=== PATIENT | male | born 1970 | race Caucasian/White ===

== ENCOUNTER 2016-08-26 06:57 | Inpatient (IN) | payer MEDICAID ==
[2016-08-26 06:58] VITALS: BMI 22.3
[2016-08-26] MEDS ORDERED: Sodium Chloride 0.9% 1,000 ML IV ONE ×2 (07:43→11:13)
--- NOTE | 2016-08-26 07:49 | C.PDOC ---
History Of Present Illness Patient is a 46 y/o male that presents to the ED for evaluation of left side chest pain when coughing, and worsened with deep breath for the last 3-4 days. 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 Pt also notes (+) chills. Otherwise, denies any fever, n/v/d, diaphoresis, trauma, numbness or weakness. Time Seen by Provider: 08/26/16 07:32 Chief Complaint (Nursing): Back Pain History Per: Patient History/Exam Limitations: no limitations Onset/Duration Of Symptoms: Days (4), Persistent Current Symptoms Are (Timing): Still Present Quality Of Discomfort: Sharp, "Pain" Severity: Moderate Pain Scale Rating Of: 10 Previous Symptoms: None Associated Symptoms: None. denies: Incontinence, New Weakness, New Numbness Exacerbating Factor(s): Other (deep breathing) Recent travel outside of the [place]: No Additional History Per: Patient Past Medical History Reviewed: Historical Data, Nursing Documentation, Vital Signs Vital Signs: Last Vital Signs Temp 97.9 F 08/26/16 13:22 Pulse 85 08/26/16 13:22 Resp 18 08/26/16 13:22 BP 105/68 08/26/16 13:22 Pulse Ox 99 08/26/16 13:22 - Medical History PMH: Anxiety, Depression, Hepatitis Denies: Diabetes, HIV, HTN, Chronic Kidney Disease, Seizures, Sexually Transmitted Disease - [facility] Procedures DETOXIFICATION SERVICES FOR SUBSTANCE ABUSE TREATMENT (02/15/16) DRAINAGE OF LEFT HIP JOINT, PERCUTANEOUS APPROACH (09/22/15) GROUP PSYCHOTHERAPY (09/22/15) INDIVIDUAL PSYCHOTHERAPY, SUPPORTIVE (02/15/16) MEDS MGMT FOR SUBSTANCE ABUSE TREATMENT, METHADONE MAINT (09/22/15) MEDS MGMT FOR SUBSTANCE ABUSE TREATMENT, OTH REPL MED (09/22/15) ULTRASONOGRAPHY OF PELVIC REGION (09/22/15) ULTRASONOGRAPHY OF RIGHT AND LEFT HEART (09/22/15) Family History: States: No Known Family Hx - Social History Hx Tobacco Use: Yes (heavy smoker) Hx Alcohol Use: Yes Hx Substance Use: Yes - Immunization History Hx Tetanus Toxoid Vaccination: No Hx Influenza Vaccination: No Hx Pneumococcal Vaccination: No Review Of Systems Except As Marked, All Systems Reviewed And Found Negative. Constitutional: Positive for: Chills. Negative for: Fever, Sweats Cardiovascular: Positive for: Chest Pain. Negative for: Palpitations, Light Headedness Respiratory: Positive for: Cough Gastrointestinal: Negative for: Nausea, Vomiting, Diarrhea Physical Exam - Physical Exam Appears: Non-toxic, No Acute Distress Skin: Normal Color, Warm, Dry, No Rash Head: Atraumatic, Normacephalic Eye(s): bilateral: Normal Inspection, PERRL, EOMI Ear(s): Bilateral: Normal Oral Mucosa: Moist Throat: Normal, No Erythema, No Exudate Neck: Normal ROM, No Midline Cervical Tenderness, No Paracervical Tenderness, Supple Chest: Symmetrical, No Tenderness Cardiovascular: Rhythm Regular, No Friction Rub, No Murmur Respiratory: Decreased Breath Sounds (mildly decreased breath sounds bilaterally ), No Accessory Muscle Use, No Rhonchi, No Stridor, No Wheezing Gastrointestinal/Abdominal: Soft, No Tenderness, No Guarding, No Hernia Back: Normal Inspection, No CVA Tenderness, No Vertebral Tenderness, No Paraspinal Tenderness Extremity: Normal ROM, No Calf Tenderness, No Swelling Pulses: Left Dorsalis Pedis: Normal, Right Dorsalis Pedis: Normal Neurological/Psych: Oriented x3, Normal Speech, Normal Cognition, Normal Motor, Normal Sensation Gait: Steady ED Course And Treatment - Laboratory Results Result Diagrams: 08/26/16 07:56 08/26/16 07:56 ECG: Interpreted By Sc, Viewed By Sc ECG Rhythm: Sinus Rhythm ECG Interpretation: Normal Interpretation Of ECG: Normal ST/T wave changes. Rate From EC (bpm) O2 Sat by Pulse Oximetry: 98 (on RA) Pulse Ox Interpretation: Normal - Radiology CXR: Interpreted by Sc CXR Interpretation: Yes: Other (pulmonary wedge infiltrate). No: Pnemothorax - CT Scan/US Angio chest CT Other Rad Studies (CT/US): Read By Radiologist, Radiology Report Reviewed CT/US Interpretation: Findings: The current study reveals emboli within proximal segmental branches of the lower lobe pulmonary artery. There is associated wedge-shaped opacity at just distal to the embolus bordering the pleural surface that exhibits areas of low attenuation and air possibly representing infarct with cystic degeneration, necrosis or septic embolus versus pneumonia. There is a small approximately 14 mm nodular density within the anterior aspect left upper lobe with a small central bubble of air ; possibly representing septic embolus. Rule out septic emboli. .Additionally, multiple small nodules some seen in the left lung base. .There is an additional elliptical shaped low-attenuation lesion left upper lobe bordering the fissure measuring 3.9 x 1.6 cm that could represent a collection - loculated fluid. Small left-sided effusion The vague translucent opacities are also seen in the peripheral margins of the left upper lobe bordering the pleural surface. Heart is enlarged. No significant pericardial effusion. .. Multiple small medium- sized bold nonspecific mediastinal lymph nodes are noted. There is a enlarged left hilar lymph node measuring approximately 2 cm hilar lymph node. Note made of changes of gynecomastia. Impression: There are pulmonary emboli within left lower lobe segmental branches of 1 of which may be associated with a pulmonary infarct although this opacity is associated with what appears represent eccentric proteinaceous fluid and air ; rule out the septic emboli with infarct versus underlying not excluded. Small nodular densities left lower lobe. There is an additional small nodule left upper lobe associate with central bubble of air. Again rule out septic emboli. There is an additional elliptical shaped low- attenuation lesion left upper lobe bordering the fissure measuring 3.9 x 1.6 cm that could represent a collection - loculated fluid. Small left effusion. Multiple mediastinal and left hilar lymph nodes are present. Mediastinal and left hilar adenopathy Critical Care Time - Critical Care Note Total Time (in mins): 40 Comments: comments in the MDM Documented critical care: time excludes all time spent performing seperately billable procedures. Medical Decision Making Medical Decision Making: Progress note: Labs, CXR ordered and reviewed. Patient was treated with IV fluids, and Toradol IVP. On the CXR, there is evidence of a wedge shaped deformity indicative of pulmonary infarction. CT chest ordered to look for possible pulmonary embolism. BP:96/60, IV fluids continued. O2 sat remains 96% on RA. Blood cultures ordered and Vancomycin ordered. Spoke with online project manager head banquet waitress, Dr. Enrique, and states will come to ED to examine patient. He states to give anti-coagulation and that more than likely patient will not need ICU as the patient is hemodynamically stable at this time. On re-exam, patient is A&O. x [address] and speaking in full sentences. Dr. Enrique evaluated the patient at bedside and states he can go to telemetry. Lovenox ordered. Case was discussed with Dr. Luis Navarro who agrees to admit the patient to his service. Disposition - Disposition Disposition: HOSPITALIZED Disposition Time: 11:26 Condition: STABLE - POA Present On Arrival: None - Clinical Impression Clinical Impression: Pulmonary embolism, Septic embolism - PA / SENIOR BUSINESS DEVELOPMENT MANAGER / Resident Statement MD/DO has reviewed & agrees with the documentation as recorded. - Scribe Statement The provider has reviewed the documentation as recorded by the Scribe Aisha Navarro All medical record entries made by the Scribe were at my direction and personally dictated by me. I have reviewed the chart and agree that the record accurately reflects my personal performance of the history, physical exam, medical decision making, and the department course for this patient. I have also personally directed, reviewed, and agree with the discharge instructions and disposition.
[2016-08-26] MEDS ORDERED: Sodium Chloride 0.9% 1,000 ML ONE ×2 (07:56→11:32)
[2016-08-26 08:12] LABS: CHLORIDE 97 mmol/L (98-107); SODIUM 133 mmol/L (132-148)
[2016-08-26 08:13] LABS: POTASSIUM 3.3 mmol/L (3.6-5.2)
[2016-08-26 08:14] LABS: GFR AFRICAN-AMERICAN > 60
[2016-08-26 08:15] LABS: ALB/GLOB RATIO 1.1 (1.0-2.1); ALKALINE PHOSPHATASE 134 U/L (38-126); ALT/SGPT 67 U/L (21-72); AST/SGOT 56 U/L (17-59); BILIRUBIN,TOTAL 0.9 mg/dL (0.2-1.3); BLOOD UREA NITROGEN 13 mg/dL (9-20); CALCIUM 8.6 mg/dl (8.6-10.4); CARBON DIOXIDE 25 mmol/L (22-30); GLUCOSE,RANDOM 124 mg/dL (75-110); TOTAL PROTEIN 6.2 g/dL (6.3-8.3)
[2016-08-26 08:18] LABS: BASO % 0.2 % (0.0-2.0); EOS % 0.4 % (0.0-4.0); HEMATOCRIT 34.2 % (35.0-51.0); LYMPH # 0.8 K/uL (1.0-4.3); LYMPH % 6.5 % (20.0-40.0); MEAN CORPUSCULAR HGB CONC 33.9 g/dL (33.0-37.0); MEAN PLATELET VOLUME 6.8 fL (7.2-11.7); MONO % 8.4 % (0.0-10.0); PLATELET COUNT 212 K/uL (130-400); RED CELL DISTRIBUTION WIDTH 12.4 % (11.5-14.5); WHITE BLOOD COUNT 11.8 K/uL (4.8-10.8)
[2016-08-26 08:37] LABS: MEAN CELL VOLUME 85.6 fL (80.0-94.0)
[2016-08-26] MEDS ORDERED: Iodixanol 320 MG/ML 100 ML BOTTLE IV ONE ×2 (08:54→10:14)
[2016-08-26] MEDS ORDERED: Morphine 4 MG/ML VIAL ONE (08:55)
[2016-08-26 09:28] LABS: EOSINOPHIL 1 % (0-4); NEUTROPHIL 84 % (50-75); TOTAL CELLS COUNTED 100
--- NOTE | 2016-08-26 10:47 | CT ---
PROCEDURE: CT Angiography chest dated 08/26/2016. HISTORY: Wedge shaped infiltrate vs pulm infarct TECHNIQUE: Technique: CT angiography of the chest performed in standard fashion. . Coronal and sagittal reformats, and well as rotating MIP images of the vessels generated at the workstation. Intravenous contrast dose: 100cc Omnipaque Visipaque 320 contrast material. Radiation dose: Total exam DLP = 407.09 mGy-cm. This CT exam was performed using one or more of the following dose reduction techniques: Automated exposure control, adjustment of the mA and/or kV according to patient size, and/or use of iterative reconstruction technique. Findings: The current study reveals emboli within proximal segmental branches of the lower lobe pulmonary artery. There is associated wedge-shaped opacity at just distal to the embolus bordering the pleural surface that exhibits areas of low attenuation and air possibly representing infarct with cystic degeneration, necrosis or septic embolus versus pneumonia. There is a small approximately 14 mm nodular density within the anterior aspect left upper lobe with a small central bubble of air ; possibly representing septic embolus. Rule out septic emboli. .Additionally, multiple small nodules some seen in the left lung base. .There is an additional elliptical shaped low-attenuation lesion left upper lobe bordering the fissure measuring 3.9 x 1.6 cm that could represent a collection - loculated fluid. Small left-sided effusion The vague translucent opacities are also seen in the peripheral margins of the left upper lobe bordering the pleural surface Heart is enlarged. No significant pericardial effusion. .. Multiple small medium-sized bold nonspecific mediastinal lymph nodes are noted. There is a enlarged left hilar lymph node measuring approximately 2 cm hilar lymph node. Note made of changes of gynecomastia Impression: There are pulmonary emboli within left lower lobe segmental branches of 1 of which may be associated with a pulmonary infarct although this opacity is associated with what appears represent eccentric proteinaceous fluid and air ; rule out the septic emboli with infarct versus underlying not excluded. Small nodular densities left lower lobe. There is an additional small nodule left upper lobe associate with central bubble of air. Again rule out septic emboli. There is an additional elliptical shaped low-attenuation lesion left upper lobe bordering the fissure measuring 3.9 x 1.6 cm that could represent a collection - loculated fluid Small left effusion. Multiple mediastinal and left hilar lymph nodes are present. Mediastinal and left hilar adenopathy
[2016-08-26] MEDS ORDERED: HYDROmorphone 1 mg/ml ISec IVP STA (10:58)
[2016-08-26] MEDS ORDERED: HYDROmorphone 1 mg/ml ISec ONE (11:08)
[2016-08-26] MEDS ORDERED: Enoxaparin 40 mg Syringe SC STA (11:24)
[2016-08-26] MEDS ORDERED: Enoxaparin 80 mg Syringe ONE (11:32)
--- NOTE | 2016-08-26 12:09 | RAD ---
HISTORY: cough, chest pain, COMPARISON: No prior. TECHNIQUE: Chest PA and lateral FINDINGS: LUNGS: Wedge-shaped opacity in the lateral mid lung field could represent atypical infection however pulmonary infarct not excluded. There also appears to be mild left basilar atelectasis and or scarring. . Small nodules left lung base seen on prior study not appreciated PLEURA: No significant pleural effusion identified. No pneumothorax apparent. CARDIOVASCULAR: Heart size appears enlarged. OSSEOUS STRUCTURES: No significant abnormalities. VISUALIZED UPPER ABDOMEN: Normal. OTHER FINDINGS: None. IMPRESSION: No wedge-shaped opacity left lateral mid lung field could represent pneumonia versus is on infarct. Left basilar atelectasis and or scarring nodular opacity seen in the left lung base not appreciated on this exam
[2016-08-26] MEDS ORDERED: Piperacillin/Tazobact 3.375 GM in Sodium Chloride 100 ML IVPB SCH (15:00)
[2016-08-26] MEDS: HYDROmorphone 0.5 mg/0.5 ml ISec IVP SCH (15:21)
[2016-08-26] MEDS ORDERED: Vancomycin 1 gm/NS 200 ml 200 ML IVPB ONE (15:30)
--- NOTE | 2016-08-26 15:44 | CP.PCM.CON ---
History of Present Illness - History of Present Illness History of Present Illness: 46 y/o male that presents to the ED for evaluation of left side chest pain when coughing, and worsened with deep breath for the last 3-4 days. 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 Pt also notes (+) chills. Otherwise, denies any fever, n/v/d, diaphoresis, trauma, numbness or weakness. Past Patient History - Past Medical History & Family History Past Medical History?: Yes - Past Social History Smoking Status: Heavy Smoker > 10 Cigarettes Daily - CARDIAC Hx Hypertension: No - PULMONARY Hx Bronchitis: Yes - NEUROLOGICAL Hx Seizures: No - HEENT Hx HEENT Problems: No Other/Comment: Hx of dental abscesses treated with tylenol #3 - RENAL Hx Chronic Kidney Disease: No - ENDOCRINE/METABOLIC Hx Endocrine Disorders: No - HEMATOLOGICAL/ONCOLOGICAL Hx Human Immunodeficiency Virus (HIV): No - INTEGUMENTARY Hx Dermatological Problems: No - MUSCULOSKELETAL/RHEUMATOLOGICAL Hx Falls: No Other/Comment: Generalize weakness. - GASTROINTESTINAL Hx Gastrointestinal Disorders: Yes Hx Gastroesophageal Reflux: Yes - GENITOURINARY/GYNECOLOGICAL Hx Sexually Transmitted Disorders: No - PSYCHIATRIC Hx Anxiety: Yes Hx Depression: Yes Hx Substance Use: Yes - SURGICAL HISTORY Hx Surgeries: No - ANESTHESIA Hx Anesthesia: No Hx Anesthesia Reactions: No Hx Malignant Hyperthermia: No Has any member of the family had a problem w/ anesthesia?: No Meds Allergies/Adverse Reactions: Allergies Allergy/AdvReac Type Severity Reaction Status Date / Time Penicillins Allergy Severe ANAPHYLAXIS Verified 08/26/16 07:11 - Medications Medications: Current Medications Albuterol/Ipratropium (Duoneb 3 Mg/0.5 Mg (3 Ml) Ud) 3 ml INH RQ6 [facility] Aspirin (Aspirin) 325 mg PO DAILY [facility] Bupropion HCl (Wellbutrin Sr 150 Mg) 150 mg PO DAILY [facility] Hydromorphone HCl (Dilaudid) 0.5 mg IVP Q8 [facility] Last Admin: 08/26/16 15:21 Dose: 0.5 mg Vancomycin HCl (Vancomycin 1gm In Normal Saline Addvantage) 250 mls @ 166.667 mls/hr IV STAT [facility] Last Admin: 08/26/16 11:23 Dose: 166.667 mls/hr Moxifloxacin HCl (Avelox Iv 400mg/250ml Ns) 250 mls @ 167 mls/hr IVPB Q24H [facility] Vancomycin HCl 1,000 mg/ (Sodium Chloride) 250 mls @ 166.6 mls/hr IVPB Q12H [facility] Montelukast Sodium (Singulair) 10 mg PO HS [facility] Pantoprazole Sodium (Protonix Ec Tab) 40 mg PO DAILY [facility] Trazodone HCl (Desyrel) 100 mg PO HS [facility] Results - Vital Signs Recent Vital Signs: Last Vital Signs Temp 97.9 F 08/26/16 13:22 Pulse 85 08/26/16 13:22 Resp 18 08/26/16 13:22 BP 105/68 08/26/16 13:22 Pulse Ox 98 08/26/16 14:07 - Labs Result Diagrams: 08/26/16 07:56 08/26/16 07:56
[2016-08-26] MEDS: Moxifloxacin IV 400mg/250ml NS 250 ML IVPB SCH (16:00)
--- NOTE | 2016-08-26 19:33 | CP.CCUPN ---
CCU Subjective - Physician Review Events Since Last Encounter (Free Text): 08/26/16 19:30 pt with drug abuse. c/o chest pain cough chest ct pneumonia and pe on antibiotics on lovenox drug abuse psych consult no need for icu call icu if needed CCU Objective - Vital Signs / Intake & Output Vital Signs (Last 4 hours): Vital Signs Temp Pulse Resp BP Pulse Ox 08/26/16 19:05 102.9 F H 97 H 20 119/53 L 95 08/26/16 17:40 99.5 F 98 H 20 117/76 97 Intake and Output (Last 8hrs): Intake & Output 08/26/16 08/26/16 08/26/16 06:59 14:59 22:59 Other: Voiding Method Toilet - Medications Active Medications: Active Medications Generic Name Dose Route Start Last Admin Trade Name Freq PRN Reason Stop Dose Admin Albuterol/Ipratropium 3 ml 08/26/16 14:53 Duoneb 3 Mg/0.5 Mg (3 Ml) Ud INH RQ6 [facility] Aspirin 325 mg 08/27/16 14:54 Aspirin PO DAILY [facility] Bupropion HCl 150 mg 08/26/16 22:00 Wellbutrin Xl PO HS [facility] Hydromorphone HCl 0.5 mg 08/26/16 15:00 08/26/16 15:21 Dilaudid IVP 0.5 mg Q8 [facility] Administration Vancomycin HCl 250 mls @ 166.667 mls/hr 08/26/16 11:00 08/26/16 11:23 Vancomycin 1gm In Normal Saline Addvantage IV 166.667 mls/hr STAT [facility] Administration Moxifloxacin HCl 250 mls @ 167 mls/hr 08/26/16 15:45 08/26/16 16:00 Avelox Iv 400mg/250ml Ns IVPB 167 mls/hr Q24H [facility] Administration Vancomycin HCl 1,000 mg/ 250 mls @ 166.6 mls/hr 08/26/16 23:30 Sodium Chloride IVPB Q12H [facility] Montelukast Sodium 10 mg 08/26/16 22:00 Singulair PO HS [facility] Pantoprazole Sodium 40 mg 08/27/16 14:49 Protonix Ec Tab PO DAILY [facility] Trazodone HCl 100 mg 08/26/16 22:00 Desyrel PO HS [facility] - Patient Studies Lab Studies: Lab Studies 08/26/16 Range/Units 16:49 Total Creatine Kinase 48 L (55-170) U/L CK-MB (Mass) 0.80 (0.0-3.38) ng/mL Troponin I, Quant < 0.0120 (0.00-0.120) ng/mL Laboratory Results - last 24 hr 08/26/16 16:49 Total Creatine Kinase 48 L CK-MB (Mass) 0.80 Troponin I, Quant < 0.0120 EKG/Cardiology Studies: Cardiology / EKG Studies 08/27/16 08:00 EKG [ELECTROCARDIOGRAM] Routine Comment: bedside Mode Of Transportation: BED Reason For Exam: chest pain Critical Care Progress Note - Nutrition Nutrition: Nutrition Category Date Time Status Heart Healthy Diet [DIET] Diets 08/26/16 Lunch Active
[2016-08-26] MEDS ORDERED: Potassium Chloride 20 mEq ER Tab PO STA (22:58)
--- NOTE | 2016-08-26 23:03 | CP.PCM.HP ---
History of Present Illness - History of Present Illness History of Present Illness: Patient is a 46 year old male that presented to the ED for evaluation of left- sided chest pain when coughing, and worsened with deep breathing for the last 3- 4 days. 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 Patient also notes positive chills. Patient denies any fever, nausea, vomiting, diarrhea, diaphoresis, trauma, numbness or weakness Present on Admission - Present on Admission Any Indicators Present on Admission: No Past Patient History - Past Medical History & Family History Past Medical History?: Yes - Past Social History Smoking Status: Heavy Smoker > 10 Cigarettes Daily - CARDIAC Hx Hypertension: No - PULMONARY Hx Bronchitis: Yes - NEUROLOGICAL Hx Seizures: No - HEENT Hx HEENT Problems: No Other/Comment: Hx of dental abscesses treated with tylenol #3 - RENAL Hx Chronic Kidney Disease: No - ENDOCRINE/METABOLIC Hx Endocrine Disorders: No - HEMATOLOGICAL/ONCOLOGICAL Hx Human Immunodeficiency Virus (HIV): No - INTEGUMENTARY Hx Dermatological Problems: No - MUSCULOSKELETAL/RHEUMATOLOGICAL Hx Falls: No Other/Comment: Generalize weakness. - GASTROINTESTINAL Hx Gastrointestinal Disorders: Yes Hx Gastroesophageal Reflux: Yes - GENITOURINARY/GYNECOLOGICAL Hx Sexually Transmitted Disorders: No - PSYCHIATRIC Hx Anxiety: Yes Hx Depression: Yes Hx Substance Use: Yes - SURGICAL HISTORY Hx Surgeries: No - ANESTHESIA Hx Anesthesia: No Hx Anesthesia Reactions: No Hx Malignant Hyperthermia: No Has any member of the family had a problem w/ anesthesia?: No Meds Allergies/Adverse Reactions: Allergies Allergy/AdvReac Type Severity Reaction Status Date / Time Penicillins Allergy Severe ANAPHYLAXIS Verified 08/26/16 07:11 Results - Vital Signs Recent Vital Signs: Last Vital Signs Temp 100.2 F H 08/26/16 21:16 Pulse 97 H 08/26/16 19:05 Resp 20 08/26/16 19:05 BP 119/53 L 08/26/16 19:05 Pulse Ox 95 08/26/16 19:05 - Labs Result Diagrams: 09/01/16 08:15 09/01/16 08:15 Labs: Laboratory Results - last 24 hr 08/26/16 08/26/16 16:49 20:27 Lactic Acid 0.7 Total Creatine Kinase 48 L CK-MB (Mass) 0.80 Troponin I, Quant < 0.0120 Assessment & Plan (1) Anemia Status: Acute Priority: Medium (2) Chest pain Status: Acute (3) Dental caries Status: Acute (4) Depression Status: Acute Priority: High (5) Drug abuse Status: Acute (6) Dyspnea Status: Acute (7) Effusion of hip joint, left Status: Acute (8) Electrolyte abnormality Status: Acute (9) Fever Status: Acute (10) Heroin dependence Status: Acute (11) Infective endocarditis Status: Acute Priority: High (12) Lower leg edema Status: Acute Priority: Medium (13) Osteomyelitis of left hip Status: Acute (14) Prophylactic measure Status: Acute (15) Pulmonary embolism Status: Acute (16) Septic arthritis Status: Acute Priority: Medium (17) Septic embolism Status: Acute (18) Breast lump Status: Chronic Priority: Medium (19) Drug dependence Status: Chronic Priority: High (20) Polysubstance (including opioids) dependence with physiol dependence Status: Chronic (21) Tobacco abuse Status: Chronic - Assessment and Plan (Free Text) Plan: Consult ID Consult psychiatry Consult cardiology DuoNeb Aspirin Dilaudid Vancomycin Singulair Protonix
[2016-08-26 23:40] LABS: RBC URINE 10 /hpf (0-3); URINE BACTERIA FEW (<OCC); URINE BILIRUBIN NEGATIVE (NEGATIVE); URINE BLOOD 1+ (NEGATIVE); URINE COLOR Yellow (YELLOW); URINE GLUCOSE (UA) NORMAL (Normal); URINE KETONE NEGATIVE (NEGATIVE); URINE LEUKOCYTE ESTERASE 1+ Leu/uL (Negative); URINE PROTEIN NEGATIVE (NEGATIVE); WBC URINE 20 /hpf (0-5)
[2016-08-27] MEDS: Albuterol-Ipratrop 3 mg / 0.5 (3 ml) UD INH SCH ×4 (01:26→19:21)
[2016-08-27] MEDS: HYDROmorphone 0.5 mg/0.5 ml ISec IVP SCH ×4 (06:55→22:00)
--- NOTE | 2016-08-27 11:39 | CP.PCM.PN ---
Subjective - Date & Time of Evaluation Date of Evaluation: 08/27/16 Time of Evaluation: 07:00 - Subjective Subjective: cultures pending still weak, SOB NAD Objective - Vital Signs/Intake and Output Vital Signs (last 24 hours): Temp Pulse Resp BP Pulse Ox 99.3 F 99 H 20 98/58 L 99 08/27/16 07:12 08/27/16 07:46 08/27/16 07:12 08/27/16 07:12 08/27/16 07:12 Intake and Output: 08/27/16 08/27/16 06:59 18:59 Intake Total 1250 Balance 1250 - Medications Medications: Current Medications Acetaminophen (Tylenol 325mg Tab) 650 mg PO Q6 PRN PRN Reason: for: fever above 101 Last Admin: 08/26/16 20:16 Dose: 650 mg Albuterol/Ipratropium (Duoneb 3 Mg/0.5 Mg (3 Ml) Ud) 3 ml INH RQ6 [facility] Last Admin: 08/27/16 09:09 Dose: 3 ml Aspirin (Aspirin) 325 mg PO DAILY [facility] Bupropion HCl (Wellbutrin Xl) 150 mg PO HS [facility] Hydromorphone HCl (Dilaudid) 0.5 mg IVP Q8 [facility] Last Admin: 08/27/16 06:55 Dose: 0.5 mg Moxifloxacin HCl (Avelox Iv 400mg/250ml Ns) 250 mls @ 167 mls/hr IVPB Q24H [facility] Last Admin: 08/26/16 16:00 Dose: 167 mls/hr Vancomycin HCl 1,000 mg/ (Sodium Chloride) 250 mls @ 166.6 mls/hr IVPB Q12H [facility] Last Admin: 08/27/16 11:07 Dose: 166.6 mls/hr Montelukast Sodium (Singulair) 10 mg PO HS [facility] Last Admin: 08/26/16 21:37 Dose: 10 mg Pantoprazole Sodium (Protonix Ec Tab) 40 mg PO DAILY [facility] Trazodone HCl (Desyrel) 100 mg PO HS [facility] Last Admin: 08/26/16 21:37 Dose: 100 mg - Constitutional Appears: Toxic - Head Exam Head Exam: NORMOCEPHALIC - Eye Exam Eye Exam: EOMI. absent: Scleral icterus - ENT Exam ENT Exam: Mucous Membranes Dry - Neck Exam Neck Exam: absent: Lymphadenopathy - Respiratory Exam Respiratory Exam: Decreased Breath Sounds, Rhonchi - Cardiovascular Exam Cardiovascular Exam: REGULAR RHYTHM, +S1, +S2 - GI/Abdominal Exam GI & Abdominal Exam: Distended, Soft. absent: Tenderness - Rectal Exam Rectal Exam: Deferred - Exam Exam: NORMAL INSPECTION - Extremities Exam Extremities Exam: absent: Calf Tenderness, Pedal Edema - Back Exam Back Exam: absent: CVA tenderness (L), CVA tenderness (R) - Neurological Exam Neurological Exam: Alert, Awake, Oriented x3 Assessment and Plan (1) Pulmonary embolism Status: Acute (2) Septic embolism Status: Acute (3) Depression Status: Acute (4) Infective endocarditis Status: Acute - Assessment and Plan (Free Text) Assessment: await echo /cultures Plan: cont iv rx check vanco levels
[2016-08-27] MEDS: Pantoprazole 40 mg EC Tab PO SCH (14:59)
[2016-08-27] MEDS: Moxifloxacin IV 400mg/250ml NS 250 ML IVPB SCH (15:00)
--- NOTE | 2016-08-27 15:01 | PCM.PSYCH ---
Initial Psychiatric Evaluation - Initial Psychiatric Evaluation Type of Admission: Voluntary Legal Status: Capacity Chief Complaint (in patient's own words): "I'm withdrawing" History of Present Illness and Precipitating Events: Pt is seen, chart reviewed. THis is a 46 yo single LM, living with his mother. He is well-known to the literary writer from previous admissions. He says he went to [facility] rehab for couple of weeks after he left here but he quit because of his girlfriend, who, of note, is known to bring drugs to hospital. Pt says he has been using 30 bags of iv heroin for 3 months now and is in withdrawal (observed) Also using cocaine. 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 Past psych hx: No admission but detox Current Medications: Active Medications Generic Name Dose Route Start Last Admin Trade Name Freq PRN Reason Stop Dose Admin Acetaminophen 650 mg 08/26/16 20:06 08/26/16 20:16 Tylenol 325mg Tab PO 650 mg Q6 PRN Administration for: fever above 101 Albuterol/Ipratropium 3 ml 08/26/16 14:53 08/27/16 13:50 Duoneb 3 Mg/0.5 Mg (3 Ml) Ud INH Not Given RQ6 ESTEBAN Aspirin 325 mg 08/27/16 14:54 08/27/16 14:59 Aspirin PO 325 mg DAILY EST[facility] Administration Bupropion HCl 150 mg 08/26/16 22:00 Wellbutrin Xl PO HS EST[facility] Hydromorphone HCl 0.5 mg 08/26/16 15:00 08/27/16 14:02 Dilaudid IVP 0.5 mg Q8 EST[facility] Administration Moxifloxacin HCl 250 mls @ 167 mls/hr 08/26/16 15:45 08/27/16 15:00 Avelox Iv 400mg/250ml Ns IVPB 167 mls/hr Q24H [facility] Administration Vancomycin HCl 1,000 mg/ 250 mls @ 166.6 mls/hr 08/26/16 23:30 08/27/16 11:07 Sodium Chloride IVPB 166.6 mls/hr Q12H [facility] Administration Montelukast Sodium 10 mg 08/26/16 22:00 08/26/16 21:37 Singulair PO 10 mg HS EST[facility]AN Administration Pantoprazole Sodium 40 mg 08/27/16 14:49 08/27/16 14:59 Protonix Ec Tab PO 40 mg DAILY EST[facility] Administration Trazodone HCl 100 mg 08/26/16 22:00 08/26/16 21:37 Desyrel PO 100 mg HS ESTEBAN Administration Past Psychiatric History - Past Psychiatric History Previous Treatment History: None Pertinent Medical Hx (Current Medical&Sleep Prob, Allergies): Allergies Allergy/AdvReac Type Severity Reaction Status Date / Time Penicillins Allergy Severe ANAPHYLAXIS Verified 08/26/16 07:11 traZODone [Desyrel] 100 mg PO HS #0 tab 11/08/15 Bupropion HCl [Wellbutrin Sr] 150 mg PO DAILY 07/11/16 Hydroxyzine Pamoate [Vistaril] 25 mg PO TID 07/11/16 Ranitidine HCl [Ranitidine HCl] 300 mg PO DAILY 07/11/16 Review of Systems - Neurological Neurological: UNREMARKABLE - Psychiatric Psychiatric: Abnormal Sleep Pattern, Anxiety. absent: Hallucinations, Homicidal Ideation, Suicidal Ideation Mental Status Examination - Personal Presentation Personal Presentation: Looks stated age - Affect Affect: Constricted - Motor Activity Motor Activity: Calm - Reliability in Providing Information Reliability in Providing Information: Fair - Speech Speech: Organized - Mood Mood: Anxious - Formal Thought Process Formal Thought Process: No Impairment - Cognitive Functions Orientation: Person, Place, Situation, Time Attention/Concentration: Easily distracted Estimate of Intelligence: Average Judgement: Intact, as evidence by: Insight regarding need for hospitalization Memory: Recent intact, as evidence by: Ability to recall events of the day, Remote intact, as evidenced by: Abilit to recall sig. life events - Risk Risk: Withdrawal, Diminished functioning - Strength & Assets Inventory Strength & Assets Inventory: Family support, Cooperative DSM 5 DX - DSM 5 DSM 5 Diagnosis: Opioid withdrawal Opioid use d/o - severe Cocaine use d/o - severe - Recommended/Plan of Treatment Treatment Recommendations and Plan of Treatment: Methadone detox As needed meds Seroquel Gabapentin Support psychoed [place] Refer to rehab 32 min
--- NOTE | 2016-08-27 15:23 | CARD ---
APPROVED REPORT EXAM: Two-dimensional and M-mode echocardiogram with Doppler and color Doppler. Other Information Quality : GoodRhythm : NSR INDICATION Pulmonary Embolism Chest Pain T V VEGE M-Mode DIMENSIONS RVDd3.50 (2.1-3.2cm)Left Atrium (MM)3.72 (2.5-4.0cm) IVSd0.81 (0.7-1.1cm)Aortic Root3.39 (2.2-3.7cm) LVDd4.61 (4.0-5.6cm)Aortic Cusp Exc.2.18 (1.5-2.0cm) PWd0.81 (0.7-1.1cm)FS (%) 31 % LVDs3.17 (2.0-3.8cm)LVEF (%)59 (>50%) Aortic Valve AoV Peak Ozoitfds559.0cm/Kylah Peak GR.6mmHg Mitral Valve MV E Giudskfl28.1cm/sMV A Nedwojzp92.5cm/sE/A ratio1.3 TDI E/Lateral E'0.0E/Medial E'0.0 Tricuspid Valve TR Peak Segaefml343yy/sTR Peak Gr.[id number] LEFT VENTRICLE The left ventricle is normal size. There is normal left ventricular wall thickness. The left ventricular function is normal. The left ventricular ejection fraction is within the normal range. There is normal LV segmental wall motion. The left ventricular diastolic function is normal. RIGHT VENTRICLE The right ventricle is mildly dilated. There is normal right ventricular wall thickness. RV Systolic function is mildly reduced. ATRIA The left atrium size is normal. The right atrium size is normal. AORTIC VALVE The aortic valve is normal in structure. No aortic regurgitation is present. MITRAL VALVE The mitral valve is normal in structure. There is no evidence of mitral valve prolapse. TRICUSPID VALVE There is mild tricuspid regurgitation. There is mild pulmonary hypertension. GREAT VESSELS The aortic root is normal in size. The IVC is normal in size and collapses >50% with inspiration. <Conclusion> The right ventricle is mildly dilated. RV Systolic function is mildly reduced. There is mild tricuspid regurgitation. There is mild pulmonary hypertension. The left ventricular function is normal. The left ventricular ejection fraction is within the normal range.
[2016-08-27] MEDS: Aluminum Hydroxide/Magnesium Hydroxide Susp (30 mL) PO PRN ×2 (16:12→22:19)
--- NOTE | 2016-08-27 18:07 | CP.PCM.PN ---
Subjective - Date & Time of Evaluation Date of Evaluation: 08/27/16 Time of Evaluation: 14:40 - Subjective Subjective: clinically same Objective - Vital Signs/Intake and Output Vital Signs (last 24 hours): Temp Pulse Resp BP Pulse Ox 98.9 F 86 20 115/73 97 08/27/16 15:32 08/27/16 15:32 08/27/16 15:32 08/27/16 15:32 08/27/16 15:32 Intake and Output: 08/27/16 08/27/16 06:59 18:59 Intake Total 1250 600 Balance 1250 600 - Medications Medications: Current Medications Acetaminophen (Tylenol 325mg Tab) 650 mg PO Q6 PRN PRN Reason: for: fever above 101 Last Admin: 08/26/16 20:16 Dose: 650 mg Al Hydrox/Mg Hydrox/Simethicone (Maalox 30 Ml) 30 ml PO TID PRN PRN Reason: Indigestion / Heartburn Last Admin: 08/27/16 16:12 Dose: 30 ml Albuterol/Ipratropium (Duoneb 3 Mg/0.5 Mg (3 Ml) Ud) 3 ml INH RQ6 [facility] Last Admin: 08/27/16 13:50 Dose: Not Given Aspirin (Aspirin) 325 mg PO DAILY [facility] Last Admin: 08/27/16 14:59 Dose: 325 mg Bupropion HCl (Wellbutrin Xl) 150 mg PO HS [facility] Gabapentin (Neurontin) 300 mg PO TID [facility] Last Admin: 08/27/16 17:51 Dose: 300 mg Hydromorphone HCl (Dilaudid) 0.5 mg IVP Q8 [facility] Last Admin: 08/27/16 14:02 Dose: 0.5 mg Moxifloxacin HCl (Avelox Iv 400mg/250ml Ns) 250 mls @ 167 mls/hr IVPB Q24H [facility] Last Admin: 08/27/16 15:00 Dose: 167 mls/hr Vancomycin HCl 1,000 mg/ (Sodium Chloride) 250 mls @ 166.6 mls/hr IVPB Q12H [facility] Last Admin: 08/27/16 11:07 Dose: 166.6 mls/hr Loperamide HCl (Imodium) 2 mg PO Q8 PRN PRN Reason: Diarrhea Methadone HCl (Methadone) 15 mg PO Q24H [facility] PRN Reason: Taper Stop: 04/28/17 08:59 Montelukast Sodium (Singulair) 10 mg PO HS [facility] Last Admin: 08/26/16 21:37 Dose: 10 mg Ondansetron HCl (Zofran Tab) 4 mg PO Q8 PRN PRN Reason: Nausea/Vomiting Pantoprazole Sodium (Protonix Ec Tab) 40 mg PO DAILY [facility] Last Admin: 08/27/16 14:59 Dose: 40 mg Quetiapine Fumarate (Seroquel) 50 mg PO [facility] Trazodone HCl (Desyrel) 100 mg PO HS [facility] Last Admin: 08/26/16 21:37 Dose: 100 mg - Constitutional Appears: Well - Head Exam Head Exam: ATRAUMATIC, NORMAL INSPECTION, NORMOCEPHALIC - Eye Exam Eye Exam: EOMI, Normal appearance, PERRL Pupil Exam: NORMAL ACCOMODATION, PERRL - ENT Exam ENT Exam: Mucous Membranes Moist, Normal Exam - Neck Exam Neck Exam: Full ROM, Normal Inspection. absent: Lymphadenopathy - Respiratory Exam Respiratory Exam: Decreased Breath Sounds - Cardiovascular Exam Cardiovascular Exam: REGULAR RHYTHM, +S1, +S2 - GI/Abdominal Exam GI & Abdominal Exam: Soft, Diminished Bowel Sounds - Rectal Exam Rectal Exam: Deferred Assessment and Plan (1) Anemia Status: Acute (2) Chest pain Status: Acute (3) Dental caries Status: Acute (4) Depression Status: Acute (5) Drug abuse Status: Acute (6) Dyspnea Status: Acute (7) Effusion of hip joint, left Status: Acute (8) Electrolyte abnormality Status: Acute (9) Fever Status: Acute (10) Heroin dependence Status: Acute (11) Infective endocarditis Status: Acute (12) Lower leg edema Status: Acute (13) Osteomyelitis of left hip Status: Acute (14) Prophylactic measure Status: Acute (15) Pulmonary embolism Status: Acute (16) Septic arthritis Status: Acute (17) Septic embolism Status: Acute (18) Breast lump Status: Chronic (19) Drug dependence Status: Chronic (20) Polysubstance (including opioids) dependence with physiol dependence Status: Chronic (21) Tobacco abuse Status: Chronic - Assessment and Plan (Free Text) Plan: dr quinton panchal psych consult katia antibiotics dilaudid maalox
--- NOTE | 2016-08-27 18:32 | CP.PCM.CON ---
Past Patient History - Past Medical History & Family History Past Medical History?: Yes - Past Social History Smoking Status: Heavy Smoker > 10 Cigarettes Daily - CARDIAC Hx Hypertension: No - PULMONARY Hx Bronchitis: Yes - NEUROLOGICAL Hx Seizures: No - HEENT Hx HEENT Problems: No Other/Comment: Hx of dental abscesses treated with tylenol #3 - RENAL Hx Chronic Kidney Disease: No - ENDOCRINE/METABOLIC Hx Endocrine Disorders: No - HEMATOLOGICAL/ONCOLOGICAL Hx Human Immunodeficiency Virus (HIV): No - INTEGUMENTARY Hx Dermatological Problems: No - MUSCULOSKELETAL/RHEUMATOLOGICAL Hx Falls: No Other/Comment: Generalize weakness. - GASTROINTESTINAL Hx Gastrointestinal Disorders: Yes Hx Gastroesophageal Reflux: Yes - GENITOURINARY/GYNECOLOGICAL Hx Sexually Transmitted Disorders: No - PSYCHIATRIC Hx Anxiety: Yes Hx Depression: Yes Hx Substance Use: Yes - SURGICAL HISTORY Hx Surgeries: No - ANESTHESIA Hx Anesthesia: No Hx Anesthesia Reactions: No Hx Malignant Hyperthermia: No Has any member of the family had a problem w/ anesthesia?: No Meds Allergies/Adverse Reactions: Allergies Allergy/AdvReac Type Severity Reaction Status Date / Time Penicillins Allergy Severe ANAPHYLAXIS Verified 08/26/16 07:11 - Medications Medications: Current Medications Acetaminophen (Tylenol 325mg Tab) 650 mg PO Q6 PRN PRN Reason: for: fever above 101 Last Admin: 08/26/16 20:16 Dose: 650 mg Al Hydrox/Mg Hydrox/Simethicone (Maalox 30 Ml) 30 ml PO TID PRN PRN Reason: Indigestion / Heartburn Last Admin: 08/27/16 16:12 Dose: 30 ml Albuterol/Ipratropium (Duoneb 3 Mg/0.5 Mg (3 Ml) Ud) 3 ml INH RQ6 [facility] Last Admin: 08/27/16 13:50 Dose: Not Given Aspirin (Aspirin) 325 mg PO DAILY [facility] Last Admin: 08/27/16 14:59 Dose: 325 mg Bupropion HCl (Wellbutrin Xl) 150 mg PO HS [facility] Gabapentin (Neurontin) 300 mg PO TID [facility] Last Admin: 08/27/16 17:51 Dose: 300 mg Hydromorphone HCl (Dilaudid) 0.5 mg IVP Q8 [facility] Last Admin: 08/27/16 14:02 Dose: 0.5 mg Moxifloxacin HCl (Avelox Iv 400mg/250ml Ns) 250 mls @ 167 mls/hr IVPB Q24H [facility] Last Admin: 08/27/16 15:00 Dose: 167 mls/hr Vancomycin HCl 1,000 mg/ (Sodium Chloride) 250 mls @ 166.6 mls/hr IVPB Q12H [facility] Last Admin: 08/27/16 11:07 Dose: 166.6 mls/hr Loperamide HCl (Imodium) 2 mg PO Q8 PRN PRN Reason: Diarrhea Methadone HCl (Methadone) 15 mg PO Q24H [facility] PRN Reason: Taper Stop: 08/31/16 08:59 Montelukast Sodium (Singulair) 10 mg PO HS [facility] Last Admin: 08/26/16 21:37 Dose: 10 mg Ondansetron HCl (Zofran Tab) 4 mg PO Q8 PRN PRN Reason: Nausea/Vomiting Pantoprazole Sodium (Protonix Ec Tab) 40 mg PO DAILY [facility] Last Admin: 08/27/16 14:59 Dose: 40 mg Quetiapine Fumarate (Seroquel) 50 mg PO [facility] Trazodone HCl (Desyrel) 100 mg PO [facility] Last Admin: 08/26/16 21:37 Dose: 100 mg Results - Vital Signs Recent Vital Signs: Last Vital Signs Temp 98.9 F 08/27/16 15:32 Pulse 86 08/27/16 15:32 Resp 20 08/27/16 15:32 BP 115/73 08/27/16 15:32 Pulse Ox 97 08/27/16 15:32 - Labs Result Diagrams: 08/26/16 07:56 08/26/16 07:56 Labs: Laboratory Results - last 24 hr 08/26/16 08/26/16 08/27/16 20:27 23:44 00:29 Lactic Acid 0.7 Total Creatine Kinase 26 L CK-MB (Mass) 0.23 Troponin I, Quant < 0.0120 Urine Color Yellow Urine Clarity Clear Urine pH 6.0 Ur Specific [place] 1.019 Urine Protein Negative Urine Glucose (UA) Normal Urine Ketones Negative Urine Blood 1+ H Urine Nitrate Negative Urine Bilirubin Negative Urine Urobilinogen 4.0 Ur Leukocyte Esterase 1+ H Urine WBC (Auto) 20 H Urine RBC (Auto) 10 H Urine Bacteria Few H
[2016-08-27] MEDS: buPROPion 150 mg/24 Hours XL Tab PO SCH (22:13)
[2016-08-28] MEDS: Albuterol-Ipratrop 3 mg / 0.5 (3 ml) UD INH SCH ×3 (08:02→20:07)
[2016-08-28] MEDS: Aluminum Hydroxide/Magnesium Hydroxide Susp (30 mL) PO PRN ×2 (09:51→17:32)
[2016-08-28] MEDS: Pantoprazole 40 mg EC Tab PO SCH (09:51)
[2016-08-28] MEDS: HYDROmorphone 0.5 mg/0.5 ml ISec IVP SCH ×2 (13:23→21:58)
--- NOTE | 2016-08-28 14:09 | CP.PCM.PN ---
Subjective - Date & Time of Evaluation Date of Evaluation: 08/28/16 Time of Evaluation: 14:09 Objective - Vital Signs/Intake and Output Vital Signs (last 24 hours): Temp Pulse Resp BP Pulse Ox 99.0 F 91 H 18 97/59 L 95 08/28/16 07:12 08/28/16 07:12 08/28/16 07:12 08/28/16 07:12 08/28/16 07:12 - Medications Medications: Current Medications Acetaminophen (Tylenol 325mg Tab) 650 mg PO Q6 PRN PRN Reason: for: fever above 101 Last Admin: 08/26/16 20:16 Dose: 650 mg Al Hydrox/Mg Hydrox/Simethicone (Maalox 30 Ml) 30 ml PO TID PRN PRN Reason: Indigestion / Heartburn Last Admin: 08/28/16 09:51 Dose: 30 ml Albuterol/Ipratropium (Duoneb 3 Mg/0.5 Mg (3 Ml) Ud) 3 ml INH RQ6 [facility] Last Admin: 08/28/16 13:49 Dose: 3 ml Aspirin (Aspirin) 325 mg PO DAILY [facility] Last Admin: 08/28/16 09:51 Dose: 325 mg Bupropion HCl (Wellbutrin Xl) 150 mg PO HS [facility] Last Admin: 08/27/16 22:13 Dose: 150 mg Gabapentin (Neurontin) 300 mg PO TID [facility] Last Admin: 08/28/16 13:14 Dose: 300 mg Hydromorphone HCl (Dilaudid) 0.5 mg IVP Q8 [facility] Last Admin: 08/28/16 13:23 Dose: 0.5 mg Moxifloxacin HCl (Avelox Iv 400mg/250ml Ns) 250 mls @ 167 mls/hr IVPB Q24H [facility] Last Admin: 08/27/16 15:00 Dose: 167 mls/hr Vancomycin HCl 1,000 mg/ (Sodium Chloride) 250 mls @ 166.6 mls/hr IVPB Q12H [facility] Last Admin: 08/28/16 11:00 Dose: 166.6 mls/hr Loperamide HCl (Imodium) 2 mg PO Q8 PRN PRN Reason: Diarrhea Methadone HCl (Methadone) 15 mg PO Q24H [facility] PRN Reason: Taper Stop: 08/31/16 08:59 Last Admin: 08/28/16 08:21 Dose: 15 mg Montelukast Sodium (Singulair) 10 mg PO HS [facility] Last Admin: 08/27/16 22:19 Dose: 10 mg Ondansetron HCl (Zofran Tab) 4 mg PO Q8 PRN PRN Reason: Nausea/Vomiting Pantoprazole Sodium (Protonix Ec Tab) 40 mg PO DAILY [facility] Last Admin: 08/28/16 09:51 Dose: 40 mg Quetiapine Fumarate (Seroquel) 50 mg PO [facility] Last Admin: 08/27/16 22:13 Dose: 50 mg Trazodone HCl (Desyrel) 100 mg PO HS [facility] Last Admin: 08/27/16 22:11 Dose: 100 mg
--- NOTE | 2016-08-28 15:29 | CP.PCM.PN ---
Subjective - Date & Time of Evaluation Date of Evaluation: 08/28/16 Time of Evaluation: 13:40 - Subjective Subjective: clinically same Objective - Vital Signs/Intake and Output Vital Signs (last 24 hours): Temp Pulse Resp BP Pulse Ox 99.0 F 91 H 18 97/59 L 95 08/28/16 07:12 08/28/16 07:12 08/28/16 07:12 08/28/16 07:12 08/28/16 07:12 Intake and Output: 08/28/16 08/28/16 06:59 18:59 Intake Total 600 Balance 600 - Medications Medications: Current Medications Acetaminophen (Tylenol 325mg Tab) 650 mg PO Q6 PRN PRN Reason: for: fever above 101 Last Admin: 08/26/16 20:16 Dose: 650 mg Al Hydrox/Mg Hydrox/Simethicone (Maalox 30 Ml) 30 ml PO TID PRN PRN Reason: Indigestion / Heartburn Last Admin: 08/28/16 09:51 Dose: 30 ml Albuterol/Ipratropium (Duoneb 3 Mg/0.5 Mg (3 Ml) Ud) 3 ml INH RQ6 [facility] Last Admin: 08/28/16 13:49 Dose: 3 ml Aspirin (Aspirin) 325 mg PO DAILY [facility] Last Admin: 08/28/16 09:51 Dose: 325 mg Bupropion HCl (Wellbutrin Xl) 150 mg PO HS [facility] Last Admin: 08/27/16 22:13 Dose: 150 mg Gabapentin (Neurontin) 300 mg PO TID [facility] Last Admin: 08/28/16 13:14 Dose: 300 mg Hydromorphone HCl (Dilaudid) 0.5 mg IVP Q8 [facility] Last Admin: 08/28/16 13:23 Dose: 0.5 mg Moxifloxacin HCl (Avelox Iv 400mg/250ml Ns) 250 mls @ 167 mls/hr IVPB Q24H [facility] Last Admin: 08/27/16 15:00 Dose: 167 mls/hr Vancomycin HCl 1,000 mg/ (Sodium Chloride) 250 mls @ 166.6 mls/hr IVPB Q12H [facility] Last Admin: 08/28/16 11:00 Dose: 166.6 mls/hr Loperamide HCl (Imodium) 2 mg PO Q8 PRN PRN Reason: Diarrhea Methadone HCl (Methadone) 15 mg PO Q24H [facility] PRN Reason: Taper Stop: 08/31/16 08:59 Last Admin: 08/28/16 08:21 Dose: 15 mg Montelukast Sodium (Singulair) 10 mg PO [facility] Last Admin: 08/27/16 22:19 Dose: 10 mg Ondansetron HCl (Zofran Tab) 4 mg PO Q8 PRN PRN Reason: Nausea/Vomiting Pantoprazole Sodium (Protonix Ec Tab) 40 mg PO DAILY [facility] Last Admin: 08/28/16 09:51 Dose: 40 mg Quetiapine Fumarate (Seroquel) 50 mg PO [facility] Last Admin: 08/27/16 22:13 Dose: 50 mg Trazodone HCl (Desyrel) 100 mg PO [facility] Last Admin: 08/27/16 22:11 Dose: 100 mg - Constitutional Appears: Well - Head Exam Head Exam: ATRAUMATIC, NORMAL INSPECTION, NORMOCEPHALIC - Eye Exam Eye Exam: EOMI, Normal appearance, PERRL Pupil Exam: NORMAL ACCOMODATION, PERRL - ENT Exam ENT Exam: Mucous Membranes Moist, Normal Exam - Neck Exam Neck Exam: Full ROM, Normal Inspection. absent: Lymphadenopathy - Respiratory Exam Respiratory Exam: Decreased Breath Sounds - Cardiovascular Exam Cardiovascular Exam: REGULAR RHYTHM, +S1, +S2 - GI/Abdominal Exam GI & Abdominal Exam: Soft, Diminished Bowel Sounds - Rectal Exam Rectal Exam: Deferred Assessment and Plan (1) Anemia Status: Acute (2) Chest pain Status: Acute (3) Dental caries Status: Acute (4) Depression Status: Acute (5) Drug abuse Status: Acute (6) Dyspnea Status: Acute (7) Effusion of hip joint, left Status: Acute (8) Electrolyte abnormality Status: Acute (9) Fever Status: Acute (10) Heroin dependence Status: Acute (11) Infective endocarditis Status: Acute (12) Lower leg edema Status: Acute (13) Osteomyelitis of left hip Status: Acute (14) Prophylactic measure Status: Acute (15) Pulmonary embolism Status: Acute (16) Septic arthritis Status: Acute (17) Septic embolism Status: Acute (18) Breast lump Status: Chronic (19) Drug dependence Status: Chronic (20) Polysubstance (including opioids) dependence with physiol dependence Status: Chronic (21) Tobacco abuse Status: Chronic - Assessment and Plan (Free Text) Plan: katia same duoneb aspirin moxiflox singulair psych consult cardio
[2016-08-28] MEDS: Moxifloxacin IV 400mg/250ml NS 250 ML IVPB SCH (17:33)
[2016-08-28] MEDS ORDERED: Hemorrohoidal Ointment (2 oz) TOP PRN (20:06)
[2016-08-28] MEDS: buPROPion 150 mg/24 Hours XL Tab PO SCH (22:03)
--- NOTE | 2016-08-28 23:33 | PCM.PYCHPN ---
Psychiatric Progress Note - Psychiatric Progress Note Patient seen today, length of contact: 15 min Patient Chief Complaint: "I felt better with methadone" Problems Identified/Issues Discussed: The pt is seen, chart reviewed, case discussed. The pt is compliant with medications and reports no side-effects. Symptoms are improving but needs more time to stabilize. After care discussed, support and psychoeducation given. AL and CBT used briefly. Med-seeking bhv. He claims he should be kept on 20 mg methadone as he is "stressed" when he is tapered off. He is informed that we cannot do maintenance unless he is registered with one. Plus, he wants to go to a rehab, which cannot happen with methadone Medication Change: Yes (detox changes daily) Medical Record Reviewed: Yes Mental Status Examination - Cognitive Function Orientation: Person, Place, Situation, Time Memory: Impaired Attention: Poor Concentration: Poor Association: WNL Fund of Knowledge: WNL - Mood Mood: Anxious - Affect Affect: Constricted - Speech Speech: Appropriate - Formal Thought Process Formal Thought Process: No Impairment - Suicidal Ideation Suicidal Ideation: No - Homicidal Ideation Homicidal Ideation: No Goal/Treatment Plan - Goal/Treatment Plan Need for Continued Stay: Other (medical) Progress Toward Problem(s) and Goals/Treatment Plan: Methadone detox As needed meds Seroquel Gabapentin Support psychoed [place] Refer to rehab
[2016-08-29] MEDS: Albuterol-Ipratrop 3 mg / 0.5 (3 ml) UD INH SCH ×4 (01:28→19:37)
[2016-08-29] MEDS: HYDROmorphone 0.5 mg/0.5 ml ISec IVP SCH ×3 (06:33→21:23)
[2016-08-29] MEDS: Pantoprazole 40 mg EC Tab PO SCH (09:27)
[2016-08-29] MEDS: Aluminum Hydroxide/Magnesium Hydroxide Susp (30 mL) PO PRN (09:32)
[2016-08-29 14:23] LABS: BASO % 0.4 % (0.0-2.0); EOS # 0.1 K/uL (0.0-0.7); EOS % 1.2 % (0.0-4.0); LYMPH # 0.8 K/uL (1.0-4.3); LYMPH % 9.1 % (20.0-40.0); MEAN CELL VOLUME 87.1 fL (80.0-94.0); MEAN CORPUSCULAR HEMOGLOBIN 28.9 pg (27.0-31.0); MEAN CORPUSCULAR HGB CONC 33.2 g/dL (33.0-37.0); MEAN PLATELET VOLUME 6.7 fL (7.2-11.7); MONO # 0.7 K/uL (0.0-0.8); MONO % 7.4 % (0.0-10.0); PLATELET COUNT 293 K/uL (130-400); RED CELL DISTRIBUTION WIDTH 13.3 % (11.5-14.5)
[2016-08-29 14:28] LABS: INR 1.3
[2016-08-29 14:35] LABS: CHLORIDE 102 mmol/L (98-107); POTASSIUM 3.6 mmol/L (3.6-5.2); SODIUM 136 mmol/L (132-148)
[2016-08-29 14:37] LABS: GFR AFRICAN-AMERICAN > 60
[2016-08-29 14:38] LABS: BLOOD UREA NITROGEN 9 mg/dL (9-20); CARBON DIOXIDE 20 mmol/L (22-30); GLUCOSE,RANDOM 124 mg/dL (75-110)
[2016-08-29 14:51] LABS: CALCIUM 7.9 mg/dl (8.6-10.4)
--- NOTE | 2016-08-29 15:11 | CP.PCM.CON ---
<Tee Guerra - Last Filed: 08/29/16 15:05> History of Present Illness - History of Present Illness History of Present Illness: PGY4 GI Fellow Consult Note Patient is a 46yo male with PMHx significant for polysubstance abuse (heroin, cocaine), endocarditis requiring prolonged antibiotic use who presented to the ED with 4 days of chest pain. Patient states that 4 days prior to arrival he developed sudden, dull, aching left sided chest pain. Believing that pain would improve, he initially took some Motrin but pain persisted. In the days that followed he became more short of breath and pain became severe, thus he came to the ED for further evaluation. On admission, CT chest performed in the ER revealed multiple left sided pulmonary emboli, pulmonary infarct with underlying pneumonia suspected and septic embolization not ruled out. He has been treated with lovenox and was to be started on Eliquis. Of note, the patient admits to heroin/cocaine use up until admission. He was not on any other opiate medications prior to admission. Since admission he has complained of intermittent rectal bleeding. He has been suffering with constipation as well. Initially he had to push/strain for prolonged period of time to pass small amounts of stool and noted bright red blood streaked on stool and on toilet paper when wiping. He also passed blood without stool. He was given lactulose with improvement in constipation and no blood noted. Separately and unrelated, he admits to dyspepsia/GERD symptoms for several years with need for daily Prilosec. If he does not take PPI, he suffers with severe epigastric burning discomfort. PMHx: See HPI PSHx: Denies FHx: Many with CAD/UT Social: +tobacco use (26 pack years), +EtOH use ~5 days/mo, +heroin/cocaine use Endo: No prior endoscopic evaluation Review of Systems - Constitutional Constitutional: absent: Anorexia, Chills, Fever, Weight Loss - EENT Eyes: absent: Change in Vision Nose/Mouth/Throat: absent: Sore Throat - Cardiovascular Cardiovascular: Chest Pain, Dyspnea. absent: Chest Pain at Rest - Respiratory Respiratory: Cough, Dyspnea. absent: Excessive Mucous Production - Gastrointestinal Gastrointestinal: Abdominal Pain, Constipation, Dyspepsia, Heartburn, Hematochezia. absent: Diarrhea, Hematemesis, Melena, Nausea, Temesmus, Vomiting - Genitourinary Genitourinary: absent: Dysuria, Urinary Frequency, Urinary Urgency - Musculoskeletal Musculoskeletal: absent: Back Pain, Neck Pain - Integumentary Integumentary: absent: New Lesions, Rash - Neurological Neurological: absent: Dizziness, Numbness, Focal Weakness - Psychiatric Psychiatric: absent: Anxiety, Depression - Endocrine Endocrine: absent: Polydipsia, Polyphagia, Polyuria - Hematologic/Lymphatic Hematologic: absent: Easy Bleeding, Easy Bruising, Lymphadenopathy Past Patient History - Past Medical History & Family History Past Medical History?: Yes - Past Social History Smoking Status: Heavy Smoker > 10 Cigarettes Daily - CARDIAC Hx Hypertension: No - PULMONARY Hx Bronchitis: Yes - NEUROLOGICAL Hx Seizures: No - HEENT Hx HEENT Problems: No Other/Comment: Hx of dental abscesses treated with tylenol #3 - RENAL Hx Chronic Kidney Disease: No - ENDOCRINE/METABOLIC Hx Endocrine Disorders: No - HEMATOLOGICAL/ONCOLOGICAL Hx Human Immunodeficiency Virus (HIV): No - INTEGUMENTARY Hx Dermatological Problems: No - MUSCULOSKELETAL/RHEUMATOLOGICAL Hx Falls: No Other/Comment: Generalize weakness. - GASTROINTESTINAL Hx Gastrointestinal Disorders: Yes Hx Gastroesophageal Reflux: Yes - GENITOURINARY/GYNECOLOGICAL Hx Sexually Transmitted Disorders: No - PSYCHIATRIC Hx Anxiety: Yes Hx Depression: Yes Hx Substance Use: Yes - SURGICAL HISTORY Hx Surgeries: No - ANESTHESIA Hx Anesthesia: No Hx Anesthesia Reactions: No Hx Malignant Hyperthermia: No Has any member of the family had a problem w/ anesthesia?: No Meds Allergies/Adverse Reactions: Allergies Allergy/AdvReac Type Severity Reaction Status Date / Time Penicillins Allergy Severe ANAPHYLAXIS Verified 08/26/16 07:11 - Medications Medications: Current Medications Acetaminophen (Tylenol 325mg Tab) 650 mg PO Q6 PRN PRN Reason: for: fever above 101 Last Admin: 08/28/16 23:38 Dose: 650 mg Al Hydrox/Mg Hydrox/Simethicone (Maalox 30 Ml) 30 ml PO TID PRN PRN Reason: Indigestion / Heartburn Last Admin: 08/29/16 09:32 Dose: 30 ml Albuterol/Ipratropium (Duoneb 3 Mg/0.5 Mg (3 Ml) Ud) 3 ml INH RQ6 [facility] Last Admin: 08/29/16 13:42 Dose: 3 ml Aspirin (Aspirin) 325 mg PO DAILY [facility] Last Admin: 08/29/16 10:00 Dose: 325 mg Bupropion HCl (Wellbutrin Xl) 150 mg PO HS [facility] Last Admin: 08/28/16 22:03 Dose: 150 mg Gabapentin (Neurontin) 300 mg PO TID [facility] Last Admin: 08/29/16 13:35 Dose: 300 mg Hydrocortisone (Anusol-Hc) 25 mg RC BID [facility] Hydromorphone HCl (Dilaudid) 0.5 mg IVP Q8 [facility] Last Admin: 08/29/16 13:36 Dose: 0.5 mg Moxifloxacin HCl (Avelox Iv 400mg/250ml Ns) 250 mls @ 167 mls/hr IVPB Q24H [facility] Last Admin: 08/28/16 17:33 Dose: 167 mls/hr Vancomycin HCl 1,000 mg/ (Sodium Chloride) 250 mls @ 166.6 mls/hr IVPB Q12H [facility] Last Admin: 08/29/16 10:47 Dose: 166.6 mls/hr Lactulose (Enulose) 20 gm PO Q6 PRN PRN Reason: Constipation Last Admin: 08/29/16 09:32 Dose: 20 gm Loperamide HCl (Imodium) 2 mg PO Q8 PRN PRN Reason: Diarrhea Methadone HCl (Methadone) 10 mg PO Q24H [facility] PRN Reason: Taper Stop: 09/03/16 08:59 Montelukast Sodium (Singulair) 10 mg PO [facility] Last Admin: 08/28/16 21:58 Dose: 10 mg Ondansetron HCl (Zofran Tab) 4 mg PO Q8 PRN PRN Reason: Nausea/Vomiting Pantoprazole Sodium (Protonix Ec Tab) 40 mg PO DAILY [facility] Last Admin: 08/29/16 09:27 Dose: 40 mg Polyethylene Glycol (Miralax) 17 gm PO DAILY [facility] Quetiapine Fumarate (Seroquel) 50 mg PO [facility] Last Admin: 08/28/16 22:02 Dose: 50 mg Trazodone HCl (Desyrel) 100 mg PO [facility] Last Admin: 08/28/16 21:58 Dose: 100 mg Physical Exam - Constitutional Appears: Non-toxic, No Acute Distress - Eye Exam Eye Exam: EOMI, PERRL - ENT Exam ENT Exam: Mucous Membranes Moist - Respiratory Exam Respiratory Exam: Clear to Auscultation Bilateral. absent: Rales, Rhonchi, Wheezes - Cardiovascular Exam Cardiovascular Exam: RRR, +S1, +S2, Systolic Murmur - GI/Abdominal Exam GI & Abdominal Exam: Normal Bowel Sounds, Organomegaly, Soft. absent: Distended , Firm, Guarding, Rigid, Tenderness - Rectal Exam Rectal Exam: Hemorrhoids (external and internal). absent: Black Stool, Bloody Stool - Extremities Exam Extremities exam: Positive for: normal inspection. Negative for: pedal edema - Neurological Exam Neurological exam: Alert, Oriented x3 - Psychiatric Exam Psychiatric exam: Normal Affect, Normal Mood - Skin Skin Exam: Dry, Warm Results - Vital Signs Recent Vital Signs: Last Vital Signs Temp 98.5 F 08/29/16 07:15 Pulse 81 08/29/16 11:16 Resp 18 08/29/16 07:15 BP 101/61 08/29/16 07:15 Pulse Ox 97 08/29/16 07:15 - Labs Result Diagrams: 08/29/16 14:11 08/29/16 14:11 Labs: Laboratory Results - last 24 hr 08/29/16 08/29/16 08/29/16 06:18 14:11 14:11 WBC 9.0 RBC 3.67 L Hgb 10.6 L Hct 32.0 L MCV 87.1 MCH 28.9 MCHC 33.2 RDW 13.3 Plt Count 293 MPV 6.7 L Neut % (Auto) 81.9 H Lymph % (Auto) 9.1 L Nolan % (Auto) 7.4 Eos % (Auto) 1.2 Baso % (Auto) 0.4 Neut # 7.4 H Lymph # 0.8 L Nolan # 0.7 Eos # 0.1 Baso # 0.0 PT INR Sodium 136 Potassium 3.6 Chloride 102 Carbon Dioxide 20 L Anion Gap 18 BUN 9 Creatinine 0.7 L Est GFR ( Amer) > 60 Est GFR (Non-Af Amer) > 60 Random Glucose 124 H Calcium 7.9 L Random Vancomycin 7.70 08/29/16 14:11 WBC RBC Hgb Hct MCV MCH MCHC RDW Plt Count MPV Neut % (Auto) Lymph % (Auto) Nolan % (Auto) Eos % (Auto) Baso % (Auto) Neut # Lymph # Nolan # Eos # Baso # PT 14.2 H INR 1.3 Sodium Potassium Chloride Carbon Dioxide Anion Gap BUN Creatinine Est GFR ( Amer) Est GFR (Non-Af Amer) Random Glucose Calcium Random Vancomycin Assessment & Plan - Assessment and Plan (Free Text) Assessment: Patient is a 46yo male with PMHx significant for polysubstance abuse, endocarditis who presented with chest pain and now has constipation, rectal bleeding. -Pulmonary embolism, concern for septic emboli -Question of pulmonary infarct -CAP -Hematochezia likely 2/2 internal/external hemorrhoids -Constipation likely related to opioid use/withdrawal -Polysubstance abuse -GERD refractory to PPI therapy Plan: -Continue antibiotics as ordered, ID following -Patient would benefit from anticoagulation given known PE, OK to start Eliquis from GI perspective with close monitoring for any overt bleeding -Rectal exam as documented; Start [id number] PO QD for constipation and Anusol OH for hemorrhoids -Encourage tobacco,EtOH,illicit drug cessation -Appreciate psychiatric consultation - Date & Time Date: 08/29/16 Time: 15:20 <John Barbosa - Last Filed: 08/29/16 15:37> Meds - Medications Medications: Current Medications Acetaminophen (Tylenol 325mg Tab) 650 mg PO Q6 PRN PRN Reason: for: fever above 101 Last Admin: 08/28/16 23:38 Dose: 650 mg Al Hydrox/Mg Hydrox/Simethicone (Maalox 30 Ml) 30 ml PO TID PRN PRN Reason: Indigestion / Heartburn Last Admin: 08/29/16 09:32 Dose: 30 ml Albuterol/Ipratropium (Duoneb 3 Mg/0.5 Mg (3 Ml) Ud) 3 ml INH RQ6 [facility] Last Admin: 08/29/16 13:42 Dose: 3 ml Aspirin (Aspirin) 325 mg PO DAILY [facility] Last Admin: 08/29/16 10:00 Dose: 325 mg Bupropion HCl (Wellbutrin Xl) 150 mg PO HS [facility] Last Admin: 08/28/16 22:03 Dose: 150 mg Gabapentin (Neurontin) 300 mg PO TID [facility] Last Admin: 08/29/16 13:35 Dose: 300 mg Hydrocortisone (Anusol-Hc) 25 mg RC BID [facility] Hydromorphone HCl (Dilaudid) 0.5 mg IVP Q8 [facility] Last Admin: 08/29/16 13:36 Dose: 0.5 mg Moxifloxacin HCl (Avelox Iv 400mg/250ml Ns) 250 mls @ 167 mls/hr IVPB Q24H [facility] Last Admin: 08/28/16 17:33 Dose: 167 mls/hr Vancomycin HCl 1,000 mg/ (Sodium Chloride) 250 mls @ 166.6 mls/hr IVPB Q12H [facility] Last Admin: 08/29/16 10:47 Dose: 166.6 mls/hr Lactulose (Enulose) 20 gm PO Q6 PRN PRN Reason: Constipation Last Admin: 08/29/16 09:32 Dose: 20 gm Loperamide HCl (Imodium) 2 mg PO Q8 PRN PRN Reason: Diarrhea Methadone HCl (Methadone) 10 mg PO Q24H [facility] PRN Reason: Taper Stop: 09/03/16 08:59 Montelukast Sodium (Singulair) 10 mg PO HS [facility] Last Admin: 08/28/16 21:58 Dose: 10 mg Ondansetron HCl (Zofran Tab) 4 mg PO Q8 PRN PRN Reason: Nausea/Vomiting Pantoprazole Sodium (Protonix Ec Tab) 40 mg PO DAILY [facility] Last Admin: 08/29/16 09:27 Dose: 40 mg Polyethylene Glycol (Miralax) 17 gm PO DAILY [facility] Quetiapine Fumarate (Seroquel) 50 mg PO HS [facility] Last Admin: 08/28/16 22:02 Dose: 50 mg Trazodone HCl (Desyrel) 100 mg PO HS [facility] Last Admin: 08/28/16 21:58 Dose: 100 mg Results - Vital Signs Recent Vital Signs: Last Vital Signs Temp 98.5 F 08/29/16 07:15 Pulse 81 08/29/16 11:16 Resp 18 08/29/16 07:15 BP 101/61 08/29/16 07:15 Pulse Ox 97 08/29/16 07:15 - Labs Result Diagrams: 08/29/16 14:11 08/29/16 14:11 Labs: Laboratory Results - last 24 hr 08/29/16 08/29/16 08/29/16 06:18 14:11 14:11 WBC 9.0 RBC 3.67 L Hgb 10.6 L Hct 32.0 L MCV 87.1 MCH 28.9 MCHC 33.2 RDW 13.3 Plt Count 293 MPV 6.7 L Neut % (Auto) 81.9 H Lymph % (Auto) 9.1 L Nolan % (Auto) 7.4 Eos % (Auto) 1.2 Baso % (Auto) 0.4 Neut # 7.4 H Lymph # 0.8 L Nolan # 0.7 Eos # 0.1 Baso # 0.0 PT INR Sodium 136 Potassium 3.6 Chloride 102 Carbon Dioxide 20 L Anion Gap 18 BUN 9 Creatinine 0.7 L Est GFR ( Amer) > 60 Est GFR (Non-Af Amer) > 60 Random Glucose 124 H Calcium 7.9 L Random Vancomycin 7.70 08/29/16 14:11 WBC RBC Hgb Hct MCV MCH MCHC RDW Plt Count MPV Neut % (Auto) Lymph % (Auto) Nolan % (Auto) Eos % (Auto) Baso % (Auto) Neut # Lymph # Nolan # Eos # Baso # PT 14.2 H INR 1.3 Sodium Potassium Chloride Carbon Dioxide Anion Gap BUN Creatinine Est GFR ( Amer) Est GFR (Non-Af Amer) Random Glucose Calcium Random Vancomycin Attending/Attestation - Attestation I have personally seen and examined this patient.: Yes I have fully participated in the care of the patient.: Yes I have reviewed all pertinent clinical information: Yes Notes (Text): Patient seen and examined with GI fellow. Agree with his note as documented above with the following additions/exceptions. This is a 46 year old male with h/o polysubstance abuse, endocarditis, prior HCV s/p treatment with IFN/RIBA (> 10 years ago with SVR) who presents with severe chest pain/cough/dyspnea found to have PE with possible infarct/pneumonia. We are consulted for evaluation of intermittent rectal bleeding. The patient states that he has been having constipation recently associated with straining to move BM with associated red blood streaks on toilet paper. He complains of anorectal discomfort with BM. He received lactulose today with reportedly normal brown BM. He has external/ internal hemorrhoids on examination without any evidence of gross blood. Would treat supportive with bowel regimen, miralax for constipation and anusol suppository. Would resume anticoagulation for pulmonary embolism as per primary medical service and monitor for recurrent/significant bleeding. Monitor H/H. He has been having PPI dependent chronic acid reflux and may benefit from elective endoscopic evaluation after resolution of acute medical condition. 08/29/16 15:31
[2016-08-29] MEDS: POLYETHYLENE GLYCOL 3350 17 GM/Dose PACKET PO SCH (15:21)
--- NOTE | 2016-08-29 16:14 | CP.PCM.PN ---
Subjective - Date & Time of Evaluation Date of Evaluation: 08/29/16 Time of Evaluation: 12:40 - Subjective Subjective: clinically same Objective - Vital Signs/Intake and Output Vital Signs (last 24 hours): Temp Pulse Resp BP Pulse Ox 98.3 F 85 20 137/82 94 L 08/29/16 16:12 08/29/16 16:12 08/29/16 16:12 08/29/16 16:12 08/29/16 16:12 Intake and Output: 08/29/16 08/29/16 06:59 18:59 Intake Total 250 400 Balance 250 400 - Medications Medications: Current Medications Acetaminophen (Tylenol 325mg Tab) 650 mg PO Q6 PRN PRN Reason: for: fever above 101 Last Admin: 08/28/16 23:38 Dose: 650 mg Al Hydrox/Mg Hydrox/Simethicone (Maalox 30 Ml) 30 ml PO TID PRN PRN Reason: Indigestion / Heartburn Last Admin: 08/29/16 09:32 Dose: 30 ml Albuterol/Ipratropium (Duoneb 3 Mg/0.5 Mg (3 Ml) Ud) 3 ml INH RQ6 [facility] Last Admin: 08/29/16 13:42 Dose: 3 ml Aspirin (Aspirin) 325 mg PO DAILY [facility] Last Admin: 08/29/16 10:00 Dose: 325 mg Bupropion HCl (Wellbutrin Xl) 150 mg PO HS [facility] Last Admin: 08/28/16 22:03 Dose: 150 mg Gabapentin (Neurontin) 300 mg PO TID [facility] Last Admin: 08/29/16 13:35 Dose: 300 mg Hydrocortisone (Anusol-Hc) 25 mg RC BID [facility] Hydromorphone HCl (Dilaudid) 0.5 mg IVP Q8 [facility] Last Admin: 08/29/16 13:36 Dose: 0.5 mg Moxifloxacin HCl (Avelox Iv 400mg/250ml Ns) 250 mls @ 167 mls/hr IVPB Q24H [facility] Last Admin: 08/28/16 17:33 Dose: 167 mls/hr Vancomycin HCl 1,000 mg/ (Sodium Chloride) 250 mls @ 166.6 mls/hr IVPB Q12H [facility] Last Admin: 08/29/16 10:47 Dose: 166.6 mls/hr Lactulose (Enulose) 20 gm PO Q6 PRN PRN Reason: Constipation Last Admin: 08/29/16 09:32 Dose: 20 gm Loperamide HCl (Imodium) 2 mg PO Q8 PRN PRN Reason: Diarrhea Methadone HCl (Methadone) 10 mg PO Q24H [facility] PRN Reason: Taper Stop: 09/03/16 08:59 Montelukast Sodium (Singulair) 10 mg PO [facility] Last Admin: 08/28/16 21:58 Dose: 10 mg Ondansetron HCl (Zofran Tab) 4 mg PO Q8 PRN PRN Reason: Nausea/Vomiting Pantoprazole Sodium (Protonix Ec Tab) 40 mg PO DAILY [facility] Last Admin: 08/29/16 09:27 Dose: 40 mg Polyethylene Glycol (Miralax) 17 gm PO DAILY [facility] Quetiapine Fumarate (Seroquel) 50 mg PO [facility] Last Admin: 08/28/16 22:02 Dose: 50 mg Trazodone HCl (Desyrel) 100 mg PO [facility] Last Admin: 08/28/16 21:58 Dose: 100 mg - Labs Labs: 08/29/16 14:11 08/29/16 14:11 PT 14.2 SECONDS (9.7-12.2) H 08/29/16 14:11 INR 1.3 08/29/16 14:11 - Constitutional Appears: Well - Head Exam Head Exam: ATRAUMATIC, NORMAL INSPECTION, NORMOCEPHALIC - Eye Exam Eye Exam: EOMI, Normal appearance, PERRL Pupil Exam: NORMAL ACCOMODATION, PERRL - ENT Exam ENT Exam: Mucous Membranes Moist, Normal Exam - Neck Exam Neck Exam: Full ROM, Normal Inspection. absent: Lymphadenopathy - Respiratory Exam Respiratory Exam: Decreased Breath Sounds - Cardiovascular Exam Cardiovascular Exam: REGULAR RHYTHM, +S1, +S2 - GI/Abdominal Exam GI & Abdominal Exam: Soft, Diminished Bowel Sounds - Rectal Exam Rectal Exam: Deferred Assessment and Plan (1) Anemia Status: Acute (2) Chest pain Status: Acute (3) Dental caries Status: Acute (4) Depression Status: Acute (5) Drug abuse Status: Acute (6) Dyspnea Status: Acute (7) Effusion of hip joint, left Status: Acute (8) Electrolyte abnormality Status: Acute (9) Fever Status: Acute (10) Heroin dependence Status: Acute (11) Infective endocarditis Status: Acute (12) Lower leg edema Status: Acute (13) Osteomyelitis of left hip Status: Acute (14) Prophylactic measure Status: Acute (15) Pulmonary embolism Status: Acute (16) Septic arthritis Status: Acute (17) Septic embolism Status: Acute (18) Breast lump Status: Chronic (19) Drug dependence Status: Chronic (20) Polysubstance (including opioids) dependence with physiol dependence Status: Chronic (21) Tobacco abuse Status: Chronic - Assessment and Plan (Free Text) Plan: labs reviewed psych consult methadone detox antibiotics [facility] neurotin
[2016-08-29] MEDS: Moxifloxacin IV 400mg/250ml NS 250 ML IVPB SCH (16:20)
[2016-08-29 17:20] LABS: EOSINOPHIL 1 % (0-4); NEUTROPHIL 77 % (50-75); TOTAL CELLS COUNTED 100
--- NOTE | 2016-08-29 18:27 | CP.PCM.PN ---
Subjective - Date & Time of Evaluation Date of Evaluation: 08/29/16 Time of Evaluation: 08:00 - Subjective Subjective: cultures neg thus far needs SHRUTHI Objective - Vital Signs/Intake and Output Vital Signs (last 24 hours): Temp Pulse Resp BP Pulse Ox 98.3 F 85 20 137/82 94 L 08/29/16 15:40 08/29/16 15:40 08/29/16 15:40 08/29/16 15:40 08/29/16 15:40 Intake and Output: 08/29/16 08/29/16 06:59 18:59 Intake Total 250 400 Balance 250 400 - Medications Medications: Current Medications Acetaminophen (Tylenol 325mg Tab) 650 mg PO Q6 PRN PRN Reason: for: fever above 101 Last Admin: 08/28/16 23:38 Dose: 650 mg Al Hydrox/Mg Hydrox/Simethicone (Maalox 30 Ml) 30 ml PO TID PRN PRN Reason: Indigestion / Heartburn Last Admin: 08/29/16 09:32 Dose: 30 ml Albuterol/Ipratropium (Duoneb 3 Mg/0.5 Mg (3 Ml) Ud) 3 ml INH RQ6 [facility] Last Admin: 08/29/16 13:42 Dose: 3 ml Aspirin (Aspirin) 325 mg PO DAILY [facility] Last Admin: 08/29/16 10:00 Dose: 325 mg Bupropion HCl (Wellbutrin Xl) 150 mg PO HS [facility] Last Admin: 08/28/16 22:03 Dose: 150 mg Gabapentin (Neurontin) 300 mg PO TID [facility] Last Admin: 08/29/16 18:20 Dose: 300 mg Hydrocortisone (Anusol-Hc) 25 mg RC BID [facility] Last Admin: 08/29/16 18:20 Dose: 25 mg Hydromorphone HCl (Dilaudid) 0.5 mg IVP Q8 [facility] Last Admin: 08/29/16 13:36 Dose: 0.5 mg Moxifloxacin HCl (Avelox Iv 400mg/250ml Ns) 250 mls @ 167 mls/hr IVPB Q24H [facility] Last Admin: 08/29/16 16:20 Dose: 167 mls/hr Vancomycin HCl 1,000 mg/ (Sodium Chloride) 250 mls @ 166.6 mls/hr IVPB Q12H [facility] Last Admin: 08/29/16 10:47 Dose: 166.6 mls/hr Lactulose (Enulose) 20 gm PO Q6 PRN PRN Reason: Constipation Last Admin: 08/29/16 09:32 Dose: 20 gm Loperamide HCl (Imodium) 2 mg PO Q8 PRN PRN Reason: Diarrhea Methadone HCl (Methadone) 10 mg PO Q24H [facility] PRN Reason: Taper Stop: 09/03/16 08:59 Montelukast Sodium (Singulair) 10 mg PO [facility] Last Admin: 08/28/16 21:58 Dose: 10 mg Ondansetron HCl (Zofran Tab) 4 mg PO Q8 PRN PRN Reason: Nausea/Vomiting Pantoprazole Sodium (Protonix Ec Tab) 40 mg PO DAILY [facility] Last Admin: 08/29/16 09:27 Dose: 40 mg Polyethylene Glycol (Miralax) 17 gm PO DAILY [facility] Last Admin: 08/29/16 15:21 Dose: 17 gm Quetiapine Fumarate (Seroquel) 50 mg PO [facility] Last Admin: 08/28/16 22:02 Dose: 50 mg Trazodone HCl (Desyrel) 100 mg PO [facility] Last Admin: 08/28/16 21:58 Dose: 100 mg - Labs Labs: 08/29/16 14:11 08/29/16 14:11 PT 14.2 SECONDS (9.7-12.2) H 08/29/16 14:11 INR 1.3 08/29/16 14:11 - Constitutional Appears: Non-toxic, Cachectic, Chronically Ill - Head Exam Head Exam: NORMOCEPHALIC - Eye Exam Eye Exam: PERRL. absent: Scleral icterus - ENT Exam ENT Exam: Mucous Membranes Dry, Normal External Ear Exam - Neck Exam Neck Exam: absent: Lymphadenopathy, Thyromegaly - Respiratory Exam Respiratory Exam: Decreased Breath Sounds, Rhonchi - Cardiovascular Exam Cardiovascular Exam: REGULAR RHYTHM, +S1, +S2 - GI/Abdominal Exam GI & Abdominal Exam: Distended, Soft. absent: Tenderness - Rectal Exam Rectal Exam: Deferred - Exam Exam: NORMAL INSPECTION - Extremities Exam Extremities Exam: absent: Calf Tenderness, Pedal Edema - Back Exam Back Exam: absent: CVA tenderness (L), CVA tenderness (R), paraspinal tenderness - Neurological Exam Neurological Exam: Alert, CN II-XII Intact, Normal Gait, Oriented x3 Assessment and Plan (1) Infective endocarditis Status: Acute (2) Depression Status: Acute (3) Septic embolism Status: Acute (4) Pulmonary embolism Status: Acute
--- NOTE | 2016-08-29 19:11 | CP.PCM.PN ---
Objective - Vital Signs/Intake and Output Vital Signs (last 24 hours): Temp Pulse Resp BP Pulse Ox 98.3 F 85 20 137/82 94 L 08/29/16 15:40 08/29/16 15:40 08/29/16 15:40 08/29/16 15:40 08/29/16 15:40 Intake and Output: 08/29/16 08/30/16 18:59 06:59 Intake Total 400 Balance 400 - Medications Medications: Current Medications Acetaminophen (Tylenol 325mg Tab) 650 mg PO Q6 PRN PRN Reason: for: fever above 101 Last Admin: 08/28/16 23:38 Dose: 650 mg Al Hydrox/Mg Hydrox/Simethicone (Maalox 30 Ml) 30 ml PO TID PRN PRN Reason: Indigestion / Heartburn Last Admin: 08/29/16 09:32 Dose: 30 ml Albuterol/Ipratropium (Duoneb 3 Mg/0.5 Mg (3 Ml) Ud) 3 ml INH RQ6 [facility] Last Admin: 08/29/16 13:42 Dose: 3 ml Aspirin (Aspirin) 325 mg PO DAILY [facility] Last Admin: 08/29/16 10:00 Dose: 325 mg Bupropion HCl (Wellbutrin Xl) 150 mg PO HS [facility] Last Admin: 08/28/16 22:03 Dose: 150 mg Gabapentin (Neurontin) 300 mg PO TID [facility] Last Admin: 08/29/16 18:20 Dose: 300 mg Hydrocortisone (Anusol-Hc) 25 mg RC BID [facility] Last Admin: 08/29/16 18:20 Dose: 25 mg Hydromorphone HCl (Dilaudid) 0.5 mg IVP Q8 [facility] Last Admin: 08/29/16 13:36 Dose: 0.5 mg Moxifloxacin HCl (Avelox Iv 400mg/250ml Ns) 250 mls @ 167 mls/hr IVPB Q24H [facility] Last Admin: 08/29/16 16:20 Dose: 167 mls/hr Vancomycin HCl 1,000 mg/ (Sodium Chloride) 250 mls @ 166.6 mls/hr IVPB Q12H [facility] Last Admin: 08/29/16 10:47 Dose: 166.6 mls/hr Lactulose (Enulose) 20 gm PO Q6 PRN PRN Reason: Constipation Last Admin: 08/29/16 09:32 Dose: 20 gm Loperamide HCl (Imodium) 2 mg PO Q8 PRN PRN Reason: Diarrhea Methadone HCl (Methadone) 10 mg PO Q24H [facility] PRN Reason: Taper Stop: 09/03/16 08:59 Montelukast Sodium (Singulair) 10 mg PO [facility] Last Admin: 08/28/16 21:58 Dose: 10 mg Ondansetron HCl (Zofran Tab) 4 mg PO Q8 PRN PRN Reason: Nausea/Vomiting Pantoprazole Sodium (Protonix Ec Tab) 40 mg PO DAILY [facility] Last Admin: 08/29/16 09:27 Dose: 40 mg Polyethylene Glycol (Miralax) 17 gm PO DAILY [facility] Last Admin: 08/29/16 15:21 Dose: 17 gm Quetiapine Fumarate (Seroquel) 50 mg PO [facility] Last Admin: 08/28/16 22:02 Dose: 50 mg Trazodone HCl (Desyrel) 100 mg PO [facility] Last Admin: 08/28/16 21:58 Dose: 100 mg - Labs Labs: 08/29/16 14:11 08/29/16 14:11 PT 14.2 SECONDS (9.7-12.2) H 08/29/16 14:11 INR 1.3 08/29/16 14:11
[2016-08-29] MEDS: buPROPion 150 mg/24 Hours XL Tab PO SCH (21:22)
--- NOTE | 2016-08-29 22:04 | PCM.PYCHPN ---
Psychiatric Progress Note - Psychiatric Progress Note Patient seen today, length of contact: 16 min Patient Chief Complaint: "I am not well at all" Problems Identified/Issues Discussed: He is seen, chart reviewed. He is still asking to be kept on 20 mg methadone, even though he is now given Dilaudid q8h (??) No wdw sxs but nevertheless he may be having difficulty tolerating taper subjectively. 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 Otherwise OK. Has medical complaints Support given Medication Change: Yes (detox changes daily) Medical Record Reviewed: Yes Mental Status Examination - Cognitive Function Orientation: Person, Place, Situation, Time Memory: Impaired Attention: Poor Concentration: Poor Association: WNL Fund of Knowledge: WNL - Mood Mood: Anxious - Affect Affect: Constricted - Speech Speech: Appropriate - Formal Thought Process Formal Thought Process: No Impairment - Suicidal Ideation Suicidal Ideation: No - Homicidal Ideation Homicidal Ideation: No Goal/Treatment Plan - Goal/Treatment Plan Need for Continued Stay: Other (medical) Progress Toward Problem(s) and Goals/Treatment Plan: Methadone detox As needed meds Seroquel Gabapentin Support psychoed OR Refer to rehab
[2016-08-30] MEDS: HYDROmorphone 0.5 mg/0.5 ml ISec IVP SCH ×4 (06:11→22:42)
--- NOTE | 2016-08-30 08:51 | CP.PCM.PN ---
<Tee Guerra - Last Filed: 08/30/16 08:47> Subjective - Date & Time of Evaluation Date of Evaluation: 08/30/16 Time of Evaluation: 06:45 - Subjective Subjective: PGY4 GI Fellow Progress Note Patient seen and examined bedside this morning. The patient admits to urinary retention today. States that he had bowel movement without any evidence of blood. No abdominal pain today. Persisten left sided chest tightness and occasional dyspnea. 12 system ROS performed and negative except where stated. Objective - Vital Signs/Intake and Output Vital Signs (last 24 hours): Temp Pulse Resp BP Pulse Ox 98.4 F 85 20 104/67 97 08/30/16 07:12 08/30/16 07:12 08/30/16 07:12 08/30/16 07:12 08/30/16 07:12 Intake and Output: 08/30/16 08/30/16 06:59 18:59 Intake Total 590 Output Total 400 Balance 190 - Medications Medications: Current Medications Acetaminophen (Tylenol 325mg Tab) 650 mg PO Q6 PRN PRN Reason: for: fever above 101 Last Admin: 08/29/16 20:28 Dose: 650 mg Al Hydrox/Mg Hydrox/Simethicone (Maalox 30 Ml) 30 ml PO TID PRN PRN Reason: Indigestion / Heartburn Last Admin: 08/29/16 09:32 Dose: 30 ml Albuterol/Ipratropium (Duoneb 3 Mg/0.5 Mg (3 Ml) Ud) 3 ml INH RQ6 [facility] Last Admin: 08/29/16 19:37 Dose: 3 ml Aspirin (Aspirin) 325 mg PO DAILY [facility] Last Admin: 08/29/16 10:00 Dose: 325 mg Bupropion HCl (Wellbutrin Xl) 150 mg PO HS [facility] Last Admin: 08/29/16 21:22 Dose: 150 mg Gabapentin (Neurontin) 300 mg PO TID [facility] Last Admin: 08/29/16 18:20 Dose: 300 mg Hydrocortisone (Anusol-Hc) 25 mg RC BID [facility] Last Admin: 08/29/16 18:20 Dose: 25 mg Hydromorphone HCl (Dilaudid) 0.5 mg IVP Q8 [facility] Last Admin: 08/30/16 06:11 Dose: 0.5 mg Moxifloxacin HCl (Avelox Iv 400mg/250ml Ns) 250 mls @ 167 mls/hr IVPB Q24H [facility] Last Admin: 08/29/16 16:20 Dose: 167 mls/hr Vancomycin HCl 1,000 mg/ (Sodium Chloride) 250 mls @ 166.6 mls/hr IVPB Q12H [facility] Last Admin: 08/29/16 22:42 Dose: 166.6 mls/hr Lactulose (Enulose) 20 gm PO Q6 PRN PRN Reason: Constipation Last Admin: 08/29/16 09:32 Dose: 20 gm Loperamide HCl (Imodium) 2 mg PO Q8 PRN PRN Reason: Diarrhea Methadone HCl (Methadone) 10 mg PO Q24H [facility] PRN Reason: Taper Stop: 09/03/16 08:59 Montelukast Sodium (Singulair) 10 mg PO HS [facility] Last Admin: 08/29/16 21:21 Dose: 10 mg Ondansetron HCl (Zofran Tab) 4 mg PO Q8 PRN PRN Reason: Nausea/Vomiting Pantoprazole Sodium (Protonix Ec Tab) 40 mg PO DAILY [facility] Last Admin: 08/29/16 09:27 Dose: 40 mg Polyethylene Glycol (Miralax) 17 gm PO DAILY [facility] Last Admin: 08/29/16 15:21 Dose: 17 gm Quetiapine Fumarate (Seroquel) 50 mg PO [facility] Last Admin: 08/29/16 21:22 Dose: 50 mg Trazodone HCl (Desyrel) 100 mg PO [facility] Last Admin: 08/29/16 21:21 Dose: 100 mg - Labs Labs: 08/29/16 14:11 08/29/16 14:11 PT 14.2 SECONDS (9.7-12.2) H 08/29/16 14:11 INR 1.3 08/29/16 14:11 - Constitutional Appears: Non-toxic, No Acute Distress - Eye Exam Eye Exam: EOMI, PERRL - ENT Exam ENT Exam: Mucous Membranes Moist - Respiratory Exam Respiratory Exam: Rales (R>L). absent: Clear to Ausculation Bilateral, Rhonchi , Wheezes - Cardiovascular Exam Cardiovascular Exam: RRR, +S1, +S2 - GI/Abdominal Exam GI & Abdominal Exam: Soft, Normal Bowel Sounds. absent: Distended, Firm, Guarding, Rigid, Tenderness, Organomegaly - Extremities Exam Extremities Exam: Normal Inspection. absent: Pedal Edema - Neurological Exam Neurological Exam: Alert, Awake, Oriented x3 - Psychiatric Exam Psychiatric exam: Normal Affect, Normal Mood - Skin Skin Exam: Dry, Warm Assessment and Plan - Assessment and Plan (Free Text) Assessment: Patient is a 46yo male with PMHx significant for polysubstance abuse, endocarditis who presented with chest pain and now has constipation, rectal bleeding. -Pulmonary embolism, concern for septic emboli -Question of pulmonary infarct -CAP -Hematochezia likely 2/2 internal/external hemorrhoids -Constipation likely related to opioid use/withdrawal -Polysubstance abuse -GERD refractory to PPI therapy Plan: -Patient should resume anticoagulation therapy given PE diagnosis -Continue tx for hemorrhoids - Anusol MD as ordered, Miralax 17g PO QD for constipation -Also getting Lactulose PRN -Given acute issues, not candidate for EGD at this time, encourage outpatient follow up for EGD eval given persistent GERD/dyspepsia despite PPI therapy for 5 -6 years -Encourage tobacco, EtOH, illicit drug cessation <Jose A Salcedo - Last Filed: 08/30/16 13:57> Objective - Vital Signs/Intake and Output Vital Signs (last 24 hours): Temp Pulse Resp BP Pulse Ox 98.4 F 85 20 104/67 97 08/30/16 07:12 08/30/16 07:12 08/30/16 07:12 08/30/16 07:12 08/30/16 07:12 Intake and Output: 08/30/16 08/30/16 06:59 18:59 Intake Total 590 Output Total 400 Balance 190 - Medications Medications: Current Medications Acetaminophen (Tylenol 325mg Tab) 650 mg PO Q6 PRN PRN Reason: for: fever above 101 Last Admin: 08/29/16 20:28 Dose: 650 mg Al Hydrox/Mg Hydrox/Simethicone (Maalox 30 Ml) 30 ml PO TID PRN PRN Reason: Indigestion / Heartburn Last Admin: 08/29/16 09:32 Dose: 30 ml Albuterol/Ipratropium (Duoneb 3 Mg/0.5 Mg (3 Ml) Ud) 3 ml INH RQ6 [facility] Last Admin: 08/30/16 09:30 Dose: 3 ml Aspirin (Aspirin) 325 mg PO DAILY [facility] Last Admin: 08/30/16 09:11 Dose: 325 mg Bupropion HCl (Wellbutrin Xl) 150 mg PO HS [facility] Last Admin: 08/29/16 21:22 Dose: 150 mg Gabapentin (Neurontin) 300 mg PO TID [facility] Last Admin: 08/30/16 09:11 Dose: 300 mg Hydrocortisone (Anusol-Hc) 25 mg RC BID [facility] Last Admin: 08/30/16 09:13 Dose: 25 mg Hydromorphone HCl (Dilaudid) 0.5 mg IVP Q8 [facility] Last Admin: 08/30/16 06:11 Dose: 0.5 mg Moxifloxacin HCl (Avelox Iv 400mg/250ml Ns) 250 mls @ 167 mls/hr IVPB Q24H [facility] Last Admin: 08/29/16 16:20 Dose: 167 mls/hr Vancomycin HCl 1,000 mg/ (Sodium Chloride) 250 mls @ 166.6 mls/hr IVPB Q12H [facility] Last Admin: 08/30/16 11:30 Dose: 166.6 mls/hr Lactulose (Enulose) 20 gm PO Q6 PRN PRN Reason: Constipation Last Admin: 08/29/16 09:32 Dose: 20 gm Loperamide HCl (Imodium) 2 mg PO Q8 PRN PRN Reason: Diarrhea Methadone HCl (Methadone) 10 mg PO Q24H [facility] PRN Reason: Taper Stop: 09/03/16 08:59 Last Admin: 08/30/16 08:49 Dose: 10 mg Montelukast Sodium (Singulair) 10 mg PO HS [facility] Last Admin: 08/29/16 21:21 Dose: 10 mg Ondansetron HCl (Zofran Tab) 4 mg PO Q8 PRN PRN Reason: Nausea/Vomiting Pantoprazole Sodium (Protonix Ec Tab) 40 mg PO DAILY [facility] Last Admin: 08/30/16 10:43 Dose: 40 mg Polyethylene Glycol (Miralax) 17 gm PO DAILY [facility] Last Admin: 08/30/16 09:12 Dose: 17 gm Quetiapine Fumarate (Seroquel) 50 mg PO HS [facility] Last Admin: 08/29/16 21:22 Dose: 50 mg Trazodone HCl (Desyrel) 100 mg PO [facility] Last Admin: 08/29/16 21:21 Dose: 100 mg - Labs Labs: 08/29/16 14:11 08/29/16 14:11 PT 14.2 SECONDS (9.7-12.2) H 08/29/16 14:11 INR 1.3 08/29/16 14:11 Attending/Attestation - Attestation I have personally seen and examined this patient.: Yes I have fully participated in the care of the patient.: Yes I have reviewed all pertinent clinical information, including history, physical exam and plan: Yes Notes (Text): 08/30/16 13:53 I have seen and examined patient with GI fellow. No acute events overnight, he is seen resting in bed comfortably. He complains of ongoing constipation and difficulty urinating. He did have a bowel movement yesterday without any bleeding noted. He denies nausea, vomiting, fever/chills. Tolerating PO diet without difficulty. Review of vitals from today are normal. Polysubstance abuse Acute PE Constipation, abdominal pain, hematochezia - resolved - Continue with diet as tolerated - H/H stable, continue to monitor - No contraindication for anti-coagulation use from GI perspective given acute PE - Maintain bowel regimen to prevent ongoing constipation - Continue with antibiotic therapy as per ID - Patient would benefit from outpatient elective EGD given chronic GERD/ abdominal pain which has been non-responsive to PPI therapy. Would defer any procedure for time being given acute PE. No ongoing GI issues at this time, will sign off case. Please reconsult as necessary, thank you.
[2016-08-30] MEDS: POLYETHYLENE GLYCOL 3350 17 GM/Dose PACKET PO SCH (09:12)
[2016-08-30] MEDS: Albuterol-Ipratrop 3 mg / 0.5 (3 ml) UD INH SCH ×3 (09:30→19:41)
[2016-08-30] MEDS: Pantoprazole 40 mg EC Tab PO SCH (10:43)
[2016-08-30] MEDS: Moxifloxacin IV 400mg/250ml NS 250 ML IVPB SCH (16:36)
--- NOTE | 2016-08-30 18:56 | CP.PCM.PN ---
Objective - Vital Signs/Intake and Output Vital Signs (last 24 hours): Temp Pulse Resp BP Pulse Ox 97.5 F L 83 20 110/70 96 08/30/16 16:11 08/30/16 16:11 08/30/16 16:11 08/30/16 16:11 08/30/16 16:11 Intake and Output: 08/30/16 08/30/16 06:59 18:59 Intake Total 590 400 Output Total 400 Balance 190 400 - Medications Medications: Current Medications Acetaminophen (Tylenol 325mg Tab) 650 mg PO Q6 PRN PRN Reason: for: fever above 101 Last Admin: 08/29/16 20:28 Dose: 650 mg Al Hydrox/Mg Hydrox/Simethicone (Maalox 30 Ml) 30 ml PO TID PRN PRN Reason: Indigestion / Heartburn Last Admin: 08/29/16 09:32 Dose: 30 ml Albuterol/Ipratropium (Duoneb 3 Mg/0.5 Mg (3 Ml) Ud) 3 ml INH RQ6 [facility] Last Admin: 08/30/16 14:03 Dose: Not Given Aspirin (Aspirin) 325 mg PO DAILY [facility] Last Admin: 08/30/16 09:11 Dose: 325 mg Bupropion HCl (Wellbutrin Xl) 150 mg PO HS [facility] Last Admin: 08/29/16 21:22 Dose: 150 mg Gabapentin (Neurontin) 300 mg PO TID [facility] Last Admin: 08/30/16 18:39 Dose: 300 mg Hydrocortisone (Anusol-Hc) 25 mg RC BID [facility] Last Admin: 08/30/16 18:39 Dose: 25 mg Hydromorphone HCl (Dilaudid) 0.5 mg IVP Q8 [facility] Last Admin: 08/30/16 16:36 Dose: 0.5 mg Moxifloxacin HCl (Avelox Iv 400mg/250ml Ns) 250 mls @ 167 mls/hr IVPB Q24H [facility] Last Admin: 08/30/16 16:36 Dose: 167 mls/hr Vancomycin HCl 1,000 mg/ (Sodium Chloride) 250 mls @ 166.6 mls/hr IVPB Q12H [facility] Last Admin: 08/30/16 11:30 Dose: 166.6 mls/hr Lactulose (Enulose) 20 gm PO Q6 PRN PRN Reason: Constipation Last Admin: 08/29/16 09:32 Dose: 20 gm Loperamide HCl (Imodium) 2 mg PO Q8 PRN PRN Reason: Diarrhea Methadone HCl (Methadone) 10 mg PO Q24H [facility] PRN Reason: Taper Stop: 09/03/16 08:59 Last Admin: 08/30/16 08:49 Dose: 10 mg Montelukast Sodium (Singulair) 10 mg PO HS [facility] Last Admin: 08/29/16 21:21 Dose: 10 mg Ondansetron HCl (Zofran Tab) 4 mg PO Q8 PRN PRN Reason: Nausea/Vomiting Pantoprazole Sodium (Protonix Ec Tab) 40 mg PO DAILY [facility] Last Admin: 08/30/16 10:43 Dose: 40 mg Polyethylene Glycol (Miralax) 17 gm PO DAILY [facility] Last Admin: 08/30/16 09:12 Dose: 17 gm Quetiapine Fumarate (Seroquel) 50 mg PO HS [facility] Last Admin: 08/29/16 21:22 Dose: 50 mg Trazodone HCl (Desyrel) 100 mg PO [facility] Last Admin: 08/29/16 21:21 Dose: 100 mg - Labs Labs: 08/29/16 14:11 08/29/16 14:11 PT 14.2 SECONDS (9.7-12.2) H 08/29/16 14:11 INR 1.3 08/29/16 14:11
--- NOTE | 2016-08-30 21:51 | CP.PCM.PN ---
Subjective - Date & Time of Evaluation Date of Evaluation: 08/30/16 Time of Evaluation: 11:00 - Subjective Subjective: clinically same Objective - Vital Signs/Intake and Output Vital Signs (last 24 hours): Temp Pulse Resp BP Pulse Ox 97.5 F L 83 20 110/70 96 08/30/16 16:11 08/30/16 16:11 08/30/16 16:11 08/30/16 16:11 08/30/16 16:11 Intake and Output: 08/30/16 08/31/16 18:59 06:59 Intake Total 400 Balance 400 - Medications Medications: Current Medications Acetaminophen (Tylenol 325mg Tab) 650 mg PO Q6 PRN PRN Reason: for: fever above 101 Last Admin: 08/29/16 20:28 Dose: 650 mg Al Hydrox/Mg Hydrox/Simethicone (Maalox 30 Ml) 30 ml PO TID PRN PRN Reason: Indigestion / Heartburn Last Admin: 08/29/16 09:32 Dose: 30 ml Albuterol/Ipratropium (Duoneb 3 Mg/0.5 Mg (3 Ml) Ud) 3 ml INH RQ6 [facility] Last Admin: 08/30/16 19:41 Dose: Not Given Aspirin (Aspirin) 325 mg PO DAILY [facility] Last Admin: 08/30/16 09:11 Dose: 325 mg Bupropion HCl (Wellbutrin Xl) 150 mg PO HS [facility] Last Admin: 08/29/16 21:22 Dose: 150 mg Gabapentin (Neurontin) 300 mg PO TID [facility] Last Admin: 08/30/16 18:39 Dose: 300 mg Hydrocortisone (Anusol-Hc) 25 mg RC BID [facility] Last Admin: 08/30/16 18:39 Dose: 25 mg Hydromorphone HCl (Dilaudid) 0.5 mg IVP Q8 [facility] Last Admin: 08/30/16 16:36 Dose: 0.5 mg Moxifloxacin HCl (Avelox Iv 400mg/250ml Ns) 250 mls @ 167 mls/hr IVPB Q24H [facility] Last Admin: 08/30/16 16:36 Dose: 167 mls/hr Vancomycin HCl 1,000 mg/ (Sodium Chloride) 250 mls @ 166.6 mls/hr IVPB Q12H [facility] Last Admin: 08/30/16 11:30 Dose: 166.6 mls/hr Lactulose (Enulose) 20 gm PO Q6 PRN PRN Reason: Constipation Last Admin: 08/29/16 09:32 Dose: 20 gm Loperamide HCl (Imodium) 2 mg PO Q8 PRN PRN Reason: Diarrhea Methadone HCl (Methadone) 10 mg PO Q24H [facility] PRN Reason: Taper Stop: 09/03/16 08:59 Last Admin: 08/30/16 08:49 Dose: 10 mg Montelukast Sodium (Singulair) 10 mg PO [facility] Last Admin: 08/29/16 21:21 Dose: 10 mg Ondansetron HCl (Zofran Tab) 4 mg PO Q8 PRN PRN Reason: Nausea/Vomiting Pantoprazole Sodium (Protonix Ec Tab) 40 mg PO DAILY [facility] Last Admin: 08/30/16 10:43 Dose: 40 mg Polyethylene Glycol (Miralax) 17 gm PO DAILY [facility] Last Admin: 08/30/16 09:12 Dose: 17 gm Quetiapine Fumarate (Seroquel) 50 mg PO [facility] Last Admin: 08/29/16 21:22 Dose: 50 mg Trazodone HCl (Desyrel) 100 mg PO [facility] Last Admin: 08/29/16 21:21 Dose: 100 mg - Labs Labs: 08/29/16 14:11 08/29/16 14:11 PT 14.2 SECONDS (9.7-12.2) H 08/29/16 14:11 INR 1.3 08/29/16 14:11 - Constitutional Appears: Well - Head Exam Head Exam: ATRAUMATIC, NORMAL INSPECTION, NORMOCEPHALIC - Eye Exam Eye Exam: EOMI, Normal appearance, PERRL Pupil Exam: NORMAL ACCOMODATION, PERRL - ENT Exam ENT Exam: Mucous Membranes Moist, Normal Exam - Neck Exam Neck Exam: Full ROM, Normal Inspection. absent: Lymphadenopathy - Respiratory Exam Respiratory Exam: Decreased Breath Sounds - Cardiovascular Exam Cardiovascular Exam: REGULAR RHYTHM, +S1, +S2 - GI/Abdominal Exam GI & Abdominal Exam: Soft, Diminished Bowel Sounds - Rectal Exam Rectal Exam: Deferred Assessment and Plan (1) Anemia Status: Acute (2) Chest pain Status: Acute (3) Dental caries Status: Acute (4) Depression Status: Acute (5) Drug abuse Status: Acute (6) Dyspnea Status: Acute (7) Effusion of hip joint, left Status: Acute (8) Electrolyte abnormality Status: Acute (9) Fever Status: Acute (10) Heroin dependence Status: Acute (11) Infective endocarditis Status: Acute (12) Lower leg edema Status: Acute (13) Osteomyelitis of left hip Status: Acute (14) Prophylactic measure Status: Acute (15) Pulmonary embolism Status: Acute (16) Septic arthritis Status: Acute (17) Septic embolism Status: Acute (18) Breast lump Status: Chronic (19) Drug dependence Status: Chronic (20) Polysubstance (including opioids) dependence with physiol dependence Status: Chronic (21) Tobacco abuse Status: Chronic - Assessment and Plan (Free Text) Plan: GI consult on board neurotin avelox vancimycin methadone detox zofran psych on board
[2016-08-30] MEDS: buPROPion 150 mg/24 Hours XL Tab PO SCH (22:40)
[2016-08-31] MEDS: Albuterol-Ipratrop 3 mg / 0.5 (3 ml) UD INH SCH ×2 (01:17→08:29)
[2016-08-31] MEDS: HYDROmorphone 0.5 mg/0.5 ml ISec IVP SCH (06:57)
[2016-08-31] MEDS: HYDROmorphone 1 mg/ml ISec IVP SCH ×3 (07:00→22:06)
[2016-08-31] MEDS: POLYETHYLENE GLYCOL 3350 17 GM/Dose PACKET PO SCH (09:00)
[2016-08-31] MEDS: Pantoprazole 40 mg EC Tab PO SCH (09:00)
--- NOTE | 2016-08-31 16:59 | CP.PCM.PN ---
Subjective - Date & Time of Evaluation Date of Evaluation: 08/31/16 Time of Evaluation: 11:20 - Subjective Subjective: clinically same Objective - Vital Signs/Intake and Output Vital Signs (last 24 hours): Temp Pulse Resp BP Pulse Ox 99.6 F 80 20 90/55 L 94 L 08/31/16 07:15 08/31/16 15:35 08/31/16 07:15 08/31/16 07:15 08/31/16 15:35 Intake and Output: 08/31/16 08/31/16 06:59 18:59 Intake Total 320 550 Balance 320 550 - Medications Medications: Current Medications Acetaminophen (Tylenol 325mg Tab) 650 mg PO Q6 PRN PRN Reason: for: fever above 101 Last Admin: 08/29/16 20:28 Dose: 650 mg Al Hydrox/Mg Hydrox/Simethicone (Maalox 30 Ml) 30 ml PO TID PRN PRN Reason: Indigestion / Heartburn Last Admin: 08/29/16 09:32 Dose: 30 ml Aspirin (Aspirin) 325 mg PO DAILY [facility] Last Admin: 08/31/16 09:00 Dose: 325 mg Bupropion HCl (Wellbutrin Xl) 150 mg PO HS [facility] Last Admin: 08/30/16 22:40 Dose: 150 mg Gabapentin (Neurontin) 300 mg PO TID [facility] Last Admin: 08/31/16 13:07 Dose: 300 mg Hydrocortisone (Anusol-Hc) 25 mg RC BID [facility] Last Admin: 08/31/16 09:00 Dose: 25 mg Hydromorphone HCl (Dilaudid) 0.5 mg IVP Q8 [facility] Last Admin: 08/31/16 13:05 Dose: 0.5 mg Moxifloxacin HCl (Avelox Iv 400mg/250ml Ns) 250 mls @ 167 mls/hr IVPB Q24H [facility] Last Admin: 08/30/16 16:36 Dose: 167 mls/hr Vancomycin HCl 1,000 mg/ (Sodium Chloride) 250 mls @ 166.6 mls/hr IVPB Q12H [facility] Last Admin: 08/31/16 10:35 Dose: 166.6 mls/hr Lactulose (Enulose) 20 gm PO Q6 PRN PRN Reason: Constipation Last Admin: 08/29/16 09:32 Dose: 20 gm Loperamide HCl (Imodium) 2 mg PO Q8 PRN PRN Reason: Diarrhea Methadone HCl (Methadone) 10 mg PO Q24H [facility] PRN Reason: Taper Stop: 09/03/16 08:59 Last Admin: 08/31/16 08:26 Dose: 10 mg Montelukast Sodium (Singulair) 10 mg PO [facility] Last Admin: 08/30/16 22:40 Dose: 10 mg Ondansetron HCl (Zofran Tab) 4 mg PO Q8 PRN PRN Reason: Nausea/Vomiting Pantoprazole Sodium (Protonix Ec Tab) 40 mg PO DAILY [facility] Last Admin: 08/31/16 09:00 Dose: 40 mg Polyethylene Glycol (Miralax) 17 gm PO DAILY [facility] Last Admin: 08/31/16 09:00 Dose: 17 gm Quetiapine Fumarate (Seroquel) 50 mg PO [facility] Last Admin: 08/30/16 22:40 Dose: 50 mg Trazodone HCl (Desyrel) 100 mg PO [facility] Last Admin: 08/30/16 22:40 Dose: 100 mg - Labs Labs: 08/29/16 14:11 08/29/16 14:11 PT 14.2 SECONDS (9.7-12.2) H 08/29/16 14:11 INR 1.3 08/29/16 14:11 - Constitutional Appears: Well - Head Exam Head Exam: ATRAUMATIC, NORMAL INSPECTION, NORMOCEPHALIC - Eye Exam Eye Exam: EOMI, Normal appearance, PERRL Pupil Exam: NORMAL ACCOMODATION, PERRL - ENT Exam ENT Exam: Mucous Membranes Moist, Normal Exam - Neck Exam Neck Exam: Full ROM, Normal Inspection. absent: Lymphadenopathy - Respiratory Exam Respiratory Exam: Decreased Breath Sounds - Cardiovascular Exam Cardiovascular Exam: REGULAR RHYTHM, +S1, +S2 - GI/Abdominal Exam GI & Abdominal Exam: Soft, Diminished Bowel Sounds - Rectal Exam Rectal Exam: Deferred Assessment and Plan (1) Anemia Status: Acute (2) Chest pain Status: Acute (3) Dental caries Status: Acute (4) Depression Status: Acute (5) Drug abuse Status: Acute (6) Dyspnea Status: Acute (7) Effusion of hip joint, left Status: Acute (8) Electrolyte abnormality Status: Acute (9) Fever Status: Acute (10) Heroin dependence Status: Acute (11) Infective endocarditis Status: Acute (12) Lower leg edema Status: Acute (13) Osteomyelitis of left hip Status: Acute (14) Prophylactic measure Status: Acute (15) Pulmonary embolism Status: Acute (16) Septic arthritis Status: Acute (17) Septic embolism Status: Acute (18) Breast lump Status: Chronic (19) Drug dependence Status: Chronic (20) 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
[2016-08-31] MEDS: Moxifloxacin IV 400mg/250ml NS 250 ML IVPB SCH (17:39)
--- NOTE | 2016-08-31 18:26 | CP.PCM.PN ---
Subjective - Date & Time of Evaluation Date of Evaluation: 08/31/16 Time of Evaluation: 09:00 - Subjective Subjective: iv rx in progress will likely need SHRUTHI consider heme eval Objective - Vital Signs/Intake and Output Vital Signs (last 24 hours): Temp Pulse Resp BP Pulse Ox 98.2 F 76 18 109/63 96 08/31/16 15:41 08/31/16 15:41 08/31/16 15:41 08/31/16 15:41 08/31/16 15:41 Intake and Output: 08/31/16 08/31/16 06:59 18:59 Intake Total 320 550 Balance 320 550 - Medications Medications: Current Medications Acetaminophen (Tylenol 325mg Tab) 650 mg PO Q6 PRN PRN Reason: for: fever above 101 Last Admin: 08/29/16 20:28 Dose: 650 mg Al Hydrox/Mg Hydrox/Simethicone (Maalox 30 Ml) 30 ml PO TID PRN PRN Reason: Indigestion / Heartburn Last Admin: 08/29/16 09:32 Dose: 30 ml Aspirin (Aspirin) 325 mg PO DAILY [facility] Last Admin: 08/31/16 09:00 Dose: 325 mg Bupropion HCl (Wellbutrin Xl) 150 mg PO HS [facility] Last Admin: 08/30/16 22:40 Dose: 150 mg Gabapentin (Neurontin) 300 mg PO TID [facility] Last Admin: 08/31/16 17:39 Dose: 300 mg Hydrocortisone (Anusol-Hc) 25 mg RC BID [facility] Last Admin: 08/31/16 17:39 Dose: 25 mg Hydromorphone HCl (Dilaudid) 0.5 mg IVP Q8 [facility] Last Admin: 08/31/16 13:05 Dose: 0.5 mg Moxifloxacin HCl (Avelox Iv 400mg/250ml Ns) 250 mls @ 167 mls/hr IVPB Q24H [facility] Last Admin: 08/31/16 17:39 Dose: 167 mls/hr Vancomycin HCl 1,000 mg/ (Sodium Chloride) 250 mls @ 166.6 mls/hr IVPB Q12H [facility] Last Admin: 08/31/16 10:35 Dose: 166.6 mls/hr Lactulose (Enulose) 20 gm PO Q6 PRN PRN Reason: Constipation Last Admin: 04/26/17 09:32 Dose: 20 gm Loperamide HCl (Imodium) 2 mg PO Q8 PRN PRN Reason: Diarrhea Methadone HCl (Methadone) 10 mg PO Q24H [facility] PRN Reason: Taper Stop: 09/03/16 08:59 Last Admin: 08/31/16 08:26 Dose: 10 mg Montelukast Sodium (Singulair) 10 mg PO [facility] Last Admin: 08/30/16 22:40 Dose: 10 mg Ondansetron HCl (Zofran Tab) 4 mg PO Q8 PRN PRN Reason: Nausea/Vomiting Pantoprazole Sodium (Protonix Ec Tab) 40 mg PO DAILY [facility] Last Admin: 08/31/16 09:00 Dose: 40 mg Polyethylene Glycol (Miralax) 17 gm PO DAILY [facility] Last Admin: 08/31/16 09:00 Dose: 17 gm Quetiapine Fumarate (Seroquel) 50 mg PO [facility] Last Admin: 08/30/16 22:40 Dose: 50 mg Trazodone HCl (Desyrel) 100 mg PO [facility] Last Admin: 08/30/16 22:40 Dose: 100 mg - Labs Labs: 08/29/16 14:11 08/29/16 14:11 PT 14.2 SECONDS (9.7-12.2) H 08/29/16 14:11 INR 1.3 08/29/16 14:11 - Constitutional Appears: Non-toxic, Chronically Ill - Head Exam Head Exam: NORMOCEPHALIC - Eye Exam Eye Exam: PERRL. absent: Scleral icterus - ENT Exam ENT Exam: Mucous Membranes Dry - Neck Exam Neck Exam: absent: Lymphadenopathy - Respiratory Exam Respiratory Exam: Decreased Breath Sounds - Cardiovascular Exam Cardiovascular Exam: REGULAR RHYTHM - GI/Abdominal Exam GI & Abdominal Exam: Distended, Soft - Rectal Exam Rectal Exam: Deferred Assessment and Plan (1) Infective endocarditis Status: Acute (2) Depression Status: Acute (3) Septic embolism Status: Acute (4) Pulmonary embolism Status: Acute
[2016-08-31] MEDS: buPROPion 150 mg/24 Hours XL Tab PO SCH (22:03)
[2016-09-01] MEDS: HYDROmorphone 1 mg/ml ISec IVP SCH ×3 (06:17→21:49)
[2016-09-01 08:34] LABS: BASO % 0.2 % (0.0-2.0); EOS # 0.1 K/uL (0.0-0.7); LYMPH % 9.4 % (20.0-40.0); MEAN CELL VOLUME 87.8 fL (80.0-94.0); MEAN CORPUSCULAR HEMOGLOBIN 29.1 pg (27.0-31.0); MEAN CORPUSCULAR HGB CONC 33.1 g/dL (33.0-37.0); MEAN PLATELET VOLUME 6.6 fL (7.2-11.7); MONO # 0.7 K/uL (0.0-0.8); MONO % 6.7 % (0.0-10.0); RED CELL DISTRIBUTION WIDTH 13.2 % (11.5-14.5); WHITE BLOOD COUNT 10.9 K/uL (4.8-10.8)
[2016-09-01 08:39] LABS: CHLORIDE 101 mmol/L (98-107)
[2016-09-01 08:40] LABS: POTASSIUM 3.9 mmol/L (3.6-5.2); SODIUM 138 mmol/L (132-148)
[2016-09-01 08:42] LABS: ALB/GLOB RATIO 0.9 (1.0-2.1); ALKALINE PHOSPHATASE 258 U/L (38-126); ALT/SGPT 150 U/L (21-72); AST/SGOT 89 U/L (17-59); BILIRUBIN,TOTAL 0.7 mg/dL (0.2-1.3); BLOOD UREA NITROGEN 11 mg/dL (9-20); CARBON DIOXIDE 23 mmol/L (22-30); GFR AFRICAN-AMERICAN > 60; TOTAL PROTEIN 6.5 g/dL (6.3-8.3)
[2016-09-01 08:43] LABS: CALCIUM 8.4 mg/dl (8.6-10.4); GLUCOSE,RANDOM 106 mg/dL (75-110); PLATELET COUNT 396 K/uL (130-400)
[2016-09-01] MEDS: Pantoprazole 40 mg EC Tab PO SCH (09:00)
[2016-09-01] MEDS: POLYETHYLENE GLYCOL 3350 17 GM/Dose PACKET PO SCH (09:01)
--- NOTE | 2016-09-01 09:55 | CP.PCM.PN ---
Subjective - Date & Time of Evaluation Date of Evaluation: 09/01/16 Time of Evaluation: 10:40 - Subjective Subjective: clinically same Objective - Vital Signs/Intake and Output Vital Signs (last 24 hours): Temp Pulse Resp BP Pulse Ox 98.5 F 79 18 92/58 L 95 09/01/16 07:12 09/01/16 07:12 09/01/16 07:12 09/01/16 07:12 09/01/16 07:12 Intake and Output: 09/01/16 09/01/16 06:59 18:59 Intake Total 670 Balance 670 - Medications Medications: Current Medications Acetaminophen (Tylenol 325mg Tab) 650 mg PO Q6 PRN PRN Reason: for: fever above 101 Last Admin: 08/29/16 20:28 Dose: 650 mg Al Hydrox/Mg Hydrox/Simethicone (Maalox 30 Ml) 30 ml PO TID PRN PRN Reason: Indigestion / Heartburn Last Admin: 08/29/16 09:32 Dose: 30 ml Apixaban (Eliquis) 5 mg PO Q12 [facility] Last Admin: 09/01/16 09:00 Dose: 5 mg Aspirin (Aspirin) 325 mg PO DAILY [facility] Last Admin: 09/01/16 09:00 Dose: 325 mg Bupropion HCl (Wellbutrin Xl) 150 mg PO HS [facility] Last Admin: 08/31/16 22:03 Dose: 150 mg Gabapentin (Neurontin) 300 mg PO TID [facility] Last Admin: 09/01/16 09:00 Dose: 300 mg Hydrocortisone (Anusol-Hc) 25 mg RC BID [facility] Last Admin: 09/01/16 09:00 Dose: 25 mg Hydromorphone HCl (Dilaudid) 0.5 mg IVP Q8 [facility] Last Admin: 09/01/16 06:17 Dose: 0.5 mg Moxifloxacin HCl (Avelox Iv 400mg/250ml Ns) 250 mls @ 167 mls/hr IVPB Q24H [facility] Last Admin: 08/31/16 17:39 Dose: 167 mls/hr Vancomycin HCl 1,000 mg/ (Sodium Chloride) 250 mls @ 166.6 mls/hr IVPB Q12H [facility] Last Admin: 09/01/16 00:34 Dose: 166.6 mls/hr Lactulose (Enulose) 20 gm PO Q6 PRN PRN Reason: Constipation Last Admin: 08/29/16 09:32 Dose: 20 gm Loperamide HCl (Imodium) 2 mg PO Q8 PRN PRN Reason: Diarrhea Methadone HCl (Methadone) 5 mg PO Q24H [facility] PRN Reason: Taper Stop: 09/03/16 08:59 Last Admin: 09/01/16 08:59 Dose: 5 mg Montelukast Sodium (Singulair) 10 mg PO [facility] Last Admin: 08/31/16 22:02 Dose: 10 mg Ondansetron HCl (Zofran Tab) 4 mg PO Q8 PRN PRN Reason: Nausea/Vomiting Pantoprazole Sodium (Protonix Ec Tab) 40 mg PO DAILY [facility] Last Admin: 09/01/16 09:00 Dose: 40 mg Polyethylene Glycol (Miralax) 17 gm PO DAILY [facility] Last Admin: 09/01/16 09:01 Dose: 17 gm Quetiapine Fumarate (Seroquel) 50 mg PO [facility] Last Admin: 08/31/16 22:02 Dose: 50 mg Trazodone HCl (Desyrel) 100 mg PO [facility] Last Admin: 08/31/16 22:02 Dose: 100 mg - Labs Labs: 09/01/16 08:15 09/01/16 08:15 PT 14.2 SECONDS (9.7-12.2) H 08/29/16 14:11 INR 1.3 08/29/16 14:11 - Constitutional Appears: Well - Head Exam Head Exam: ATRAUMATIC, NORMAL INSPECTION, NORMOCEPHALIC - Eye Exam Eye Exam: EOMI, Normal appearance, PERRL Pupil Exam: NORMAL ACCOMODATION, PERRL - ENT Exam ENT Exam: Mucous Membranes Moist, Normal Exam - Neck Exam Neck Exam: Full ROM, Normal Inspection. absent: Lymphadenopathy - Respiratory Exam Respiratory Exam: Decreased Breath Sounds - Cardiovascular Exam Cardiovascular Exam: REGULAR RHYTHM, +S1, +S2 - GI/Abdominal Exam GI & Abdominal Exam: Soft, Diminished Bowel Sounds - Rectal Exam Rectal Exam: Deferred Assessment and Plan (1) Anemia Status: Acute (2) Chest pain Status: Acute (3) Dental caries Status: Acute (4) Depression Status: Acute (5) Drug abuse Status: Acute (6) Dyspnea Status: Acute (7) Effusion of hip joint, left Status: Acute (8) Electrolyte abnormality Status: Acute (9) Fever Status: Acute (10) Heroin dependence Status: Acute (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
--- NOTE | 2016-09-01 11:58 | CP.PCM.PN ---
Subjective - Date & Time of Evaluation Date of Evaluation: 09/01/16 Time of Evaluation: 11:58 Objective - Vital Signs/Intake and Output Vital Signs (last 24 hours): Temp Pulse Resp BP Pulse Ox 98.5 F 88 18 92/58 L 95 09/01/16 07:12 09/01/16 09:00 09/01/16 07:12 09/01/16 07:12 09/01/16 07:12 Intake and Output: 09/01/16 09/01/16 06:59 18:59 Intake Total 670 Balance 670 - Medications Medications: Current Medications Acetaminophen (Tylenol 325mg Tab) 650 mg PO Q6 PRN PRN Reason: for: fever above 101 Last Admin: 08/29/16 20:28 Dose: 650 mg Al Hydrox/Mg Hydrox/Simethicone (Maalox 30 Ml) 30 ml PO TID PRN PRN Reason: Indigestion / Heartburn Last Admin: 08/29/16 09:32 Dose: 30 ml Apixaban (Eliquis) 5 mg PO Q12 [facility] Last Admin: 09/01/16 09:00 Dose: 5 mg Aspirin (Aspirin) 325 mg PO DAILY [facility] Last Admin: 09/01/16 09:00 Dose: 325 mg Bupropion HCl (Wellbutrin Xl) 150 mg PO HS [facility] Last Admin: 08/31/16 22:03 Dose: 150 mg Gabapentin (Neurontin) 300 mg PO TID [facility] Last Admin: 09/01/16 09:00 Dose: 300 mg Hydrocortisone (Anusol-Hc) 25 mg RC BID [facility] Last Admin: 09/01/16 09:00 Dose: 25 mg Hydromorphone HCl (Dilaudid) 0.5 mg IVP Q8 [facility] Last Admin: 09/01/16 06:17 Dose: 0.5 mg Moxifloxacin HCl (Avelox Iv 400mg/250ml Ns) 250 mls @ 167 mls/hr IVPB Q24H [facility] Last Admin: 08/31/16 17:39 Dose: 167 mls/hr Vancomycin HCl 1,000 mg/ (Sodium Chloride) 250 mls @ 166.6 mls/hr IVPB Q12H [facility] Last Admin: 09/01/16 11:44 Dose: 166.6 mls/hr Lactulose (Enulose) 20 gm PO Q6 PRN PRN Reason: Constipation Last Admin: 08/29/16 09:32 Dose: 20 gm Loperamide HCl (Imodium) 2 mg PO Q8 PRN PRN Reason: Diarrhea Methadone HCl (Methadone) 5 mg PO Q24H [facility] PRN Reason: Taper Stop: 09/03/16 08:59 Last Admin: 09/01/16 08:59 Dose: 5 mg Montelukast Sodium (Singulair) 10 mg PO [facility] Last Admin: 08/31/16 22:02 Dose: 10 mg Ondansetron HCl (Zofran Tab) 4 mg PO Q8 PRN PRN Reason: Nausea/Vomiting Pantoprazole Sodium (Protonix Ec Tab) 40 mg PO DAILY [facility] Last Admin: 09/01/16 09:00 Dose: 40 mg Polyethylene Glycol (Miralax) 17 gm PO DAILY [facility] Last Admin: 09/01/16 09:01 Dose: 17 gm Quetiapine Fumarate (Seroquel) 50 mg PO [facility] Last Admin: 08/31/16 22:02 Dose: 50 mg Trazodone HCl (Desyrel) 100 mg PO [facility] Last Admin: 08/31/16 22:02 Dose: 100 mg - Labs Labs: 09/01/16 08:15 09/01/16 08:15 PT 14.2 SECONDS (9.7-12.2) H 08/29/16 14:11 INR 1.3 08/29/16 14:11
[2016-09-01 12:01] LABS: TOTAL CELLS COUNTED 100
[2016-09-01 12:02] LABS: NEUTROPHIL 81 % (50-75)
[2016-09-01] MEDS: Moxifloxacin IV 400mg/250ml NS 250 ML IVPB SCH (15:25)
[2016-09-02] MEDS: HYDROmorphone 1 mg/ml ISec IVP SCH ×3 (06:10→22:19)
[2016-09-02] MEDS: Aluminum Hydroxide/Magnesium Hydroxide Susp (30 mL) PO PRN (09:02)
[2016-09-02] MEDS: Pantoprazole 40 mg EC Tab PO SCH (09:02)
[2016-09-02] MEDS: POLYETHYLENE GLYCOL 3350 17 GM/Dose PACKET PO SCH (09:03)
--- NOTE | 2016-09-02 15:54 | CP.PCM.PN ---
Subjective - Date & Time of Evaluation Date of Evaluation: 09/02/16 Time of Evaluation: 08:00 - Subjective Subjective: NO FEVER LESS SOB ALERT AWAIT SHRUTHI Objective - Vital Signs/Intake and Output Vital Signs (last 24 hours): Temp Pulse Resp BP Pulse Ox 98.1 F 81 18 99/59 L 95 09/02/16 08:46 09/02/16 12:15 09/02/16 08:46 09/02/16 08:46 09/02/16 08:46 Intake and Output: 09/02/16 09/02/16 06:59 18:59 Intake Total 250 850 Balance 250 850 - Medications Medications: Current Medications Acetaminophen (Tylenol 325mg Tab) 650 mg PO Q6 PRN PRN Reason: for: fever above 101 Last Admin: 08/29/16 20:28 Dose: 650 mg Al Hydrox/Mg Hydrox/Simethicone (Maalox 30 Ml) 30 ml PO TID PRN PRN Reason: Indigestion / Heartburn Last Admin: 08/29/16 09:32 Dose: 30 ml Apixaban (Eliquis) 5 mg PO Q12 [facility] Last Admin: 09/02/16 09:04 Dose: 5 mg Aspirin (Aspirin) 325 mg PO DAILY [facility] Last Admin: 09/02/16 09:02 Dose: 325 mg Bupropion HCl (Wellbutrin Xl) 150 mg PO HS [facility] Last Admin: 08/31/16 22:03 Dose: 150 mg Gabapentin (Neurontin) 300 mg PO TID [facility] Last Admin: 09/02/16 13:05 Dose: 300 mg Hydrocortisone (Anusol-Hc) 25 mg RC BID [facility] Last Admin: 09/02/16 09:05 Dose: 25 mg Hydromorphone HCl (Dilaudid) 0.5 mg IVP Q8 [facility] Last Admin: 09/02/16 13:05 Dose: 0.5 mg Vancomycin HCl 1,000 mg/ (Sodium Chloride) 250 mls @ 166.6 mls/hr IVPB Q12H [facility] Last Admin: 09/02/16 10:30 Dose: 166.6 mls/hr Lactulose (Enulose) 20 gm PO Q6 PRN PRN Reason: Constipation Last Admin: 09/02/16 09:02 Dose: 20 gm Loperamide HCl (Imodium) 2 mg PO Q8 PRN PRN Reason: Diarrhea Methadone HCl (Methadone) 5 mg PO Q24H [facility] PRN Reason: Taper Stop: 09/03/16 08:59 Last Admin: 09/02/16 08:25 Dose: 5 mg Montelukast Sodium (Singulair) 10 mg PO [facility] Last Admin: 09/01/16 21:48 Dose: 10 mg Ondansetron HCl (Zofran Tab) 4 mg PO Q8 PRN PRN Reason: Nausea/Vomiting Pantoprazole Sodium (Protonix Ec Tab) 40 mg PO DAILY [facility] Last Admin: 09/02/16 09:02 Dose: 40 mg Polyethylene Glycol (Miralax) 17 gm PO DAILY [facility] Last Admin: 09/02/16 09:03 Dose: 17 gm Quetiapine Fumarate (Seroquel) 50 mg PO [facility] Last Admin: 09/01/16 21:48 Dose: 50 mg Trazodone HCl (Desyrel) 100 mg PO [facility] Last Admin: 09/01/16 21:48 Dose: 100 mg - Labs Labs: 09/01/16 08:15 09/01/16 08:15 PT 14.2 SECONDS (9.7-12.2) H 08/29/16 14:11 INR 1.3 08/29/16 14:11 - Constitutional Appears: No Acute Distress - Head Exam Head Exam: NORMAL INSPECTION - Eye Exam Eye Exam: PERRL - ENT Exam ENT Exam: Mucous Membranes Dry - Neck Exam Neck Exam: absent: Lymphadenopathy - Respiratory Exam Respiratory Exam: Decreased Breath Sounds, Rhonchi - Cardiovascular Exam Cardiovascular Exam: REGULAR RHYTHM, +S1, +S2 - GI/Abdominal Exam GI & Abdominal Exam: Distended, Soft Assessment and Plan (1) Infective endocarditis Status: Acute (2) Depression Status: Acute (3) Septic embolism Status: Acute (4) Pulmonary embolism Status: Acute
[2016-09-02 16:08] VITALS: RESP 20
--- NOTE | 2016-09-02 16:41 | CP.PCM.PN ---
Objective - Vital Signs/Intake and Output Vital Signs (last 24 hours): Temp Pulse Resp BP Pulse Ox 98.1 F 75 20 91/50 L 96 09/02/16 15:00 09/02/16 15:00 09/02/16 15:00 09/02/16 15:00 09/02/16 15:00 Intake and Output: 09/02/16 09/02/16 06:59 18:59 Intake Total 250 850 Balance 250 850 - Medications Medications: Current Medications Acetaminophen (Tylenol 325mg Tab) 650 mg PO Q6 PRN PRN Reason: for: fever above 101 Last Admin: 08/29/16 20:28 Dose: 650 mg Al Hydrox/Mg Hydrox/Simethicone (Maalox 30 Ml) 30 ml PO TID PRN PRN Reason: Indigestion / Heartburn Last Admin: 08/29/16 09:32 Dose: 30 ml Apixaban (Eliquis) 5 mg PO Q12 [facility] Last Admin: 09/02/16 09:04 Dose: 5 mg Aspirin (Aspirin) 325 mg PO DAILY [facility] Last Admin: 09/02/16 09:02 Dose: 325 mg Bupropion HCl (Wellbutrin Xl) 150 mg PO HS [facility] Last Admin: 08/31/16 22:03 Dose: 150 mg Gabapentin (Neurontin) 300 mg PO TID [facility] Last Admin: 09/02/16 13:05 Dose: 300 mg Hydrocortisone (Anusol-Hc) 25 mg RC BID [facility] Last Admin: 09/02/16 09:05 Dose: 25 mg Hydromorphone HCl (Dilaudid) 0.5 mg IVP Q8 [facility] Last Admin: 09/02/16 13:05 Dose: 0.5 mg Vancomycin HCl 1,000 mg/ (Sodium Chloride) 250 mls @ 166.6 mls/hr IVPB Q12H [facility] Last Admin: 09/02/16 10:30 Dose: 166.6 mls/hr Lactulose (Enulose) 20 gm PO Q6 PRN PRN Reason: Constipation Last Admin: 09/02/16 09:02 Dose: 20 gm Loperamide HCl (Imodium) 2 mg PO Q8 PRN PRN Reason: Diarrhea Methadone HCl (Methadone) 5 mg PO Q24H [facility] PRN Reason: Taper Stop: 09/03/16 08:59 Last Admin: 09/02/16 08:25 Dose: 5 mg Montelukast Sodium (Singulair) 10 mg PO HS [facility] Last Admin: 09/01/16 21:48 Dose: 10 mg Ondansetron HCl (Zofran Tab) 4 mg PO Q8 PRN PRN Reason: Nausea/Vomiting Pantoprazole Sodium (Protonix Ec Tab) 40 mg PO DAILY [facility] Last Admin: 09/02/16 09:02 Dose: 40 mg Polyethylene Glycol (Miralax) 17 gm PO DAILY [facility] Last Admin: 09/02/16 09:03 Dose: 17 gm Quetiapine Fumarate (Seroquel) 50 mg PO HS [facility] Last Admin: 09/01/16 21:48 Dose: 50 mg Trazodone HCl (Desyrel) 100 mg PO HS [facility] Last Admin: 09/01/16 21:48 Dose: 100 mg - Labs Labs: 09/01/16 08:15 09/01/16 08:15 PT 14.2 SECONDS (9.7-12.2) H 08/29/16 14:11 INR 1.3 08/29/16 14:11
--- NOTE | 2016-09-02 19:23 | CP.PCM.PN ---
Subjective - Date & Time of Evaluation Date of Evaluation: 08/26/16 Time of Evaluation: 10:20 - Subjective Subjective: clinically same Objective - Vital Signs/Intake and Output Vital Signs (last 24 hours): Temp Pulse Resp BP Pulse Ox 98.1 F 80 20 91/50 L 96 09/02/16 15:00 09/02/16 16:00 09/02/16 15:00 09/02/16 15:00 09/02/16 15:00 Intake and Output: 09/02/16 09/03/16 18:59 06:59 Intake Total 850 Balance 850 - Medications Medications: Current Medications Acetaminophen (Tylenol 325mg Tab) 650 mg PO Q6 PRN PRN Reason: for: fever above 101 Last Admin: 08/29/16 20:28 Dose: 650 mg Al Hydrox/Mg Hydrox/Simethicone (Maalox 30 Ml) 30 ml PO TID PRN PRN Reason: Indigestion / Heartburn Last Admin: 08/29/16 09:32 Dose: 30 ml Apixaban (Eliquis) 5 mg PO Q12 [facility] Last Admin: 09/02/16 09:04 Dose: 5 mg Aspirin (Aspirin) 325 mg PO DAILY [facility] Last Admin: 09/02/16 09:02 Dose: 325 mg Bupropion HCl (Wellbutrin Xl) 150 mg PO HS [facility] Last Admin: 08/31/16 22:03 Dose: 150 mg Gabapentin (Neurontin) 300 mg PO TID [facility] Last Admin: 09/02/16 17:59 Dose: 300 mg Hydrocortisone (Anusol-Hc) 25 mg RC BID [facility] Last Admin: 09/02/16 17:59 Dose: 25 mg Hydromorphone HCl (Dilaudid) 0.5 mg IVP Q8 [facility] Last Admin: 09/02/16 13:05 Dose: 0.5 mg Vancomycin HCl 1,000 mg/ (Sodium Chloride) 250 mls @ 166.6 mls/hr IVPB Q12H [facility] Last Admin: 09/02/16 10:30 Dose: 166.6 mls/hr Lactulose (Enulose) 20 gm PO Q6 PRN PRN Reason: Constipation Last Admin: 09/02/16 09:02 Dose: 20 gm Loperamide HCl (Imodium) 2 mg PO Q8 PRN PRN Reason: Diarrhea Methadone HCl (Methadone) 5 mg PO Q24H [facility] PRN Reason: Taper Stop: 09/03/16 08:59 Last Admin: 09/02/16 08:25 Dose: 5 mg Montelukast Sodium (Singulair) 10 mg PO [facility] Last Admin: 09/01/16 21:48 Dose: 10 mg Ondansetron HCl (Zofran Tab) 4 mg PO Q8 PRN PRN Reason: Nausea/Vomiting Pantoprazole Sodium (Protonix Ec Tab) 40 mg PO DAILY [facility] Last Admin: 09/02/16 09:02 Dose: 40 mg Polyethylene Glycol (Miralax) 17 gm PO DAILY [facility] Last Admin: 09/02/16 09:03 Dose: 17 gm Quetiapine Fumarate (Seroquel) 50 mg PO [facility] Last Admin: 09/01/16 21:48 Dose: 50 mg Trazodone HCl (Desyrel) 100 mg PO [facility] Last Admin: 09/01/16 21:48 Dose: 100 mg - Labs Labs: 09/01/16 08:15 09/01/16 08:15 PT 14.2 SECONDS (9.7-12.2) H 08/29/16 14:11 INR 1.3 08/29/16 14:11 Assessment and Plan (1) Anemia Status: Acute (2) Chest pain Status: Acute (3) Dental caries Status: Acute (4) Depression Status: Acute (5) Drug abuse Status: Acute (6) Dyspnea Status: Acute (7) Effusion of hip joint, left Status: Acute (8) Electrolyte abnormality Status: Acute (9) Fever Status: Acute (10) Heroin dependence Status: Acute (11) Infective endocarditis Status: Acute (12) Lower leg edema Status: Acute (13) Osteomyelitis of left hip Status: Acute (14) Prophylactic measure Status: Acute (15) Pulmonary embolism Status: Acute (16) Septic arthritis Status: Acute (17) Septic embolism Status: Acute (18) Breast lump Status: Chronic (19) Drug dependence Status: Chronic (20) Polysubstance (including opioids) dependence with physiol dependence Status: Chronic (21) Tobacco abuse Status: Chronic - Assessment and Plan (Free Text) Plan: pt feeling better katia same Eliquis katia aspirin methadone detox cosults on board
[2016-09-02] MEDS: buPROPion 150 mg/24 Hours XL Tab PO SCH (22:36)
[2016-09-03 01:57] VITALS: BP 107/69; TEMP 98.7; O2SAT 95
[2016-09-03] MEDS: HYDROmorphone 1 mg/ml ISec IVP SCH (05:56)
[2016-09-03 08:08] VITALS: PULSE 89
[2016-09-03] MEDS: Pantoprazole 40 mg EC Tab PO SCH (09:10)
[2016-09-03] MEDS: POLYETHYLENE GLYCOL 3350 17 GM/Dose PACKET PO SCH (09:15)
--- NOTE | 2016-09-05 11:05 | CARD ---
APPROVED REPORT EKG Measurement Heart [id number] <Conclusion> Normal sinus rhythm Normal ECG
== END 2016-09-03 12:39 | disposition left against medical advice (07) | DRG 541 ==
LOC: C.ER 06:57 → C.9E 11:19 → C.6T 11:41
PROVIDERS: ADMIT Internal Medicine Nephrology; ATTEND Internal Medicine Nephrology
PROC: HZ2ZZZZ Detoxification Services for Substance Abuse Treatment (ICD-10-PCS; principal; 2016-08-27)
PROC: HZ81ZZZ Medication Management for Substance Abuse Treatment, Methadone Maintenance (ICD-10-PCS; 2016-08-27)
DX: I26.90 Septic pulmonary embolism without acute cor pulmonale (principal); J18.9 Pneumonia, unspecified organism; F11.23 Opioid dependence with withdrawal; F14.10 Cocaine abuse, uncomplicated; F10.10 Alcohol abuse, uncomplicated; F41.9 Anxiety disorder, unspecified; F32.9 Major depressive disorder, single episode, unspecified; F17.210 Nicotine dependence, cigarettes, uncomplicated; K21.9 Gastro-esophageal reflux disease without esophagitis; K59.00 Constipation, unspecified; K64.8 Other hemorrhoids; K64.4 Residual hemorrhoidal skin tags; Z86.19 Personal history of other infectious and parasitic diseases

== ENCOUNTER 2017-05-25 00:53 | Inpatient (IN) | payer MEDICAID ==
[2017-05-25 00:54] VITALS: BMI 22.3
[2017-05-25 02:33] LABS: URINE AMORPHOUS SEDIMENT RARE /ul (<OCC); URINE BILIRUBIN NEGATIVE (NEGATIVE); URINE BLOOD NEGATIVE (NEGATIVE); URINE CLARITY Hazy (Clear); URINE COLOR Yellow (YELLOW); URINE GLUCOSE (UA) NORMAL (Normal); URINE LEUKOCYTE ESTERASE NEG Leu/uL (Negative); URINE NITRATE NEGATIVE (NEGATIVE); URINE PROTEIN NEGATIVE (NEGATIVE); URINE UROBILINOGEN NORMAL mg/dL (0.2-1.0)
[2017-05-25 02:42] LABS: BARBITURATES, UR NEGATIVE (NEGATIVE); BENZODIAZEPINES, UR NEGATIVE (NEGATIVE); PHENCYCLIDINE, UR NEGATIVE (NEGATIVE)
[2017-05-25 02:49] LABS: BASO % 0.7 % (0.0-2.0); EOS # 0.1 K/uL (0.0-0.7); EOS % 1.4 % (0.0-4.0); HEMOGLOBIN 12.5 g/dL (12.0-18.0); LYMPH # 1.5 K/uL (1.0-4.3); LYMPH % 34.4 % (20.0-40.0); MEAN CORPUSCULAR HEMOGLOBIN 28.8 pg (27.0-31.0); MEAN CORPUSCULAR HGB CONC 34.2 g/dL (33.0-37.0); MEAN PLATELET VOLUME 6.1 fL (7.2-11.7); MONO # 0.5 K/uL (0.0-0.8); MONO % 10.9 % (0.0-10.0); NEUT # 2.3 K/uL (1.8-7.0); NEUT % 52.6 % (50.0-75.0); RBC 4.35 Mil/uL (4.40-5.90); RED CELL DISTRIBUTION WIDTH 14.1 % (11.5-14.5); WHITE BLOOD COUNT 4.4 K/uL (4.8-10.8)
[2017-05-25 03:12] LABS: ALB/GLOB RATIO 1.3 (1.0-2.1); ALBUMIN 3.9 g/dL (3.5-5.0); ALT/SGPT 24 U/L (21-72); AST/SGOT 26 U/L (17-59); BLOOD UREA NITROGEN 15 mg/dL (9-20); CALCIUM 8.9 mg/dl (8.6-10.4); GFR AFRICAN-AMERICAN > 60; GFR NON-AFRICAN AMERICAN > 60
[2017-05-25 03:17] LABS: OPIATES, UR POSITIVE (NEGATIVE)
--- NOTE | 2017-05-25 03:48 | C.PDOC ---
History Of Present Illness 47 year old male presents to the ER as a prescreen for detox from heroin, cocaine, and ETOH. Denies physical complaints at this time. Time Seen by Provider: 05/25/17 01:25 Chief Complaint (Nursing): Substance Abuse History Per: Patient History/Exam Limitations: no limitations Onset/Duration Of Symptoms: Days Current Symptoms Are (Timing): Still Present Suicide/Self Injury Attempted (Context): None Associated Symptoms: denies: Depression, Suicidal Thoughts, Suicidal Plan Involuntary Hold By: None Recent travel outside of the [place]: No Past Medical History Reviewed: Historical Data, Nursing Documentation, Vital Signs Vital Signs: Last Vital Signs Temp 98.5 F 05/25/17 01:15 Pulse 83 05/25/17 01:15 Resp 18 05/25/17 01:15 BP 99/65 L 05/25/17 01:15 Pulse Ox 99 05/25/17 05:51 - Medical History PMH: Anxiety, Bronchitis, Depression, Hepatitis - [facility] Procedures DETOXIFICATION SERVICES FOR SUBSTANCE ABUSE TREATMENT (08/26/16) DRAINAGE OF LEFT HIP JOINT, PERCUTANEOUS APPROACH (09/22/15) GROUP PSYCHOTHERAPY (09/22/15) INDIVIDUAL PSYCHOTHERAPY, SUPPORTIVE (02/15/16) MEDS MGMT FOR SUBSTANCE ABUSE TREATMENT, METHADONE MAINT (08/26/16) MEDS MGMT FOR SUBSTANCE ABUSE TREATMENT, OTH REPL MED (09/22/15) ULTRASONOGRAPHY OF [place]ELV[place] REGION (09/22/15) ULTRASONOGRAPHY OF RIGHT AND LEFT HEART (09/22/15) Family History: States: Unknown Family Hx - Social History Hx Tobacco Use: Yes (heavy smoker) Hx Alcohol Use: Yes Hx Substance Use: Yes - Immunization History Hx Tetanus Toxoid Vaccination: No Hx Influenza Vaccination: No Hx Pneumococcal Vaccination: No Review Of Systems Constitutional: Negative for: Fever, Chills Gastrointestinal: Negative for: Nausea, Vomiting, Diarrhea Physical Exam - Physical Exam Appears: Non-toxic, No Acute Distress Skin: Normal Color, Warm, Dry Head: Atraumatic, Normacephalic Eye(s): bilateral: Normal Inspection Oral Mucosa: Moist Chest: Symmetrical, No Tenderness Cardiovascular: Rhythm Regular Respiratory: Normal Breath Sounds, No Rales, No Rhonchi, No Wheezing Gastrointestinal/Abdominal: Soft, No Tenderness Neurological/Psych: Oriented x3, Normal Speech ED Course And Treatment - Laboratory Results Result Diagrams: 05/25/17 02:40 05/25/17 02:40 O2 Sat by Pulse Oximetry: 99 (Room air) Pulse Ox Interpretation: Normal Medical Decision Making Medical Decision Making: Blood work and urinalysis ordered. Patient was complaining of reflux, will give maalox. The patient is medically cleared for psych eval/admission Disposition - Disposition Disposition: HOSPITALIZED Disposition Time: 05:55 Condition: FAIR Forms: [employer]henticlick (Jamaican) - POA Present On Arrival: None - Clinical Impression Clinical Impression: Polysubstance (including opioids) dependence with physiol dependence, Drug dependence, Heroin dependence - PA / DIRECTOR [employer] / Resident Statement MD/DO has reviewed & agrees with the documentation as recorded. - Scribe Statement The provider has reviewed the documentation as recorded by the Scriboz Marie All medical record entries made by the Brenneniboz were at my direction and personally dictated by me. I have reviewed the chart and agree that the record accurately reflects my personal performance of the history, physical exam, medical decision making, and the department course for this patient. I have also personally directed, reviewed, and agree with the discharge instructions and disposition.
[2017-05-25] MEDS ORDERED: Alum-Mag Hydrox-Simethicone Susp (30 mL) PO STA (04:21)
[2017-05-25] MEDS ORDERED: Alum-Mag Hydrox-Simethicone Susp (30 mL) ONE (04:27)
[2017-05-25 06:47] VITALS: RESP 18
--- NOTE | 2017-05-25 08:56 | PCM.BM ---
<Tania Davis - Last Filed: 05/25/17 08:51> Treatment Plan Problems - Problems identified on initial assessmt Potential for opioid use disorder Date Initiated: 05/25/17 Assessment reference: NA Status: Active Potential for cocaine use disorder Date Initiated: 05/25/17 Assessment reference: NA Status: Active Potential for alcohol use disorder Date Initiated: 05/25/17 Assessment reference: NA Status: Active Treatment assets and liabiliti Patient Assests: cooperative, ADL independent Patient Liabilities: financial problems, poor support system, relationship conflicts, substance abuse, medical problems - Milieu Protocol Maintain good personal hygiene: daily Encourage regular showers, daily Remind patient to perform daily oral care, daily Assist patient to perform ADL's, every shift Encourage regular showers, every shift Remind patient to perform daily oral care, every shift Assist patient to perform ADL's Maintain personal safety: daily Educate patient to report safety concerns to staff, daily Monitor environment for contraband/sharps, every shift Educate patient to report safety concerns to staff, every shift Monitor environment for contraband/sharps Medication safety: Monitor for expected outcome, potential side effects: every shift, daily, Assess barriers to learning: every shift, daily, Assess readiness for medication education: every shift, daily <Jovani Kemp - Last Filed: 05/25/17 18:08> - Diagnosis (1) Opioid use disorder, severe, dependence Status: Acute Interventions: 05/25/17 18:07 * Assess 7x/week regarding severity of withdrawal * Educate regarding risks, benefits, side effects and alternatives of medications * Use Motivational Interviewing for abstinence * Use CBT for relapse prevention * Medication management for withdrawal symptoms * Encourage medication assisted treatment *
[2017-05-25] MEDS ORDERED: Aluminum Hydroxide/Magnesium Hydroxide Susp (30 mL) PO PRN (09:08)
[2017-05-25] MEDS: Pantoprazole 40 mg EC Tab PO SCH (10:55)
--- NOTE | 2017-05-25 17:32 | PCM.PSYCH ---
Initial Psychiatric Evaluation - Initial Psychiatric Evaluation Type of Admission: Voluntary Legal Status: Capacity Chief Complaint (in patient's own words): "I need to get clean" History of Present Illness and Precipitating Events: Pt is seen, chart reviewed, case discussed. This is a 46 yo single LM, living with his mother and sometimes with his GF. He is well-known to the junior technical writer from previous admissions. He says he went to a rehab and was clean until 7 months ago when he relapsed. Pt says he has been using 35 bags of iv heroin for since then and starting to withdraw. Also using "a lot of" cocaine, sometimes alcohol but not daily but close to a pint sometimes. Smokes MJ No other drugs. He was in detox 8x and rehab 2x No psych issues but anxiety. Not lilli-homi and no rosie. He blames his GF for not staying sober as she is a heavy heroin, cocaine and alcohol user and she recently received "big money" and it made things worse. 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 No sxs now. Hep C Past psych hx: No admission but detox Current Medications: Active Medications Generic Name Dose Route Start Last Admin Trade Name Freq PRN Reason Stop Dose Admin Al Hydrox/Mg Hydrox/Simethicone 30 ml 05/25/17 09:08 Maalox 30 Ml PO TID PRN Indigestion / Heartburn Aspirin 81 mg 05/25/17 10:15 05/25/17 10:55 Aspirin Chewable PO 81 mg DAILY ESTEBAN Administration Clonidine HCl 0.1 mg 05/25/17 09:08 Catapres PO Q8 PRN COWS Score More or Equal to 5 Gabapentin 400 mg 05/25/17 14:00 05/25/17 17:28 Neurontin PO 400 mg TID ESTEBAN Administration Hydroxyzine HCl 50 mg 05/25/17 09:08 Atarax PO Q6H PRN Anxiety Ibuprofen 600 mg 05/25/17 09:08 Motrin Tab PO Q6H PRN Pain, moderate (4-7) Loperamide HCl 2 mg 05/25/17 09:08 Imodium PO Q8 PRN Diarrhea Nicotine 1 patch 05/25/17 13:15 05/25/17 13:43 Nicoderm Cq TD 1 patch DAILY ESTEBAN Administration Ondansetron HCl 4 mg 05/25/17 09:08 Zofran Tab PO Q8 PRN Nausea/Vomiting Pantoprazole Sodium 40 mg 05/25/17 10:15 05/25/17 10:55 Protonix Ec Tab PO 40 mg DAILY ESTEBAN Administration Quetiapine Fumarate 100 mg 05/25/17 22:00 Seroquel PO HS ESTEBAN Trazodone HCl 100 mg 05/25/17 09:08 Desyrel PO HS PRN Insomnia Past Psychiatric History - Past Psychiatric History Pertinent Medical Hx (Current Medical&Sleep Prob, Allergies): Allergies Allergy/AdvReac Type Severity Reaction Status Date / Time Penicillins Allergy Severe ANAPHYLAXIS Verified 05/25/17 01:14 traZODone [Desyrel] 100 mg PO HS #0 tab 11/08/15 Bupropion HCl [Wellbutrin Sr] 150 mg PO DAILY 07/11/16 Hydroxyzine Pamoate [Vistaril] 25 mg PO TID 07/11/16 Ranitidine HCl [Ranitidine HCl] 300 mg PO DAILY 07/11/16 Review of Systems - Psychiatric Psychiatric: Abnormal Sleep Pattern, Anxiety, Difficulty Concentrating. absent : Hallucinations, Homicidal Ideation, Suicidal Ideation Mental Status Examination - Personal Presentation Personal Presentation: Looks stated age - Affect Affect: Constricted - Motor Activity Motor Activity: Calm - Reliability in Providing Information Reliability in Providing Information: Good - Speech Speech: Organized - Mood Mood: Anxious - Formal Thought Process Formal Thought Process: No Impairment - Cognitive Functions Orientation: Person, Place, Situation, Time Sensorium: Alert Attention/Concentration: Attentive Estimate of Intelligence: Average Judgement: Intact, as evidence by: Insight regarding need for hospitalization Memory: Recent intact, as evidence by: Ability to recall events of the day, Remote intact, as evidenced by: Abilit to recall sig. life events - Risk Risk: Withdrawal, Diminished functioning - Strength & Assets Inventory Strength & Assets Inventory: Cooperative DSM 5 DX - DSM 5 DSM 5 Diagnosis: Opioid withdrawal Opioid use d/ - severe Cocaine use d/o - severe Alcohol use d/o - severe - Recommended/Plan of Treatment Treatment Recommendations and Plan of Treatment: Methadone detox As needed medications Gabapentin for augmentation All risks, benefits and alternatives of medications, including no medications, discussed and the patient understood and agreed. Attend groups and activities Supportive therapy and psychoeducation [place] for abstinence CBT for relapse prevention Encourage MAT Refer to rehab or IOP Attend self-help groups as well 34 min Projected ELOS: 5-6 days Prognosis: good w treatment Discharge Plan and Discharge Criteria: no wdw sxs refer to rehab - Smoking Cessation Smoking Cessation Initiated: Yes
[2017-05-26] MEDS: Pantoprazole 40 mg EC Tab PO SCH (09:33)
[2017-05-27] MEDS: Pantoprazole 40 mg EC Tab PO SCH (09:16)
--- NOTE | 2017-05-27 15:47 | PCM.PYCHPN ---
Psychiatric Progress Note - Psychiatric Progress Note Patient seen today, length of contact: 16 min Patient Chief Complaint: "I am a little better" Problems Identified/Issues Discussed: The pt is seen, chart reviewed, case discussed with staff. The pt is compliant with medications and reports no side-effects. Symptoms are improving but needs more time to stabilize. After care discussed, support and psychoeducation given. Medication Change: Yes (detox changes daily) Medical Record Reviewed: Yes Mental Status Examination - Cognitive Function Orientation: Person, Place, Situation, Time Memory: Intact Attention: WNL Concentration: Poor Association: WNL Fund of Knowledge: WNL - Mood Mood: Anxious - Affect Affect: Constricted - Speech Speech: Appropriate - Formal Thought Process Formal Thought Process: No Impairment - Suicidal Ideation Suicidal Ideation: No - Homicidal Ideation Homicidal Ideation: No Goal/Treatment Plan - Goal/Treatment Plan Need for Continued Stay: Discharge may exacerbated symptoms, Severe functional impairment Progress Toward Problem(s) and Goals/Treatment Plan: Methadone detox As needed medications Gabapentin for augmentation All risks, benefits and alternatives of medications, including no medications, discussed and the patient understood and agreed. Attend groups and activities Supportive therapy and psychoeducation [place] for abstinence CBT for relapse prevention Encourage MAT Refer to rehab or IOP Attend self-help groups as well
--- NOTE | 2017-05-27 18:34 | PCM.PYCHPN ---
Psychiatric Progress Note - Psychiatric Progress Note Patient seen today, length of contact: 16 min Patient Chief Complaint: "I am getting better" Problems Identified/Issues Discussed: The pt is seen, chart reviewed, case discussed with staff. Support given, CBT and [place] used briefly No new symptoms reported, improving slowly and needs more time No SEs from medications, risks discussed. After care discussed - now he wants to go to a methadone program He also wants to leave tomorrow b/c he has a "court date" on Saturday, which he did not reveal previously. Risks of leaving early discussed. Medication Change: Yes (detox changes daily) Medical Record Reviewed: Yes Mental Status Examination - Cognitive Function Orientation: Person, Place, Situation, Time Memory: Intact Attention: WNL Concentration: Poor Association: WNL Fund of Knowledge: WNL - Mood Mood: Anxious - Affect Affect: Constricted - Speech Speech: Appropriate - Formal Thought Process Formal Thought Process: No Impairment - Suicidal Ideation Suicidal Ideation: No - Homicidal Ideation Homicidal Ideation: No Goal/Treatment Plan - Goal/Treatment Plan Need for Continued Stay: Discharge may exacerbated symptoms, Severe functional impairment Progress Toward Problem(s) and Goals/Treatment Plan: Methadone detox As needed medications Gabapentin for augmentation All risks, benefits and alternatives of medications, including no medications, discussed and the patient understood and agreed. Attend groups and activities Supportive therapy and psychoeducation [place] for abstinence CBT for relapse prevention Refer to [facility] Attend self-help groups as well
--- NOTE | 2017-05-28 08:41 | PCM.PYCHDC ---
Mental Status Examination - Mental Status Examination Orientation: Person Discharge Summary - Discharge Note Consultations:: List each consultation separately and include: 1. Reason for request. 2. Findings. 3. Follow-up Summary of Hospital Course include:: 1. Description of specific treatment plan utilized for patients during their course of treatmen. 2. Summarize the time- course for resolution of acute symptoms and/or regressed behaviors. 3. Describe issues identified and worked on during hospitalization. 4. Describe medication utilized. 5. Describe medical problems identified and treated. 6. Reassessment of suicide risk Summary of Hospital Course: Pt is seen, chart reviewed, case discussed. This is a 46 yo single LM, living with his mother and sometimes with his GF. He is well-known to the parts data writer from previous admissions. He says he went to a rehab and was clean until 7 months ago when he relapsed. Pt says he has been using 35 bags of iv heroin for since then and starting to withdraw. Also using "a lot of" cocaine, sometimes alcohol but not daily but close to a pint sometimes. Smokes MJ No other drugs. He was in detox 8x and rehab 2x No psych issues but anxiety. Not lilli-homi and no rosie. He blames his GF for not staying sober as she is a heavy heroin, cocaine and alcohol user and she recently received "big money" and it made things worse. 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 No sxs now. Hep C Past psych hx: No admission but detox He went to methadone program, [facility] [place]. He had a court date tomorrow, so he skipped his last dose - risks discussed and he understood. - Diagnosis (1) Opioid use disorder, severe, dependence Current Visit: Yes Status: Acute - Final Diagnosis (DSM 5) Condition upon Discharge: FAIR Disposition: HOME/ ROUTINE Follow-up Treatment Plan: Methadone detox As needed medications Gabapentin for augmentation All risks, benefits and alternatives of medications, including no medications, discussed and the patient understood and agreed. Attend groups and activities Supportive therapy and psychoeducation [place] for abstinence CBT for relapse prevention Refer to [facility] Attend self-help groups as well Prescriptions/Medication Reconciliation: Aspirin [Aspirin Chewable] 81 mg PO DAILY #30 chew Gabapentin [Neurontin] 400 mg PO TID #90 cap hydrOXYzine HCl [Atarax] 50 mg PO BID PRN #60 tab PRN Reason: Anxiety Pantoprazole [Protonix EC Tab] 40 mg PO DAILY #30 ect QUEtiapine [Seroquel] 100 mg PO HS #30 tab traZODone [Desyrel] 100 mg PO HS PRN #30 tab PRN Reason: Insomnia
[2017-05-28] MEDS: Pantoprazole 40 mg EC Tab PO SCH (09:06)
[2017-05-28 09:42] VITALS: BP 127/77; PULSE 81; TEMP 98; O2SAT 100
== END 2017-05-28 10:00 | disposition home or self-care (01) | DRG 744 ==
LOC: SUPCPDRO 00:53 → C.ER 00:53 → C.7D 05:57
PROVIDERS: ADMIT Psychiatry & Neurology Psychiatry; ATTEND Psychiatry & Neurology Psychiatry
PROC: HZ2ZZZZ Detoxification Services for Substance Abuse Treatment (ICD-10-PCS; principal; 2017-05-25)
PROC: HZ59ZZZ Individual Psychotherapy for Substance Abuse Treatment, Supportive (ICD-10-PCS; 2017-05-25)
PROC: HZ46ZZZ Group Counseling for Substance Abuse Treatment, Psychoeducation (ICD-10-PCS; 2017-05-25)
DX: F11.23 Opioid dependence with withdrawal (principal); F14.90 Cocaine use, unspecified, uncomplicated; F10.10 Alcohol abuse, uncomplicated; F41.9 Anxiety disorder, unspecified; B19.20 Unspecified viral hepatitis C without hepatic coma; F17.210 Nicotine dependence, cigarettes, uncomplicated; K21.9 Gastro-esophageal reflux disease without esophagitis

== ENCOUNTER 2017-08-13 23:10 | Inpatient (IN) | payer MEDICAID ==
[2017-08-13 23:11] VITALS: BMI 22.3
[2017-08-14 00:13] LABS: URINE BILIRUBIN NEGATIVE (NEGATIVE); URINE BLOOD NEGATIVE (NEGATIVE); URINE CLARITY Clear (Clear); URINE COLOR STRAW (YELLOW); URINE GLUCOSE (UA) Normal (Normal); URINE PROTEIN NEGATIVE (NEGATIVE)
[2017-08-14 00:14] LABS: URINE LEUKOCYTE ESTERASE NEGATIVE Leu/uL (Negative); URINE UROBILINOGEN Normal mg/dL (0.2-1.0)
--- NOTE | 2017-08-14 00:20 | C.PDOC ---
History Of Present Illness Pt is here requesting detox from Heroin. Time Seen by Provider: 08/13/17 23:48 Chief Complaint (Nursing): Substance Abuse History Per: Patient Onset/Duration Of Symptoms: Days Current Symptoms Are (Timing): Still Present Suicide/Self Injury Attempted (Context): None Modifying Factor(s): Alcohol, Narcotics, Cocaine Severity: Moderate Associated Symptoms: denies: Suicidal Thoughts, Suicidal Plan Additional History Per: Prior Records Past Medical History Reviewed: Historical Data, Nursing Documentation, Vital Signs Vital Signs: Last Vital Signs Temp 97.3 F L 08/13/17 23:15 Pulse 108 H 08/13/17 23:15 Resp 18 08/13/17 23:15 BP 129/72 08/13/17 23:15 Pulse Ox 97 08/14/17 01:10 - Medical History PMH: Anxiety, Arthritis, Bronchitis, Depression, Hepatitis (C), Pulmonary Embolism - [facility] Procedures DETOXIFICATION SERVICES FOR SUBSTANCE ABUSE TREATMENT (05/25/17) DRAINAGE OF LEFT HIP JOINT, PERCUTANEOUS APPROACH (09/22/15) GROUP COMMUNICATIONS ENGINEERING TECHNICIAN FOR SUBSTANCE ABUSE TREATMENT, PSYCHOEDUCATION (05/25/17) GROUP PSYCHOTHERAPY (09/22/15) INDIV PSYCHOTHERAPY FOR SUBSTANCE ABUSE TREATMENT, SUPPORT (05/25/17) INDIVIDUAL PSYCHOTHERAPY, SUPPORTIVE (02/15/16) MEDS MGMT FOR SUBSTANCE ABUSE TREATMENT, METHADONE MAINT (08/26/16) MEDS MGMT FOR SUBSTANCE ABUSE TREATMENT, OTH REPL MED (09/22/15) ULTRASONOGRAPHY OF PELVIC REGION (09/22/15) ULTRASONOGRAPHY OF RIGHT AND LEFT HEART (09/22/15) Family History: States: Unknown Family Hx - Social History Hx Tobacco Use: Yes (heavy smoker) Hx Alcohol Use: Yes (Alcohol) Hx Substance Use: Yes (IVDU) - Immunization History Hx Tetanus Toxoid Vaccination: No Hx Influenza Vaccination: No Hx Pneumococcal Vaccination: No Review Of Systems Except As Marked, All Systems Reviewed And Found Negative. Constitutional: Negative for: Fever Cardiovascular: Negative for: Chest Pain Respiratory: Negative for: Shortness of Breath Gastrointestinal: Negative for: Vomiting, Abdominal Pain Musculoskeletal: Negative for: Neck Pain Skin: Positive for: Other (Abscess on left forearm x 2 days) Neurological: Negative for: Weakness, Numbness, Seizures Physical Exam - Physical Exam Appears: Non-toxic, No Acute Distress Skin: Warm, Dry Head: Atraumatic, Normacephalic Eye(s): bilateral: PERRL, EOMI Neck: Normal ROM, Supple Cardiovascular: Rhythm Regular Respiratory: Normal Breath Sounds, No Accessory Muscle Use Gastrointestinal/Abdominal: Soft, No Tenderness Extremity: Normal ROM, Other (Small abscess on dorsum of left forearm) Pulses: Left Radial: Normal Neurological/Psych: Oriented x3, Normal Motor, Normal Sensation ED Course And Treatment - Laboratory Results Result Diagrams: 08/13/17 23:49 O2 Sat by Pulse Oximetry: 97 Pulse Ox Interpretation: Normal Progress Note: Pt is medically stable for detox admission. Abscess was I&D's by KWADWO Menjivar. Recommend continuing Bactrim DS 1 tab twice a day for 10 days. Disposition - Disposition Disposition Time: 01:00 Condition: STABLE - Clinical Impression Clinical Impression: Opioid dependence, Abscess of left forearm, IVDU (intravenous drug user) Physician Patient Turnover Patient Signed Over To: David Handley Handoff Comments: to f/up relief worker eval for detox admission.
[2017-08-14 00:29] LABS: CALCIUM 9.1 mg/dl (8.6-10.4); GFR AFRICAN-AMERICAN > 60; GFR NON-AFRICAN AMERICAN > 60
[2017-08-14 00:37] LABS: BARBITURATES, UR NEGATIVE (NEGATIVE); BENZODIAZEPINES, UR NEGATIVE (NEGATIVE); PHENCYCLIDINE, UR NEGATIVE (NEGATIVE)
[2017-08-14] MEDS ORDERED: Tmp-Smz 800 mg-160 mg DS Tab PO STA (00:44)
[2017-08-14 00:46] LABS: ALB/GLOB RATIO 1.1 (1.0-2.1); ALBUMIN 4.4 g/dL (3.5-5.0); ALT/SGPT 14 U/L (21-72); AST/SGOT 56 U/L (17-59); BLOOD UREA NITROGEN 13 mg/dL (9-20)
[2017-08-14 00:47] LABS: OPIATES, UR POSITIVE (NEGATIVE)
[2017-08-14] MEDS ORDERED: Tmp-Smz 800 mg-160 mg DS Tab ONE (00:59)
[2017-08-14 07:21] LABS: BASO % 0.4 % (0.0-2.0); EOS % 0.6 % (0.0-4.0); HEMOGLOBIN 13.3 g/dL (12.0-18.0); LYMPH # 1.3 K/uL (1.0-4.3); LYMPH % 19.2 % (20.0-40.0); MEAN CELL VOLUME 84.2 fL (80.0-94.0); MEAN CORPUSCULAR HEMOGLOBIN 28.7 pg (27.0-31.0); MEAN CORPUSCULAR HGB CONC 34.1 g/dL (33.0-37.0); MEAN PLATELET VOLUME 6.3 fL (7.2-11.7); MONO # 0.5 K/uL (0.0-0.8); NEUT # 4.8 K/uL (1.8-7.0); NEUT % 72.8 % (50.0-75.0); RBC 4.64 Mil/uL (4.40-5.90); RED CELL DISTRIBUTION WIDTH 14.8 % (11.5-14.5); WHITE BLOOD COUNT 6.6 K/uL (4.8-10.8)
--- NOTE | 2017-08-14 08:30 | PCM.BM ---
<Tania Davis - Last Filed: 08/14/17 08:29> Treatment assets and liabiliti Patient Assests: cooperative, insightful, self-reliant, ADL independent Patient Liabilities: financial problems, poor support system, relationship conflicts, substance abuse, medical problems - Milieu Protocol Maintain good personal hygiene: daily Encourage regular showers, daily Remind patient to perform daily oral care, daily Assist patient to perform ADL's, every shift Encourage regular showers, every shift Remind patient to perform daily oral care, every shift Assist patient to perform ADL's Maintain personal safety: daily Educate patient to report safety concerns to staff, daily Monitor environment for contraband/sharps, every shift Educate patient to report safety concerns to staff, every shift Monitor environment for contraband/sharps Medication safety: Monitor for expected outcome, potential side effects: daily, every shift, Assess barriers to learning: daily, every shift, Assess readiness for medication education: daily, every shift <Terri Ahn - Last Filed: 08/14/17 11:01> Family Contact Family involvement: Patient does not wish Family/SO involvement - Goals for Treatment Patient goals for treatment: Complete detox and transition to methadone maintenance. Discharge/Continuing Care - Education Needs Education Needs: Family Medication, Family Diagnosis/Disease Process, Family Coping Skills, Family Anger Management skills, Family Placement options, Family Community resources, Patient Medication, Patient Diagnosis/Disease Process, Patient Coping Skills, Patient Anger Management skills, Patient Placement options, Patient Community resources - Discharge Discharge Criteria: No longer exhibiting s/s of withdrawal, Reduction of target symptoms Discharge to:: Home, With Family - Treatment Team Participation Patient/Family/SO Statement: 08/14/17 11:02 "I wanna go back to methadone but I don't know if the [facility] will take me back..." Discussed with Family/SO: No Was Patient/Family/SO present at Treatment Team Meeting: Yes <Jovani Kemp - Last Filed: 08/15/17 14:29> - Diagnosis (1) Opioid dependence Status: Acute Interventions: 08/15/17 14:29 * Assess 7x/week regarding severity of withdrawal * Educate regarding risks, benefits, side effects and alternatives of medications * Use Motivational Interviewing for abstinence * Use CBT for relapse prevention * Medication management for withdrawal symptoms * Encourage medication assisted treatment *
--- NOTE | 2017-08-14 10:07 | PCM.PSYCH ---
Initial Psychiatric Evaluation - Initial Psychiatric Evaluation Type of Admission: Voluntary Legal Status: Capacity History of Present Illness and Precipitating Events: Pt is seen, chart reviewed, case discussed. This is a 47 yo single LM, living with his mother, unemployed. He is well-known to the typewriters functional tester from previous admissions. He says he went to [place] [facility]adone program but not accepted for unknown reasons (he was discharged long ago for "arguing") and he relapsed after 2 days. Pt says he has been using 20 bags of iv heroin since then and he is now starting to withdraw. Also using "a lot of" cocaine, and 1 pint of alcohol. Smokes MJ and uses Xanax 1 -2 tablets "not every day" No other drugs. He was in detox 8x and rehab 2x No psych issues but anxiety. Not lilli-homi and no rosie. No psychosis He blames his GF for not staying sober as she is a heavy heroin, cocaine and alcohol user. They split now. Medical: He had endocarditis. No sxs now. Hep C positive. He has an abscess in his arm - tx started Past psych hx: No admission but detox Current Medications: Active Medications Generic Name Dose Route Start Last Admin Trade Name Freq PRN Reason Stop Dose Admin Al Hydrox/Mg Hydrox/Simethicone 30 ml 08/14/17 09:00 Maalox 30 Ml PO TID PRN Indigestion / Heartburn Aspirin 81 mg 08/14/17 10:00 Aspirin Chewable PO DAILY ESTEBAN Clonidine HCl 0.1 mg 08/14/17 09:00 Catapres PO Q8H PRN COWS Score More or Equal to 5 Hydroxyzine HCl 50 mg 08/14/17 09:30 Atarax PO Q6H PRN Anxiety Ibuprofen 600 mg 08/14/17 09:30 Motrin Tab PO Q6H PRN Pain, moderate (4-7) Loperamide HCl 2 mg 08/14/17 09:30 Imodium PO Q8H PRN Diarrhea Methadone HCl 25 mg 08/14/17 10:00 Methadone PO 08/19/17 09:59 Q24H ESTEBAN Taper Nicotine 1 patch 08/14/17 10:00 Nicoderm Cq TD DAILY ESTEBAN Ondansetron HCl 4 mg 08/14/17 09:30 Zofran Tab PO Q8H PRN Nausea/Vomiting Pantoprazole Sodium 40 mg 08/14/17 10:00 Protonix Ec Tab PO DAILY ESTEBAN Trazodone HCl 100 mg 08/14/17 22:00 Desyrel PO HS ESTEBAN Trimethoprim/Sulfamethoxazole 1 tab 08/14/17 10:00 Bactrim Ds Tab PO Q12H ESTEBAN Protocol Past Psychiatric History - Past Psychiatric History Previous Treatment History: None Pertinent Medical Hx (Current Medical&Sleep Prob, Allergies): Allergies Allergy/AdvReac Type Severity Reaction Status Date / Time Penicillins Allergy Severe ANAPHYLAXIS Verified 08/13/17 23:14 No Known Home Med 08/13/17 Review of Systems - Neurological Neurological: UNREMARKABLE - Psychiatric Psychiatric: Abnormal Sleep Pattern, Anxiety. absent: Depression, Hallucinations, Homicidal Ideation, Suicidal Ideation Mental Status Examination - Personal Presentation Personal Presentation: Looks stated age - Affect Affect: Constricted - Motor Activity Motor Activity: Calm - Reliability in Providing Information Reliability in Providing Information: Good - Speech Speech: Organized - Mood Mood: Anxious - Formal Thought Process Formal Thought Process: No Impairment - Cognitive Functions Orientation: Person, Place, Situation, Time Sensorium: Alert Attention/Concentration: Attentive Estimate of Intelligence: Average Judgement: Intact, as evidence by: Insight regarding need for hospitalization Memory: Recent intact, as evidence by: Ability to recall events of the day, Remote intact, as evidenced by: Abilit to recall sig. life events - Risk Risk: Withdrawal, Diminished functioning - Strength & Assets Inventory Strength & Assets Inventory: Cooperative - Limitations Limitations: Other DSM 5 DX - DSM 5 DSM 5 Diagnosis: Opioid withdrawal Opioid use d/ - severe Cocaine use d/o - severe Alcohol use d/o - severe - Recommended/Plan of Treatment Treatment Recommendations and Plan of Treatment: Methadone detox Librium detox As needed medications Gabapentin for augmentation All risks, benefits and alternatives of medications, including no medications, discussed and the patient understood and agreed. Attend groups and activities Supportive therapy and psychoeducation [place] for abstinence CBT for relapse prevention Encourage MAT Refer to rehab or IOP Attend self-help groups as well Bactrim DS started in ED - will continue Consult if needed 35 min Projected ELOS: 5-6 days Prognosis: Good with MAT Discharge Plan and Discharge Criteria: MAt - Smoking Cessation Smoking Cessation Initiated: Yes
[2017-08-14] MEDS: Pantoprazole 40 mg EC Tab PO SCH (10:13)
[2017-08-14] MEDS: Tmp-Smz 800 mg-160 mg DS Tab PO SCH ×2 (10:32→21:27)
[2017-08-14] MEDS: Multiple Vitamins Tab PO SCH (14:37)
[2017-08-15] MEDS: Multiple Vitamins Tab PO SCH (09:14)
[2017-08-15] MEDS: Pantoprazole 40 mg EC Tab PO SCH (09:16)
[2017-08-15] MEDS: Tmp-Smz 800 mg-160 mg DS Tab PO SCH ×2 (10:27→21:58)
--- NOTE | 2017-08-15 14:28 | PCM.PYCHPN ---
Psychiatric Progress Note - Psychiatric Progress Note Patient seen today, length of contact: 17 min Patient Chief Complaint: "I am nauseous" Problems Identified/Issues Discussed: The pt is seen, chart reviewed, case discussed with staff. The pt is compliant with medications and reports no side-effects. Symptoms are improving but needs more time to stabilize. He threw up two methadones and will get a new dose later today, likely lower b/ c we already gave 2 x 20 mg and it's not clear how much of it are thrown up. After care discussed, support and psychoeducation given. Medication Change: Yes Medical Record Reviewed: Yes Mental Status Examination - Cognitive Function Orientation: Person, Place, Situation, Time Memory: Intact Attention: WNL Concentration: Poor Association: WNL Fund of Knowledge: WNL - Mood Mood: Anxious - Affect Affect: Constricted - Speech Speech: Appropriate - Formal Thought Process Formal Thought Process: No Impairment - Suicidal Ideation Suicidal Ideation: No - Homicidal Ideation Homicidal Ideation: No Goal/Treatment Plan - Goal/Treatment Plan Need for Continued Stay: Discharge may exacerbated symptoms, Severe functional impairment Progress Toward Problem(s) and Goals/Treatment Plan: Methadone detox Librium detox As needed medications Gabapentin for augmentation All risks, benefits and alternatives of medications, including no medications, discussed and the patient understood and agreed. Attend groups and activities Supportive therapy and psychoeducation [place] for abstinence CBT for relapse prevention Encourage MAT Refer to rehab or IOP Attend self-help groups as well Bactrim DS started in ED - will continue Consult if needed prn ativan x1
[2017-08-15] MEDS: Aluminum Hydroxide/Magnesium Hydroxide Susp (30 mL) PO PRN (16:46)
[2017-08-16] MEDS: Aluminum Hydroxide/Magnesium Hydroxide Susp (30 mL) PO PRN ×2 (06:01→21:07)
[2017-08-16] MEDS: Tmp-Smz 800 mg-160 mg DS Tab PO SCH ×2 (09:20→21:06)
[2017-08-16] MEDS: Pantoprazole 40 mg EC Tab PO SCH (09:20)
[2017-08-16] MEDS: Multiple Vitamins Tab PO SCH ×2 (09:21→10:52)
--- NOTE | 2017-08-16 12:05 | PCM.PYCHPN ---
Psychiatric Progress Note - Psychiatric Progress Note Patient seen today, length of contact: 16 min Patient Chief Complaint: "I am a little better" Problems Identified/Issues Discussed: The pt is seen, chart reviewed, case discussed with staff. The pt is compliant with medications and reports no side-effects. Symptoms are improving but needs more time to stabilize. After care discussed, support and psychoeducation given. He is getting an additional 5 mg in PM due to breakthrough sxs Medication Change: Yes (detox changes daily) Medical Record Reviewed: Yes Mental Status Examination - Cognitive Function Orientation: Person, Place, Situation, Time Memory: Intact Attention: WNL Concentration: Poor Association: WNL Fund of Knowledge: WNL - Mood Mood: Anxious - Affect Affect: Constricted - Speech Speech: Appropriate - Formal Thought Process Formal Thought Process: No Impairment - Suicidal Ideation Suicidal Ideation: No - Homicidal Ideation Homicidal Ideation: No Goal/Treatment Plan - Goal/Treatment Plan Need for Continued Stay: Discharge may exacerbated symptoms, Severe functional impairment Progress Toward Problem(s) and Goals/Treatment Plan: Methadone detox Librium detox As needed medications Gabapentin for augmentation All risks, benefits and alternatives of medications, including no medications, discussed and the patient understood and agreed. Attend groups and activities Supportive therapy and psychoeducation [place] for abstinence CBT for relapse prevention Encourage MAT Refer to rehab or IOP Attend self-help groups as well Bactrim DS started in ED - will continue Consult if needed prn ativan x1 Estimated Date of D/C: 08/20/17
[2017-08-16] MEDS ORDERED: Magnesium Hydroxide Susp 30 ml UD PO ONE (21:23)
[2017-08-17 10:10] VITALS: BP 136/83; PULSE 67; RESP 20; TEMP 97.9; O2SAT 96
[2017-08-17] MEDS: Tmp-Smz 800 mg-160 mg DS Tab PO SCH ×2 (10:50→11:26)
[2017-08-17] MEDS: Multiple Vitamins Tab PO SCH (10:50)
[2017-08-17] MEDS: Pantoprazole 40 mg EC Tab PO SCH (10:51)
--- NOTE | 2017-08-17 11:50 | PCM.PYCHDC ---
Mental Status Examination - Mental Status Examination Orientation: Person, Place, Situation, Time Memory: Intact Mood: Neutral Affect: Constricted Speech: Soft Attention: WNL Concentration: WNL Association: WNL Fund of Knowledge: WNL Formal Thought Process: No Impairment Description of patient's judgement and insight: good, fair Psychotic Thoughts and Behaviors: denies any AVH Suicidal Ideation: No Current Homicidal Ideation?: No Discharge Summary - Discharge Note Reason for Hospitalization: This is a 47 yo single LM, living with his mother, unemployed. He is well-known to the life insurance underwriter from previous admissions. He says he went to [place] [facility] but not accepted for unknown reasons (he was discharged long ago for "arguing") and he relapsed after 2 days. Pt says he has been using 20 bags of iv heroin since then and he is now starting to withdraw. Also using "a lot of" cocaine, and 1 pint of alcohol. Smokes MJ and uses Xanax 1 -2 tablets "not every day" No other drugs. He was in detox 8x and rehab 2x No psych issues but anxiety. Not lilli-homi and no rosie. No psychosis He blames his GF for not staying sober as she is a heavy heroin, cocaine and alcohol user. They split now. Medical: He had endocarditis. No sxs now. Hep C positive. He has an abscess in his arm - tx started Past psych hx: No admission but detox Consultations:: List each consultation separately and include: 1. Reason for request. 2. Findings. 3. Follow-up Summary of Hospital Course include:: 1. Description of specific treatment plan utilized for patients during their course of treatmen. 2. Summarize the time- course for resolution of acute symptoms and/or regressed behaviors. 3. Describe issues identified and worked on during hospitalization. 4. Describe medication utilized. 5. Describe medical problems identified and treated. 6. Reassessment of suicide risk - Final Diagnosis (DSM 5) Condition upon Discharge: FAIR DSM 5: Opioid withdrawal Opioid use d/ - severe Cocaine use d/o - severe Alcohol use d/o - severe Disposition: HOME/ ROUTINE Prescriptions/Medication Reconciliation: hydrOXYzine HCl [Atarax] 50 mg PO BID #14 tab Sulfamethoxazole/Trimethoprim [Bactrim DS Tab] 1 tab PO Q12H #20 tab traZODone [Desyrel] 100 mg PO HS #7 tab - Smoking Cessation Smoking Cessation Medication prescribed: No - Antipsychotic Medications Pt discharged on 2 or more routine antipsychotic medications: No
== END 2017-08-17 12:20 | disposition home or self-care (01) | DRG 744 ==
LOC: SUPCPDRO 23:10 → C.ER 23:10 → C.7D 08-14 05:23
PROVIDERS: ADMIT Psychiatry & Neurology Psychiatry; ATTEND Psychiatry & Neurology Psychiatry
DX: F11.23 Opioid dependence with withdrawal (principal); B19.20 Unspecified viral hepatitis C without hepatic coma; L02.414 Cutaneous abscess of left upper limb; F14.90 Cocaine use, unspecified, uncomplicated; F10.20 Alcohol dependence, uncomplicated; Y90.0 Blood alcohol level of less than 20 mg/100 ml; F41.9 Anxiety disorder, unspecified; Z86.711 Personal history of pulmonary embolism; Z87.891 Personal history of nicotine dependence

== ENCOUNTER 2017-10-26 12:27 | Inpatient (IN) | payer MEDICAID ==
[2017-10-26 12:48] VITALS: BMI 22.8
[2017-10-26] MEDS ORDERED: Sodium Chloride 0.9% 1,000 ML IV STA (13:37)
[2017-10-26] MEDS ORDERED: Vancomycin 1 gm/NS 200 ml 1 GM/200 ML BAG IVPB STA (13:37)
--- NOTE | 2017-10-26 13:39 | C.PDOC ---
History Of Present Illness 47 y/o M c PMHx heroin abuse, cocaine abuse, endocarditis p/w L hand edema, erythema, pain x 2 days. Reports subjective fever at home. Denies chills, dyspnea, chest pain, dysuria. Last heroin and cocaine use last night. Time Seen by Provider: 10/26/17 13:32 Chief Complaint (Nursing): Abnormal Skin Integrity Past Medical History Vital Signs: Last Vital Signs Temp 98.6 F 10/26/17 12:48 Pulse 63 10/26/17 15:32 Resp 14 10/26/17 15:32 BP 103/67 10/26/17 15:32 Pulse Ox 99 10/26/17 15:32 - Medical History PMH: Anxiety, Arthritis, Bronchitis, Depression, Hepatitis (C), Pulmonary Embolism Denies: Diabetes, HIV, HTN, Chronic Kidney Disease, Seizures, Sexually Transmitted Disease - [facility] Procedures DETOXIFICATION SERVICES FOR SUBSTANCE ABUSE TREATMENT (05/25/17) DRAINAGE OF LEFT HIP JOINT, PERCUTANEOUS APPROACH (09/22/15) GROUP LEGEND MAKER FOR SUBSTANCE ABUSE TREATMENT, PSYCHOEDUCATION (05/25/17) GROUP PSYCHOTHERAPY (09/22/15) INDIV PSYCHOTHERAPY FOR SUBSTANCE ABUSE TREATMENT, SUPPORT (05/25/17) INDIVIDUAL PSYCHOTHERAPY, SUPPORTIVE (02/15/16) MEDS MGMT FOR SUBSTANCE ABUSE TREATMENT, METHADONE MAINT (08/26/16) MEDS MGMT FOR SUBSTANCE ABUSE TREATMENT, OTH REPL MED (09/22/15) ULTRASONOGRAPHY OF PELVIC REGION (09/22/15) ULTRASONOGRAPHY OF RIGHT AND LEFT HEART (09/22/15) Family History: States: Unknown Family Hx - Social History Hx Tobacco Use: Yes (heavy smoker) Hx Alcohol Use: Yes Hx Substance Use: Yes - Immunization History Hx Tetanus Toxoid Vaccination: No Hx Influenza Vaccination: No Hx Pneumococcal Vaccination: No Review Of Systems Except As Marked, All Systems Reviewed And Found Negative. Cardiovascular: Negative for: Chest Pain Respiratory: Negative for: Shortness of Breath Physical Exam - Physical Exam Additional Physical Exam Comments: Constitutional: No acute distress. Head: Normocephalic. Atraumatic. Eyes: PERRL. ENT: Moist mucous membranes. Neck: Supple. Cardiovascular: Regular rate. Radial pulse 2+ bilaterally. Chest: No tenderness. Respiratory: Clear to auscultation bilaterally. GI: Soft. Nontender. Nondistended. Back: No CVA tenderness. Musculoskeletal: L hand diffusely erythematous, edematous, tender. FROM of digits and wrist. Skin: Erythema as above. Neurologic: Alert, no focal deficit. ED Course And Treatment - Laboratory Results Result Diagrams: 10/26/17 14:45 10/26/17 14:45 O2 Sat by Pulse Oximetry: 98 Central Line Placement - Central Line Placement Indication: Unable To Obtain Adequate Peripheral Access Central Line Placement: Right: Femoral The Area Was Thoroughly Prepared With: Betadine, Chlorhexidine, Draped Using Sterile Technique Area Was Locally Anesthetized With: Lidocaine 2% Procedure: Triple Lumen, Placed Using Standard Seldinger Technique, Catheter Was Sewn Into Place, Sterile Dressing Placed Over Line, Procedure Tolerated Well Medical Decision Making Medical Decision Making: Vancomycin initiated with IV fluid, pain control. Will require admission for IV antibiotics. Poor access, R femoral central line placed, consent obtained. EKG NSR 68 bpm, no ST/T wave changes. CXR no consolidation. Disposition Discussed With Dr.: Partha Hernandez Doctor Will See Patient In The: Hospital - Disposition Disposition: HOSPITALIZED Disposition Time: 15:17 Condition: GUARDED Forms: [facility] (Greek) - Clinical Impression Clinical Impression: Cellulitis
[2017-10-26] MEDS ORDERED: Sodium Chloride 0.9% 1,000 ML ONE (14:19)
[2017-10-26 14:29] LABS: URINE BILIRUBIN NEGATIVE (NEGATIVE); URINE BLOOD NEGATIVE (NEGATIVE); URINE CLARITY Clear (Clear); URINE COLOR Yellow (YELLOW); URINE GLUCOSE (UA) NORMAL (Normal); URINE LEUKOCYTE ESTERASE NEG Leu/uL (Negative); URINE PROTEIN NEGATIVE (NEGATIVE)
[2017-10-26 14:51] LABS: BASO % 0.2 % (0.0-2.0); EOS # 0.1 K/uL (0.0-0.7); EOS % 0.9 % (0.0-4.0); HEMOGLOBIN 11.9 g/dL (12.0-18.0); LYMPH % 16.5 % (20.0-40.0); MEAN CELL VOLUME 82.6 fL (80.0-94.0); MEAN CORPUSCULAR HEMOGLOBIN 28.2 pg (27.0-31.0); MEAN CORPUSCULAR HGB CONC 34.1 g/dL (33.0-37.0); MEAN PLATELET VOLUME 6.3 fL (7.2-11.7); MONO # 0.7 K/uL (0.0-0.8); MONO % 11.4 % (0.0-10.0); NEUT # 4.2 K/uL (1.8-7.0); RBC 4.22 Mil/uL (4.40-5.90); RED CELL DISTRIBUTION WIDTH 15.1 % (11.5-14.5)
[2017-10-26 14:58] LABS: INR 1.1; PROTHROMBIN TIME 12.1 SECONDS (9.7-12.2)
[2017-10-26 15:06] LABS: VENOUS BLOOD GAS BASE EXCESS 2.5 mmol/L (0.0-2.0); VENOUS BLOOD GAS PCO2 48 mmHg (40-60); VENOUS BLOOD GAS PO2 28 mm/Hg (30-55); VENOUS BLOOD PH 7.38 (7.32-7.43)
[2017-10-26 15:09] LABS: BARBITURATES, UR NEGATIVE (NEGATIVE); PHENCYCLIDINE, UR NEGATIVE (NEGATIVE)
[2017-10-26 15:11] LABS: ALB/GLOB RATIO 1.3 (1.0-2.1); ALBUMIN 3.6 g/dL (3.5-5.0); ALT/SGPT 31 U/L (21-72); AST/SGOT 33 U/L (17-59); BLOOD UREA NITROGEN 11 mg/dL (9-20); CALCIUM 8.6 mg/dl (8.6-10.4); GFR AFRICAN-AMERICAN > 60; GFR NON-AFRICAN AMERICAN > 60
[2017-10-26 15:16] LABS: BENZODIAZEPINES, UR POSITIVE (NEGATIVE); OPIATES, UR POSITIVE (NEGATIVE)
[2017-10-26 15:25] LABS: CK-MB 0.68 ng/mL (0.0-3.38)
--- NOTE | 2017-10-26 17:06 | RAD ---
HISTORY: COMPARISON: 08/26/2016. TECHNIQUE: Chest PA and lateral FINDINGS: LINES AND TUBES: None. LUNG AND PLEURA: The lungs are well inflated and clear. No pleural effusion or pneumothorax. HEART AND MEDIASTINUM: The heart is not enlarged. The hilar and mediastinal contours are within normal limits. SKELETAL STRUCTURES: The bony structures are within normal limits for the patient's age. VISUALIZED UPPER ABDOMEN: Normal. OTHER FINDINGS: None. IMPRESSION: No active pulmonary disease.
--- NOTE | 2017-10-26 17:38 | RAD ---
PROCEDURE: Left Hand Radiographs. HISTORY: hand edema and erythema COMPARISON: None. FINDINGS: BONES: Bone alignment and mineralization are normal. There is no acute displaced fracture or bone destruction. JOINTS: Normal. SOFT TISSUES: There is moderate dorsal soft tissue. OTHER FINDINGS: None. IMPRESSION: Swelling no acute fracture or bone destruction. Moderate dorsal soft tissue swelling
[2017-10-26 18:26] VITALS: RESP 20
[2017-10-26] MEDS: Oxycodone/Acetaminophen 5/325 mg Tab PO PRN (19:56)
[2017-10-27] MEDS: Vancomycin 1 gm/NS 200 ml 1 GM/200 ML BAG IVPB SCH ×2 (00:19→13:45)
[2017-10-27] MEDS: Oxycodone/Acetaminophen 5/325 mg Tab PO PRN ×2 (01:17→06:28)
[2017-10-27] MEDS: Enoxaparin 40 mg Syringe SC SCH (10:00)
--- NOTE | 2017-10-27 13:15 | CP.PCM.CON ---
History of Present Illness - History of Present Illness History of Present Illness: 47 y/o M c PMHx heroin abuse, cocaine abuse, endocarditis p/w L hand edema, erythema, pain x 2 days. Reports subjective fever at home. Denies chills, dyspnea, chest pain, dysuria. Last heroin and cocaine use last night. admitted with severe left hand cellulitis rHas hx Hep C untreated IV antibiotics in progress - Medical History PMH: Anxiety, Arthritis, Bronchitis, Depression, Hepatitis (C), Pulmonary Embolism Denies: Diabetes, HIV, HTN, Chronic Kidney Disease, Seizures, Sexually Transmitted Disease - [facility] Procedures DETOXIFICATION SERVICES FOR SUBSTANCE ABUSE TREATMENT (05/25/17) DRAINAGE OF LEFT HIP JOINT, PERCUTANEOUS APPROACH (09/22/15) GROUP CANDY COUNTER CLERK FOR SUBSTANCE ABUSE TREATMENT, PSYCHOEDUCATION (05/25/17) GROUP PSYCHOTHERAPY (09/22/15) INDIV PSYCHOTHERAPY FOR SUBSTANCE ABUSE TREATMENT, SUPPORT (05/25/17) INDIVIDUAL PSYCHOTHERAPY, SUPPORTIVE (02/15/16) MEDS MGMT FOR SUBSTANCE ABUSE TREATMENT, METHADONE MAINT (08/26/16) MEDS MGMT FOR SUBSTANCE ABUSE TREATMENT, OTH REPL MED (09/22/15) ULTRASONOGRAPHY OF PELVIC REGION (09/22/15) ULTRASONOGRAPHY OF RIGHT AND LEFT HEART (09/22/15) Review of Systems - Review of Systems All systems: reviewed and no additional remarkable complaints except - Constitutional Constitutional: As Per HPI - EENT Eyes: absent: As Per HPI, Blind Spots, Blurred Vision, Change in Vision, Decreased Night Vision, Diplopia, Discharge, Dry Eye, Exophthalmos, Floaters, Irritation, Itchy Eyes, Loss of Peripheral Vision, Pain, Photophobia, Requires Corrective Lenses, Sees Flashes, Spots in Vision, Tunnel Vision, Other Visual Disturbances, Loss of Vision, Other Ears: absent: As Per HPI, Decreased Hearing, Ear Discharge, Ear Pain, Tinnitus, Abnormal Hearing, Disequilibrium, Dizziness, Other Nose/Mouth/Throat: absent: As Per HPI, Epistaxis, Nasal Congestion, Nasal Discharge, Nasal Obstruction, Nasal Trauma, Nose Pain, Post Nasal Drip, Sinus Pain, Sinus Pressure, Bleeding Gums, Change in Voice, Dental Pain, Dry Mouth, Dysphagia, Halitosis, Hoarsness, Lip Swelling, Mouth Lesions, Mouth Pain, Odynophagia, Sore Throat, Throat Swelling, Tongue Swelling, Facial Pain, Neck Pain, Neck Mass, Other - Cardiovascular Cardiovascular: absent: As Per HPI, Acrocyanosis, Chest Pain, Chest Pain at Rest , Chest Pain with Activity, Claudication, Diaphoresis, Dyspnea, Dyspnea on Exertion, Edema, Irregular Heart Rhythm, Pain Radiating to Arm/Neck/Jaw, Leg Edema, Leg Ulcers, Lightheadedness, Orthopnea, Palpitations, Paroxysmal Nocturnal Dyspnea, Pedal Edema, Radiating Pain, Rapid Heart Rate, Slow Heart Rate, Syncope, Other - Respiratory Respiratory: absent: As Per HPI, Cough, Dyspnea, Hemoptysis, Dyspnea on Exertion , Wheezing, Snoring, Stridor, Pain on Inspiration, Chest Congestion, Excessive Mucous Production, Change in Mucous Color, Pain with Coughing, Other - Gastrointestinal Gastrointestinal: absent: As Per HPI, Abdominal Pain, Belching, Bloating, Change in Bowel Habits, Change in Stool Character, Coffee Ground Emesis, Constipation, Cramping, Diarrhea, Dyspepsia, Dysphagia, Early Satiety, Excessive Flatus, Fecal Incontinence, Heartburn, Hematemesis, Hematochezia, Loose Stools, Melena, Nausea, Odynophagia, Temesmus, Vomiting, Other - Genitourinary Genitourinary: absent: As Per HPI, Change in Urinary Stream, Difficulty Urinating, Dysuria, Flank Pain, Hematuria, Pyuria, Nocturia, Urinary Incontinence, Urinary Frequency, Urinary Hesitance, Urinary Urgency, Voiding Freq/Small Amts, Freq UTI, Hx Renal/Bladder Calculi, Hx /Renal Surgery, Bladder Distension, Other - Musculoskeletal Musculoskeletal: As Per HPI - Integumentary Integumentary: As Per HPI - Neurological Neurological: absent: As Per HPI, Abnormal Gait, Abnormal Hearing, Abnormal Movements, Abnormal Speech, Behavioral Changes, Burning Sensations, Confusion, Convulsions, Disequilibrium, Dizziness, Numbness, Focal Weakness, Frequent Falls , Headaches, Lack of Coordination, Loss of Vision, Memory Loss, Paresthesias, Radicular Pain, Restless Legs, Sensory Deficit, Syncope, Tingling, Tremor, Vertigo, Weakness, Other Visual Disturbances, Other - Psychiatric Psychiatric: absent: As Per HPI, Abnormal Sleep Pattern, Anhedonia, Anxiety, Auditory Hallucinations, Behavioral Changes, Change in Appetite, Change in Libido, Confusion, Depression, Difficulty Concentrating, Hallucinations, Homicidal Ideation, Hopelessness, Irritability, Memory Loss, Mood Swings, Panic Attacks, Paranoia, Suicidal Ideation, Visual Hallucinations, Tactile Hallucinations, Other - Endocrine Endocrine: absent: As Per HPI, Change in Body Appearance, Change in Libido, Cold Intolorance, Deepening of Voice, Excessive Sweating, Fatigue, Flushing, Heat Intolorance, Increase in Ring/Shoe/Hat Size, Palpitations, Polydipsia, Polyphagia, Polyuria, Other - Hematologic/Lymphatic Hematologic: absent: As Per HPI, Easy Bleeding, Easy Bruising, Lymphadenopathy, Other Past Patient History - Infectious Disease Hx of Infectious Diseases: None - Past Medical History & Family History Past Medical History?: Yes - Past Social History Smoking Status: Current Some Days Smoker - CARDIAC Hx Cardiac Disorders: No Hx Hypertension: No - PULMONARY Hx Respiratory Disorders: Yes Hx Bronchitis: Yes Hx Pulmonary Embolism: Yes - NEUROLOGICAL Hx Neurological Disorder: No Hx Seizures: No - HEENT Hx HEENT Problems: No Other/Comment: Hx of dental abscesses treated with tylenol #3 - RENAL Hx Chronic Kidney Disease: No - ENDOCRINE/METABOLIC Hx Endocrine Disorders: No - HEMATOLOGICAL/ONCOLOGICAL Hx Blood Disorders: Yes Hx Hepatitis C: Yes Hx Human Immunodeficiency Virus (HIV): No - INTEGUMENTARY Hx Dermatological Problems: No - MUSCULOSKELETAL/RHEUMATOLOGICAL Hx Musculoskeletal Disorders: Yes Hx Arthritis: Yes Hx Falls: No - GASTROINTESTINAL Hx Gastrointestinal Disorders: Yes Hx Gastroesophageal Reflux: Yes - GENITOURINARY/GYNECOLOGICAL Hx Sexually Transmitted Disorders: No - PSYCHIATRIC Hx Psychophysiologic Disorder: Yes Hx Anxiety: Yes Hx Depression: Yes Hx Substance Use: Yes (heroin and cocaine) - SURGICAL HISTORY Hx Surgeries: Yes Other/Comment: drainage of skin abcesses,uses "dirty iv needles" - ANESTHESIA Hx Anesthesia: Yes (pt states "Polina had anesthesia") Hx Anesthesia Reactions: No Hx Malignant Hyperthermia: No Meds Allergies/Adverse Reactions: Allergies Allergy/AdvReac Type Severity Reaction Status Date / Time Penicillins Allergy Severe ANAPHYLAXIS Verified 08/13/17 23:14 - Medications Medications: Current Medications Enoxaparin Sodium (Lovenox) 40 mg SC DAILY [facility] Last Admin: 10/27/17 10:00 Dose: Not Given Hydroxyzine HCl (Atarax) 50 mg PO Q12H [facility] Last Admin: 10/27/17 09:06 Dose: Not Given Vancomycin/Sodium Chloride (Vancomycin 1 Gm/Ns 200 Ml) 1 gm in 200 mls @ 133.333 mls/hr IVPB Q12H ESTEBAN PRN Reason: Protocol Stop: 11/01/17 01:01 Last Admin: 10/27/17 00:19 Dose: 133.333 mls/hr Lorazepam (Ativan) 2 mg PO Q8H PRN PRN Reason: Agitation Last Admin: 10/27/17 08:40 Dose: 2 mg Oxycodone/Acetaminophen (Percocet 5/325 Mg Tab) 1 tab PO Q4H PRN PRN Reason: Pain, severe (8-10) Stop: 10/29/17 19:45 Last Admin: 10/27/17 06:28 Dose: 1 tab Pneumococcal Polyvalent Vaccine (Pneumovax 23 Vaccine) 0.5 ml IM .ONCE ONE Stop: 10/29/17 10:01 Physical Exam - Constitutional Appears: Non-toxic, Cachectic, Chronically Ill - Head Exam Head Exam: ATRAUMATIC, NORMOCEPHALIC - Eye Exam Eye Exam: Normal appearance Pupil Exam: PERRL - ENT Exam ENT Exam: Mucous Membranes Moist - Neck Exam Neck exam: Positive for: Normal Inspection. Negative for: Lymphadenopathy - Respiratory Exam Respiratory Exam: Clear to Auscultation Bilateral, NORMAL BREATHING PATTERN - Cardiovascular Exam Cardiovascular Exam: REGULAR RHYTHM, +S1, +S2 - GI/Abdominal Exam GI & Abdominal Exam: Diminished Bowel Sounds, Soft. absent: Tenderness - Rectal Exam Rectal Exam: Deferred - Exam Exam: NORMAL INSPECTION - Extremities Exam Extremities exam: Positive for: pedal pulses present. Negative for: calf tenderness - Back Exam Back exam: NORMAL INSPECTION. absent: CVA tenderness (L), CVA tenderness (R) - Neurological Exam Neurological exam: Alert, CN II-XII Intact, Oriented x3 - Psychiatric Exam Psychiatric exam: Normal Affect, Normal Mood - Skin Skin Exam: Dry, Erythema, Warm Additional comments: tenderness and swelling left hand ad forearm decreased rom pulses in tact Results - Vital Signs Recent Vital Signs: Last Vital Signs Temp 99.4 F 10/27/17 08:23 Pulse 62 10/27/17 08:23 Resp 20 10/27/17 08:23 BP 123/82 10/27/17 08:23 Pulse Ox 96 10/27/17 08:23 - Labs Result Diagrams: 10/26/17 14:45 10/26/17 14:45 Labs: Laboratory Results - last 24 hr 10/26/17 10/26/17 10/26/17 14:17 14:17 14:45 WBC 6.0 RBC 4.22 L Hgb 11.9 L Hct 34.9 L MCV 82.6 MCH 28.2 MCHC 34.1 RDW 15.1 H Plt Count 170 MPV 6.3 L Neut % (Auto) 71.0 Lymph % (Auto) 16.5 L [place] % (Auto) 11.4 H Eos % (Auto) 0.9 Baso % (Auto) 0.2 Neut # (Auto) 4.2 Lymph # (Auto) 1.0 [place] # (Auto) 0.7 Eos # (Auto) 0.1 Baso # (Auto) 0.0 ESR 11 PT INR APTT pO2 VBG pH VBG pCO2 VBG HCO3 VBG Total CO2 VBG O2 Sat (Calc) VBG Base Excess VBG Potassium Glucose Lactate Sodium Potassium Chloride Carbon Dioxide Anion Gap BUN Creatinine Est GFR ( Amer) Est GFR (Non-Af Amer) Random Glucose Calcium Total Bilirubin AST ALT Alkaline Phosphatase Total Creatine Kinase CK-MB (Mass) Troponin I C-React Prot High Sens Total Protein Albumin Globulin Albumin/Globulin Ratio Venous Blood Potassium Urine Color Yellow Urine Clarity Clear Urine pH 5.0 Ur Specific Halliday 1.024 Urine Protein Negative Urine Glucose (UA) Normal Urine Ketones Negative Urine Blood Negative Urine Nitrate Negative Urine Bilirubin Negative Urine Urobilinogen 2.0 Ur Leukocyte Esterase Neg Urine WBC (Auto) 1 Urine RBC (Auto) 2 Urine Opiates Screen Positive H Urine Methadone Screen Negative Ur Barbiturates Screen Negative Ur Phencyclidine Scrn Negative Ur Amphetamines Screen Negative U Benzodiazepines Scrn Positive U Oth Cocaine Metabols Positive H U Cannabinoids Screen Negative Alcohol, Quantitative Blood Type Antibody Screen 10/26/17 10/26/17 10/26/17 14:45 14:45 14:45 WBC RBC Hgb Hct MCV MCH MCHC RDW Plt Count MPV Neut % (Auto) Lymph % (Auto) [place] % (Auto) Eos % (Auto) Baso % (Auto) Neut # (Auto) Lymph # (Auto) [place] # (Auto) Eos # (Auto) Baso # (Auto) ESR PT 12.1 INR 1.1 APTT 30 pO2 VBG pH VBG pCO2 VBG HCO3 VBG Total CO2 VBG O2 Sat (Calc) VBG Base Excess VBG Potassium Glucose Lactate Sodium 137 Potassium 4.1 Chloride 104 Carbon Dioxide 26 Anion Gap 11 BUN 11 Creatinine 0.8 Est GFR ( Amer) > 60 Est GFR (Non-Af Amer) > 60 Random Glucose 119 H Calcium 8.6 Total Bilirubin 0.4 AST 33 ALT 31 Alkaline Phosphatase 70 Total Creatine Kinase 70 CK-MB (Mass) 0.68 Troponin I < 0.0120 C-React Prot High Sens > 15.00 H Total Protein 6.3 Albumin 3.6 Globulin 2.7 Albumin/Globulin Ratio 1.3 Venous Blood Potassium Urine Color Urine Clarity Urine pH Ur Specific Halliday Urine Protein Urine Glucose (UA) Urine Ketones Urine Blood Urine Nitrate Urine Bilirubin Urine Urobilinogen Ur Leukocyte Esterase Urine WBC (Auto) Urine RBC (Auto) Urine Opiates Screen Urine Methadone Screen Ur Barbiturates Screen Ur Phencyclidine Scrn Ur Amphetamines Screen U Benzodiazepines Scrn U Oth Cocaine Metabols U Cannabinoids Screen Alcohol, Quantitative < 10 Blood Type Antibody Screen 10/26/17 10/26/17 14:45 15:02 WBC RBC Hgb Hct MCV MCH MCHC RDW Plt Count MPV Neut % (Auto) Lymph % (Auto) [place] % (Auto) Eos % (Auto) Baso % (Auto) Neut # (Auto) Lymph # (Auto) [place] # (Auto) Eos # (Auto) Baso # (Auto) ESR PT INR APTT pO2 28 L VBG pH 7.38 VBG pCO2 48 VBG HCO3 25.6 VBG Total CO2 29.9 H VBG O2 Sat (Calc) 57.6 VBG Base Excess 2.5 H VBG Potassium 4.0 Glucose 114 H Lactate 1.1 Sodium 136.0 Potassium Chloride 104.0 Carbon Dioxide Anion Gap BUN Creatinine Est GFR ( Amer) Est GFR (Non-Af Amer) Random Glucose Calcium Total Bilirubin AST ALT Alkaline Phosphatase Total Creatine Kinase CK-MB (Mass) Troponin I C-React Prot High Sens Total Protein Albumin Globulin Albumin/Globulin Ratio Venous Blood Potassium 4.0 Urine Color Urine Clarity Urine pH Ur Specific Halliday Urine Protein Urine Glucose (UA) Urine Ketones Urine Blood Urine Nitrate Urine Bilirubin Urine Urobilinogen Ur Leukocyte Esterase Urine WBC (Auto) Urine RBC (Auto) Urine Opiates Screen Urine Methadone Screen Ur Barbiturates Screen Ur Phencyclidine Scrn Ur Amphetamines Screen U Benzodiazepines Scrn U Oth Cocaine Metabols U Cannabinoids Screen Alcohol, Quantitative Blood Type A POSITIVE Antibody Screen Negative Assessment & Plan (1) Cellulitis Status: Acute (2) Abscess of left forearm Status: Acute - Assessment and Plan (Free Text) Assessment: cont iv rx and obtain imaging consider surgical eval
[2017-10-28] MEDS: Vancomycin 1 gm/NS 200 ml 1 GM/200 ML BAG IVPB SCH ×2 (01:30→13:20)
[2017-10-28] MEDS: Oxycodone/Acetaminophen 5/325 mg Tab PO PRN ×3 (04:43→21:26)
[2017-10-28 07:47] LABS: BASO % 0.1 % (0.0-2.0); EOS % 0.5 % (0.0-4.0); HEMOGLOBIN 13.1 g/dL (12.0-18.0); LYMPH # 1.5 K/uL (1.0-4.3); MEAN CELL VOLUME 81.5 fL (80.0-94.0); MEAN CORPUSCULAR HEMOGLOBIN 28.5 pg (27.0-31.0); MEAN PLATELET VOLUME 7.1 fL (7.2-11.7); MONO # 0.8 K/uL (0.0-0.8); NEUT # 6.1 K/uL (1.8-7.0); NEUT % 72.4 % (50.0-75.0); RBC 4.6 Mil/uL (4.40-5.90); RED CELL DISTRIBUTION WIDTH 14.5 % (11.5-14.5); WHITE BLOOD COUNT 8.4 K/uL (4.8-10.8)
[2017-10-28 08:06] LABS: ALB/GLOB RATIO 1.2 (1.0-2.1); ALBUMIN 3.6 g/dL (3.5-5.0); ALT/SGPT 27 U/L (21-72); AST/SGOT 26 U/L (17-59); BLOOD UREA NITROGEN 11 mg/dL (9-20); CALCIUM 8.8 mg/dl (8.6-10.4); GFR AFRICAN-AMERICAN > 60; GFR NON-AFRICAN AMERICAN > 60
--- NOTE | 2017-10-28 08:31 | CP.PCM.PN ---
Subjective - Date & Time of Evaluation Date of Evaluation: 10/28/17 Time of Evaluation: 08:00 - Subjective Subjective: PGY3 medicine progress note for Dr. Hernandez: Patient was seen and examined at bedside this morning. He reported subjective. He admits to pain in his left hand extending up to his mid forearm. He states he is able to move his finger but is limited due to pain. He admits to using cocaine and injecting heroin right before coming to the hospital. He did inject heroin into his hand at the site of the infection. Objective - Vital Signs/Intake and Output Vital Signs (last 24 hours): Temp Pulse Resp BP Pulse Ox 98.3 F 73 20 132/77 96 10/28/17 07:45 10/28/17 07:45 10/28/17 07:45 10/28/17 07:45 10/28/17 07:45 Intake and Output: 10/28/17 10/28/17 06:59 18:59 Intake Total 760 Output Total 1320 Balance -560 - Medications Medications: Current Medications Enoxaparin Sodium (Lovenox) 40 mg SC DAILY [facility] Last Admin: 10/27/17 10:00 Dose: Not Given Hydroxyzine HCl (Atarax) 50 mg PO Q12H [facility] Last Admin: 10/27/17 21:24 Dose: Not Given Vancomycin/Sodium Chloride (Vancomycin 1 Gm/Ns 200 Ml) 1 gm in 200 mls @ 133.333 mls/hr IVPB Q12H [facility] PRN Reason: Protocol Stop: 11/01/17 01:01 Last Admin: 10/28/17 01:30 Dose: 133.333 mls/hr Lorazepam (Ativan) 2 mg PO Q8H PRN PRN Reason: Agitation Last Admin: 10/28/17 05:06 Dose: 2 mg Ondansetron HCl (Zofran Inj) 4 mg IVP Q6H PRN PRN Reason: nausea and vomiting Last Admin: 10/28/17 05:06 Dose: 4 mg Oxycodone/Acetaminophen (Percocet 5/325 Mg Tab) 1 tab PO Q4H PRN PRN Reason: Pain, severe (8-10) Stop: 10/29/17 19:45 Last Admin: 10/28/17 04:43 Dose: 1 tab Pneumococcal Polyvalent Vaccine (Pneumovax 23 Vaccine) 0.5 ml IM .ONCE ONE Stop: 10/29/17 10:01 - Labs Labs: 10/28/17 07:10 10/28/17 07:10 PT 12.1 SECONDS (9.7-12.2) 10/26/17 14:45 INR 1.1 10/26/17 14:45 APTT 30 SECONDS (21-34) 10/26/17 14:45 - Constitutional Appears: Non-toxic, No Acute Distress, Unkempt - Head Exam Head Exam: ATRAUMATIC, NORMAL INSPECTION - Eye Exam Eye Exam: EOMI - ENT Exam ENT Exam: Mucous Membranes Moist - Respiratory Exam Respiratory Exam: Clear to Ausculation Bilateral, NORMAL BREATHING PATTERN. absent: Respiratory Distress - Cardiovascular Exam Cardiovascular Exam: REGULAR RHYTHM, +S1, +S2 - GI/Abdominal Exam GI & Abdominal Exam: Soft, Normal Bowel Sounds. absent: Distended, Firm, Guarding, Tenderness - Extremities Exam Additional comments: L hand diffusely erythematous, edematous, tender. from digits and wrist to mid forearm. Is warm to the touch. Able to move fingers but limited ROM due to pain. - Back Exam Back Exam: NORMAL INSPECTION - Neurological Exam Neurological Exam: Alert, Awake, CN II-XII Intact, Oriented x3 - Psychiatric Exam Psychiatric exam: Normal Affect, Normal Mood Assessment and Plan - Assessment and Plan (Free Text) Assessment: Cellulitis/Abscess - Left forearm Percocet prn pain Vancomycin 1gram IVPB Q12 hours Dr. Almaraz ID consulted - help appreciated Dr. Metcalf surgery consulted - help appreciated - liekly ID at some point?? No leukocytosis, afebrile Lactate ABG 1.1 Polysubstance Abuse Heroin and cocaine Atarax 50mg PO Q12 prn anxiety Ativan 2mg PO Q8 hours pn agitation Zofran prn N/V UDS + heroin, cocaine Alcohol level was negative Psychiatry consulted - help appreciated Hepatitis C Outpatient treatment Last Hep C RNA was negative HIV negative ID on board Prophylactic Measures Lovenox 40mg SC daily All order and management per Dr David Moya DLukasz PGY3
[2017-10-28] MEDS: Enoxaparin 40 mg Syringe SC SCH (09:35)
--- NOTE | 2017-10-28 11:03 | PCM.PSYCH ---
Initial Psychiatric Evaluation - Initial Psychiatric Evaluation Type of Admission: Voluntary Legal Status: Capacity Chief Complaint (in patient's own words): "I need help again" History of Present Illness and Precipitating Events: Pt is seen, chart reviewed, case discussed. This is a 47 yo single LM, living with his mother or friends, unemployed. He is well-known to the writer editor from previous admissions. His mo was present and with his permission, writer editor spoke to her too. Consultation was requested for his opioid abuse. He repeats the same excuse he used last time was admitted to detox, that he had gone to a methadone program but not accepted. He didn't have an ID ;last time, but before that he was discharged b/c of some argument. Nevertheless, he relapsed again almost immediately and is now using up to 30 bags iv He is here for cellulitis. 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 He is also using "a lot of" cocaine, and 1 pint of alcohol. Smokes MJ and uses Xanax "not every day" No other drugs. He was in detox 8x and rehab 2x No psych issues but anxiety. Not lilli-homi and no rosie. No psychosis Medical: He had endocarditis. No sxs now. Hep C positive. He has an abscess in his hand - tx started Past psych hx: No admission but detox Current Medications: Active Medications Generic Name Dose Route Start Last Admin Trade Name Freq PRN Reason Stop Dose Admin Enoxaparin Sodium 40 mg 10/27/17 10:00 10/28/17 09:35 Lovenox SC 40 mg DAILY [facility] Administration Hydroxyzine HCl 50 mg 10/26/17 22:00 10/28/17 09:35 Atarax PO 50 mg Q12H [facility] Administration Vancomycin/Sodium Chloride 1 gm in 200 mls @ 133.333 mls/hr 10/27/17 01:00 01:30 Vancomycin 1 Gm/Ns 200 Ml IVPB 11/01/17 01:01 133.333 mls/hr Q12H [facility] Administration Protocol Lorazepam 2 mg 10/26/17 23:14 10/28/17 05:06 Ativan PO 2 mg Q8H PRN Administration Agitation Methadone HCl 20 mg 10/28/17 11:15 Methadone PO 10/28/17 11:16 ONCE ONE Methadone HCl 0 mg 10/29/17 09:00 Methadone PO 11/03/17 08:59 Q24H [facility] Taper Ondansetron HCl 4 mg 10/27/17 13:45 10/28/17 05:06 Zofran Inj IVP 4 mg Q6H PRN Administration nausea and vomiting Oxycodone/Acetaminophen 1 tab 10/26/17 19:44 10/28/17 04:43 Percocet 5/325 Mg Tab PO 10/29/17 19:45 1 tab Q4H PRN Administration Pain, severe (8-10) Pneumococcal Polyvalent Vaccine 0.5 ml 10/29/17 10:00 Pneumovax 23 Vaccine IM 10/29/17 10:01 .ONCE ONE Past Psychiatric History - Past Psychiatric History Previous Treatment History: None Pertinent Medical Hx (Current Medical&Sleep Prob, Allergies): Allergies Allergy/AdvReac Type Severity Reaction Status Date / Time Penicillins Allergy Severe ANAPHYLAXIS Verified 08/13/17 23:14 Sulfamethoxazole/Trimethoprim [Bactrim DS Tab] 1 tab PO Q12H #20 tab 08/17/17 hydrOXYzine HCl [Atarax] 50 mg PO BID #14 tab 08/17/17 traZODone [Desyrel] 100 mg PO HS #7 tab 08/17/17 Review of Systems - Psychiatric Psychiatric: Abnormal Sleep Pattern, Anxiety, Change in Appetite, Difficulty Concentrating. absent: Hallucinations, Homicidal Ideation, Paranoia, Suicidal Ideation Mental Status Examination - Personal Presentation Personal Presentation: Looks stated age - Affect Affect: Constricted - Motor Activity Motor Activity: Calm - Reliability in Providing Information Reliability in Providing Information: Good - Speech Speech: Organized - Mood Mood: Anxious - Formal Thought Process Formal Thought Process: No Impairment - Cognitive Functions Orientation: Person, Place, Situation, Time Sensorium: Alert Attention/Concentration: Attentive Estimate of Intelligence: Average Judgement: Intact, as evidence by: Insight regarding need for hospitalization Memory: Recent intact, as evidence by: Ability to recall events of the day, Remote intact, as evidenced by: Abilit to recall sig. life events - Risk Risk: Withdrawal, Diminished functioning - Strength & Assets Inventory Strength & Assets Inventory: Cooperative - Limitations Limitations: Other DSM 5 DX - DSM 5 DSM 5 Diagnosis: Opioid withdrawal Opioid use d/ - severe Cocaine use d/o - severe Alcohol use d/o - severe Sedative, hypnotic use d/o- mild Cellulitis - Recommended/Plan of Treatment Treatment Recommendations and Plan of Treatment: Methadone detox prn ativan for alcohol As needed medications Gabapentin for augmentation All risks, benefits and alternatives of medications, including no medications, discussed and the patient understood and agreed. Supportive therapy and psychoeducation [place] for abstinence Encourage MAT Refer to rehab or IOP Attend self-help groups as well 32 min
--- NOTE | 2017-10-28 11:16 | CP.PCM.PN ---
Subjective - Date & Time of Evaluation Date of Evaluation: 10/28/17 Time of Evaluation: 08:00 - Subjective Subjective: c/o paain and sweling left hand with decreased rom Objective - Vital Signs/Intake and Output Vital Signs (last 24 hours): Temp Pulse Resp BP Pulse Ox 98.3 F 73 20 132/77 96 10/28/17 07:45 10/28/17 07:45 10/28/17 07:45 10/28/17 07:45 10/28/17 07:45 Intake and Output: 10/28/17 10/28/17 06:59 18:59 Intake Total 760 Output Total 1320 Balance -560 - Medications Medications: Current Medications Enoxaparin Sodium (Lovenox) 40 mg SC DAILY [facility] Last Admin: 10/28/17 09:35 Dose: 40 mg Hydroxyzine HCl (Atarax) 50 mg PO Q12H [facility] Last Admin: 10/28/17 09:35 Dose: 50 mg Vancomycin/Sodium Chloride (Vancomycin 1 Gm/Ns 200 Ml) 1 gm in 200 mls @ 133.333 mls/hr IVPB Q12H [facility] PRN Reason: Protocol Stop: 11/01/17 01:01 Last Admin: 10/28/17 01:30 Dose: 133.333 mls/hr Lorazepam (Ativan) 1 mg PO Q8H PRN PRN Reason: Agitation Methadone HCl (Methadone) 20 mg PO ONCE ONE Stop: 10/28/17 11:16 Methadone HCl (Methadone) 0 mg PO Q24H [facility] PRN Reason: Taper Stop: 11/03/17 08:59 Ondansetron HCl (Zofran Inj) 4 mg IVP Q6H PRN PRN Reason: nausea and vomiting Last Admin: 10/28/17 05:06 Dose: 4 mg Pneumococcal Polyvalent Vaccine (Pneumovax 23 Vaccine) 0.5 ml IM .ONCE ONE Stop: 10/29/17 10:01 - Labs Labs: 10/28/17 07:10 10/28/17 07:10 PT 12.1 SECONDS (9.7-12.2) 10/26/17 14:45 INR 1.1 10/26/17 14:45 APTT 30 SECONDS (21-34) 10/26/17 14:45 - Constitutional Appears: Non-toxic, Chronically Ill - Head Exam Head Exam: NORMOCEPHALIC - Eye Exam Eye Exam: PERRL - ENT Exam ENT Exam: Mucous Membranes Dry - Neck Exam Neck Exam: absent: Lymphadenopathy - Respiratory Exam Respiratory Exam: Decreased Breath Sounds - Cardiovascular Exam Cardiovascular Exam: REGULAR RHYTHM - GI/Abdominal Exam GI & Abdominal Exam: Distended - Rectal Exam Rectal Exam: Deferred - Exam Exam: NORMAL INSPECTION - Extremities Exam Extremities Exam: absent: Pedal Edema - Back Exam Back Exam: absent: CVA tenderness (L), CVA tenderness (R) - Neurological Exam Neurological Exam: Alert, Awake, Oriented x3 - Psychiatric Exam Psychiatric exam: Depressed - Skin Skin Exam: Dry Assessment and Plan (1) Cellulitis Status: Acute (2) Abscess of left forearm Status: Acute - Assessment and Plan (Free Text) Assessment: recc surgical eval cont IV rx
--- NOTE | 2017-10-28 20:01 | CARD ---
APPROVED REPORT EKG Measurement Heart [id number] <Conclusion> Normal sinus rhythm Borderline ECG
[2017-10-29] MEDS: Vancomycin 1 gm/NS 200 ml 1 GM/200 ML BAG IVPB SCH (00:54)
--- NOTE | 2017-10-29 08:00 | HP ---
HISTORY OF PRESENT ILLNESS: The patient is a 47-year-old man who had a history of drug addiction, heroin injection, admitted with left hand pain. The patient had massive cellulitis of the hand prior to admission. PHYSICAL EXAMINATION: GENERAL: The patient is awake, alert. VITAL SIGNS: Temperature 101, pulse of 90. HEENT: Within normal limits. NECK: Supple. CHEST: Symmetrical. HEART: Regular. ABDOMEN: Soft. EXTREMITIES: Left hand . IMPRESSION: Patient suffers from hand cellulitis. Continue IV antibiotics. Partha Hernandez MD
[2017-10-29] MEDS: Oxycodone/Acetaminophen 5/325 mg Tab PO PRN (08:56)
[2017-10-29] MEDS ORDERED: Pneumococcal 23-Valent Vaccine IM ONE (10:00)
[2017-10-29] MEDS: Enoxaparin 40 mg Syringe SC SCH (10:40)
--- NOTE | 2017-10-29 11:52 | PCM.PYCHPN ---
Psychiatric Progress Note - Psychiatric Progress Note Patient seen today, length of contact: 20 min Patient Chief Complaint: "I need help again" Medication Change: Yes Medical Record Reviewed: Yes Mental Status Examination - Cognitive Function Orientation: Person, Place, Situation, Time - Mood Mood: Anxious - Affect Affect: Constricted - Formal Thought Process Formal Thought Process: No Impairment Goal/Treatment Plan - Goal/Treatment Plan Progress Toward Problem(s) and Goals/Treatment Plan: Methadone detox prn ativan for alcohol As needed medications Gabapentin for augmentation All risks, benefits and alternatives of medications, including no medications, discussed and the patient understood and agreed. Supportive therapy and psychoeducation [place] for abstinence Encourage MAT Refer to rehab or IOP Attend self-help groups as well 32 min
--- NOTE | 2017-10-29 11:53 | CP.PCM.PN ---
Subjective - Date & Time of Evaluation Date of Evaluation: 10/29/17 Time of Evaluation: 08:00 - Subjective Subjective: blood c/s neg thus far IV rx in progress Objective - Vital Signs/Intake and Output Vital Signs (last 24 hours): Temp Pulse Resp BP Pulse Ox 97.9 F 59 L 20 110/64 96 10/29/17 07:44 10/29/17 07:44 10/29/17 07:44 10/29/17 07:44 10/29/17 07:44 Intake and Output: 10/29/17 10/29/17 06:59 18:59 Intake Total 500 Output Total 400 Balance 100 - Medications Medications: Current Medications Enoxaparin Sodium (Lovenox) 40 mg SC DAILY [facility] Last Admin: 10/29/17 10:40 Dose: Not Given Gabapentin (Neurontin) 400 mg PO TID [facility] Hydroxyzine HCl (Atarax) 50 mg PO Q12H [facility] Last Admin: 10/29/17 10:39 Dose: Not Given Vancomycin/Sodium Chloride (Vancomycin 1 Gm/Ns 200 Ml) 1 gm in 200 mls @ 133.333 mls/hr IVPB Q12H [facility] PRN Reason: Protocol Stop: 11/01/17 01:01 Last Admin: 10/29/17 00:54 Dose: 133.333 mls/hr Lorazepam (Ativan) 1 mg PO Q8H PRN PRN Reason: Agitation Last Admin: 10/29/17 08:56 Dose: 1 mg Methadone HCl (Methadone) 5 mg PO ONCE ONE Stop: 10/29/17 12:01 Ondansetron HCl (Zofran Inj) 4 mg IVP Q6H PRN PRN Reason: nausea and vomiting Last Admin: 10/28/17 05:06 Dose: 4 mg Trazodone HCl (Desyrel) 100 mg PO HS [facility] Last Admin: 10/28/17 21:29 Dose: 100 mg - Labs Labs: 10/28/17 07:10 10/28/17 07:10 PT 12.1 SECONDS (9.7-12.2) 10/26/17 14:45 INR 1.1 10/26/17 14:45 APTT 30 SECONDS (21-34) 10/26/17 14:45 - Constitutional Appears: Non-toxic, Chronically Ill - Head Exam Head Exam: NORMOCEPHALIC - Eye Exam Eye Exam: PERRL - ENT Exam ENT Exam: Mucous Membranes Dry - Neck Exam Neck Exam: absent: Lymphadenopathy - Respiratory Exam Respiratory Exam: Decreased Breath Sounds - Cardiovascular Exam Cardiovascular Exam: REGULAR RHYTHM - GI/Abdominal Exam GI & Abdominal Exam: Distended, Soft Assessment and Plan (1) Cellulitis Status: Acute (2) Abscess of left forearm Status: Acute
--- NOTE | 2017-10-29 14:38 | CP.PCM.PN ---
Subjective - Date & Time of Evaluation Date of Evaluation: 10/29/17 Time of Evaluation: 09:10 - Subjective Subjective: Medicine progress note for Dr. Hernandez's service: Patient seen and examined. Patient is NPO for I&D of left hand with Dr. Metcalf. Per nursing, patient very agitated, roaming the halls. 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 Objective - Vital Signs/Intake and Output Vital Signs (last 24 hours): Temp Pulse Resp BP Pulse Ox 97.9 F 59 L 20 110/64 96 10/29/17 07:44 10/29/17 07:44 10/29/17 07:44 10/29/17 07:44 10/29/17 07:44 Intake and Output: 10/29/17 10/29/17 06:59 18:59 Intake Total 500 Output Total 400 Balance 100 - Medications Medications: Current Medications Enoxaparin Sodium (Lovenox) 40 mg SC DAILY [facility] Last Admin: 10/29/17 10:40 Dose: Not Given Gabapentin (Neurontin) 400 mg PO TID [facility] Last Admin: 10/29/17 13:21 Dose: Not Given Hydroxyzine HCl (Atarax) 50 mg PO Q12H [facility] Last Admin: 10/29/17 10:39 Dose: Not Given Vancomycin/Sodium Chloride (Vancomycin 1 Gm/Ns 200 Ml) 1 gm in 200 mls @ 133.333 mls/hr IVPB Q12H [facility] PRN Reason: Protocol Stop: 11/01/17 01:01 Last Admin: 10/29/17 00:54 Dose: 133.333 mls/hr Lorazepam (Ativan) 1 mg PO Q8H PRN PRN Reason: Agitation Last Admin: 10/29/17 08:56 Dose: 1 mg Methadone HCl (Methadone) 15 mg PO Q24H [facility] PRN Reason: Taper Stop: 11/05/17 08:59 Ondansetron HCl (Zofran Inj) 4 mg IVP Q6H PRN PRN Reason: nausea and vomiting Last Admin: 10/28/17 05:06 Dose: 4 mg Trazodone HCl (Desyrel) 100 mg PO HS [facility] Last Admin: 10/28/17 21:29 Dose: 100 mg - Labs Labs: 10/28/17 07:10 10/28/17 07:10 PT 12.1 SECONDS (9.7-12.2) 10/26/17 14:45 INR 1.1 10/26/17 14:45 APTT 30 SECONDS (21-34) 10/26/17 14:45 - Constitutional Appears: No Acute Distress, Older Than Stated Age - Eye Exam Eye Exam: EOMI - ENT Exam ENT Exam: Mucous Membranes Moist - Respiratory Exam Respiratory Exam: Clear to Ausculation Bilateral, NORMAL BREATHING PATTERN - Cardiovascular Exam Cardiovascular Exam: +S1, +S2 - GI/Abdominal Exam GI & Abdominal Exam: Soft, Normal Bowel Sounds - Extremities Exam Additional comments: left hand erythematous, warm, tender on palpation right groin TLC - Neurological Exam Neurological Exam: Alert, Awake - Skin Skin Exam: Warm Assessment and Plan - Assessment and Plan (Free Text) Assessment: Cellulitis/Abscess - Left forearm No percocet as patient detoxing from opiates Vancomycin 1gram IVPB Q12 hours Dr[address] Rufina VILLARREAL consulted - help appreciated Dr. Metcalf surgery consulted - help appreciated - I&D to be done under local anesthesia this afternoon No leukocytosis, afebrile blood culture negative 48 hours Lactate ABG 1.1 Polysubstance Abuse Heroin and cocaine Atarax 50mg PO Q12 prn anxiety Ativan 2mg PO Q8 hours pn agitation neurontin 400mg PO TID methadone taper Zofran prn N/V UDS + heroin, cocaine Alcohol level was negative Psychiatry, Dr. Kemp, consulted - help appreciated Hepatitis C Outpatient treatment Last Hep C RNA was negative HIV negative ID on board Prophylactic Measures Lovenox 40mg SC daily trazodone 100mg PO HS All order and management per Dr Hernandez
[2017-10-29 16:48] VITALS: BP 116/76; PULSE 83; TEMP 97; O2SAT 98
--- NOTE | 2017-10-29 19:11 | CP.PCM.PN ---
Subjective - Date & Time of Evaluation Date of Evaluation: 10/29/17 Time of Evaluation: 19:08 - Subjective Subjective: Patient requested to leave AMA. Patient is alert, awake, and oriented to person/ place/time/president. Patient understands the risks he is taking by leaving AMA. Patient signed AMA form. Nurse witnessed and signed AMA form as well. Removed right groin TLC- gauze and tegederm placed. Objective - Vital Signs/Intake and Output Vital Signs (last 24 hours): Temp Pulse Resp BP Pulse Ox 97 F L 83 20 116/76 98 10/29/17 15:30 10/29/17 15:30 10/29/17 15:30 10/29/17 15:30 10/29/17 15:30 Intake and Output: 10/29/17 10/30/17 18:59 06:59 Intake Total 200 Balance 200 - Medications Medications: Current Medications Enoxaparin Sodium (Lovenox) 40 mg SC DAILY [facility] Last Admin: 10/29/17 10:40 Dose: Not Given Gabapentin (Neurontin) 400 mg PO TID [facility] Last Admin: 10/29/17 17:28 Dose: 400 mg Hydroxyzine HCl (Atarax) 50 mg PO Q12H [facility] Last Admin: 10/29/17 10:39 Dose: Not Given Vancomycin/Sodium Chloride (Vancomycin 1 Gm/Ns 200 Ml) 1 gm in 200 mls @ 133.333 mls/hr IVPB Q12H [facility] PRN Reason: Protocol Stop: 11/01/17 01:01 Last Admin: 10/29/17 00:54 Dose: 133.333 mls/hr Ketorolac Tromethamine (Toradol) 15 mg IVP Q6 PRN PRN Reason: Pain, severe (8-10) Last Admin: 10/29/17 16:04 Dose: 15 mg Lorazepam (Ativan) 1 mg PO Q8H PRN PRN Reason: Agitation Last Admin: 10/29/17 16:12 Dose: 1 mg Methadone HCl (Methadone) 15 mg PO Q24H [facility] PRN Reason: Taper Stop: 11/05/17 08:59 Ondansetron HCl (Zofran Inj) 4 mg IVP Q6H PRN PRN Reason: nausea and vomiting Last Admin: 10/28/17 05:06 Dose: 4 mg Trazodone HCl (Desyrel) 100 mg PO HS [facility] Last Admin: 10/28/17 21:29 Dose: 100 mg - Labs Labs: 10/28/17 07:10 10/28/17 07:10 PT 12.1 SECONDS (9.7-12.2) 10/26/17 14:45 INR 1.1 10/26/17 14:45 APTT 30 SECONDS (21-34) 10/26/17 14:45
--- NOTE | 2017-10-30 01:40 | OP ---
PROCEDURE DATE: 10/29/2017 PREOPERATIVE DIAGNOSIS: Cellulitis and infected phlegmon of the left hand. POSTOPERATIVE DIAGNOSIS: Cellulitis and infected phlegmon of the left hand. PROCEDURE PERFORMED: Excision of an infected phlegmon, drainage of underlying abscess on the left hand with partial tissue transfer closure. SURGEON: Ez Metcalf MD ANESTHESIA: General. BLOOD LOSS: 20 mL. POSTOPERATIVE CONDITION: Stable. INDICATIONS FOR SURGERY: This is a 47-year-old male with history of IV drug abuse, presented with cellulitis of the left hand and an abscess, was now taken to the operating room for I and D. Of note, the patient ate breakfast this morning, will be done under local anesthesia because of it. GROSS FINDINGS: There was an infected phlegmon overlying the fifth metacarpal head, and underlying, it was pus and an abscess cavity. It was an associated tenosynovitis. DESCRIPTION OF PROCEDURE: The patient was taken to the operating room, placed in the supine position with the left hand extended. The left hand and forearm were prepped and draped. Local anesthesia was administered over the fifth metacarpal head and elliptical incision was made surrounding the infected phlegmon. It was completely excised down into the fascial tissue and removed. Bleeding was controlled using the Bovie. Larger blood vessels were repaired. Underlying abscess was drained and cultured. The wound was vigorously irrigated with saline and a partial tissue flap closure was performed at this periphery. Central portion of the wound was packed with iodoform packing. The patient tolerated the procedure well and returned to recovery room in stable condition. Ez Metcalf MD
== END 2017-10-29 20:01 | disposition left against medical advice (07) | DRG 277 ==
LOC: C.ER 12:27 → C.9E 16:04 → C.3T 17:24
PROVIDERS: ADMIT Internal Medicine Pulmonary Disease; ATTEND Internal Medicine Pulmonary Disease
PROC: 0J9K0ZX Drainage of Left Hand Subcutaneous Tissue and Fascia, Open Approach, Diagnostic (ICD-10-PCS; principal; 2017-10-29 10:15)
DX: L02.512 Cutaneous abscess of left hand (principal); I82.90 Acute embolism and thrombosis of unspecified vein; L03.114 Cellulitis of left upper limb; B19.20 Unspecified viral hepatitis C without hepatic coma; F11.23 Opioid dependence with withdrawal; F14.90 Cocaine use, unspecified, uncomplicated; L02.414 Cutaneous abscess of left upper limb; Z68.22 Body mass index [BMI] 22.0-22.9, adult; F41.9 Anxiety disorder, unspecified; Z86.711 Personal history of pulmonary embolism; F17.210 Nicotine dependence, cigarettes, uncomplicated; M65.9 Synovitis and tenosynovitis, unspecified; K21.9 Gastro-esophageal reflux disease without esophagitis; F19.10 Other psychoactive substance abuse, uncomplicated

== ENCOUNTER 2018-04-22 14:35 | Inpatient (IN) | payer MEDICAID, OTHER ==
[2018-04-22 14:35] VITALS: BMI 22.8
[2018-04-22] MEDS ORDERED: Vancomycin 1 GM 1 GM/250 ML BAG IV STA (15:08)
[2018-04-22] MEDS ORDERED: Ciprofloxacin 400mg/200ml D5W 400 MG/200 ML BAG IVPB STA (15:09)
[2018-04-22] MEDS ORDERED: Sodium Chloride 0.9% 500 ML IV ONE ×2 (15:20→15:43)
--- NOTE | 2018-04-22 15:21 | C.PDOC ---
History Of Present Illness 48 y/o male presents to the ED with 1 week of left hand swelling and pain. He admits that 1 week ago he attempted to inject heroin into the left hand. Since then symptoms have progressively worsened and the hand has become very red. Patient has taken fentanyl pills and ibuprofen without relief. Associated with subjective fever and chills. He also admits to heroin abuse, uses 2 bundle per day, with occasional alcohol and cocaine use. Patient has history of infection to the same hand earlier this year. He also reports that he has had a retained needle in his forearm for over a year. PMD- none Time Seen by Provider: 04/22/18 14:55 Chief Complaint (Nursing): Upper Extremity Problem/Injury History Per: Patient History/Exam Limitations: no limitations Onset/Duration Of Symptoms: Days Current Symptoms Are (Timing): Still Present Past Medical History Reviewed: Historical Data, Nursing Documentation, Vital Signs Vital Signs: Last Vital Signs Temp 98 F 04/22/18 14:45 Pulse 88 04/22/18 14:45 Resp 18 04/22/18 14:45 BP 116/66 04/22/18 14:45 Pulse Ox 100 04/22/18 14:45 - Medical History PMH: Anxiety, Arthritis, Bronchitis, Depression, Hepatitis (C), Pulmonary Embolism Denies: Diabetes, HIV, HTN, Chronic Kidney Disease, Seizures, Sexually Transmitted Disease Other PMH: Substance abuse - [facility] Procedures DETOXIFICATION SERVICES FOR SUBSTANCE ABUSE TREATMENT (05/25/17) DRAINAGE OF L HAND SUBCU/FASCIA, OPEN APPROACH, DIAGN (10/26/17) DRAINAGE OF LEFT HIP JOINT, PERCUTANEOUS APPROACH (09/22/15) GROUP CABINET MOUNTER FOR SUBSTANCE ABUSE TREATMENT, PSYCHOEDUCATION (05/25/17) GROUP PSYCHOTHERAPY (09/22/15) INDIV PSYCHOTHERAPY FOR SUBSTANCE ABUSE TREATMENT, SUPPORT (05/25/17) INDIVIDUAL PSYCHOTHERAPY, SUPPORTIVE (02/15/16) MEDS MGMT FOR SUBSTANCE ABUSE TREATMENT, METHADONE MAINT (08/26/16) MEDS MGMT FOR SUBSTANCE ABUSE TREATMENT, OTH REPL MED (09/22/15) ULTRASONOGRAPHY OF PELVIC REGION (09/22/15) ULTRASONOGRAPHY OF RIGHT AND LEFT HEART (09/22/15) Family History: States: Hypertension - Social History Hx Tobacco Use: Yes (heavy smoker) Hx Alcohol Use: Yes (denies) Hx Substance Use: Yes (heroin and cocaine) - Immunization History Hx Tetanus Toxoid Vaccination: No Hx Influenza Vaccination: No Hx Pneumococcal Vaccination: No Review Of Systems Except As Marked, All Systems Reviewed And Found Negative. Constitutional: Negative for: Fever, Chills Cardiovascular: Negative for: Chest Pain Respiratory: Negative for: Shortness of Breath Musculoskeletal: Positive for: Hand Pain. Negative for: Arm Pain Skin: Positive for: Rash (redness and swelling to the left hand) Neurological: Negative for: Weakness, Numbness Physical Exam - Physical Exam Appears: Non-toxic, In Acute Distress (mild painful distress) Skin: Warm, Dry Head: Atraumatic, Normacephalic Eye(s): bilateral: Normal Inspection, PERRL, EOMI Oral Mucosa: Moist Lips: Normal Appearing Neck: Normal ROM, Trachea Midline Chest: Symmetrical, No Tenderness Cardiovascular: Rhythm Regular, No Murmur Respiratory: Normal Breath Sounds, No Wheezing Gastrointestinal/Abdominal: Soft, No Tenderness Back: Normal Inspection, No Decreased ROM Extremity: Tenderness (Diffuse tenderness to left hand), Swelling (Diffusely edematous left hand, appears tightly swollen extending to the distal forearm), Other (blanching erythema especially over dorsum of the hand; flexion and extension of left digits limited secondary to pain and severe swelling) Pulses: Left Radial: Normal, Right Radial: Normal Neurological/Psych: Oriented x3, Normal Speech, Normal Sensation (Sensation to light touch intact to left upper extremity) ED Course And Treatment - Laboratory Results Result Diagrams: 04/22/18 15:35 04/22/18 15:35 O2 Sat by Pulse Oximetry: 100 (RA) Pulse Ox Interpretation: Normal Procedure: Blank - Time Time Performed: 17:45 - Time Out Time Out: Side verified, Site verified, Patient ID confirmed, Sterile procedures obs. - Procedure Procedure:: Right EJ placement - Consent obtained: Consent obtained: Verbal - Performed by: Performed by:: Attending physician - Needle Size Needle Size:: 22 - Result Result: Successful - Post-Procedure Post-procedure:: Vital signs stable - Patient Tolerated Procedure Patient Tolerated Procedure:: Well Medical Decision Making Medical Decision Making: Impression: Left hand cellulitis Differential diagnosis includes but is not limited to: abscess, foreign body, gas gangrene Plan: --EKG --CMP --CPK --Lactic acid --UDS --Alcohol serum --CBC --ESR --PTT/PT --Blood culture --Chest x-ray --Left hand x-ray --Left forearm x-ray --Extremity US, LUE --Doppler US, LUE --IV fluids --15 mg IV Toradol --1 gm IV Vanco --400 mg IV Cipro --600 mg IV Clindamycin 16:[address] Metcalf for possible surgical intervention, he will evaluate patient in the hospital. Doppler study is negative for DVT. 16:[address] Gorman, patient accepted for admission for left hand cellulitis/abscess. 17:55 Right EJ 22G IV placed by me under sterile conditions due to RN inability to place line. Disposition - Disposition Disposition: HOSPITALIZED Disposition Time: 16:49 Condition: GUARDED - Clinical Impression Clinical Impression: Cellulitis of left hand - Scribe Statement The provider has reviewed the documentation as recorded by the Xavi Nam Provider Attestation: All medical record entries made by the Xavi were at my direction and personally dictated by me. I have reviewed the chart and agree that the record accurately reflects my personal performance of the history, physical exam, medic al decision making, and the department course for this patient. I have also personally directed, reviewed, and agree with the discharge instructions and disposition.
[2018-04-22 15:42] LABS: BASO % 0.3 % (0.0-2.0); EOS % 0.6 % (0.0-4.0); HEMOGLOBIN 13.4 g/dL (12.0-18.0); LYMPH # 1.1 K/uL (1.0-4.3); LYMPH % 13.7 % (20.0-40.0); MEAN CORPUSCULAR HEMOGLOBIN 30.3 pg (27.0-31.0); MEAN PLATELET VOLUME 6.3 fL (7.2-11.7); MONO # 0.8 K/uL (0.0-0.8); NEUT % 75.4 % (50.0-75.0); NRBC % 0.1 % (0.0-2.0); RBC 4.42 Mil/uL (4.40-5.90); RED CELL DISTRIBUTION WIDTH 13.6 % (11.5-14.5)
[2018-04-22] MEDS ORDERED: Ciprofloxacin 400mg/200ml D5W 400 MG/200 ML BAG IVPB ONE (15:42)
[2018-04-22] MEDS ORDERED: Clindamycin 600mg/50ml NS 600 MG/50 ML BAG IVPB ONE (15:42)
[2018-04-22 15:44] LABS: MEAN CELL VOLUME 89.1 fL (80.0-94.0)
[2018-04-22 15:53] LABS: ALB/GLOB RATIO 1.4 (1.0-2.1); ALBUMIN 3.9 g/dL (3.5-5.0); ALT/SGPT 86 U/L (21-72); AST/SGOT 58 U/L (17-59); BLOOD UREA NITROGEN 13 mg/dL (9-20); CALCIUM 9.1 mg/dl (8.6-10.4); GFR NON-AFRICAN AMERICAN > 60
--- NOTE | 2018-04-22 17:41 | RAD ---
HISTORY: SOB COMPARISON: Chest x-ray performed 10/26/17 TECHNIQUE: Chest PA and lateral FINDINGS: LUNGS: No focal consolidation. Please note that chest x-ray has limited sensitivity for the detection of pulmonary masses. PLEURA: No significant pleural effusion identified. No definite pneumothorax . CARDIOVASCULAR: Heart size appears within normal limits. No atherosclerotic calcification present. OSSEOUS STRUCTURES: No acute osseous abnormality identified. VISUALIZED UPPER ABDOMEN: Unremarkable. OTHER FINDINGS: None. IMPRESSION: No focal consolidation identified.
--- NOTE | 2018-04-22 17:48 | CP.PCM.HP ---
<ElanaTara - Last Filed: 04/22/18 17:48> History of Present Illness - History of Present Illness History of Present Illness: Tara Huitron PGY1 H&P for Dr. Gorman CC: My hand hurts Patient is a 48yo M with PMH of IVDA, Hep C, and endocarditis (treated) presenting to ED with L hand pain for 1 week. He reports it began when his friend used a needle that he thought was clean to inject him with heroin. The pain became progressively worse, and the hand began to swell and turn red. He reports using fentanyl and motrin at home for the pain, which helps temporarily. He reports associated chills, decreased range of motion. He denies numbness or tingling in the hand. He reports a previous history of this 1 year ago which was treated with IV antibiotics and I&D. He currently rates the pain 9/10, and describes it as a burning pain. He denies fever, shortness of breath, chest pain, abdominal pain, nausea, vomiting, diarrhea, dysuria. PMH: IVDA, Hep C, endocarditis SxH: 2 I&Ds to L hand, 1 I&D to R hand FamH: mom-HTN SocH: 18 pack year tobacco history, occasional etoh. occasional cocaine, heroin use. regular fentanyl use (snorted) 2 bags/hour. Meds: none Allergies: Penicillins, unknown reaction PMD: none Present on Admission - Present on Admission Any Indicators Present on Admission: No Review of Systems - Review of Systems Review of Systems: as per HPI Past Patient History - Infectious Disease Hx of Infectious Diseases: None - Past Medical History & Family History Past Medical History?: Yes - Past Social History Smoking Status: Current Some Days Smoker - CARDIAC Hx Hypertension: No - PULMONARY Hx Bronchitis: Yes Hx Pulmonary Embolism: Yes - NEUROLOGICAL Hx Seizures: No - HEENT Hx HEENT Problems: No Other/Comment: Hx of dental abscesses treated with tylenol #3 - RENAL Hx Chronic Kidney Disease: No - ENDOCRINE/METABOLIC Hx Endocrine Disorders: No - HEMATOLOGICAL/ONCOLOGICAL Hx Human Immunodeficiency Virus (HIV): No - INTEGUMENTARY Hx Dermatological Problems: No - MUSCULOSKELETAL/RHEUMATOLOGICAL Hx Arthritis: Yes - GASTROINTESTINAL Hx Gastrointestinal Disorders: Yes Hx Gastroesophageal Reflux: Yes - GENITOURINARY/GYNECOLOGICAL Hx Sexually Transmitted Disorders: No - PSYCHIATRIC Hx Anxiety: Yes Hx Depression: Yes Hx Substance Use: Yes (heroin and cocaine) - SURGICAL HISTORY Hx Surgeries: Yes Other/Comment: drainage of skin abcesses,uses "dirty iv needles" - ANESTHESIA Hx Anesthesia: Yes (pt states "Polina had anesthesia") Hx Anesthesia Reactions: No Hx Malignant Hyperthermia: No Meds Allergies/Adverse Reactions: Allergies Allergy/AdvReac Type Severity Reaction Status Date / Time Penicillins Allergy Severe ANAPHYLAXIS Verified 08/13/17 23:14 Physical Exam - Constitutional Appears: Well, No Acute Distress - Head Exam Head Exam: ATRAUMATIC, NORMOCEPHALIC Additional comments: scar on L cheek - Eye Exam Eye Exam: EOMI, Normal appearance, PERRL Pupil Exam: NORMAL ACCOMODATION - ENT Exam ENT Exam: Mucous Membranes Moist, Normal Exam - Neck Exam Neck exam: Positive for: Normal Inspection - Respiratory Exam Respiratory Exam: Clear to Auscultation Bilateral, NORMAL BREATHING PATTERN. absent: Rales, Rhonchi, Wheezes, Respiratory Distress - Cardiovascular Exam Cardiovascular Exam: REGULAR RHYTHM, +S1, +S2, Systolic Murmur. absent: Gallop, Rubs - GI/Abdominal Exam GI & Abdominal Exam: Normal Bowel Sounds, Soft. absent: Distended, Firm, Tenderness - Extremities Exam Extremities exam: Negative for: pedal edema Additional comments: LUE: erythema and edema of L dorsal hand. no drainage. normal capillary refill. track hirsch RUE: track hirsch. - Neurological Exam Neurological exam: Alert, CN II-XII Intact, Oriented x3, Reflexes Normal Additional comments: sensation intact in b/l UE and LE - Psychiatric Exam Psychiatric exam: Anxious, Normal Affect - Skin Skin Exam: Warm Additional comments: warmth of L hand Results - Vital Signs Recent Vital Signs: Last Vital Signs Temp 98.8 F 04/22/18 17:08 Pulse 82 04/22/18 17:08 Resp 18 04/22/18 14:45 BP 116/74 04/22/18 17:08 Pulse Ox 97 04/22/18 17:08 - Labs Result Diagrams: 04/22/18 15:35 04/22/18 15:35 Labs: Laboratory Results - last 24 hr 04/22/18 04/22/18 04/22/18 15:35 15:35 15:35 WBC 8.0 RBC 4.42 Hgb 13.4 Hct 39.4 MCV 89.1 D MCH 30.3 MCHC 34.0 RDW 13.6 Plt Count 158 MPV 6.3 L Neut % (Auto) 75.4 H Lymph % (Auto) 13.7 L [place] % (Auto) 10.0 Eos % (Auto) 0.6 Baso % (Auto) 0.3 Neut # (Auto) 6.0 Lymph # (Auto) 1.1 [place] # (Auto) 0.8 Eos # (Auto) 0.0 Baso # (Auto) 0.0 ESR Cancelled Sodium 137 Potassium 4.6 Chloride 101 Carbon Dioxide 26 Anion Gap 14 BUN 13 Creatinine 0.7 L Est GFR ( Amer) > 60 Est GFR (Non-Af Amer) > 60 Random Glucose 121 H Lactic Acid 1.3 Calcium 9.1 Total Bilirubin 0.4 AST 58 ALT 86 H D Alkaline Phosphatase 71 Total Creatine Kinase 38 L Total Protein 6.7 Albumin 3.9 Globulin 2.9 Albumin/Globulin Ratio 1.4 Alcohol, Quantitative < 10 Assessment & Plan - Assessment and Plan (Free Text) Assessment: 48yo M with PMH of IVDA, Hep C, and endocarditis (treated) presenting to ED with L hand pain for 1 week s/p injection to the hand. Pt admitted for cellulitis. Plan: Cellulitis of R hand - secondary to IVDA - pt afebrile, no leukocytosis - f/u BCx - Vanco 1g IVPB q12h - ID consulted, Dr. Lr - f/u recs - Gen Sx consulted, Dr. Metcalf - f/u recs for possible I&D Drug Use Disorder - pt w/ extensive h/o fentanyl and IV heroin abuse - monitor for signs of withdrawal - morphine 4mg IV q4h PRN for pain - ativan 1mg TID PRN for agitation - zofran 4mg IV q6h PRN - Psych consulted, Dr. Ribeiro - f/u recs PPx: GI: protonix DVT: SCDs HHD Pt seen and case reviewed with Dr. Gorman <Pratik Gorman - Last Filed: 04/23/18 19:26> Results - Vital Signs Recent Vital Signs: Last Vital Signs Temp 98.3 F 04/23/18 15:56 Pulse 74 04/23/18 15:56 Resp 20 04/23/18 15:56 BP 115/75 04/23/18 15:56 Pulse Ox 95 04/23/18 15:56 - Labs Result Diagrams: 04/23/18 14:14 04/23/18 14:14 Labs: Laboratory Results - last 24 hr 04/23/18 04/23/18 14:14 14:14 WBC 8.2 RBC 4.31 L Hgb 13.1 Hct 37.6 MCV 87.4 MCH 30.5 MCHC 34.9 RDW 13.5 Plt Count 188 MPV 6.2 L Neut % (Auto) 79.5 H Lymph % (Auto) 10.7 L [place] % (Auto) 9.4 Eos % (Auto) 0.2 Baso % (Auto) 0.2 Neut # (Auto) 6.5 Lymph # (Auto) 0.9 L [place] # (Auto) 0.8 Eos # (Auto) 0.0 Baso # (Auto) 0.0 Sodium 135 Potassium 4.1 Chloride 99 Carbon Dioxide 27 Anion Gap 14 BUN 11 Creatinine 0.7 L Est GFR ( Amer) > 60 Est GFR (Non-Af Amer) > 60 Random Glucose 125 H Calcium 8.8 Phosphorus 3.1 Magnesium 2.0 Total Bilirubin 0.7 AST 53 ALT 84 H Alkaline Phosphatase 80 Total Protein 7.2 Albumin 4.2 Globulin 3.0 Albumin/Globulin Ratio 1.4 Attending/Attestation - Attestation I have personally seen and examined this patient.: Yes I have fully participated in the care of the patient.: Yes I have reviewed all pertinent clinical information: Yes Notes (Text): Seen and examined. He is an IV drug user coming with forearm cellulites and possible abscess. Has h/o endocarditis and treated in 2016 follow US continue vanco,ID consult,surgery consulted,we will get psychiatrist to see for drug withdrawal management follow cultures,Patient refuses toradol .He wants to leave AMA if he we don't give him morphine or dilaudid assessment and the plan discussed with the resident
--- NOTE | 2018-04-22 17:58 | RAD ---
PROCEDURE: Left Hand Radiographs. HISTORY: swelling ivda r/o fb COMPARISON: None available. FINDINGS: BONES: No acute displaced fracture. JOINTS: No dislocation. SOFT TISSUES: Severe diffuse soft tissue swelling. No evidence of radiopaque foreign body. OTHER FINDINGS: None. IMPRESSION: Severe diffuse soft tissue swelling. No acute displaced fracture or dislocation identified. If symptoms persist, or if there is continued clinical concern, x-ray follow-up in 7-10 days should be considered.
--- NOTE | 2018-04-22 18:00 | RAD ---
PROCEDURE: Radiographs of the left elbow. HISTORY: swelling ivda r/o fb COMPARISON: No prior. FINDINGS: BONES: No acute displaced fracture. JOINTS: No dislocation. SOFT TISSUES: Marked diffuse soft tissue swelling. 1.4 cm thin linear radiopaque foreign body adjacent to the proximal radius, consistent with retained needle fragment. JOINT EFFUSION: No significant joint effusion. OTHER FINDINGS: None IMPRESSION: Marked diffuse soft tissue swelling. 1.4 cm thin linear radiopaque foreign body adjacent to the proximal radius, consistent with retained needle fragment.
[2018-04-22] MEDS ORDERED: Morphine 4 MG/ML VIAL ONE (18:03)
[2018-04-22 18:06] LABS: INR 1.1; PROTHROMBIN TIME 11.8 SECONDS (9.7-12.2)
[2018-04-22] MEDS: Morphine 4 MG/ML VIAL IVP PRN ×2 (18:15→22:21)
[2018-04-22 19:06] LABS: BARBITURATES, UR NEGATIVE (NEGATIVE); BENZODIAZEPINES, UR NEGATIVE (NEGATIVE); OPIATES, UR NEGATIVE (NEGATIVE); PHENCYCLIDINE, UR NEGATIVE (NEGATIVE)
[2018-04-22] MEDS: Vancomycin 1 gm/NS 200 ml 1 GM/200 ML BAG IVPB SCH (20:04)
[2018-04-22] MEDS: Fluticasone Nasal 50 mcg/Spray NAS SCH (22:41)
[2018-04-23] MEDS: Morphine 4 MG/ML VIAL IVP PRN ×3 (02:45→10:49)
[2018-04-23] MEDS: Vancomycin 1 gm/NS 200 ml 1 GM/200 ML BAG IVPB SCH ×2 (06:35→19:36)
[2018-04-23] MEDS: Pantoprazole 40 mg EC Tab PO SCH (10:45)
[2018-04-23] MEDS: Fluticasone Nasal 50 mcg/Spray NAS SCH ×2 (10:46→18:00)
--- NOTE | 2018-04-23 10:59 | PCM.PSYCH ---
Initial Psychiatric Evaluation - Initial Psychiatric Evaluation Type of Admission: Voluntary Legal Status: Capacity Chief Complaint (in patient's own words): "I am withdrawing" History of Present Illness and Precipitating Events: Pt is seen, chart reviewed, case discussed. This is a 48 yo single LM, living with his mother or friends, unemployed. He is well-known to the narrative writer from numerous previous admissions. His mo was present and with his permission, narrative writer spoke to her too. Consultation was requested for his opioid use. He says he relapsed again almost immediately and is now using "a lot of Fentanly, every 3-4 hours" He is here for cellulitis. 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 He says he shot heroin once recently and got the infection He was also using "a lot of" cocaine and alcohol. Smoked MJ and used Xanax but now he claims he stopped all of them , except for fentanyl, recently. No other drugs. He was in detox 8x and rehab 2x No severe psych issues but anxiety and mild depression. Not lilli-homi and no rosie. No psychosis Medical: He had endocarditis. No sxs now. Hep C positive. He has an abscess in his L hand - tx started Past psych hx: No admission but outpatient briefly Current Medications: Active Medications Generic Name Dose Route Start Last Admin Trade Name Freq PRN Reason Stop Dose Admin Fluticasone Propionate 0 spr 04/22/18 22:00 04/23/18 10:46 Flonase MIGUEL 1 spr BID ESTEBAN Administration Heparin Sodium (Porcine) 5,000 units 04/23/18 10:00 04/23/18 10:46 Heparin SC 5,000 units Q12H ESTEBAN Administration Vancomycin/Sodium Chloride 1 gm in 200 mls @ 133.333 mls/hr 04/22/18 19:00 04/23/18 06:35 Vancomycin 1 Gm/Ns 200 Ml IVPB 133.333 mls/hr Q12H ESTEBAN Administration Protocol Clindamycin Phosphate 600 mg/ 54 mls @ 100 mls/hr 04/23/18 02:00 04/23/18 10:48 Sodium Chloride IVPB 100 mls/hr Q8H ESTEBAN Administration Protocol Lorazepam 1 mg 04/22/18 17:40 04/23/18 01:00 Ativan PO 1 mg TID PRN Administration Agitation Morphine Sulfate 4 mg 04/22/18 17:39 04/23/18 10:49 Morphine IVP 4 mg Q4H PRN Administration Pain, severe (8-10) Nicotine 1 patch 04/23/18 10:00 04/23/18 10:47 Nicoderm Cq TD 1 patch DAILY ESTEBAN Administration Ondansetron HCl 4 mg 04/22/18 17:39 Zofran Inj IVP Q6 PRN Nausea/Vomiting Pantoprazole Sodium 40 mg 04/23/18 10:00 04/23/18 10:45 Protonix Ec Tab PO 40 mg DAILY ESTEBAN Administration Past Psychiatric History - Past Psychiatric History Previous Treatment History: Intensive Outpatient Pertinent Medical Hx (Current Medical&Sleep Prob, Allergies): Allergies Allergy/AdvReac Type Severity Reaction Status Date / Time Penicillins Allergy Severe ANAPHYLAXIS Verified 08/13/17 23:14 Sulfamethoxazole/Trimethoprim [Bactrim DS Tab] 1 tab PO Q12H #20 tab 08/17/17 hydrOXYzine HCl [Atarax] 50 mg PO BID #14 tab 08/17/17 traZODone [Desyrel] 100 mg PO HS #7 tab 08/17/17 Review of Systems - Neurological Neurological: Tremor - Psychiatric Psychiatric: Abnormal Sleep Pattern, Anhedonia, Anxiety, Depression, Difficulty Concentrating. absent: Hallucinations, Homicidal Ideation, Suicidal Ideation Mental Status Examination - Personal Presentation Personal Presentation: Looks stated age - Affect Affect: Broad - Motor Activity Motor Activity: Calm - Reliability in Providing Information Reliability in Providing Information: Fair - Speech Speech: Organized - Mood Mood: Depressed, Anxious - Formal Thought Process Formal Thought Process: No Impairment - Cognitive Functions Orientation: Person, Place, Situation, Time Sensorium: Alert Attention/Concentration: Easily distracted Estimate of Intelligence: Average Judgement: Intact, as evidence by: Insight regarding need for hospitalization Memory: Recent intact, as evidence by: Ability to recall events of the day, Remote intact, as evidenced by: Abilit to recall sig. life events - Risk Risk: Withdrawal, Diminished functioning - Strength & Assets Inventory Strength & Assets Inventory: Cooperative - Limitations Limitations: Living alone DSM 5 DX - DSM 5 DSM 5 Diagnosis: Opioid withdrawal Opioid use d/ - severe Cocaine use d/o - moderate Alcohol use d/o - moderate Sedative, hypnotic use d/o- mild Cellulitis Hep C - Recommended/Plan of Treatment Treatment Recommendations and Plan of Treatment: Methadone detox from 20+5 today, 15+5 tomorrow, and then as per discussion with Dr. Sanders, he can be kept on 10 mg BID for pain, and then tapered off fully. If he chooses to go to a methadone program he can go directly but he goes to a rehab, he can be tapered off in 3 days. Pt agreed with this plan. Morphine is decreased significantly and will be stopped in 2 days prn ativan for agitation, not anxiety! As needed medications Gabapentin for augmentation Lexapro for anxiety/depression All risks, benefits and alternatives of medications, including no medications, discussed and the patient understood and agreed. Supportive therapy and psychoeducation MD for abstinence After care: Encourage MAT after d/c Refer to rehab or IOP if no MAT Attend self-help groups as well after d/c 32 min
--- NOTE | 2018-04-23 12:14 | US ---
Date of service: 04/22/2018 PROCEDURE: Ultrasound soft tissue left upper extremity HISTORY: swelling r/o abscess COMPARISON: Not available TECHNIQUE: Targeted examination of the distal left forearm and wrist was performed for evaluation of possible abscess. FINDINGS: There is fluid and heterogeneous soft tissue seen about the flexor tendons of the forearm likely indicating tenosynovitis. No discrete collection is appreciated in this location. In the dorsal ulnar aspect of the distal forearm, there is a circumscribed hypoechoic collection which may represent abscess or phlegmon. This measures 1.2 x 2.7 x 3.4 cm. It is somewhat lobulated in appearance. There is no significant associated hypervascularity. There is fluid seen about the flexor tendons of the wrist without discrete collection. IMPRESSION: Possible phlegmon/abscess along the dorsal ulnar aspect of the distal left forearm. Possible flexor tenosynovitis. Consider further evaluation with gadolinium enhanced magnetic resonance imaging. The preliminary findings for this examination were reported by [facility] Radiology at 6:27 p.m. on 04/22/2018.. There is concurrence of this report with the preliminary findings.
--- NOTE | 2018-04-23 12:19 | CARD ---
APPROVED REPORT Date of service: 04/22/2018 EKG Measurement Heart [id number] <Conclusion> Normal sinus rhythm Normal ECG
--- NOTE | 2018-04-23 13:19 | VASCLAB ---
Date of service: 04/22/2018 PROCEDURE: Left Upper Extremity Venous Duplex Exam HISTORY: swelling r/o dvt PRIORS: None. TECHNIQUE: Left upper extremity, internal jugular, subclavian, axillary, brachial, ulnar, radial, basilic and upper cephalic veins were evaluated. Flow was assessed with color Doppler, compressibility, assessment of phasic flow and augmentation response. Report prepared by Joshua Molina, VALERIA, RVT FINDINGS: LEFT: 1. Internal Jugular: 1.1. Compressibility - Fully compressible: Thrombus - None : Flow - Phasic: Augmentation -Normal: Reflux - None. 2. Subclavian: 2.1. Compressibility - Fully compressible: Thrombus - None : Flow - Phasic: Augmentation -Normal: Reflux - None. 3. Axillary: 3.1. Compressibility - Fully compressible: Thrombus - None : Flow - Phasic: Augmentation -Normal: Reflux - None. 4. Brachial: 4.1. Compressibility - Fully compressible: Thrombus - None: Flow - Phasic: Augmentation -Normal: Reflux - None. 5. Ulnar: 5.1. Compressibility - Fully compressible: Thrombus - None: Flow - Phasic: Augmentation -Normal: Reflux - None. 6. Radial: 6.1. Compressibility - Fully compressible: Thrombus - None: Flow - Phasic: Augmentation - Normal: Reflux - None. 7. Cephalic: 7.1. Compressibility - Fully compressible: Thrombus - None: Flow - Phasic: Augmentation -Normal: Reflux - None. 8. Basilic: 8.1. Compressibility - Fully compressible: Thrombus - None: Flow - Phasic: Augmentation -Normal: Reflux - None. OTHER FINDINGS: Left: None. IMPRESSION: Left: No evidence of vein thrombosis of the left upper extremity with excellent venous flow. Normal valve function noted of the left side. Normal venous flow noted in the right internal jugular and right subclavian veins.
[2018-04-23 14:21] LABS: BASO % 0.2 % (0.0-2.0); EOS % 0.2 % (0.0-4.0); HEMOGLOBIN 13.1 g/dL (12.0-18.0); LYMPH # 0.9 K/uL (1.0-4.3); LYMPH % 10.7 % (20.0-40.0); MEAN CELL VOLUME 87.4 fL (80.0-94.0); MEAN CORPUSCULAR HEMOGLOBIN 30.5 pg (27.0-31.0); MEAN CORPUSCULAR HGB CONC 34.9 g/dL (33.0-37.0); MEAN PLATELET VOLUME 6.2 fL (7.2-11.7); MONO # 0.8 K/uL (0.0-0.8); MONO % 9.4 % (0.0-10.0); NEUT # 6.5 K/uL (1.8-7.0); NEUT % 79.5 % (50.0-75.0); NRBC % 0.1 % (0.0-2.0); RBC 4.31 Mil/uL (4.40-5.90); RED CELL DISTRIBUTION WIDTH 13.5 % (11.5-14.5); WHITE BLOOD COUNT 8.2 K/uL (4.8-10.8)
--- NOTE | 2018-04-23 14:32 | CARD ---
APPROVED REPORT Date of service: 04/23/2018 EXAM: Two-dimensional and M-mode echocardiogram with Doppler and color Doppler. Other Information Quality : GoodRhythm : INDICATION R/O VEGETATION,DRUG ABUSE 2D DIMENSIONS IVSd0.8 (0.7-1.1cm)LVDd4.2 (3.9-5.9cm) PWd0.7 (0.7-1.1cm)LA Vfiulf34 (18-58mL) LVDs3.2 (2.5-4.0cm)FS (%) 25.3 % LVEF (%)50.3 (>50%)LVEF (Wong's)59.51 % M-Mode DIMENSIONS RVDd2.83 (2.1-3.2cm)Left Atrium (MM)4.08 (2.5-4.0cm) IVSd0.72 (0.7-1.1cm)Aortic Root3.44 (2.2-3.7cm) LVDd4.65 (4.0-5.6cm)Aortic Cusp Exc.2.39 (1.5-2.0cm) PWd0.65 (0.7-1.1cm)FS (%) 27 % LVDs3.42 (2.0-3.8cm)TAPSE19.78 cm LVEF (%)52 (>50%) Mitral Valve MV E Uxhitnby21.8cm/sMV A Tatzkgak02.4cm/sE/A ratio1.5 TDI Lateral E' Peak V18.74cm/sMedial E' Peak V9.38cm/sE/Lateral E'5.1 E/Medial E'10.2 Tricuspid Valve TR Peak Tgjtgnym134vr/sTR Peak Gr.[id number] LEFT VENTRICLE The left ventricle is normal size. There is normal left ventricular wall thickness. The left ventricular function is normal. The left ventricular ejection fraction is within the normal range. No regional wall motion abnormalities noted. There is a flattened septum consistent with right ventricle volume overload. The left ventricular diastolic function is normal. No left ventricle thrombus noted on this study. There is no ventricular septal defect visualized. There is no left ventricular aneurysm. There is no mass noted in the left ventricle. RIGHT VENTRICLE The right ventricle is mildly to moderately dilated. There is normal right ventricular wall thickness. The right ventricular systolic function is normal. ATRIA The left atrium size is normal. The right atrium is moderately dilated. The interatrial septum is intact with no evidence for an atrial septal defect. The interatrial septum bows toward left atrium consistent with elevated right atrial pressure. AORTIC VALVE The aortic valve is normal in structure and function. No aortic regurgitation is present. There is no aortic valvular stenosis. There is no aortic valvular vegetation. MITRAL VALVE The mitral valve is normal in structure and function. There is no evidence of mitral valve prolapse. There is no mitral valve stenosis. Mitral regurgitation is mild. TRICUSPID VALVE The tricuspid valve is normal in structure and function. There is moderate to severe tricuspid regurgitation. Right ventricular systolic pressure is estimated at 40-50 mmHg. There is a large vegetation on the tricuspid valve. There is no tricuspid valve stenosis. PULMONIC VALVE The pulmonary valve is normal in structure and function. There is no pulmonic valvular regurgitation. There is no pulmonic valvular stenosis. GREAT VESSELS The aortic root is normal in size. The ascending aorta is normal in size. The pulmonary artery is normal. The IVC is normal in size and collapses >50% with inspiration. PERICARDIAL EFFUSION The pericardium appears normal. There is no pleural effusion. <Conclusion> The left ventricular function is normal. The left ventricular ejection fraction is within the normal range. The left ventricular diastolic function is normal. The right ventricle is mildly to moderately dilated. The right atrium is moderately dilated. The interatrial septum is intact with no evidence for an atrial septal defect. The interatrial septum bows toward left atrium consistent with elevated right atrial pressure. There is moderate to severe tricuspid regurgitation. Right ventricular systolic pressure is estimated at 40-50 mmHg. There is a large vegetation on the tricuspid valve.
[2018-04-23 14:34] LABS: ALB/GLOB RATIO 1.4 (1.0-2.1); ALBUMIN 4.2 g/dL (3.5-5.0); ALT/SGPT 84 U/L (21-72); AST/SGOT 53 U/L (17-59); BLOOD UREA NITROGEN 11 mg/dL (9-20); CALCIUM 8.8 mg/dl (8.6-10.4); GFR NON-AFRICAN AMERICAN > 60
--- NOTE | 2018-04-23 16:13 | CP.PCM.PN ---
<Theresa Rodriguez Y - Last Filed: 04/23/18 16:10> Subjective - Date & Time of Evaluation Date of Evaluation: 04/23/18 Time of Evaluation: 12:30 - Subjective Subjective: PGY-1 Medicine Progress Note for Dr. Gorman Patient was seen and examined today at bedside in no acute distress, nor showing signs of heroin withdrawal. Nursing reports no overnight events, except for the patient's constant request for more pain medication. Patient expresses current pain regimen is not enough and his hand hurts 10/10 at all times, including after morphine. Otherwise patient is tolerating treatment well and has no other complaints. Denies chest pain, shortness of breath, abdominal pain, difficulty urinating or having a BM. Objective - Vital Signs/Intake and Output Vital Signs (last 24 hours): Temp Pulse Resp BP Pulse Ox 98.3 F 74 20 115/75 95 04/23/18 15:56 04/23/18 15:56 04/23/18 15:56 04/23/18 15:56 04/23/18 15:56 Intake and Output: 04/23/18 04/23/18 06:59 18:59 Intake Total 550 250 Output Total 400 Balance 150 250 - Medications Medications: Current Medications Escitalopram Oxalate (Lexapro) 5 mg PO DAILY ESTEBAN Last Admin: 04/23/18 13:13 Dose: 5 mg Fluticasone Propionate (Flonase) 0 spr MIGUEL BID ESTEBAN Last Admin: 04/23/18 10:46 Dose: 1 spr Heparin Sodium (Porcine) (Heparin) 5,000 units SC Q12H ESTEBAN Last Admin: 04/23/18 10:46 Dose: 5,000 units Vancomycin/Sodium Chloride (Vancomycin 1 Gm/Ns 200 Ml) 1 gm in 200 mls @ 133.333 mls/hr IVPB Q12H ESTEBAN; Protocol Last Admin: 04/23/18 06:35 Dose: 133.333 mls/hr Clindamycin Phosphate 600 mg/ (Sodium Chloride) 54 mls @ 100 mls/hr IVPB Q8H ESTEBAN; Protocol Last Admin: 04/23/18 10:48 Dose: 100 mls/hr Gentamicin Sulfate 80 mg/ (Sodium Chloride) 102 mls @ 100 mls/hr IVPB Q8H ESTEBAN; Protocol Last Admin: 04/23/18 15:46 Dose: 100 mls/hr Influenza Virus Vaccine (Fluzone Quad [id number]) 60 mcg IM .ONCE ONE Stop: 04/25/18 10:01 Lorazepam (Ativan) 0.5 mg PO Q8H PRN PRN Reason: Agitation Methadone HCl (Methadone) 15 mg PO ONCE ONE Stop: 04/24/18 09:01 Methadone HCl (Methadone) 5 mg PO QPM [facility] Stop: 04/24/18 18:01 Methadone HCl (Methadone) 10 mg PO BID [facility] Morphine Sulfate (Morphine) 4 mg IVP Q12H PRN PRN Reason: Pain, severe (8-10) Nicotine (Nicoderm Cq) 1 patch TD DAILY [facility] Last Admin: 04/23/18 10:47 Dose: 1 patch Ondansetron HCl (Zofran Inj) 4 mg IVP Q6 PRN PRN Reason: Nausea/Vomiting Pantoprazole Sodium (Protonix Ec Tab) 40 mg PO DAILY [facility] Last Admin: 04/23/18 10:45 Dose: 40 mg Pneumococcal Polyvalent Vaccine (Pneumovax 23 Vaccine) 0.5 ml IM .ONCE ONE Stop: 04/25/18 10:01 Quetiapine Fumarate (Seroquel) 100 mg PO HS [facility] - Labs Labs: 04/23/18 14:14 04/23/18 14:14 PT 11.8 SECONDS (9.7-12.2) 04/22/18 17:55 INR 1.1 04/22/18 17:55 APTT 31 SECONDS (21-34) 04/22/18 17:55 - Constitutional Appears: Non-toxic, No Acute Distress - Head Exam Head Exam: ATRAUMATIC, NORMOCEPHALIC Additional comments: scar on L cheek - Eye Exam Eye Exam: EOMI, Normal appearance Pupil Exam: Miosis - ENT Exam ENT Exam: Mucous Membranes Moist - Respiratory Exam Respiratory Exam: Clear to Ausculation Bilateral, NORMAL BREATHING PATTERN. absent: Rales, Rhonchi, Wheezes - Cardiovascular Exam Cardiovascular Exam: REGULAR RHYTHM, +S1, +S2, Murmur - GI/Abdominal Exam GI & Abdominal Exam: Soft, Normal Bowel Sounds. absent: Tenderness - Extremities Exam Additional comments: LUE: erythema and edema of L dorsal hand. no drainage. normal capillary refill. track hirsch RUE: track hirsch. - Neurological Exam Neurological Exam: Alert, Awake, Oriented x3 Additional comments: sensation intact - Psychiatric Exam Psychiatric exam: Anxious, Normal Affect - Skin Skin Exam: Warm Additional comments: warmth of L hand Assessment and Plan - Assessment and Plan (Free Text) Assessment: 48yo M with PMH of IVDU, Hep C, and endocarditis (treated) admitted for c ellulitis of L hand where he has injected. Plan: Cellulitis of R hand - secondary to IVDU - Cipro x1, Clinda x1, Toradol given in ED - blood Cx (04/22): no growth @ 24 hrs - Clindamycin 600mg IVPB q8 (started 04/23) - Vancomycin 1gm IVPB q12 (started 04/22) - Trough on 04/24@0600 - Peak on 04/24@0730 - Morphine 4mg IVP q6 prn for pain - ID consulted: Dr. Be burnham appreciated - Gen Sx consulted: Dr. Metcalf - help appreciated for possible I&D Endocarditis - ECHO (04/23): LVEF normal (>50%) with large vegetation on tricuspid valve with moderate to severe tricuspid regurg - ECHO from 2016 episode of endocarditis do not state size of vegetations, only improved shrinking. Interval ECHO do not mention vegetations or valvular deformities - Gentamicin (started 04/23) - Trough on 04/24@1400 - Peak on 04/24@1530 - Vancomycin (started 04/22) - Trough on 04/24@0600 - Peak on 04/24@0730 - ID consulted: Dr. Be burnham appreciated - Cardio consulted: Dr. Tirado - alicja appreciated Drug Use Disorder - pt w/ extensive h/o fentanyl and IV heroin abuse - monitor for signs of withdrawal - Morphine 4mg IV q4h PRN for pain - Zofran 4mg IV q6h PRN - Psych consulted: Dr. Ribeiro - help appreciated - all opiods and pain medication per psych (patient cannot be a full strength morphine/opioid pain Rx and methadone at the same time) - Methadone taper per psych - Lexapro 5mg po daily - Ativan 0.5mg po q8 prn for agitation - Seroquel 100mg po HS Tobacco Abuse - Patient caught smoking in the restroom - Nicotine patch 14mg td daily - Fluticasone protocol dosing PPx - DVT: Heparin 5000u sc q12, SCDs - GI: Protonix 40mg po daily - Diet: HHD d/w Dr. Sherif Rodriguez PGY-1 <Pratik Gorman - Last Filed: 04/23/18 18:54> Objective - Vital Signs/Intake and Output Vital Signs (last 24 hours): Temp Pulse Resp BP Pulse Ox 98.3 F 74 20 115/75 95 04/23/18 15:56 04/23/18 15:56 04/23/18 15:56 04/23/18 15:56 04/23/18 15:56 Intake and Output: 04/23/18 04/23/18 06:59 18:59 Intake Total 550 250 Output Total 400 Balance 150 250 - Medications Medications: Current Medications Escitalopram Oxalate (Lexapro) 5 mg PO DAILY ESTEBAN Last Admin: 04/23/18 13:13 Dose: 5 mg Fluticasone Propionate (Flonase) 0 spr MIGUEL BID ESTEBAN Last Admin: 04/23/18 10:46 Dose: 1 spr Heparin Sodium (Porcine) (Heparin) 5,000 units SC Q12H [facility] Last Admin: 04/23/18 10:46 Dose: 5,000 units Vancomycin/Sodium Chloride (Vancomycin 1 Gm/Ns 200 Ml) 1 gm in 200 mls @ 133.333 mls/hr IVPB Q12H EST[facility]; Protocol Last Admin: 04/23/18 06:35 Dose: 133.333 mls/hr Clindamycin Phosphate 600 mg/ (Sodium Chloride) 54 mls @ 100 mls/hr IVPB Q8H ESTEB[facility]; Protocol Last Admin: 04/23/18 18:05 Dose: 100 mls/hr Gentamicin Sulfate 80 mg/ (Sodium Chloride) 102 mls @ 100 mls/hr IVPB Q8H ESTEB[facility]; Protocol Last Admin: 04/23/18 15:46 Dose: 100 mls/hr Influenza Virus Vaccine (Fluzone Quad [id number]) 60 mcg IM .ONCE ONE Stop: 04/25/18 10:01 Lorazepam (Ativan) 0.5 mg PO Q8H PRN PRN Reason: Agitation Methadone HCl (Methadone) 15 mg PO ONCE ONE Stop: 04/24/18 09:01 Methadone HCl (Methadone) 5 mg PO QPM [facility] Stop: 04/24/18 18:01 Last Admin: 04/23/18 18:09 Dose: 5 mg Methadone HCl (Methadone) 10 mg PO BID [facility] Morphine Sulfate (Morphine) 4 mg IVP Q12H PRN PRN Reason: Pain, severe (8-10) Nicotine (Nicoderm Cq) 1 patch TD DAILY [facility] Last Admin: 04/23/18 10:47 Dose: 1 patch Ondansetron HCl (Zofran Inj) 4 mg IVP Q6 PRN PRN Reason: Nausea/Vomiting Pantoprazole Sodium (Protonix Ec Tab) 40 mg PO DAILY [facility] Last Admin: 04/23/18 10:45 Dose: 40 mg Pneumococcal Polyvalent Vaccine (Pneumovax 23 Vaccine) 0.5 ml IM .ONCE ONE Stop: 04/25/18 10:01 Quetiapine Fumarate (Seroquel) 100 mg PO HS [facility] - Labs Labs: 04/23/18 14:14 04/23/18 14:14 PT 11.8 SECONDS (9.7-12.2) 04/22/18 17:55 INR 1.1 04/22/18 17:55 APTT 31 SECONDS (21-34) 04/22/18 17:55 Attending/Attestation - Attestation I have personally seen and examined this patient.: Yes I have fully participated in the care of the patient.: Yes I have reviewed all pertinent clinical information, including history, physical exam and plan: Yes Notes (Text): seen and examined patient was asking for pain meds. Discussed with Dr Kemp about strating methadone and wean from morphine patient was explained about DR Kemp's plan Echo report discussed with Dr Lr. Recommendation followed. continue clindamycin,vancomycin and gentamicin follow peat and trough levels of vanco and gentomycin Ask for cardiology consult from Dr Tirado Spoke to DR Church. He is planning to take him to OR for I and D tomorrow follow cultures Assessment and the plan discussed with the resident and I agree with the documentation
[2018-04-24] MEDS: Morphine 4 MG/ML VIAL IVP PRN ×2 (06:14→18:16)
--- NOTE | 2018-04-24 07:01 | CON ---
DATE: 04/23/2018 HISTORY OF PRESENT ILLNESS: I am asked to see this patient for cellulitis of the hand. This patient is a 48-year-old male. He has history of IV drug abuse, hepatitis C. He has had endocarditis and I treated him two years back for severe endocarditis and he stayed here like three months or two months and now comes with left hand pain. He said he was clean for several months to a year and then he started to inject again. He began when his friend used the needle that he thought was clean to inject him with heroin and pain became progressively worse and the hand became swollen. He also says he lost his girlfriend to overdose in March and that just brought him back to do these drugs again. His mom is at the bedside as she has been in the past admission a few years back. He denies, however, fever but complains of excessive pain and burning pain on the left hand, which appears angry looking with warmth, tenderness, swelling and redness and one of the studies have shown that there is an abscess. He also had an echo done and at the time when I am dictating this, they do see the vegetation. I am not sure whether that is old or new. So, we will be with the welt stitch cleaner and we will check for the blood cultures when they come back. ALLERGIES: HE IS ALLERGIC TO PENICILLIN. MEDICATIONS: He was on vancomycin and clindamycin from last night as discussed with me. PAST MEDICAL HISTORY: Significant for IV drug abuse, hepatitis C, endocarditis, hypertension. PAST SURGICAL HISTORY: He is sick. He had two I and Ds on the left hand and one I and D on right hand. Still he is with addiction, which was very sad to see. SOCIAL HISTORY: He has 18 pack years of tobacco. He occasionally does alcohol and cocaine and heroin use, is a IV drug abuser and he uses fentanyl, he used to snort two bags per hour. He does complain of pain at this time. REVIEW OF SYSTEMS: Denies any fever. Denies any headache. Complains of burning pain on the left hand. Denies any chest pain. No shortness of breath. No abdominal pain. No nausea. No vomiting. No diarrhea. No urinary symptoms. Rest of the exam is unremarkable. PHYSICAL EXAMINATION: VITAL SIGNS: Temperature 98.3 now, pulse 74, blood pressure 115/75, respirations 20. GENERAL: He is alert, awake. HEAD: Atraumatic, normocephalic. EYES: Pupils are reacting to light. NECK: Supple. LUNGS: Clear. HEART: S1, S2 is regular. No murmurs appreciated. ABDOMEN: Soft, nontender. No guarding. No rigidity present. EXTREMITIES: The left hand, wrist and forearm has swelling, redness, warmth and very tender to touch. Right hand is unremarkable. Other extremities are unremarkable. On his left hand, there is an abscess, 1.2 x 2.7 x 3.4, somewhat lobulated, but it seems to be a small abscess and he has a phlegmon versus abscess along the dorsal aspect of ulna of the distal left forearm, possible flexor tenosynovitis. IMPRESSION AND PLAN: Consider evaluation with further MRI. At this time when the echo report came back positive for the vegetation, we did add gentamicin. He is on vancomycin, gentamicin and clindamycin at this time. We will continue those and he is also on citalopram. He is on fluticasone, on gentamicin and heparin. He is on methadone which was started to treat his drug addiction. He is on morphine, Nicoderm patch, and pantoprazole. He is also on Seroquel. He is on vancomycin 1 g every 12 hours. We will follow vancomycin, peak and trough has been ordered and we will follow. He is an active IV drug abuser with history of previous endocarditis. Now also with the vegetation which probably might be old. We will wait for the blood culture report. He does have excessive cellulitis with abscess formation at the site where he injected before. We will continue with vancomycin, clindamycin and gentamicin at this time and we will wait for the surgical eval. I also told him to elevate his arm and forearm, so that the swelling decreases. Carmella Lr MD
[2018-04-24] MEDS: Vancomycin 1 gm/NS 200 ml 1 GM/200 ML BAG IVPB SCH ×2 (07:09→21:09)
--- NOTE | 2018-04-24 09:51 | CP.PCM.PN ---
<Theresa Rodriguez - Last Filed: 04/24/18 17:33> Subjective - Date & Time of Evaluation Date of Evaluation: 04/24/18 Time of Evaluation: 09:15 - Subjective Subjective: PGY-1 Medicine Progress Note for Dr. Gorman Patient was seen and examined today at bedside in no acute distress prior to surgery. Nurse reports no overnight events. Was endorsed that patient refused vanco trough and peak draw. Patient states an attempt was made, but was unable to draw blood. Patient has no other acute complaints. States that his hand/wrist is still too painful, rated 10/10. Patient is asking for more pain medication despite understanding that it is up to the psychiatrist to dose his morphine alongside his methadone. Denies chest pain, shortness of breath, headache, abdominal pain, nausea, vomiting, constipation, diarrhea. Slept well through the night. Objective - Vital Signs/Intake and Output Vital Signs (last 24 hours): Temp Pulse Resp BP Pulse Ox 98.1 F 70 20 109/68 96 04/24/18 07:00 04/24/18 07:00 04/24/18 07:00 04/24/18 07:00 04/24/18 07:00 Intake and Output: 04/24/18 04/24/18 06:59 18:59 Intake Total 300 Balance 300 - Medications Medications: Current Medications Escitalopram Oxalate (Lexapro) 5 mg PO DAILY [facility] Last Admin: 04/23/18 13:13 Dose: 5 mg Fluticasone Propionate (Flonase) 0 spr MIGUEL BID [facility] Last Admin: 04/23/18 18:00 Dose: Not Given Heparin Sodium (Porcine) (Heparin) 5,000 units SC Q12H [facility] Last Admin: 04/23/18 21:35 Dose: 5,000 units Vancomycin/Sodium Chloride (Vancomycin 1 Gm/Ns 200 Ml) 1 gm in 200 mls @ 133.333 mls/hr IVPB Q12H [facility]; Protocol Last Admin: 04/24/18 07:09 Dose: Not Given Clindamycin Phosphate 600 mg/ (Sodium Chloride) 54 mls @ 100 mls/hr IVPB Q8H [facility]; Protocol Last Admin: 04/24/18 02:05 Dose: 100 mls/hr Gentamicin Sulfate 80 mg/ (Sodium Chloride) 102 mls @ 100 mls/hr IVPB Q8H [facility]; Protocol Last Admin: 04/24/18 05:51 Dose: 100 mls/hr Influenza Virus Vaccine (Fluzone Quad 1249-1911) 60 mcg IM .ONCE ONE Stop: 04/25/18 10:01 Lorazepam (Ativan) 0.5 mg PO Q8H PRN PRN Reason: Agitation Methadone HCl (Methadone) 5 mg PO QPM [facility] Stop: 04/24/18 18:01 Last Admin: 04/23/18 18:09 Dose: 5 mg Methadone HCl (Methadone) 10 mg PO BID [facility] Morphine Sulfate (Morphine) 4 mg IVP Q12H PRN PRN Reason: Pain, severe (8-10) Last Admin: 04/24/18 06:14 Dose: 4 mg Nicotine (Nicoderm Cq) 1 patch TD DAILY [facility] Last Admin: 04/23/18 10:47 Dose: 1 patch Ondansetron HCl (Zofran Inj) 4 mg IVP Q6 PRN PRN Reason: Nausea/Vomiting Pantoprazole Sodium (Protonix Ec Tab) 40 mg PO DAILY [facility] Last Admin: 04/23/18 10:45 Dose: 40 mg Pneumococcal Polyvalent Vaccine (Pneumovax 23 Vaccine) 0.5 ml IM .ONCE ONE Stop: 04/25/18 10:01 Quetiapine Fumarate (Seroquel) 100 mg PO HS [facility] Last Admin: 04/23/18 21:35 Dose: 100 mg - Labs Labs: 04/23/18 14:14 04/23/18 14:14 PT 11.8 SECONDS (9.7-12.2) 04/22/18 17:55 INR 1.1 04/22/18 17:55 APTT 31 SECONDS (21-34) 04/22/18 17:55 - Constitutional Appears: Non-toxic, No Acute Distress - Head Exam Head Exam: ATRAUMATIC, NORMOCEPHALIC Additional comments: scar on L cheek - Eye Exam Eye Exam: EOMI, Normal appearance - ENT Exam ENT Exam: Mucous Membranes Moist - Respiratory Exam Respiratory Exam: Clear to Ausculation Bilateral, NORMAL BREATHING PATTERN. absent: Rales, Rhonchi, Wheezes - Cardiovascular Exam Cardiovascular Exam: REGULAR RHYTHM, +S1, +S2, Murmur - GI/Abdominal Exam GI & Abdominal Exam: Soft, Normal Bowel Sounds. absent: Tenderness - Extremities Exam Additional comments: LUE: erythema and edema of L dorsal hand. no drainage. normal capillary refill. track hirsch RUE: track hirsch. - Neurological Exam Neurological Exam: Alert, Awake, Oriented x3 Additional comments: sensation intact - Psychiatric Exam Psychiatric exam: Anxious - Skin Skin Exam: Warm Additional comments: warmth of L hand, erythema staying within in the circumference of skin marker Assessment and Plan - Assessment and Plan (Free Text) Assessment: 48yo M with PMH of IVDU, Hep C, and endocarditis (treated) admitted for cellulitis of L hand where he has injected. He is for I&D today (04/24). ECHO shows new vegetation on tricuspid valve with regurg. Plan: Endocarditis - ECHO (04/23): LVEF normal (>50%) with large vegetation on tricuspid valve with moderate to severe tricuspid regurg - ECHO from 2016 episode of endocarditis do not state size of vegetations, only improved shrinking. Interval ECHO do not mention vegetations or valvular deformities - Gentamicin (started 04/23) - unable to get trough and peak. patient is a poor stick and refuses after 1 try. - still giving abx. if able to get random draw, will titrate accordingly - Vancomycin (started 04/22) - patient refused trough and peak, per nursing - still giving abx. if able to get random draw, will titrate accordingly - ID consulted: Dr. Be burnham appreciated - Cardio consulted: Dr. Tirado - alicja appreciated - PICC line insertion requested for [facility] antibiotics. due to patient's IVDU, patient cannot be allowed to AMA until removed. Cellulitis of R hand - secondary to IVDU - Cipro x1, Clinda x1, Toradol given in ED - blood Cx (04/22): no growth @ 24 hrs - Clindamycin 600mg IVPB q8 (started 04/23) - Vancomycin 1gm IVPB q12 (started 04/22) - patient refused trough and peak, per nursing - Morphine 4mg IVP q6 prn for pain - ID consulted: Dr. Be burnham appreciated - Gen Sx consulted: Dr. Metcalf - alicja appreciated - NPO since MN for I&D later today (04/24) Drug Use Disorder - pt w/ extensive h/o fentanyl and IV heroin abuse - monitor for signs of withdrawal - Morphine 4mg IV q4h PRN for pain - Zofran 4mg IV q6h PRN - Psych consulted: Dr. Ribeiro - help appreciated - all opioids and pain medication per psych (patient cannot be a full strength morphine/opioid pain Rx and methadone at the same time) - Methadone taper per psych - Lexapro 5mg po daily - Ativan 0.5mg po q8 prn for agitation - Seroquel 100mg po HS Tobacco Abuse - Patient caught smoking in the restroom - Nicotine patch 14mg td daily - Fluticasone protocol dosing PPx - DVT: Heparin 5000u sc q12, SCDs - GI: Protonix 40mg po daily - Diet: HHD d/w Dr. Sherif Rodriguez PGY-1 <Pratik Gorman - Last Filed: 04/25/18 20:28> Objective - Vital Signs/Intake and Output Vital Signs (last 24 hours): Temp Pulse Resp BP Pulse Ox 97.4 F L 74 20 117/74 96 04/25/18 07:00 04/25/18 07:00 04/25/18 07:00 04/25/18 07:00 04/25/18 07:00 Intake and Output: 04/25/18 04/26/18 18:59 06:59 Intake Total 1130 Balance 1130 - Medications Medications: Current Medications Escitalopram Oxalate (Lexapro) 10 mg PO DAILY [facility] Last Admin: 04/25/18 11:13 Dose: Not Given Fluticasone Propionate (Flonase) 0 spr MIGUEL BID [facility] Last Admin: 04/25/18 17:15 Dose: 2 spr Gabapentin (Neurontin) 300 mg PO TID [facility] Heparin Sodium (Porcine) (Heparin) 5,000 units SC Q12H [facility] Last Admin: 04/23/18 21:35 Dose: 5,000 units Clindamycin Phosphate 600 mg/ (Sodium Chloride) 54 mls @ 100 mls/hr IVPB Q8H [facility]; Protocol Last Admin: 04/25/18 17:15 Dose: 100 mls/hr Gentamicin Sulfate 80 mg/ (Sodium Chloride) 102 mls @ 100 mls/hr IVPB Q8H [facility]; Protocol Last Admin: 04/25/18 14:53 Dose: 100 mls/hr Vancomycin HCl 1,400 mg/ (Sodium Chloride) 500 mls @ 214 mls/hr IVPB Q12H [facility]; Protocol Last Admin: 04/25/18 08:49 Dose: 214 mls/hr Lorazepam (Ativan) 0.5 mg PO Q8H PRN PRN Reason: Agitation Last Admin: 04/25/18 19:42 Dose: 0.5 mg Methadone HCl (Methadone) 10 mg PO BID [facility] Last Admin: 04/25/18 17:15 Dose: 10 mg Mirtazapine (Remeron) 15 mg PO HS [facility] Morphine Sulfate (Morphine) 4 mg IVP Q12H PRN PRN Reason: Pain, severe (8-10) Last Admin: 04/25/18 18:11 Dose: 4 mg Nicotine (Nicoderm Cq) 1 patch TD DAILY [facility] Last Admin: 04/25/18 09:08 Dose: 1 patch Ondansetron HCl (Zofran Inj) 4 mg IVP Q6 PRN PRN Reason: Nausea/Vomiting Pantoprazole Sodium (Protonix Ec Tab) 40 mg PO DAILY [facility] Last Admin: 04/25/18 09:08 Dose: 40 mg Quetiapine Fumarate (Seroquel) 100 mg PO HS [facility] Last Admin: 04/24/18 21:09 Dose: 100 mg - Labs Labs: 04/23/18 14:14 04/23/18 14:14 PT 11.8 SECONDS (9.7-12.2) 04/22/18 17:55 INR 1.1 04/22/18 17:55 APTT 31 SECONDS (21-34) 04/22/18 17:55 Attending/Attestation - Attestation I have personally seen and examined this patient.: Yes I have fully participated in the care of the patient.: Yes I have reviewed all pertinent clinical information, including history, physical exam and plan: Yes
[2018-04-24] MEDS: Fluticasone Nasal 50 mcg/Spray NAS SCH ×2 (10:57→18:15)
[2018-04-24] MEDS: Pantoprazole 40 mg EC Tab PO SCH (11:45)
[2018-04-24] MEDS ORDERED: Propofol 10 mg/ml Inj (20 ML) ONE (12:31)
[2018-04-24] MEDS ORDERED: Midazolam 2 MG/2 ML VIAL ONE (12:31)
[2018-04-24] MEDS ORDERED: Lidocaine 2% MPF (5 ml) Inj ONE (12:36)
[2018-04-24] MEDS ORDERED: Bupivacaine HCl 0.5% PF (10 ml) Inj ONE (12:37)
[2018-04-24] MEDS ORDERED: HYDROmorphone 0.5 mg/0.5 ml ISec IVP PRN (12:55)
[2018-04-25] MEDS: Morphine 4 MG/ML VIAL IVP PRN ×2 (06:19→18:11)
--- NOTE | 2018-04-25 06:45 | OP ---
PROCEDURE DATE: 04/24/2018 PREOPERATIVE DIAGNOSIS: Abscess of the left hand and wrist. POSTOPERATIVE DIAGNOSIS: Abscess of the left hand and wrist. PROCEDURE PERFORMED: Incision and drainage of abscess of the left hand and wrist. SURGEON: Ez Metcalf MD ANESTHESIA: General. ESTIMATED BLOOD LOSS: 20 mL. POSTOPERATIVE CONDITION: Stable. INDICATIONS FOR SURGERY: This is a 48-year-old male, IV drug abuser, presents with an abscess of his left wrist and hand, which will now undergo operative incision and drainage. DESCRIPTION OF PROCEDURE: The patient was taken to the operating room. General anesthesia was administered; the left wrist and hand were prepped and draped and a T-type incision was made into the abscess using a #11 blade. Approximately 20 mL to 30 mL of pus were drained and cultured. The wounds were copiously irrigated with saline solution and prepped with saline gauze. The patient tolerated the procedure well. Returned to the recovery room in stable condition. Ez Metcalf MD
[2018-04-25] MEDS: Fluticasone Nasal 50 mcg/Spray NAS SCH ×2 (09:08→17:15)
[2018-04-25] MEDS: Pantoprazole 40 mg EC Tab PO SCH (09:08)
[2018-04-25] MEDS ORDERED: Pneumococcal 23-Valent Vaccine IM ONE (10:00)
[2018-04-25] MEDS ORDERED: Influenza Vaccine 60 MCG/0.5 ML SYR (3 yr & up) IM ONE (10:00)
--- NOTE | 2018-04-25 12:28 | PCM.PYCHPN ---
Psychiatric Progress Note - Psychiatric Progress Note Patient seen today, length of contact: 16 min Patient Chief Complaint: "I am not well" Problems Identified/Issues Discussed: The pt is seen, chart reviewed, case discussed with staff. Support and psychoeducation given No new symptoms reported, improving slowly and needs more time He is still med seeking, asking for more methadone and morphine. He is advised to talk with the medical team, as they are his medical meds, not psych. He did have a short detox and kept on 20 mg/d methadone for pain. That will be tapered off before he leaves or when his pain is less, whichever comes first. No SEs from medications, risks discussed. After care discussed Medication Change: Yes Medical Record Reviewed: Yes Mental Status Examination - Cognitive Function Orientation: Person, Place, Situation, Time - Mood Mood: Depressed, Anxious - Affect Affect: Broad - Formal Thought Process Formal Thought Process: No Impairment Goal/Treatment Plan - Goal/Treatment Plan Need for Continued Stay: Severe functional impairment, Other (medical) Progress Toward Problem(s) and Goals/Treatment Plan: Methadone BID for pain, and then tapered off fully. If he chooses to go to a methadone program he can go directly but he goes to a rehab, he can be tapered off in 3 days. Pt agreed with this plan. Morphine is decreased significantly and will be stopped as per medical team, q12h now. prn ativan for agitation, not anxiety! As needed medications Gabapentin for augmentation Lexapro for anxiety/depression All risks, benefits and alternatives of medications, including no medications, discussed and the patient understood and agreed. Supportive therapy and psychoeducation HI for abstinence After care: Encourage MAT after d/c Refer to rehab or IOP if no MAT Attend self-help groups as well after d/c
--- NOTE | 2018-04-25 13:12 | CP.PCM.PN ---
<Tara Huitron - Last Filed: 04/25/18 13:09> Subjective - Date & Time of Evaluation Date of Evaluation: 04/25/18 Time of Evaluation: 13:10 - Subjective Subjective: Tara Huitron PGY1 Progress note for Dr. Gorman Pt was examined at bedside this morning. He reports mild pain in the L hand. He reports adequate circulation and range of motion in the area. Pt reports nausea when eating without taking methodone. Denies headache, shortness of breath, chest pain, abdominal pain, vomiting, diarrhea, dysuria. Objective - Vital Signs/Intake and Output Vital Signs (last 24 hours): Temp Pulse Resp BP Pulse Ox 97.4 F L 74 20 117/74 96 04/25/18 07:00 04/25/18 07:00 04/25/18 07:00 04/25/18 07:00 04/25/18 07:00 Intake and Output: 04/25/18 04/25/18 06:59 18:59 Intake Total 930 Balance 930 - Medications Medications: Current Medications Escitalopram Oxalate (Lexapro) 10 mg PO DAILY [facility] Last Admin: 04/25/18 11:13 Dose: Not Given Fluticasone Propionate (Flonase) 0 spr MIGUEL BID [facility] Last Admin: 04/25/18 09:08 Dose: 2 spr Heparin Sodium (Porcine) (Heparin) 5,000 units SC Q12H [facility] Last Admin: 04/23/18 21:35 Dose: 5,000 units Clindamycin Phosphate 600 mg/ (Sodium Chloride) 54 mls @ 100 mls/hr IVPB Q8H [facility]; Protocol Last Admin: 04/25/18 10:55 Dose: 100 mls/hr Gentamicin Sulfate 80 mg/ (Sodium Chloride) 102 mls @ 100 mls/hr IVPB Q8H [facility]; Protocol Last Admin: 04/25/18 05:51 Dose: 100 mls/hr Vancomycin HCl 1,400 mg/ (Sodium Chloride) 500 mls @ 214 mls/hr IVPB Q12H [facility]; Protocol Last Admin: 04/25/18 08:49 Dose: 214 mls/hr Lorazepam (Ativan) 0.5 mg PO Q8H PRN PRN Reason: Agitation Last Admin: 04/24/18 23:47 Dose: 0.5 mg Methadone HCl (Methadone) 10 mg PO BID [facility] Last Admin: 04/25/18 09:08 Dose: 10 mg Mirtazapine (Remeron) 15 mg PO HS [facility] Morphine Sulfate (Morphine) 4 mg IVP Q12H PRN PRN Reason: Pain, severe (8-10) Last Admin: 04/25/18 06:19 Dose: 4 mg Nicotine (Nicoderm Cq) 1 patch TD DAILY [facility] Last Admin: 04/25/18 09:08 Dose: 1 patch Ondansetron HCl (Zofran Inj) 4 mg IVP Q6 PRN PRN Reason: Nausea/Vomiting Pantoprazole Sodium (Protonix Ec Tab) 40 mg PO DAILY [facility] Last Admin: 04/25/18 09:08 Dose: 40 mg Quetiapine Fumarate (Seroquel) 100 mg PO HS [facility] Last Admin: 04/24/18 21:09 Dose: 100 mg - Labs Labs: 04/23/18 14:14 04/23/18 14:14 PT 11.8 SECONDS (9.7-12.2) 04/22/18 17:55 INR 1.1 04/22/18 17:55 APTT 31 SECONDS (21-34) 04/22/18 17:55 - Additional Findings Additional findings: - Constitutional Appears: Non-toxic, No Acute Distress - Head Exam Head Exam: ATRAUMATIC, NORMOCEPHALIC Additional comments: scar on L cheek - Eye Exam Eye Exam: EOMI, Normal appearance - ENT Exam ENT Exam: Mucous Membranes Moist - Respiratory Exam Respiratory Exam: Clear to Ausculation Bilateral, NORMAL BREATHING PATTERN. absent: Rales, Rhonchi, Wheezes - Cardiovascular Exam Cardiovascular Exam: REGULAR RHYTHM, +S1, +S2, Murmur - GI/Abdominal Exam GI & Abdominal Exam: Soft, Normal Bowel Sounds. absent: Tenderness - Extremities Exam Additional comments: LUE: dressing clean, dry, intact RUE: track hirsch. - Neurological Exam Neurological Exam: Alert, Awake, Oriented x3 Additional comments: sensation intact - Psychiatric Exam Psychiatric exam: Anxious - Skin Skin Exam: Warm Additional comments: mild erythema in L hand digits Assessment and Plan - Assessment and Plan (Free Text) Assessment: 48yo M with PMH of IVDU, Hep C, and endocarditis (treated) admitted for cellulitis of L hand where he has injected. He is for I&D today (04/24). ECHO shows new vegetation on tricuspid valve with regurg. S/p I&D of L hand abscess 04/24. Plan: Endocarditis - ECHO (04/23): LVEF normal (>50%) with large vegetation on tricuspid valve with moderate to severe tricuspid regurg - Gentamicin 90mg IV q8h (started 04/23) - Vancomycin 1.4g IV q12h (started 04/22) - ID consulted: Dr. Be burnham appreciated - Cardio consulted: Dr. 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 due to patient's IVDU, patient cannot be allowed to AMA until removed. Cellulitis of R hand - secondary to IVDU - s/p I&D 04/24 - blood Cx (04/22): neg - Clindamycin 600mg IVPB q8 (started 04/23) - Vancomycin 1.4 gm IVPB q12 (started 04/22) - Morphine 4mg IVP q12 prn for pain - ID consulted: Dr. Be burnham appreciated - Gen Sx consulted: Dr. 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 Quintin helm appreciated - all opioids and pain medication per psych (patient cannot be a full strength morphine/opioid pain Rx and methadone at the same time) - Methadone taper per psych - Lexapro 5mg po daily - Ativan 0.5mg po q8 prn for agitation - Seroquel 100mg po HS - Remeron 15mg po HS Tobacco Abuse - Nicotine patch 14mg td daily - Fluticasone protocol dosing PPx DVT: Heparin 5000u sc q12, SCDs GI: Protonix 40mg po daily Diet: HHD Pt seen and case reviewed with Dr. Gorman <Pratik Gorman - Last Filed: 04/25/18 20:28> Objective - Vital Signs/Intake and Output Vital Signs (last 24 hours): Temp Pulse Resp BP Pulse Ox 97.4 F L 74 20 117/74 96 04/25/18 07:00 04/25/18 07:00 04/25/18 07:00 04/25/18 07:00 04/25/18 07:00 Intake and Output: 04/25/18 04/26/18 18:59 06:59 Intake Total 1130 Balance 1130 - Medications Medications: Current Medications Escitalopram Oxalate (Lexapro) 10 mg PO DAILY [facility] Last Admin: 04/25/18 11:13 Dose: Not Given Fluticasone Propionate (Flonase) 0 spr MIGUEL BID [facility] Last Admin: 04/25/18 17:15 Dose: 2 spr Gabapentin (Neurontin) 300 mg PO TID [facility] Heparin Sodium (Porcine) (Heparin) 5,000 units SC Q12H [facility] Last Admin: 04/23/18 21:35 Dose: 5,000 units Clindamycin Phosphate 600 mg/ (Sodium Chloride) 54 mls @ 100 mls/hr IVPB Q8H [facility]; Protocol Last Admin: 04/25/18 17:15 Dose: 100 mls/hr Gentamicin Sulfate 80 mg/ (Sodium Chloride) 102 mls @ 100 mls/hr IVPB Q8H [facility]; Protocol Last Admin: 04/25/18 14:53 Dose: 100 mls/hr Vancomycin HCl 1,400 mg/ (Sodium Chloride) 500 mls @ 214 mls/hr IVPB Q12H [facility]; Protocol Last Admin: 04/25/18 08:49 Dose: 214 mls/hr Lorazepam (Ativan) 0.5 mg PO Q8H PRN PRN Reason: Agitation Last Admin: 04/25/18 19:42 Dose: 0.5 mg Methadone HCl (Methadone) 10 mg PO BID [facility] Last Admin: 04/25/18 17:15 Dose: 10 mg Mirtazapine (Remeron) 15 mg PO [facility] Morphine Sulfate (Morphine) 4 mg IVP Q12H PRN PRN Reason: Pain, severe (8-10) Last Admin: 04/25/18 18:11 Dose: 4 mg Nicotine (Nicoderm Cq) 1 patch TD DAILY [facility] Last Admin: 04/25/18 09:08 Dose: 1 patch Ondansetron HCl (Zofran Inj) 4 mg IVP Q6 PRN PRN Reason: Nausea/Vomiting Pantoprazole Sodium (Protonix Ec Tab) 40 mg PO DAILY [facility] Last Admin: 04/25/18 09:08 Dose: 40 mg Quetiapine Fumarate (Seroquel) 100 mg PO HS [facility] Last Admin: 04/24/18 21:09 Dose: 100 mg - Labs Labs: 04/23/18 14:14 04/23/18 14:14 PT 11.8 SECONDS (9.7-12.2) 04/22/18 17:55 INR 1.1 04/22/18 17:55 APTT 31 SECONDS (21-34) 04/22/18 17:55 Attending/Attestation - Attestation I have personally seen and examined this patient.: Yes I have fully participated in the care of the patient.: Yes I have reviewed all pertinent clinical information, including history, physical exam and plan: Yes Notes (Text): Seen and examined by me Patient has no complain,going for picc line Spoke to Dr garcia this morning about the pt.He saw him Patient is an active drug user. Surgeon will not take him when he suing drugs. d/w Dr Lr. we will do Vanco trough in the morning 04/25/18 20:26
[2018-04-25] MEDS ORDERED: Lidocaine 2% MPF (5 ml) Inj ONE (16:34)
--- NOTE | 2018-04-25 16:35 | PCM.SURG1 ---
Surgeon's Initial Post Op Note - Surgeon's Notes Surgeon: Chris Young MD [facility] Agent: NONE Type of Anesthesia: Local Pre-Operative Diagnosis: Infection Operative Findings: US showed patent basilic vein Post-Operative Diagnosis: Infection Operation Performed: SIngle lumen picc right arm, 37 cm. Specimen/Specimens Removed: NONE Estimated Blood Loss: EBL {In ML}: 2 Blood Products Given: N/A Drains Used: No Drains Post-Op Condition: Fair Date of Surgery/Procedure: 04/25/18 Time of Surgery/Procedure: 16:30
--- NOTE | 2018-04-25 21:08 | CP.PCM.PN ---
Subjective - Date & Time of Evaluation Date of Evaluation: 04/25/18 Time of Evaluation: 18:00 - Subjective Subjective: dictated Objective - Vital Signs/Intake and Output Vital Signs (last 24 hours): Temp Pulse Resp BP Pulse Ox 97.4 F L 74 20 117/74 96 04/25/18 07:00 04/25/18 07:00 04/25/18 07:00 04/25/18 07:00 04/25/18 07:00 Intake and Output: 04/25/18 04/26/18 18:59 06:59 Intake Total 1130 Balance 1130 - Medications Medications: Current Medications Escitalopram Oxalate (Lexapro) 10 mg PO DAILY [facility] Last Admin: 04/25/18 11:13 Dose: Not Given Fluticasone Propionate (Flonase) 0 spr MIGUEL BID [facility] Last Admin: 04/25/18 17:15 Dose: 2 spr Gabapentin (Neurontin) 300 mg PO TID [facility] Heparin Sodium (Porcine) (Heparin) 5,000 units SC Q12H [facility] Last Admin: 04/23/18 21:35 Dose: 5,000 units Clindamycin Phosphate 600 mg/ (Sodium Chloride) 54 mls @ 100 mls/hr IVPB Q8H [facility]; Protocol Last Admin: 04/25/18 17:15 Dose: 100 mls/hr Gentamicin Sulfate 80 mg/ (Sodium Chloride) 102 mls @ 100 mls/hr IVPB Q8H [facility]; Protocol Last Admin: 04/25/18 14:53 Dose: 100 mls/hr Vancomycin HCl 1,400 mg/ (Sodium Chloride) 500 mls @ 214 mls/hr IVPB Q12H [facility]; Protocol Last Admin: 04/25/18 08:49 Dose: 214 mls/hr Lorazepam (Ativan) 0.5 mg PO Q8H PRN PRN Reason: Agitation Last Admin: 04/25/18 19:42 Dose: 0.5 mg Methadone HCl (Methadone) 10 mg PO BID [facility] Last Admin: 04/25/18 17:15 Dose: 10 mg Mirtazapine (Remeron) 15 mg PO HS [facility] Morphine Sulfate (Morphine) 4 mg IVP Q12H PRN PRN Reason: Pain, severe (8-10) Last Admin: 04/25/18 18:11 Dose: 4 mg Nicotine (Nicoderm Cq) 1 patch TD DAILY [facility] Last Admin: 04/25/18 09:08 Dose: 1 patch Ondansetron HCl (Zofran Inj) 4 mg IVP Q6 PRN PRN Reason: Nausea/Vomiting Pantoprazole Sodium (Protonix Ec Tab) 40 mg PO DAILY [facility] Last Admin: 04/25/18 09:08 Dose: 40 mg Quetiapine Fumarate (Seroquel) 100 mg PO HS [facility] Last Admin: 04/24/18 21:09 Dose: 100 mg - Labs Labs: 04/23/18 14:14 04/23/18 14:14 PT 11.8 SECONDS (9.7-12.2) 04/22/18 17:55 INR 1.1 04/22/18 17:55 APTT 31 SECONDS (21-34) 04/22/18 17:55
--- NOTE | 2018-04-26 02:34 | PN ---
DATE: 04/25/2018 SUBJECTIVE: The patient was seen today. He is feeling better. He was trying to eat. He still had a big time dressing on the left forearm and he says he has a vegetation and he would like to have surgery done, but I told him that it will be hard to find a surgeon because of his drug addiction problem and he may ____ the new valve again, which may be more difficult to treat. At this time, he has again come in with similar complaints for which he was treated two years back. PHYSICAL EXAMINATION: VITAL SIGNS: T-max is 97.4, pulse 74, blood pressure 117/74, and respirations are 20. GENERAL: He got a new PICC line in the right arm now. His mother is at the bedside. HEENT: Head is atraumatic, normocephalic. NECK: Supple. LUNGS: Clear. HEART: S1 and S2, regular. ABDOMEN: Soft, nontender. No guarding. No rigidity present. EXTREMITIES: Have no edema. Left forearm has a dressing. LABORATORY DATA: White count is 8.2, hemoglobin 13.1, hematocrit 37.6, and platelet count is 188. His vancomycin level was low yesterday, we increased it to 1400 every 12 hours. The wound culture came out heavy growth of GPCs in clusters. We will follow. IMPRESSION: He has endocarditis, most likely it is from the previous times, but it has grown in size and is bigger according to the echocardiogram. The patient has addiction at this time and came in with an abscess in the left forearm. PLAN: I suggested to continue with the present treatment at this time. Monitor serum creatinine. Blood cultures at this time are negative that is why I am assuming that this is the old vegetation. We will follow with the functional support analyst's suggestion and we will continue present treatment. Carmella Lr MD
--- NOTE | 2018-04-26 05:59 | CP.PCM.PN ---
<Theresa Rodriguez - Last Filed: 04/26/18 05:54> Subjective - Date & Time of Evaluation Date of Evaluation: 04/26/18 Time of Evaluation: 06:15 - Subjective Subjective: PGY-1 Medicine Progress Note for Dr. Gorman Patient was seen and examined at bedside in no acute distress. Nurse reports no overnight events, although patient is still requesting more pain medication. He describes his pain 10/10 despite resting comfortably prior to noticing my entrance into the room. Denies chest pain, shortness of breath, abdominal pain, n/v/c/d, fever, chills. Objective - Vital Signs/Intake and Output Vital Signs (last 24 hours): Temp Pulse Resp BP Pulse Ox 97.8 F 59 L 20 94/55 L 96 04/25/18 23:50 04/25/18 23:50 04/25/18 23:50 04/25/18 23:50 04/25/18 23:50 Intake and Output: 04/25/18 04/26/18 18:59 06:59 Intake Total 1130 Balance 1130 - Medications Medications: Current Medications Escitalopram Oxalate (Lexapro) 10 mg PO DAILY [facility] Last Admin: 04/25/18 11:13 Dose: Not Given Fluticasone Propionate (Flonase) 0 spr MIGUEL BID [facility] Last Admin: 04/25/18 17:15 Dose: 2 spr Gabapentin (Neurontin) 300 mg PO TID [facility] Heparin Sodium (Porcine) (Heparin) 5,000 units SC Q12H [facility] Last Admin: 04/23/18 21:35 Dose: 5,000 units Clindamycin Phosphate 600 mg/ (Sodium Chloride) 54 mls @ 100 mls/hr IVPB Q8H [facility]; Protocol Last Admin: 04/26/18 03:00 Dose: 100 mls/hr Gentamicin Sulfate 80 mg/ (Sodium Chloride) 102 mls @ 100 mls/hr IVPB Q8H [facility]; Protocol Last Admin: 04/25/18 23:04 Dose: 100 mls/hr Vancomycin HCl 1,400 mg/ (Sodium Chloride) 500 mls @ 214 mls/hr IVPB Q12H [facility]; Protocol Lorazepam (Ativan) 0.5 mg PO Q8H PRN PRN Reason: Agitation Last Admin: 04/25/18 19:42 Dose: 0.5 mg Methadone HCl (Methadone) 10 mg PO BID [facility] Last Admin: 04/25/18 17:15 Dose: 10 mg Mirtazapine (Remeron) 15 mg PO HS [facility] Last Admin: 04/25/18 21:35 Dose: 15 mg Morphine Sulfate (Morphine) 4 mg IVP Q12H PRN PRN Reason: Pain, severe (8-10) Last Admin: 04/25/18 18:11 Dose: 4 mg Nicotine (Nicoderm Cq) 1 patch TD DAILY [facility] Last Admin: 04/25/18 09:08 Dose: 1 patch Ondansetron HCl (Zofran Inj) 4 mg IVP Q6 PRN PRN Reason: Nausea/Vomiting Pantoprazole Sodium (Protonix Ec Tab) 40 mg PO DAILY [facility] Last Admin: 04/25/18 09:08 Dose: 40 mg Quetiapine Fumarate (Seroquel) 100 mg PO HS [facility] Last Admin: 04/25/18 21:35 Dose: 100 mg - Labs Labs: 04/23/18 14:14 04/23/18 14:14 PT 11.8 SECONDS (9.7-12.2) 04/22/18 17:55 INR 1.1 04/22/18 17:55 APTT 31 SECONDS (21-34) 04/22/18 17:55 - Constitutional Appears: Non-toxic, No Acute Distress - Head Exam Head Exam: ATRAUMATIC, NORMOCEPHALIC Additional comments: scar on L cheek - Eye Exam Eye Exam: EOMI, Normal appearance - ENT Exam ENT Exam: Mucous Membranes Moist - Respiratory Exam Respiratory Exam: Clear to Ausculation Bilateral, NORMAL BREATHING PATTERN. absent: Rales, Rhonchi, Wheezes - Cardiovascular Exam Cardiovascular Exam: REGULAR RHYTHM, +S1, +S2, Murmur - GI/Abdominal Exam GI & Abdominal Exam: Soft, Normal Bowel Sounds. absent: Tenderness - Extremities Exam Additional comments: peripheral pulses palpable LUE: dressing clean, dry, intact RUE: track hirsch. PICC access in R arm - Neurological Exam Neurological Exam: Alert, Awake, Oriented x3 Additional comments: sensory/motor intact - Psychiatric Exam Psychiatric exam: Agitated, Anxious - Skin Additional comments: L hand digits erythematous Assessment and Plan - Assessment and Plan (Free Text) Assessment: 48yo M with PMH of IVDU, Hep C, and endocarditis (treated) admitted for cellulitis of L hand where he has injected. ECHO shows new vegetation on tric uspid valve with regurg. S/p I&D of L hand abscess 04/24. 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 due to patient's IVDU, patient cannot b e allowed to AMA until removed. - Gentamicin 90mg IV q8h (started 04/23) - Vancomycin 1.4g IV q12h (started 04/22) (increased from 1g ->1.4 04/25) - ID consulted: Dr. Be burnham appreciated - Cardio consulted: Dr. Tirado - alicja appreciated Cellulitis of R hand - secondary to IVDU - s/p I&D 04/24 - blood Cx (04/22): neg - Clindamycin 600mg IVPB q8 (started 04/23) - Vancomycin 1.4 gm IVPB q12 (started 04/22) - Morphine 4mg IVP q12 prn for pain - ID consulted: Dr. eB burnham appreciated - Gen Sx consulted: Dr. 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 Ribeiro - alicja appreciated - all opioids and pain medication per psych (patient cannot be a full strength morphine/opioid pain Rx and methadone at the same time) - Methadone taper per psych - Lexapro 5mg po daily - Ativan 0.5mg po q8 prn for agitation - Seroquel 100mg po HS - Remeron 15mg po HS Tobacco Abuse - Nicotine patch 14mg td daily - Fluticasone protocol dosing PPx DVT: Heparin 5000u sc q12, SCDs GI: Protonix 40mg po daily Diet: HHD <Pratik Gorman - Last Filed: 05/05/18 17:31> Objective - Vital Signs/Intake and Output Vital Signs (last 24 hours): Temp Pulse Resp BP Pulse Ox 98.5 F 71 20 101/68 95 05/05/18 07:00 05/05/18 07:00 05/05/18 07:00 05/05/18 07:00 05/05/18 07:00 Intake and Output: 05/05/18 05/05/18 06:59 18:59 Intake Total 1800 Balance 1800 - Labs Labs: 05/05/18 07:14 05/05/18 07:14 PT 11.8 SECONDS (9.7-12.2) 04/22/18 17:55 INR 1.1 04/22/18 17:55 APTT 31 SECONDS (21-34) 04/22/18 17:55 Attending/Attestation - Attestation I have personally seen and examined this patient.: Yes I have fully participated in the care of the patient.: Yes I have reviewed all pertinent clinical information, including history, physical exam and plan: Yes Notes (Text): SEEN AND EXAMIEND WITH [facility] RESIDENT AND I AGREE WITH THE DOCUMENTATION
[2018-04-26] MEDS: Morphine 4 MG/ML VIAL IVP PRN ×2 (06:26→17:55)
[2018-04-26 07:09] LABS: BASO % 0.6 % (0.0-2.0); EOS # 0.1 K/uL (0.0-0.7); EOS % 1.8 % (0.0-4.0); HEMOGLOBIN 12.8 g/dL (12.0-18.0); LYMPH # 1.4 K/uL (1.0-4.3); LYMPH % 34.4 % (20.0-40.0); MEAN CORPUSCULAR HEMOGLOBIN 30.4 pg (27.0-31.0); MEAN PLATELET VOLUME 6.1 fL (7.2-11.7); MONO # 0.5 K/uL (0.0-0.8); MONO % 10.8 % (0.0-10.0); NEUT # 2.2 K/uL (1.8-7.0); NEUT % 52.4 % (50.0-75.0); RBC 4.19 Mil/uL (4.40-5.90); RED CELL DISTRIBUTION WIDTH 13.4 % (11.5-14.5); WHITE BLOOD COUNT 4.2 K/uL (4.8-10.8)
[2018-04-26 07:38] LABS: ALB/GLOB RATIO 1.1 (1.0-2.1); ALBUMIN 3.4 g/dL (3.5-5.0); ALT/SGPT 39 U/L (21-72); AST/SGOT 26 U/L (17-59); BLOOD UREA NITROGEN 14 mg/dL (9-20); CALCIUM 8.6 mg/dl (8.6-10.4); GFR NON-AFRICAN AMERICAN > 60
[2018-04-26] MEDS: Fluticasone Nasal 50 mcg/Spray NAS SCH ×2 (09:19→18:00)
[2018-04-26] MEDS: Pantoprazole 40 mg EC Tab PO SCH (09:20)
[2018-04-26] MEDS: SODIUM CHLORIDE 0.9% IVPB SCH ×2 (10:14→20:45)
[2018-04-26] MEDS: VANCOMYCIN IVPB SCH ×2 (10:14→20:45)
--- NOTE | 2018-04-27 02:52 | CP.PCM.PN ---
<Theresa Rodriguez Y - Last Filed: 04/27/18 02:49> Subjective - Date & Time of Evaluation Date of Evaluation: 04/27/18 Time of Evaluation: 06:15 - Subjective Subjective: PGY-1 Medicine Progress Note for Dr. Gorman Patient was seen and examined at bedside in no acute distress. Nurse reports no overnight events, although patient is still requesting more pain medication. He describes his pain 10/10 despite resting comfortably prior to noticing my entrance into the room. Denies chest pain, shortness of breath, abdominal pain, n/v/c/d, fever, chills. Objective - Vital Signs/Intake and Output Vital Signs (last 24 hours): Temp Pulse Resp BP Pulse Ox 97.4 F L 64 20 98/62 L 97 04/26/18 23:57 04/26/18 23:57 04/26/18 23:57 04/26/18 23:57 04/26/18 23:57 Intake and Output: 04/26/18 04/27/18 18:59 06:59 Intake Total 840 950 Balance 840 950 - Medications Medications: Current Medications Escitalopram Oxalate (Lexapro) 10 mg PO DAILY [facility] Last Admin: 04/26/18 09:20 Dose: 10 mg Fluticasone Propionate (Flonase) 0 spr MIGUEL BID [facility] Last Admin: 04/26/18 18:00 Dose: 1 spr Gabapentin (Neurontin) 300 mg PO TID [facility] Last Admin: 04/26/18 17:57 Dose: 300 mg Heparin Sodium (Porcine) (Heparin) 5,000 units SC Q12H [facility] Last Admin: 04/23/18 21:35 Dose: 5,000 units Clindamycin Phosphate 600 mg/ (Sodium Chloride) 54 mls @ 100 mls/hr IVPB Q8H [facility]; Protocol Last Admin: 04/27/18 01:40 Dose: 100 mls/hr Gentamicin Sulfate 80 mg/ (Sodium Chloride) 102 mls @ 100 mls/hr IVPB Q8H [facility]; Protocol Last Admin: 04/26/18 14:25 Dose: 100 mls/hr Vancomycin HCl 1,600 mg/ (Sodium Chloride) 500 mls @ 214 mls/hr IVPB Q12H [facility]; Protocol Last Admin: 04/26/18 20:45 Dose: 214 mls/hr Ibuprofen (Motrin Tab) 600 mg PO TID PRN PRN Reason: Pain, moderate (4-7) Last Admin: 04/26/18 11:06 Dose: 600 mg Lorazepam (Ativan) 0.5 mg PO Q8H PRN PRN Reason: Agitation Last Admin: 04/25/18 19:42 Dose: 0.5 mg Methadone HCl (Methadone) 10 mg PO BID [facility] Last Admin: 04/26/18 17:56 Dose: 10 mg Mirtazapine (Remeron) 15 mg PO HS [facility] Last Admin: 04/26/18 21:36 Dose: 15 mg Morphine Sulfate (Morphine) 4 mg IVP Q12H PRN PRN Reason: Pain, severe (8-10) Last Admin: 04/26/18 17:55 Dose: 4 mg Nicotine (Nicoderm Cq) 1 patch TD DAILY [facility] Last Admin: 04/26/18 09:20 Dose: 1 patch Ondansetron HCl (Zofran Inj) 4 mg IVP Q6 PRN PRN Reason: Nausea/Vomiting Pantoprazole Sodium (Protonix Ec Tab) 40 mg PO DAILY [facility] Last Admin: 04/26/18 09:20 Dose: 40 mg Quetiapine Fumarate (Seroquel) 100 mg PO HS [facility] Last Admin: 04/26/18 21:35 Dose: 100 mg - Labs Labs: 04/26/18 06:59 04/26/18 06:59 PT 11.8 SECONDS (9.7-12.2) 04/22/18 17:55 INR 1.1 04/22/18 17:55 APTT 31 SECONDS (21-34) 04/22/18 17:55 - Constitutional Appears: Non-toxic, No Acute Distress - Head Exam Head Exam: ATRAUMATIC, NORMOCEPHALIC Additional comments: scar on L cheek - Eye Exam Eye Exam: EOMI, Normal appearance - ENT Exam ENT Exam: Mucous Membranes Moist - Respiratory Exam Respiratory Exam: Clear to Ausculation Bilateral, NORMAL BREATHING PATTERN. absent: Rales, Rhonchi, Wheezes - Cardiovascular Exam Cardiovascular Exam: REGULAR RHYTHM, +S1, +S2, Murmur - GI/Abdominal Exam GI & Abdominal Exam: Soft, Normal Bowel Sounds. absent: Tenderness - Extremities Exam Additional comments: peripheral pulses palpable LUE: dressing clean, dry, intact RUE: track hirsch. PICC access in R arm - Neurological Exam Neurological Exam: Alert, Awake, Oriented x3 Additional comments: sensory/motor intact - Skin Additional comments: L hand digits erythematous Assessment and Plan - Assessment and Plan (Free Text) Assessment: 48yo M with PMH of IVDU, Hep C, and endocarditis (treated) admitted for cellulitis of L hand where he has injected. ECHO shows new vegetation on tricuspid valve with regurg. S/p I&D of L hand abscess 04/24. Plan: Endocarditis - ECHO (04/23): LVEF normal (>50%) with large vegetation on tricuspid valve with moderate to severe tricuspid regurg - PICC inserted 04/25 for senior living abx. due to patient's IVDU, patient cannot be allowed to AMA until removed. - Gentamicin 90mg IV q8h (started 04/23) - Vancomycin 1.4g IV q12h (started 04/22) (increased from 1g ->1.4 04/25) - ID consulted: Dr. Be burnham appreciated - Cardio consulted: Dr. Tirado - alicja appreciated Cellulitis of R hand - secondary to IVDU - s/p I&D 04/24 - blood Cx (04/22): neg - Clindamycin 600mg IVPB q8 (started 04/23) - Vancomycin 1.4 gm IVPB q12 (started 04/22) - Morphine 4mg IVP q12 prn for pain - ID consulted: Dr. Be burnham appreciated - Gen Sx consulted: Dr. Dixon brunham appreciated Drug Use Disorder - pt w/ extensive h/o fentanyl and IV heroin abuse - monitor for signs of withdrawal - Morphine 4mg IV q12h PRN for pain - Zofran 4mg IV q6h PRN - Psych consulted: Dr. Ribeiro - alicja appreciated - all opioids and pain medication per psych (patient cannot be a full strength morphine/opioid pain Rx and methadone at the same time) - Methadone taper per psych - Lexapro 5mg po daily - Ativan 0.5mg po q8 prn for agitation - Seroquel 100mg po HS - Remeron 15mg po HS Tobacco Abuse - Nicotine patch 14mg td daily - Fluticasone protocol dosing PPx DVT: Heparin 5000u sc q12, SCDs GI: Protonix 40mg po daily Diet: HHD <Calabrese,Peter H - Last Filed: 04/27/18 11:50> Objective - Vital Signs/Intake and Output Vital Signs (last 24 hours): Temp Pulse Resp BP Pulse Ox 97.8 F 63 20 104/66 98 04/27/18 08:01 04/27/18 08:01 04/27/18 08:01 04/27/18 08:01 04/27/18 08:01 Intake and Output: 04/27/18 04/27/18 06:59 18:59 Intake Total 950 Balance 950 - Medications Medications: Current Medications Escitalopram Oxalate (Lexapro) 10 mg PO DAILY [facility] Last Admin: 04/27/18 09:39 Dose: 10 mg Fluticasone Propionate (Flonase) 0 spr MIGUEL BID [facility] Last Admin: 04/27/18 09:38 Dose: 2 spr Gabapentin (Neurontin) 300 mg PO TID [facility] Last Admin: 04/27/18 09:39 Dose: 300 mg Heparin Sodium (Porcine) (Heparin) 5,000 units SC Q12H [facility] Last Admin: 04/23/18 21:35 Dose: 5,000 units Clindamycin Phosphate 600 mg/ (Sodium Chloride) 54 mls @ 100 mls/hr IVPB Q8H [facility]; Protocol Last Admin: 04/27/18 09:39 Dose: 100 mls/hr Gentamicin Sulfate 80 mg/ (Sodium Chloride) 102 mls @ 100 mls/hr IVPB Q8H [facility]; Protocol Last Admin: 04/27/18 06:02 Dose: 100 mls/hr Vancomycin HCl 1,500 mg/ (Sodium Chloride) 500 mls @ 166.6 mls/hr IVPB Q12H [facility]; Protocol Last Admin: 04/27/18 10:58 Dose: 166.6 mls/hr Ibuprofen (Motrin Tab) 600 mg PO TID PRN PRN Reason: Pain, moderate (4-7) Last Admin: 04/26/18 11:06 Dose: 600 mg Lorazepam (Ativan) 0.5 mg PO Q8H PRN PRN Reason: Agitation Last Admin: 04/25/18 19:42 Dose: 0.5 mg Methadone HCl (Methadone) 10 mg PO BID [facility] Last Admin: 04/27/18 09:39 Dose: 10 mg Mirtazapine (Remeron) 15 mg PO HS [facility] Last Admin: 04/26/18 21:36 Dose: 15 mg Morphine Sulfate (Morphine) 4 mg IVP Q12H PRN PRN Reason: Pain, severe (8-10) Last Admin: 04/27/18 08:11 Dose: 4 mg Nicotine (Nicoderm Cq) 1 patch TD DAILY [facility] Last Admin: 04/27/18 09:39 Dose: 1 patch Ondansetron HCl (Zofran Inj) 4 mg IVP Q6 PRN PRN Reason: Nausea/Vomiting Pantoprazole Sodium (Protonix Ec Tab) 40 mg PO DAILY [facility] Last Admin: 04/27/18 09:39 Dose: 40 mg Quetiapine Fumarate (Seroquel) 100 mg PO HS [facility] Last Admin: 04/26/18 21:35 Dose: 100 mg - Labs Labs: 04/27/18 07:50 04/27/18 07:50 PT 11.8 SECONDS (9.7-12.2) 04/22/18 17:55 INR 1.1 04/22/18 17:55 APTT 31 SECONDS (21-34) 04/22/18 17:55 Attending/Attestation - Attestation I have personally seen and examined this patient.: Yes I have fully participated in the care of the patient.: Yes I have reviewed all pertinent clinical information, including history, physical exam and plan: Yes Notes (Text): 04/27/18 11:46 Medical attending: Patient was seen and examined by me. Agree with the above note by the resident Patient was cooperative this morning. Review of previous notes does show he is agitated and uncooperative at times and signing out AMA The patient if he does sign out AMA will need the PICC line removed. The patient currently has a PICC line and on prolonged IV abx for infected tricupsid valve. He is not short of breath at rest. He denied having chest pain. Reported minimal pain in arm at this time. He did not ask for more pain medication when I saw him. He looked very comnfortable however if in the future he does then we should not give him larger amounts Micheal Calabrese
[2018-04-27 08:01] LABS: BASO % 0.4 % (0.0-2.0); EOS # 0.1 K/uL (0.0-0.7); EOS % 2.2 % (0.0-4.0); HEMOGLOBIN 12.8 g/dL (12.0-18.0); LYMPH # 1.3 K/uL (1.0-4.3); LYMPH % 31.1 % (20.0-40.0); MEAN CELL VOLUME 86.6 fL (80.0-94.0); MEAN CORPUSCULAR HEMOGLOBIN 30.4 pg (27.0-31.0); MEAN CORPUSCULAR HGB CONC 35.1 g/dL (33.0-37.0); MONO # 0.4 K/uL (0.0-0.8); MONO % 10.9 % (0.0-10.0); NEUT # 2.3 K/uL (1.8-7.0); NEUT % 55.4 % (50.0-75.0); RBC 4.22 Mil/uL (4.40-5.90); RED CELL DISTRIBUTION WIDTH 13.3 % (11.5-14.5); WHITE BLOOD COUNT 4.1 K/uL (4.8-10.8)
[2018-04-27] MEDS: Morphine 4 MG/ML VIAL IVP PRN ×2 (08:11→20:11)
[2018-04-27 08:12] LABS: ALB/GLOB RATIO 1.3 (1.0-2.1); ALBUMIN 3.4 g/dL (3.5-5.0); ALT/SGPT 37 U/L (21-72); AST/SGOT 22 U/L (17-59); BLOOD UREA NITROGEN 14 mg/dL (9-20); CALCIUM 8.8 mg/dl (8.6-10.4); GFR NON-AFRICAN AMERICAN > 60
[2018-04-27] MEDS: Fluticasone Nasal 50 mcg/Spray NAS SCH ×2 (09:38→17:30)
[2018-04-27] MEDS: Pantoprazole 40 mg EC Tab PO SCH (09:39)
[2018-04-28 07:10] LABS: BASO % 0.4 % (0.0-2.0); EOS # 0.1 K/uL (0.0-0.7); EOS % 2.5 % (0.0-4.0); HEMOGLOBIN 13.6 g/dL (12.0-18.0); LYMPH # 1.9 K/uL (1.0-4.3); LYMPH % 38.2 % (20.0-40.0); MEAN CELL VOLUME 87.5 fL (80.0-94.0); MEAN CORPUSCULAR HEMOGLOBIN 30.1 pg (27.0-31.0); MEAN CORPUSCULAR HGB CONC 34.5 g/dL (33.0-37.0); MEAN PLATELET VOLUME 5.9 fL (7.2-11.7); MONO # 0.6 K/uL (0.0-0.8); MONO % 10.9 % (0.0-10.0); NEUT # 2.5 K/uL (1.8-7.0); RBC 4.5 Mil/uL (4.40-5.90); RED CELL DISTRIBUTION WIDTH 13.3 % (11.5-14.5); WHITE BLOOD COUNT 5.1 K/uL (4.8-10.8)
[2018-04-28 07:49] LABS: ALB/GLOB RATIO 1.3 (1.0-2.1); ALBUMIN 3.7 g/dL (3.5-5.0); ALT/SGPT 29 U/L (21-72); AST/SGOT 24 U/L (17-59); BLOOD UREA NITROGEN 14 mg/dL (9-20); CALCIUM 9.1 mg/dl (8.6-10.4); GFR NON-AFRICAN AMERICAN > 60
[2018-04-28] MEDS: Morphine 4 MG/ML VIAL IVP PRN ×2 (08:20→08:35)
[2018-04-28] MEDS: Pantoprazole 40 mg EC Tab PO SCH (09:33)
[2018-04-28] MEDS: Fluticasone Nasal 50 mcg/Spray NAS SCH ×2 (09:33→19:16)
--- NOTE | 2018-04-28 11:33 | CP.PCM.PN ---
<Tara Huitron - Last Filed: 04/28/18 11:29> Subjective - Date & Time of Evaluation Date of Evaluation: 04/28/18 Time of Evaluation: 11:29 - Subjective Subjective: Traa Huitron PGY1 Progress Note for Dr. Calabrese Pt was examined at bedside this morning. He reports some sweating. He reports improvement in the pain in his L hand. He denies chills, shortness of breath, chest pain, abdominal pain, nausea, vomiting, diarrhea, dysuria. Objective - Vital Signs/Intake and Output Vital Signs (last 24 hours): Temp Pulse Resp BP Pulse Ox 97.9 F 70 20 122/74 96 04/28/18 08:35 04/28/18 08:35 04/28/18 08:35 04/28/18 08:35 04/28/18 08:35 Intake and Output: 04/28/18 04/28/18 06:59 18:59 Intake Total 1600 Balance 1600 - Medications Medications: Current Medications Escitalopram Oxalate (Lexapro) 10 mg PO DAILY [facility] Last Admin: 04/28/18 09:33 Dose: 10 mg Fluticasone Propionate (Flonase) 0 spr MIGUEL BID [facility] Last Admin: 04/28/18 09:33 Dose: 1 spr Gabapentin (Neurontin) 300 mg PO TID [facility] Last Admin: 04/28/18 09:33 Dose: 300 mg Heparin Sodium (Porcine) (Heparin) 5,000 units SC Q12H [facility] Last Admin: 04/23/18 21:35 Dose: 5,000 units Clindamycin Phosphate 600 mg/ (Sodium Chloride) 54 mls @ 100 mls/hr IVPB Q8H [facility]; Protocol Last Admin: 04/28/18 09:37 Dose: 100 mls/hr Gentamicin Sulfate 80 mg/ (Sodium Chloride) 102 mls @ 100 mls/hr IVPB Q8H [facility]; Protocol Last Admin: 04/28/18 06:08 Dose: 100 mls/hr Vancomycin HCl 1,500 mg/ (Sodium Chloride) 500 mls @ 166.6 mls/hr IVPB Q12H [facility]; Protocol Last Admin: 04/28/18 10:30 Dose: 166.6 mls/hr Ibuprofen (Motrin Tab) 600 mg PO TID PRN PRN Reason: Pain, moderate (4-7) Last Admin: 04/28/18 11:14 Dose: 600 mg Lorazepam (Ativan) 0.5 mg PO Q8H PRN PRN Reason: Agitation Last Admin: 04/25/18 19:42 Dose: 0.5 mg Methadone HCl (Methadone) 10 mg PO BID [facility] Last Admin: 04/28/18 09:33 Dose: 10 mg Mirtazapine (Remeron) 15 mg PO HS [facility] Last Admin: 04/27/18 21:20 Dose: 15 mg Morphine Sulfate (Morphine) 4 mg IVP Q12H PRN PRN Reason: Pain, severe (8-10) Last Admin: 04/28/18 08:35 Dose: 4 mg Nicotine (Nicoderm Cq) 1 patch TD DAILY [facility] Last Admin: 04/28/18 09:33 Dose: 1 patch Ondansetron HCl (Zofran Inj) 4 mg IVP Q6 PRN PRN Reason: Nausea/Vomiting Pantoprazole Sodium (Protonix Ec Tab) 40 mg PO DAILY [facility] Last Admin: 04/28/18 09:33 Dose: 40 mg Quetiapine Fumarate (Seroquel) 100 mg PO [facility] Last Admin: 04/27/18 21:20 Dose: 100 mg - Labs Labs: 04/28/18 06:58 04/28/18 06:58 PT 11.8 SECONDS (9.7-12.2) 04/22/18 17:55 INR 1.1 04/22/18 17:55 APTT 31 SECONDS (21-34) 04/22/18 17:55 - Additional Findings Additional findings: - Constitutional Appears: Non-toxic, No Acute Distress - Head Exam Head Exam: ATRAUMATIC, NORMOCEPHALIC Additional comments: scar on L cheek - Eye Exam Eye Exam: EOMI, Normal appearance - ENT Exam ENT Exam: Mucous Membranes Moist - Respiratory Exam Respiratory Exam: Clear to Ausculation Bilateral, NORMAL BREATHING PATTERN. absent: Rales, Rhonchi, Wheezes - Cardiovascular Exam Cardiovascular Exam: REGULAR RHYTHM, +S1, +S2, Murmur - GI/Abdominal Exam GI & Abdominal Exam: Soft, Normal Bowel Sounds. absent: Tenderness - Extremities Exam Additional comments: peripheral pulses palpable LUE: dressing clean, dry, intact RUE: track hirsch. PICC access in R arm - Neurological Exam Neurological Exam: Alert, Awake, Oriented x3 Additional comments: sensory/motor intact - Skin Additional comments: L hand digits erythematous Assessment and Plan - Assessment and Plan (Free Text) Assessment: 48yo M with PMH of IVDU, Hep C, and endocarditis (treated) admitted for cellulitis of L hand where he has injected. ECHO shows new vegetation on tricuspid valve with regurg. S/p I&D of L hand abscess 04/24. Pt with PICC line, for IV abx treatment. 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 due to patient's IVDU, patient cannot be allowed to AMA until removed. - Gentamicin 90mg IV q8h (started 04/23) - Vancomycin 1.5g IV q12h (started 04/22) - Clindamycin 600mg IV q8h (started 04/23) - ID consulted: Dr. Be burnham appreciated - Cardio consulted: Dr. Tirado - alicja appreciated Cellulitis of R hand - secondary to IVDU - s/p I&D 04/24 - Wound Cx: MRSA - blood Cx (04/22): neg - Clindamycin 600mg IVPB q8 (started 04/23) - Vancomycin 1.4 gm IVPB q12 (started 04/22) - Gentamicin 90mg IV q8h (started 04/23) - Morphine 4mg IVP q12 prn for pain - ID consulted: Dr. Be burnham appreciated - Gen Sx consulted: Dr. 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 Ribeiro - alicja appreciated - all opioids and pain medication per psych (patient cannot be a full strength morphine/opioid pain Rx and methadone at the same time) - Methadone taper per psych - Lexapro 5mg po daily - Ativan 0.5mg po q8 prn for agitation - Seroquel 100mg po HS - Remeron 15mg po HS Tobacco Abuse - Nicotine patch 14mg td daily - Fluticasone protocol dosing PPx DVT: Heparin 5000u sc q12, SCDs GI: Protonix 40mg po daily [facility] Pt seen and case reviewed with Dr. Calabrese <Micheal Calabrese H - Last Filed: 04/28/18 14:29> Objective - Vital Signs/Intake and Output Vital Signs (last 24 hours): Temp Pulse Resp BP Pulse Ox 97.9 F 70 20 122/74 96 04/28/18 08:35 04/28/18 08:35 04/28/18 08:35 04/28/18 08:35 04/28/18 08:35 Intake and Output: 04/28/18 04/28/18 06:59 18:59 Intake Total 1600 Balance 1600 - Medications Medications: Current Medications Escitalopram Oxalate (Lexapro) 10 mg PO DAILY [facility] Last Admin: 04/28/18 09:33 Dose: 10 mg Fluticasone Propionate (Flonase) 0 spr MIGUEL BID [facility] Last Admin: 04/28/18 09:33 Dose: 1 spr Gabapentin (Neurontin) 300 mg PO TID [facility] Last Admin: 04/28/18 14:21 Dose: 300 mg Heparin Sodium (Porcine) (Heparin) 5,000 units SC Q12H [facility] Last Admin: 04/23/18 21:35 Dose: 5,000 units Clindamycin Phosphate 600 mg/ (Sodium Chloride) 54 mls @ 100 mls/hr IVPB Q8H [facility]; Protocol Last Admin: 04/28/18 09:37 Dose: 100 mls/hr Gentamicin Sulfate 80 mg/ (Sodium Chloride) 102 mls @ 100 mls/hr IVPB Q8H [facility]; Protocol Last Admin: 04/28/18 06:08 Dose: 100 mls/hr Vancomycin HCl 1,500 mg/ (Sodium Chloride) 500 mls @ 166.6 mls/hr IVPB Q12H [facility]; Protocol Last Admin: 04/28/18 10:30 Dose: 166.6 mls/hr Ibuprofen (Motrin Tab) 600 mg PO TID PRN PRN Reason: Pain, Mild (1-3) Lorazepam (Ativan) 0.5 mg PO Q8H PRN PRN Reason: Agitation Last Admin: 04/28/18 12:14 Dose: 0.5 mg Methadone HCl (Methadone) 10 mg PO BID [facility] Mirtazapine (Remeron) 15 mg PO HS [facility] Last Admin: 04/27/18 21:20 Dose: 15 mg Morphine Sulfate (Morphine) 4 mg IVP Q12H PRN PRN Reason: Pain, moderate (4-7) Nicotine (Nicoderm Cq) 1 patch TD DAILY [facility] Last Admin: 04/28/18 09:33 Dose: 1 patch Ondansetron HCl (Zofran Inj) 4 mg IVP Q6 PRN PRN Reason: Nausea/Vomiting Pantoprazole Sodium (Protonix Ec Tab) 40 mg PO DAILY [facility] Last Admin: 04/28/18 09:33 Dose: 40 mg Quetiapine Fumarate (Seroquel) 100 mg PO HS [facility] Last Admin: 04/27/18 21:20 Dose: 100 mg - Labs Labs: 04/28/18 06:58 04/28/18 06:58 PT 11.8 SECONDS (9.7-12.2) 04/22/18 17:55 INR 1.1 04/22/18 17:55 APTT 31 SECONDS (21-34) 04/22/18 17:55 Attending/Attestation - Attestation I have personally seen and examined this patient.: Yes I have fully participated in the care of the patient.: Yes I have reviewed all pertinent clinical information, including history, physical exam and plan: Yes Notes (Text): 04/28/18 14:27 Medical attending: Patient was seen and examined by me. Agree with the above note by the resident The patient will need prolonged period of abx. The EJ can be reomoved from the R neck. The patient did not marianna for magdalena Calabrese
--- NOTE | 2018-04-28 13:31 | PCM.PYCHPN ---
Psychiatric Progress Note - Psychiatric Progress Note Patient seen today, length of contact: 16 min Patient Chief Complaint: "I was fine but I have pain again" Problems Identified/Issues Discussed: The pt is seen, chart reviewed and case discussed He is better but still has pain Dr. Calabrese will take over his pain med orders, as discussed. He is trying to use more by saying things like "I was on 30 mg methadone last time" (not true) He uses morphine 4 mg q12 prn and methadone 10 mg BID for pain at this time. Had some worsening of skin where he had the surgery Mood is "better" After care discussed he needs to go to [facility] or [facility] again He is in bereavement for his GF of many years. She OD'ed. Support given Medication Change: No Medical Record Reviewed: Yes Mental Status Examination - Cognitive Function Orientation: Person, Place, Situation, Time Memory: Intact Attention: WNL Concentration: Poor Association: WNL Fund of Knowledge: WNL - Mood Mood: Depressed, Anxious - Affect Affect: Broad - Formal Thought Process Formal Thought Process: No Impairment - Suicidal Ideation Suicidal Ideation: No - Homicidal Ideation Homicidal Ideation: No Goal/Treatment Plan - Goal/Treatment Plan Need for Continued Stay: Discharge may exacerbated symptoms, Severe functional impairment Progress Toward Problem(s) and Goals/Treatment Plan: Methadone detox from 20+5 today, 15+5 tomorrow, and then as per discussion with Dr. Sanders, he can be kept on 10 mg BID for pain, and then tapered off fully. If he chooses to go to a methadone program he can go directly but he goes to a rehab, he can be tapered off in 3 days. Pt agreed with this plan. Morphine is decreased significantly and will be stopp ed in 2 days prn ativan for agitation, not anxiety! As needed medications Gabapentin for augmentation Lexapro for anxiety/depression All risks, benefits and alternatives of medications, including no medications, discussed and the patient understood and agreed. Supportive therapy and psychoeducation AL for abstinence After care: Encourage MAT after d/c Refer to rehab or IOP if no MAT Attend self-help groups as well after d/c Dr. Toro will cover during my absence until 05/12/18
--- NOTE | 2018-04-29 01:53 | CP.PCM.PN ---
<Clover Olivera - Last Filed: 04/29/18 01:49> Subjective - Date & Time of Evaluation Date of Evaluation: 04/29/18 Time of Evaluation: 01:49 - Subjective Subjective: Progress Note Patient was seen and examined at bedside. He states that the pain in his left hand is improving. He states he is able to bend the fingers of his left hand, improved from before. He states he has been sweating a lot, but otherwise denies chills, shortness of breath, headache, chest pain, abdominal pain, nausea, vomiting, diarrhea, dysuria. Patient is eager to go home Objective - Vital Signs/Intake and Output Vital Signs (last 24 hours): Temp Pulse Resp BP Pulse Ox 97.2 F L 74 20 111/71 98 04/28/18 16:00 04/28/18 16:00 04/28/18 16:00 04/28/18 16:00 04/28/18 16:00 Intake and Output: 04/28/18 04/29/18 18:59 06:59 Intake Total 1500 1350 Balance 1500 1350 - Medications Medications: Current Medications Escitalopram Oxalate (Lexapro) 10 mg PO DAILY [facility] Last Admin: 04/28/18 09:33 Dose: 10 mg Fluticasone Propionate (Flonase) 0 spr MIGUEL BID ESTEBAN Last Admin: 04/28/18 19:16 Dose: 1 spr Gabapentin (Neurontin) 300 mg PO TID ESTEBAN Last Admin: 04/28/18 18:05 Dose: 300 mg Heparin Sodium (Porcine) (Heparin) 5,000 units SC Q12H ESTEBAN Last Admin: 04/23/18 21:35 Dose: 5,000 units Clindamycin Phosphate 600 mg/ (Sodium Chloride) 54 mls @ 100 mls/hr IVPB Q8H ESTEBAN; Protocol Last Admin: 04/28/18 19:16 Dose: 100 mls/hr Gentamicin Sulfate 80 mg/ (Sodium Chloride) 102 mls @ 100 mls/hr IVPB Q8H ESTEBAN; Protocol Last Admin: 04/28/18 23:49 Dose: 100 mls/hr Vancomycin HCl 1,500 mg/ (Sodium Chloride) 500 mls @ 166.6 mls/hr IVPB Q12H ESTEBAN; Protocol Last Admin: 04/28/18 20:37 Dose: 166.6 mls/hr Ibuprofen (Motrin Tab) 600 mg PO TID PRN PRN Reason: Pain, Mild (1-3) Lorazepam (Ativan) 0.5 mg PO Q8H PRN PRN Reason: Agitation Last Admin: 04/28/18 12:14 Dose: 0.5 mg Methadone HCl (Methadone) 10 mg PO BID [facility] Last Admin: 04/28/18 18:05 Dose: 10 mg Mirtazapine (Remeron) 30 mg PO HS [facility] Last Admin: 04/28/18 21:16 Dose: 30 mg Morphine Sulfate (Morphine) 4 mg IVP Q12H PRN PRN Reason: Pain, moderate (4-7) Last Admin: 04/28/18 20:33 Dose: 4 mg Nicotine (Nicoderm Cq) 1 patch TD DAILY [facility] Last Admin: 04/28/18 09:33 Dose: 1 patch Ondansetron HCl (Zofran Inj) 4 mg IVP Q6 PRN PRN Reason: Nausea/Vomiting Pantoprazole Sodium (Protonix Ec Tab) 40 mg PO DAILY [facility] Last Admin: 04/28/18 09:33 Dose: 40 mg Quetiapine Fumarate (Seroquel) 100 mg PO HS [facility] Last Admin: 04/28/18 21:17 Dose: 100 mg - Labs Labs: 04/28/18 06:58 04/28/18 06:58 PT 11.8 SECONDS (9.7-12.2) 04/22/18 17:55 INR 1.1 04/22/18 17:55 APTT 31 SECONDS (21-34) 04/22/18 17:55 - Constitutional Appears: Non-toxic, No Acute Distress - Head Exam Head Exam: ATRAUMATIC, NORMOCEPHALIC - Eye Exam Eye Exam: EOMI, PERRL - ENT Exam ENT Exam: Mucous Membranes Moist - Neck Exam Neck Exam: Full ROM - Respiratory Exam Respiratory Exam: Clear to Ausculation Bilateral, NORMAL BREATHING PATTERN. absent: Rales, Rhonchi, Wheezes, Respiratory Distress, Stridor - Cardiovascular Exam Cardiovascular Exam: REGULAR RHYTHM, +S1, +S2. absent: Gallop, Rubs, Murmur - GI/Abdominal Exam GI & Abdominal Exam: Soft, Normal Bowel Sounds. absent: Distended, Firm, Guarding, Rigid, Tenderness - Extremities Exam Additional comments: LUE: dressing intact, clean and dry. no tenderness to MCP joints, able to bend f ingers and make fist without discomfort. Good radial pulses. Good capillary refill. RUE: PICC line access. - Neurological Exam Neurological Exam: Alert, Awake, Oriented x3 - Psychiatric Exam Psychiatric exam: Normal Affect, Normal Mood Assessment and Plan - Assessment and Plan (Free Text) Assessment: 48 year old male with history of of IVDU, Hep C, and endocarditis (treated) admitted for cellulitis of left hand where he has injected. ECHO shows new vegetation on tricuspid valve with regurg. S/p I&D of L hand abscess 04/24. Pt with PICC line, for IV abx treatment. Plan: Endocarditis - ECHO (04/23): LVEF normal (>50%) with large vegetation on tricuspid valve with moderate to severe tricuspid regurg - PICC inserted 04/25 for detention abx. due to patient's IVDU, patient cannot be allowed to AMA until removed. - Gentamicin 80mg IV q8h (started 04/23) - Vancomycin 1.5g IV q12h (started 04/22) - Clindamycin 600mg IV q8h (started 04/23) - ID consulted: Dr. Be burnham appreciated - Cardio consulted: Dr. Tirado - alicja appreciated Cellulitis of R hand - secondary to IVDU - s/p I&D 04/24 - Wound Cx: MRSA - blood Cx (04/22): neg - Clindamycin 600mg IVPB q8 (started 04/23) - Vancomycin 1.4 gm IVPB q12 (started 04/22) - Gentamicin 80mg IV q8h (started 04/23) - Morphine 4mg IVP q12 prn for pain - Ibuprofen 600mg PO TID PRN pain - ID consulted: Dr. Be burnham appreciated - Gen Sx consulted: Dr. 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 Ribeiro - alicja appreciated - all opioids and pain medication per psych (patient cannot be a full s trength morphine/opioid pain Rx and methadone at the same time) - Methadone taper per psych - Lexapro 10mg po daily - Ativan 0.5mg po q8 prn for agitation - Seroquel 100mg po HS - Remeron 15mg po HS - Gabapentin 300mg PO TID Tobacco Abuse - Nicotine patch 14mg td daily - Fluticasone protocol dosing PPx DVT: Heparin 5000u sc q12, SCDs GI: Protonix 40mg po daily [facility] Dispo: Patient has PICC line access for IV abx for endocarditis. Patient may not leave with PICC line given history of IV drug use. Case discussed with Dr. Bharati Olivera, PGY1 <Micheal Calabrese H - Last Filed: 04/29/18 13:12> Objective - Vital Signs/Intake and Output Vital Signs (last 24 hours): Temp Pulse Resp BP Pulse Ox 97.7 F 61 20 95/66 L 96 04/29/18 08:10 04/29/18 08:10 04/29/18 08:10 04/29/18 08:10 04/29/18 08:10 Intake and Output: 04/29/18 04/29/18 06:59 18:59 Intake Total 2009 Balance 2009 - Medications Medications: Current Medications Escitalopram Oxalate (Lexapro) 10 mg PO DAILY [facility] Last Admin: 04/29/18 10:04 Dose: 10 mg Fluticasone Propionate (Flonase) 0 spr MGIUEL BID ESTEBAN Last Admin: 04/29/18 10:04 Dose: 1 spr Gabapentin (Neurontin) 300 mg PO TID ESTEBAN Last Admin: 04/29/18 10:05 Dose: 300 mg Heparin Sodium (Porcine) (Heparin) 5,000 units SC Q12H ESTEBAN Last Admin: 04/23/18 21:35 Dose: 5,000 units Clindamycin Phosphate 600 mg/ (Sodium Chloride) 54 mls @ 100 mls/hr IVPB Q8H ESTEBAN; Protocol Last Admin: 04/29/18 10:16 Dose: 100 mls/hr Gentamicin Sulfate 80 mg/ (Sodium Chloride) 102 mls @ 100 mls/hr IVPB Q8H ESTEBAN; Protocol Last Admin: 04/29/18 05:57 Dose: 100 mls/hr Vancomycin HCl 1,500 mg/ (Sodium Chloride) 500 mls @ 166.6 mls/hr IVPB Q12H ESTEBAN; Protocol Last Admin: 04/29/18 10:30 Dose: 166.6 mls/hr Ibuprofen (Motrin Tab) 600 mg PO TID PRN PRN Reason: Pain, Mild (1-3) Lorazepam (Ativan) 0.5 mg PO Q8H PRN PRN Reason: Agitation Last Admin: 04/28/18 12:14 Dose: 0.5 mg Methadone HCl (Methadone) 10 mg PO BID [facility] Last Admin: 04/29/18 10:05 Dose: 10 mg Mirtazapine (Remeron) 30 mg PO HS [facility] Last Admin: 04/28/18 21:16 Dose: 30 mg Morphine Sulfate (Morphine) 4 mg IVP Q12H PRN PRN Reason: Pain, moderate (4-7) Last Admin: 04/29/18 09:56 Dose: 4 mg Nicotine (Nicoderm Cq) 1 patch TD DAILY [facility] Last Admin: 04/29/18 10:37 Dose: 1 patch Ondansetron HCl (Zofran Inj) 4 mg IVP Q6 PRN PRN Reason: Nausea/Vomiting Pantoprazole Sodium (Protonix Ec Tab) 40 mg PO DAILY [facility] Last Admin: 04/29/18 10:05 Dose: 40 mg Quetiapine Fumarate (Seroquel) 100 mg PO HS [facility] Last Admin: 04/28/18 21:17 Dose: 100 mg - Labs Labs: 04/29/18 06:30 04/29/18 06:30 PT 11.8 SECONDS (9.7-12.2) 04/22/18 17:55 INR 1.1 04/22/18 17:55 APTT 31 SECONDS (21-34) 04/22/18 17:55 Attending/Attestation - Attestation I have personally seen and examined this patient.: Yes I have fully participated in the care of the patient.: Yes I have reviewed all pertinent clinical information, including history, physical exam and plan: Yes Notes (Text): 04/29/18 13:10 Medical attending: Patient was seen by me walking about the hallway on his own looking into the refrigerator for food and then back to room. He is arguing with someone on his phone today. We are decreasing the IV morphine to 3mg IV BID PRN Continuing with the IV abx at this time for the endocarditis. Micheal Calabrese
[2018-04-29 06:40] LABS: BASO % 0.2 % (0.0-2.0); EOS # 0.1 K/uL (0.0-0.7); EOS % 2.4 % (0.0-4.0); HEMOGLOBIN 12.3 g/dL (12.0-18.0); LYMPH # 1.7 K/uL (1.0-4.3); LYMPH % 37.3 % (20.0-40.0); MEAN CELL VOLUME 87.3 fL (80.0-94.0); MEAN CORPUSCULAR HGB CONC 34.4 g/dL (33.0-37.0); MEAN PLATELET VOLUME 5.8 fL (7.2-11.7); MONO # 0.4 K/uL (0.0-0.8); MONO % 10.1 % (0.0-10.0); NEUT # 2.2 K/uL (1.8-7.0); NRBC % 0.1 % (0.0-2.0); RBC 4.09 Mil/uL (4.40-5.90); RED CELL DISTRIBUTION WIDTH 13.2 % (11.5-14.5); WHITE BLOOD COUNT 4.4 K/uL (4.8-10.8)
[2018-04-29 07:39] LABS: ALB/GLOB RATIO 1.2 (1.0-2.1); ALBUMIN 3.1 g/dL (3.5-5.0); ALT/SGPT 31 U/L (21-72); AST/SGOT 21 U/L (17-59); BLOOD UREA NITROGEN 18 mg/dL (9-20); CALCIUM 8.4 mg/dl (8.6-10.4); GFR NON-AFRICAN AMERICAN > 60
[2018-04-29] MEDS: Fluticasone Nasal 50 mcg/Spray NAS SCH ×2 (10:04→17:57)
[2018-04-29] MEDS: Pantoprazole 40 mg EC Tab PO SCH (10:05)
[2018-04-29] MEDS ORDERED: Morphine 4 MG/ML VIAL IVP PRN (13:09)
--- NOTE | 2018-04-30 07:29 | CP.PCM.PN ---
<Tara Huitron - Last Filed: 04/30/18 14:00> Subjective - Date & Time of Evaluation Date of Evaluation: 04/30/18 Time of Evaluation: 07:28 - Subjective Subjective: Tara Huitron PGY1 Progress note for Dr. Calabrese Pt was examined at bedside this morning. He reports improvement in the pain and swelling of his L hand. He reports some mild sweating and nausea that he attributes to withdrawal. Pt admits to wanting to go home with antibiotics at this time. He denies shortness of breath, chest pain, abdominal pain, vomiting, diarrhea, dysuria. Objective - Vital Signs/Intake and Output Vital Signs (last 24 hours): Temp Pulse Resp BP Pulse Ox 97.7 F 99 H 16 109/69 98 04/30/18 00:00 04/30/18 00:00 04/30/18 00:00 04/30/18 00:00 04/30/18 00:00 Intake and Output: 04/30/18 04/30/18 06:59 18:59 Intake Total 660 Balance 660 - Medications Medications: Current Medications Escitalopram Oxalate (Lexapro) 10 mg PO DAILY [facility] Last Admin: 04/29/18 10:04 Dose: 10 mg Fluticasone Propionate (Flonase) 0 spr MIGUEL BID ESTEBAN Last Admin: 04/29/18 17:57 Dose: 1 spr Gabapentin (Neurontin) 300 mg PO TID [facility] Last Admin: 04/29/18 17:55 Dose: 300 mg Heparin Sodium (Porcine) (Heparin) 5,000 units SC Q12H ESTEBAN Last Admin: 04/23/18 21:35 Dose: 5,000 units Clindamycin Phosphate 600 mg/ (Sodium Chloride) 54 mls @ 100 mls/hr IVPB Q8H ESTEBAN; Protocol Last Admin: 04/30/18 01:16 Dose: 100 mls/hr Gentamicin Sulfate 80 mg/ (Sodium Chloride) 102 mls @ 100 mls/hr IVPB Q8H ESTEBAN; Protocol Last Admin: 04/30/18 06:11 Dose: 100 mls/hr Vancomycin HCl 1,500 mg/ (Sodium Chloride) 500 mls @ 166.6 mls/hr IVPB Q12H ESTEBAN; Protocol Last Admin: 04/29/18 21:44 Dose: 166.6 mls/hr Ibuprofen (Motrin Tab) 600 mg PO TID PRN PRN Reason: Pain, Mild (1-3) Lorazepam (Ativan) 0.5 mg PO Q8H PRN PRN Reason: Agitation Last Admin: 04/29/18 13:38 Dose: 0.5 mg Methadone HCl (Methadone) 10 mg PO BID [facility] Last Admin: 04/29/18 17:53 Dose: 10 mg Mirtazapine (Remeron) 30 mg PO HS [facility] Last Admin: 04/29/18 21:43 Dose: 30 mg Morphine Sulfate (Morphine) 3 mg IVP Q12H PRN PRN Reason: Pain, moderate (4-7) Last Admin: 04/29/18 23:52 Dose: 3 mg Nicotine (Nicoderm Cq) 1 patch TD DAILY [facility] Last Admin: 04/29/18 10:37 Dose: 1 patch Ondansetron HCl (Zofran Inj) 4 mg IVP Q6 PRN PRN Reason: Nausea/Vomiting Pantoprazole Sodium (Protonix Ec Tab) 40 mg PO DAILY [facility] Last Admin: 04/29/18 10:05 Dose: 40 mg Quetiapine Fumarate (Seroquel) 100 mg PO [facility] Last Admin: 04/29/18 21:45 Dose: 100 mg - Labs Labs: 04/29/18 06:30 04/29/18 06:30 PT 11.8 SECONDS (9.7-12.2) 04/22/18 17:55 INR 1.1 04/22/18 17:55 APTT 31 SECONDS (21-34) 04/22/18 17:55 - Additional Findings Additional findings: - Constitutional Appears: Non-toxic, No Acute Distress - Head Exam Head Exam: ATRAUMATIC, NORMOCEPHALIC - Eye Exam Eye Exam: EOMI, PERRL - ENT Exam ENT Exam: Mucous Membranes Moist - Neck Exam Neck Exam: Full ROM - Respiratory Exam Respiratory Exam: Clear to Ausculation Bilateral, NORMAL BREATHING PATTERN. absent: Rales, Rhonchi, Wheezes, Respiratory Distress, Stridor - Cardiovascular Exam Cardiovascular Exam: REGULAR RHYTHM, +S1, +S2. absent: Gallop, Rubs, Murmur - GI/Abdominal Exam GI & Abdominal Exam: Soft, Normal Bowel Sounds. absent: Distended, Firm, Guarding, Rigid, Tenderness - Extremities Exam Additional comments: LUE: dressing intact, clean and dry. no tenderness to MCP joints, good ROM. Good radial pulses. Good capillary refill. RUE: PICC line access. - Neurological Exam Neurological Exam: Alert, Awake, Oriented x3 - Psychiatric Exam Psychiatric exam: Normal Affect, Normal Mood Assessment and Plan - Assessment and Plan (Free Text) Assessment: 48 year old male with history of of IVDU, Hep C, and endocarditis (treated) admitted for cellulitis of left hand where he has injected. ECHO shows new vegetation on tricuspid valve with regurg. S/p I&D of L hand abscess 04/24. Pt with PICC line, for IV abx treatment. Plan: Endocarditis - ECHO (04/23): LVEF normal (>50%) with large vegetation on tricuspid valve with moderate to severe tricuspid regurg - PICC inserted 04/25 for half-way abx. due to patient's IVDU, patient cannot be allowed to AMA until removed. - Gentamicin 80mg IV q8h (started 04/23) - Vancomycin 1.5g IV q12h (started 04/22) - Clindamycin 600mg IV q8h (started 04/23) - ID consulted: Dr. Be burnham appreciated - Cardio consulted: Dr. Tirado - alicja appreciated Cellulitis of R hand - secondary to IVDU - s/p I&D 04/24 - Wound Cx: MRSA - blood Cx (04/22): neg - Clindamycin 600mg IVPB q8 (started 04/23) - Vancomycin 1.4 gm IVPB q12 (started 04/22) - Gentamicin 80mg IV q8h (started 04/23) - Morphine 2mg IVP q12 prn for pain - Ibuprofen 600mg PO TID PRN pain - ID consulted: Dr. Be burnham appreciated - Gen Sx consulted: Dr. 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 Ribeiro - alicja appreciated - all opioids and pain medication per psych (patient cannot be a full strength morphine/opioid pain Rx and methadone at the same time) - Methadone taper per psych - Lexapro 10mg po daily - Ativan 0.5mg po q8 prn for agitation - Seroquel 100mg po HS - Remeron 15mg po HS - Gabapentin 300mg PO TID Tobacco Abuse - Nicotine patch 14mg td daily - Fluticasone protocol dosing PPx DVT: Heparin 5000u sc q12, SCDs GI: Protonix 40mg po daily [facility] Dispo: Patient has PICC line access for IV abx for endocarditis. Patient may not leave with PICC line given history of IV drug use. Case discussed with Dr. Calabrese <Micheal Calabrese - Last Filed: 04/30/18 14:33> Objective - Vital Signs/Intake and Output Vital Signs (last 24 hours): Temp Pulse Resp BP Pulse Ox 97.9 F 70 20 111/65 97 04/30/18 08:12 04/30/18 08:12 04/30/18 08:12 04/30/18 08:12 04/30/18 08:12 Intake and Output: 04/30/18 04/30/18 06:59 18:59 Intake Total 660 Balance 660 - Medications Medications: Current Medications Escitalopram Oxalate (Lexapro) 10 mg PO DAILY [facility] Last Admin: 04/30/18 09:56 Dose: 10 mg Fluticasone Propionate (Flonase) 0 spr MIGUEL BID ESTEBAN Last Admin: 04/30/18 09:57 Dose: 1 spr Gabapentin (Neurontin) 300 mg PO TID [facility] Last Admin: 04/30/18 14:03 Dose: 300 mg Heparin Sodium (Porcine) (Heparin) 5,000 units SC Q12H ESTEBAN Last Admin: 04/23/18 21:35 Dose: 5,000 units Clindamycin Phosphate 600 mg/ (Sodium Chloride) 54 mls @ 100 mls/hr IVPB Q8H ESTEBAN; Protocol Last Admin: 04/30/18 12:04 Dose: 100 mls/hr Gentamicin Sulfate 80 mg/ (Sodium Chloride) 102 mls @ 100 mls/hr IVPB Q8H ESTEBAN; Protocol Last Admin: 04/30/18 14:04 Dose: 100 mls/hr Vancomycin HCl 1,500 mg/ (Sodium Chloride) 500 mls @ 166.6 mls/hr IVPB Q12H ESTEBAN; Protocol Last Admin: 04/30/18 08:43 Dose: 166.6 mls/hr Ibuprofen (Motrin Tab) 600 mg PO TID PRN PRN Reason: Pain, Mild (1-3) Last Admin: 04/30/18 08:39 Dose: 600 mg Lorazepam (Ativan) 0.5 mg PO Q8H PRN PRN Reason: Agitation Last Admin: 04/29/18 13:38 Dose: 0.5 mg Methadone HCl (Methadone) 10 mg PO BID [facility] Last Admin: 04/30/18 12:05 Dose: Not Given Mirtazapine (Remeron) 30 mg PO HS [facility] Last Admin: 04/29/18 21:43 Dose: 30 mg Morphine Sulfate (Morphine) 2 mg IVP Q12H PRN PRN Reason: Pain, moderate (4-7) Nicotine (Nicoderm Cq) 1 patch TD DAILY [facility] Last Admin: 04/30/18 09:57 Dose: 1 patch Ondansetron HCl (Zofran Inj) 4 mg IVP Q6 PRN PRN Reason: Nausea/Vomiting Pantoprazole Sodium (Protonix Ec Tab) 40 mg PO DAILY [facility] Last Admin: 04/30/18 09:57 Dose: 40 mg Quetiapine Fumarate (Seroquel) 100 mg PO HS [facility] Last Admin: 04/29/18 21:45 Dose: 100 mg - Labs Labs: 04/30/18 07:20 04/30/18 07:20 PT 11.8 SECONDS (9.7-12.2) 04/22/18 17:55 INR 1.1 04/22/18 17:55 APTT 31 SECONDS (21-34) 04/22/18 17:55 Attending/Attestation - Attestation I have personally seen and examined this patient.: Yes I have fully participated in the care of the patient.: Yes I have reviewed all pertinent clinical information, including history, physical exam and plan: Yes Notes (Text): 04/30/18 14:32 Medical attending: Patient was seen and examined by me, agrees the above note by the medical service representative. The patient was not in any acute medical distress, however when we entered he was again on his phone arguing somebody on the other side. As mentioned previously he has been observed him walking in and around the hallways as well as to the refrigerator and from the nurses station. Today we're getting a decrease his IV morphine just to milligrams IV twice a day. I told him this he was very complaining and whining, I explained to him that he's still on the methadone and at some point work and continue to decrease the IV morphine that he is getting The patient remarked that he's been about leaving the hospital. This is not surprising, he does have a history of leaving AMA. I pointed out to him that if he does leave that we would have to remove the PICC line due to his history of IV drug abuse He then asked why she had to stay in the hospital for such a prolonged period of time - we've spoken to the patient about this before in the past because of his current financial situation he does not have Medicaid to allow for an infusion center or home IV antibiotics, on top of this as I pointed out before he has a history of IV drug abuse and that it is problematic sending him with a PICC line thank you Micheal Calabrese
[2018-04-30 07:32] LABS: BASO % 0.3 % (0.0-2.0); EOS # 0.1 K/uL (0.0-0.7); EOS % 1.7 % (0.0-4.0); HEMOGLOBIN 11.8 g/dL (12.0-18.0); LYMPH # 1.6 K/uL (1.0-4.3); LYMPH % 30.5 % (20.0-40.0); MEAN CELL VOLUME 87.6 fL (80.0-94.0); MEAN CORPUSCULAR HEMOGLOBIN 30.5 pg (27.0-31.0); MEAN CORPUSCULAR HGB CONC 34.9 g/dL (33.0-37.0); MEAN PLATELET VOLUME 6.1 fL (7.2-11.7); MONO # 0.6 K/uL (0.0-0.8); MONO % 10.3 % (0.0-10.0); NEUT # 3.1 K/uL (1.8-7.0); NEUT % 57.2 % (50.0-75.0); RBC 3.86 Mil/uL (4.40-5.90); RED CELL DISTRIBUTION WIDTH 12.9 % (11.5-14.5); WHITE BLOOD COUNT 5.4 K/uL (4.8-10.8)
[2018-04-30 08:08] LABS: ALB/GLOB RATIO 1.3 (1.0-2.1); ALBUMIN 3.6 g/dL (3.5-5.0); ALT/SGPT 26 U/L (21-72); AST/SGOT 30 U/L (17-59); BLOOD UREA NITROGEN 15 mg/dL (9-20); CALCIUM 8.8 mg/dl (8.6-10.4); GFR NON-AFRICAN AMERICAN > 60
[2018-04-30] MEDS: Pantoprazole 40 mg EC Tab PO SCH (09:57)
[2018-04-30] MEDS: Fluticasone Nasal 50 mcg/Spray NAS SCH ×2 (09:57→17:51)
[2018-05-01 07:44] LABS: BASO % 0.3 % (0.0-2.0); EOS # 0.1 K/uL (0.0-0.7); EOS % 1.7 % (0.0-4.0); HEMOGLOBIN 11.7 g/dL (12.0-18.0); LYMPH # 1.3 K/uL (1.0-4.3); LYMPH % 22.6 % (20.0-40.0); MEAN CELL VOLUME 89.2 fL (80.0-94.0); MEAN CORPUSCULAR HEMOGLOBIN 30.6 pg (27.0-31.0); MEAN CORPUSCULAR HGB CONC 34.3 g/dL (33.0-37.0); MEAN PLATELET VOLUME 6.2 fL (7.2-11.7); MONO # 0.6 K/uL (0.0-0.8); MONO % 10.2 % (0.0-10.0); NEUT # 3.8 K/uL (1.8-7.0); NEUT % 65.2 % (50.0-75.0); NRBC % 0.1 % (0.0-2.0); RBC 3.82 Mil/uL (4.40-5.90); RED CELL DISTRIBUTION WIDTH 13.4 % (11.5-14.5); WHITE BLOOD COUNT 5.7 K/uL (4.8-10.8)
--- NOTE | 2018-05-01 07:44 | CP.PCM.PN ---
<Tara Huitron - Last Filed: 05/01/18 11:13> Subjective - Date & Time of Evaluation Date of Evaluation: 05/01/18 Time of Evaluation: 07:42 - Subjective Subjective: Tara Huitron PGY1 Progress Note for Dr. Calabrese Pt was examined at bedside this morning. He reports improvement in the pain and swelling in his L hand. He reports feeling well with the current withdrawal regimen. He denies shortness of breath, dizziness, chest pain, nausea, vomiting, abdominal pain, diarrhea, dysuria. Objective - Vital Signs/Intake and Output Vital Signs (last 24 hours): Temp Pulse Resp BP Pulse Ox 97.7 F 71 20 135/75 95 04/30/18 16:00 04/30/18 16:00 04/30/18 16:00 04/30/18 16:00 04/30/18 16:00 Intake and Output: 05/01/18 05/01/18 06:59 18:59 Intake Total 575 Balance 575 - Medications Medications: Current Medications Escitalopram Oxalate (Lexapro) 10 mg PO DAILY [facility] Last Admin: 04/30/18 09:56 Dose: 10 mg Fluticasone Propionate (Flonase) 0 spr MIGUEL BID [facility] Last Admin: 04/30/18 17:51 Dose: 2 spr Gabapentin (Neurontin) 300 mg PO TID [facility] Last Admin: 04/30/18 17:51 Dose: 300 mg Heparin Sodium (Porcine) (Heparin) 5,000 units SC Q12H [facility] Last Admin: 04/23/18 21:35 Dose: 5,000 units Clindamycin Phosphate 600 mg/ (Sodium Chloride) 54 mls @ 100 mls/hr IVPB Q8H [facility]; Protocol Last Admin: 05/01/18 02:41 Dose: 100 mls/hr Gentamicin Sulfate 80 mg/ (Sodium Chloride) 102 mls @ 100 mls/hr IVPB Q8H [facility]; Protocol Last Admin: 05/01/18 05:45 Dose: 100 mls/hr Vancomycin HCl 1,500 mg/ (Sodium Chloride) 500 mls @ 166.6 mls/hr IVPB Q12H [facility]; Protocol Last Admin: 04/30/18 21:28 Dose: Not Given Ibuprofen (Motrin Tab) 600 mg PO TID PRN PRN Reason: Pain, Mild (1-3) Last Admin: 04/30/18 08:39 Dose: 600 mg Lorazepam (Ativan) 0.5 mg PO Q8H PRN PRN Reason: Agitation Last Admin: 04/29/18 13:38 Dose: 0.5 mg Methadone HCl (Methadone) 10 mg PO BID [facility] Last Admin: 04/30/18 17:51 Dose: 10 mg Mirtazapine (Remeron) 30 mg PO HS [facility] Last Admin: 04/30/18 21:30 Dose: 30 mg Morphine Sulfate (Morphine) 2 mg IVP Q12H PRN PRN Reason: Pain, moderate (4-7) Last Admin: 04/30/18 18:11 Dose: 2 mg Nicotine (Nicoderm Cq) 1 patch TD DAILY [facility] Last Admin: 04/30/18 09:57 Dose: 1 patch Ondansetron HCl (Zofran Inj) 4 mg IVP Q6 PRN PRN Reason: Nausea/Vomiting Pantoprazole Sodium (Protonix Ec Tab) 40 mg PO DAILY [facility] Last Admin: 04/30/18 09:57 Dose: 40 mg Quetiapine Fumarate (Seroquel) 100 mg PO [facility] Last Admin: 04/30/18 21:28 Dose: 100 mg - Labs Labs: 04/30/18 07:20 04/30/18 07:20 PT 11.8 SECONDS (9.7-12.2) 04/22/18 17:55 INR 1.1 04/22/18 17:55 APTT 31 SECONDS (21-34) 04/22/18 17:55 - Additional Findings Additional findings: - Constitutional Appears: Non-toxic, No Acute Distress - Head Exam Head Exam: ATRAUMATIC, NORMOCEPHALIC - Eye Exam Eye Exam: EOMI, PERRL - ENT Exam ENT Exam: Mucous Membranes Moist - Neck Exam Neck Exam: Full ROM - Respiratory Exam Respiratory Exam: Clear to Ausculation Bilateral, NORMAL BREATHING PATTERN. absent: Rales, Rhonchi, Wheezes, Respiratory Distress, Stridor - Cardiovascular Exam Cardiovascular Exam: REGULAR RHYTHM, +S1, +S2. absent: Gallop, Rubs, Murmur - GI/Abdominal Exam GI & Abdominal Exam: Soft, Normal Bowel Sounds. absent: Distended, Firm, Guarding, Rigid, Tenderness - Extremities Exam Additional comments: LUE: dressing intact, clean and dry. no tenderness to MCP joints, good ROM. Good radial pulses. Good capillary refill. Track hirsch. RUE: PICC line access. track hirsch. - Neurological Exam Neurological Exam: Alert, Awake, Oriented x3. Ambulating normally without gait disturbance or difficulty. - Psychiatric Exam Psychiatric exam: Normal Affect, Normal Mood Assessment and Plan - Assessment and Plan (Free Text) Assessment: 48 year old male with history of of IVDU, Hep C, and endocarditis (treated) admitted for cellulitis of left hand where he has injected. ECHO shows new vegetation on tricuspid valve with regurg. S/p I&D of L hand abscess 04/24. Pt with PICC line, for IV abx treatment. 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 due to patient's IVDU, patient cannot be allowed to AMA until removed. - Gentamicin 80mg IV q8h (started 04/23) - Vancomycin 1.5g IV q12h (started 04/22) - Clindamycin 600mg IV q8h (started 04/23) - ID consulted: Dr. Be burnham appreciated - Cardio consulted: Dr. Tirado - alicja appreciated Cellulitis of R hand - secondary to IVDU - s/p I&D 04/24 - Wound Cx: MRSA - blood Cx (04/22): neg - Clindamycin 600mg IVPB q8 (started 04/23) - Vancomycin 1.4 gm IVPB q12 (started 04/22) - Gentamicin 80mg IV q8h (started 04/23) - Morphine 2mg IVP q12 prn for pain - Ibuprofen 600mg PO TID PRN pain - ID consulted: Dr. Be burnham appreciated - Gen Sx consulted: Dr. 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 Ribeiro - alicja appreciated - all opioids and pain medication per psych (patient cannot be a full strength morphine/opioid pain Rx and methadone at the same time) - Methadone taper per psych - Lexapro 10mg po daily - Ativan 0.5mg po q8 prn for agitation - Seroquel 100mg po HS - Remeron 15mg po HS - Gabapentin 300mg PO TID Tobacco Abuse - Nicotine patch 14mg td daily - Fluticasone protocol dosing PPx DVT: Heparin 5000u sc q12, SCDs GI: Protonix 40mg po daily [facility] Dispo: Patient has PICC line access for IV abx for endocarditis. Patient may not leave with PICC line given history of IV drug use. Case discussed with Dr. Calabrese <Micheal Calabrese - Last Filed: 05/01/18 17:19> Objective - Vital Signs/Intake and Output Vital Signs (last 24 hours): Temp Pulse Resp BP Pulse Ox 98.0 F 75 20 100/62 96 05/01/18 15:48 05/01/18 15:48 05/01/18 15:48 05/01/18 15:48 05/01/18 15:48 Intake and Output: 05/01/18 05/01/18 06:59 18:59 Intake Total 575 Balance 575 - Medications Medications: Current Medications Escitalopram Oxalate (Lexapro) 10 mg PO DAILY [facility] Last Admin: 05/01/18 10:07 Dose: 10 mg Fluticasone Propionate (Flonase) 0 spr MIGUEL BID [facility] Last Admin: 05/01/18 10:08 Dose: 1 spr Gabapentin (Neurontin) 300 mg PO TID [facility] Last Admin: 05/01/18 14:37 Dose: 300 mg Heparin Sodium (Porcine) (Heparin) 5,000 units SC Q12H [facility] Last Admin: 04/23/18 21:35 Dose: 5,000 units Clindamycin Phosphate 600 mg/ (Sodium Chloride) 54 mls @ 100 mls/hr IVPB Q8H [facility]; Protocol Last Admin: 05/01/18 10:10 Dose: 100 mls/hr Gentamicin Sulfate 80 mg/ (Sodium Chloride) 102 mls @ 100 mls/hr IVPB Q8H [facility]; Protocol Last Admin: 05/01/18 14:39 Dose: 100 mls/hr Vancomycin HCl 1,500 mg/ (Sodium Chloride) 500 mls @ 166.6 mls/hr IVPB Q12H [facility]; Protocol Last Admin: 05/01/18 10:08 Dose: 166.6 mls/hr Ibuprofen (Motrin Tab) 600 mg PO TID PRN PRN Reason: Pain, Mild (1-3) Last Admin: 04/30/18 08:39 Dose: 600 mg Lorazepam (Ativan) 0.5 mg PO Q8H PRN PRN Reason: Agitation Last Admin: 04/29/18 13:38 Dose: 0.5 mg Methadone HCl (Methadone) 10 mg PO BID [facility] Last Admin: 05/01/18 10:08 Dose: Not Given Mirtazapine (Remeron) 30 mg PO HS [facility] Morphine Sulfate (Morphine) 2 mg IVP Q12H PRN PRN Reason: Pain, moderate (4-7) Last Admin: 05/01/18 09:58 Dose: 2 mg Nicotine (Nicoderm Cq) 1 patch TD DAILY [facility] Last Admin: 05/01/18 10:07 Dose: 1 patch Ondansetron HCl (Zofran Inj) 4 mg IVP Q6 PRN PRN Reason: Nausea/Vomiting Pantoprazole Sodium (Protonix Ec Tab) 40 mg PO DAILY [facility] Last Admin: 05/01/18 10:07 Dose: 40 mg Quetiapine Fumarate (Seroquel) 100 mg PO HS [facility] Last Admin: 04/30/18 21:28 Dose: 100 mg - Labs Labs: 05/01/18 07:25 05/01/18 07:25 PT 11.8 SECONDS (9.7-12.2) 04/22/18 17:55 INR 1.1 04/22/18 17:55 APTT 31 SECONDS (21-34) 04/22/18 17:55 Attending/Attestation - Attestation I have personally seen and examined this patient.: Yes I have fully participated in the care of the patient.: Yes I have reviewed all pertinent clinical information, including history, physical exam and plan: Yes Notes (Text): 05/01/18 17:14 Medical attending: Patient was seen and examined by me. Agree with the above note by the resident Yesterday we again decreased the IV morphine to 2mg BID - he also had the wound changed and packed again. Per discussion with wound care it is healing well. The patient was observed walking in the hallway pulling his IV poll along. He was walking to the refrigerator for food and back to his room. He remains on IV abx for the endocarditis. No fevers, no shortness of breath, no Peter Calabrese
[2018-05-01 07:59] LABS: ALB/GLOB RATIO 1.4 (1.0-2.1); ALBUMIN 3.5 g/dL (3.5-5.0); ALT/SGPT 26 U/L (21-72); AST/SGOT 26 U/L (17-59); BLOOD UREA NITROGEN 14 mg/dL (9-20); CALCIUM 8.5 mg/dl (8.6-10.4); GFR NON-AFRICAN AMERICAN > 60
[2018-05-01] MEDS: Pantoprazole 40 mg EC Tab PO SCH (10:07)
[2018-05-01] MEDS: Fluticasone Nasal 50 mcg/Spray NAS SCH ×2 (10:08→17:29)
[2018-05-02 07:12] LABS: BASO % 0.5 % (0.0-2.0); EOS # 0.1 K/uL (0.0-0.7); EOS % 1.9 % (0.0-4.0); HEMOGLOBIN 11.1 g/dL (12.0-18.0); LYMPH # 1.1 K/uL (1.0-4.3); LYMPH % 19.9 % (20.0-40.0); MEAN CELL VOLUME 89.2 fL (80.0-94.0); MEAN CORPUSCULAR HEMOGLOBIN 30.2 pg (27.0-31.0); MEAN CORPUSCULAR HGB CONC 33.9 g/dL (33.0-37.0); MEAN PLATELET VOLUME 6.2 fL (7.2-11.7); MONO # 0.6 K/uL (0.0-0.8); MONO % 10.3 % (0.0-10.0); NEUT # 3.9 K/uL (1.8-7.0); NEUT % 67.4 % (50.0-75.0); RBC 3.69 Mil/uL (4.40-5.90); RED CELL DISTRIBUTION WIDTH 13.3 % (11.5-14.5); WHITE BLOOD COUNT 5.7 K/uL (4.8-10.8)
[2018-05-02 07:25] LABS: ALB/GLOB RATIO 1.4 (1.0-2.1); ALBUMIN 3.4 g/dL (3.5-5.0); ALT/SGPT 26 U/L (21-72); AST/SGOT 27 U/L (17-59); BLOOD UREA NITROGEN 13 mg/dL (9-20); CALCIUM 8.2 mg/dl (8.6-10.4); GFR NON-AFRICAN AMERICAN > 60
[2018-05-02] MEDS: Fluticasone Nasal 50 mcg/Spray NAS SCH ×2 (09:23→17:13)
[2018-05-02] MEDS: Pantoprazole 40 mg EC Tab PO SCH (09:23)
--- NOTE | 2018-05-02 11:20 | CP.PCM.PN ---
<Colin Bradshaw - Last Filed: 05/02/18 15:57> Subjective - Date & Time of Evaluation Date of Evaluation: 05/02/18 Time of Evaluation: 14:49 - Subjective Subjective: PGY-[address] Calabrese Patient seen and examined at bedside. No acute events overnight. Patient has no complaints at this time. Denies chest pain, headache, nausea, vomiting, shortness of breath. Objective - Vital Signs/Intake and Output Vital Signs (last 24 hours): Temp Pulse Resp BP Pulse Ox 97.8 F 81 20 110/66 97 05/02/18 08:00 05/02/18 08:00 05/02/18 08:00 05/02/18 08:00 05/02/18 08:00 Intake and Output: 05/02/18 05/02/18 06:59 18:59 Intake Total 2450 Balance 2450 - Medications Medications: Current Medications Escitalopram Oxalate (Lexapro) 10 mg PO DAILY [facility] Last Admin: 05/02/18 09:23 Dose: 10 mg Fluticasone Propionate (Flonase) 0 spr MIGUEL BID [facility] Last Admin: 05/02/18 09:23 Dose: 1 spr Gabapentin (Neurontin) 300 mg PO TID [facility] Last Admin: 05/02/18 09:23 Dose: 300 mg Heparin Sodium (Porcine) (Heparin) 5,000 units SC Q12H [facility] Last Admin: 04/23/18 21:35 Dose: 5,000 units Clindamycin Phosphate 600 mg/ (Sodium Chloride) 54 mls @ 100 mls/hr IVPB Q8H [facility]; Protocol Last Admin: 05/02/18 09:00 Dose: 100 mls/hr Gentamicin Sulfate 80 mg/ (Sodium Chloride) 102 mls @ 100 mls/hr IVPB Q8H [facility]; Protocol Last Admin: 05/02/18 06:35 Dose: 100 mls/hr Vancomycin HCl 1,500 mg/ (Sodium Chloride) 500 mls @ 166.6 mls/hr IVPB Q12H [facility]; Protocol Last Admin: 05/02/18 09:45 Dose: 166.6 mls/hr Ibuprofen (Motrin Tab) 600 mg PO TID PRN PRN Reason: Pain, Mild (1-3) Last Admin: 05/01/18 17:25 Dose: 600 mg Lorazepam (Ativan) 0.5 mg PO Q8H PRN PRN Reason: Agitation Last Admin: 05/02/18 09:22 Dose: 0.5 mg Methadone HCl (Methadone) 10 mg PO BID [facility] Last Admin: 05/02/18 09:22 Dose: 10 mg Mirtazapine (Remeron) 30 mg PO HS [facility] Last Admin: 05/01/18 22:39 Dose: 30 mg Morphine Sulfate (Morphine) 2 mg IVP Q12H PRN PRN Reason: Pain, moderate (4-7) Last Admin: 05/02/18 10:35 Dose: 2 mg Nicotine (Nicoderm Cq) 1 patch TD DAILY [facility] Last Admin: 05/02/18 09:24 Dose: 1 patch Ondansetron HCl (Zofran Inj) 4 mg IVP Q6 PRN PRN Reason: Nausea/Vomiting Pantoprazole Sodium (Protonix Ec Tab) 40 mg PO DAILY [facility] Last Admin: 05/02/18 09:23 Dose: 40 mg Quetiapine Fumarate (Seroquel) 100 mg PO HS [facility] Last Admin: 05/01/18 22:15 Dose: 100 mg - Labs Labs: 05/02/18 07:08 05/02/18 07:08 PT 11.8 SECONDS (9.7-12.2) 04/22/18 17:55 INR 1.1 04/22/18 17:55 APTT 31 SECONDS (21-34) 04/22/18 17:55 - Constitutional Appears: Non-toxic, No Acute Distress - Head Exam Head Exam: ATRAUMATIC, NORMOCEPHALIC - Eye Exam Eye Exam: EOMI - ENT Exam ENT Exam: Mucous Membranes Moist - Respiratory Exam Respiratory Exam: Clear to Ausculation Bilateral. absent: Rhonchi, Wheezes - Cardiovascular Exam Cardiovascular Exam: REGULAR RHYTHM, +S1, +S2 - GI/Abdominal Exam GI & Abdominal Exam: Soft, Normal Bowel Sounds. absent: Tenderness - Extremities Exam Extremities Exam: absent: Pedal Edema, Tenderness - Neurological Exam Neurological Exam: Alert, Awake, Oriented x3 - Psychiatric Exam Psychiatric exam: Normal Affect, Normal Mood - Skin Skin Exam: Dry, Intact Assessment and Plan - Assessment and Plan (Free Text) Assessment: 48 year old male with history of of IVDU, Hep C, and endocarditis (treated) admitted for cellulitis of left hand where he has injected. ECHO shows new vegetation on tricuspid valve with regurg. S/p I&D of L hand abscess 04/24. Pt with PICC line, for IV abx treatment. 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 due to patient's IVDU, patient cannot be allowed to AMA until removed. - Gentamicin 80mg IV q8h (started 04/23) - Vancomycin 1.5g IV q12h (started 04/22) - Clindamycin 600mg IV q8h (started 04/23) - ID consulted: Dr. Be burnham appreciated - Cardio consulted: Dr. Tirado - help appreciated Cellulitis of R hand - secondary to IVDU - s/p I&D 04/24 - Wound Cx: MRSA - blood Cx (04/22): neg - Clindamycin 600mg IVPB q8 (started 04/23) - Vancomycin 1.4 gm IVPB q12 (started 04/22) - Gentamicin 80mg IV q8h (started 04/23) - Morphine 2mg IVP q12 prn for pain - Ibuprofen 600mg PO TID PRN pain - ID consulted: Dr. Be burnham appreciated - Gen Sx consulted: Dr. 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 Ribeiro - alicja appreciated - all opioids and pain medication per psych (patient cannot be a full strength morphine/opioid pain Rx and methadone at the same time) - Methadone taper per psych - Lexapro 10mg po daily - Ativan 0.5mg po q8 prn for agitation - Seroquel 100mg po HS - Remeron 15mg po HS - Gabapentin 300mg PO TID Tobacco Abuse - Nicotine patch 14mg td daily - Fluticasone protocol dosing PPx DVT: Heparin 5000u sc q12, SCDs GI: Protonix 40mg po daily [facility] Dispo: Patient has PICC line access for IV abx for endocarditis. Patient may not leave with PICC line given history of IV drug use. Case discussed with Dr. Bharati Bradshaw, PGY-1 <Micheal Calabrese H - Last Filed: 05/02/18 16:28> Objective - Vital Signs/Intake and Output Vital Signs (last 24 hours): Temp Pulse Resp BP Pulse Ox 97.8 F 81 20 110/66 97 05/02/18 08:00 05/02/18 08:00 05/02/18 08:00 05/02/18 08:00 05/02/18 08:00 Intake and Output: 05/02/18 05/02/18 06:59 18:59 Intake Total 2450 1156 Balance 2450 1156 - Medications Medications: Current Medications Escitalopram Oxalate (Lexapro) 10 mg PO DAILY [facility] Last Admin: 05/02/18 09:23 Dose: 10 mg Fluticasone Propionate (Flonase) 0 spr MIGUEL BID [facility] Last Admin: 05/02/18 09:23 Dose: 1 spr Gabapentin (Neurontin) 300 mg PO TID [facility] Last Admin: 05/02/18 14:35 Dose: 300 mg Heparin Sodium (Porcine) (Heparin) 5,000 units SC Q12H [facility] Last Admin: 04/23/18 21:35 Dose: 5,000 units Clindamycin Phosphate 600 mg/ (Sodium Chloride) 54 mls @ 100 mls/hr IVPB Q8H [facility]; Protocol Last Admin: 05/02/18 09:00 Dose: 100 mls/hr Gentamicin Sulfate 80 mg/ (Sodium Chloride) 102 mls @ 100 mls/hr IVPB Q8H [facility]; Protocol Last Admin: 05/02/18 14:35 Dose: 100 mls/hr Vancomycin HCl 1,500 mg/ (Sodium Chloride) 500 mls @ 166.6 mls/hr IVPB Q12H [facility]; Protocol Last Admin: 05/02/18 09:45 Dose: 166.6 mls/hr Ibuprofen (Motrin Tab) 600 mg PO TID PRN PRN Reason: Pain, Mild (1-3) Last Admin: 05/01/18 17:25 Dose: 600 mg Lorazepam (Ativan) 0.5 mg PO Q8H PRN PRN Reason: Agitation Last Admin: 05/02/18 09:22 Dose: 0.5 mg Methadone HCl (Methadone) 10 mg PO BID [facility] Last Admin: 05/02/18 09:22 Dose: 10 mg Mirtazapine (Remeron) 30 mg PO HS [facility] Last Admin: 05/01/18 22:39 Dose: 30 mg Morphine Sulfate (Morphine) 2 mg IVP Q12H PRN PRN Reason: Pain, moderate (4-7) Last Admin: 05/02/18 10:35 Dose: 2 mg Nicotine (Nicoderm Cq) 1 patch TD DAILY [facility] Last Admin: 05/02/18 09:24 Dose: 1 patch Ondansetron HCl (Zofran Inj) 4 mg IVP Q6 PRN PRN Reason: Nausea/Vomiting Pantoprazole Sodium (Protonix Ec Tab) 40 mg PO DAILY [facility] Last Admin: 05/02/18 09:23 Dose: 40 mg Quetiapine Fumarate (Seroquel) 100 mg PO HS [facility] Last Admin: 05/01/18 22:15 Dose: 100 mg - Labs Labs: 05/02/18 07:08 05/02/18 07:08 PT 11.8 SECONDS (9.7-12.2) 04/22/18 17:55 INR 1.1 04/22/18 17:55 APTT 31 SECONDS (21-34) 04/22/18 17:55 Attending/Attestation - Attestation I have personally seen and examined this patient.: Yes I have fully participated in the care of the patient.: Yes I have reviewed all pertinent clinical information, including history, physical exam and plan: Yes Notes (Text): Medical attending: Patient was seen and examined by me. Reviewed the above note by the resident The patient was not in any acute distress when I came and saw him. An older family member was present at the bedside Patient has brought in his computer to play games while in the hospital....and the patient does not appear to be in any distress ....tommorow will again decrease the IV morphine Micheal Calabrese
--- NOTE | 2018-05-02 23:12 | CP.PCM.PN ---
Subjective - Date & Time of Evaluation Date of Evaluation: 05/02/18 Time of Evaluation: 15:00 - Subjective Subjective: dictated Objective - Vital Signs/Intake and Output Vital Signs (last 24 hours): Temp Pulse Resp BP Pulse Ox 98.3 F 78 20 122/77 97 05/02/18 15:00 05/02/18 15:00 05/02/18 15:00 05/02/18 15:00 05/02/18 15:00 Intake and Output: 05/02/18 05/03/18 18:59 06:59 Intake Total 1156 1600 Balance 1156 1600 - Medications Medications: Current Medications Escitalopram Oxalate (Lexapro) 10 mg PO DAILY [facility] Last Admin: 05/02/18 09:23 Dose: 10 mg Fluticasone Propionate (Flonase) 0 spr MIGUEL BID [facility] Last Admin: 05/02/18 17:13 Dose: 1 spr Gabapentin (Neurontin) 300 mg PO TID [facility] Last Admin: 05/02/18 17:14 Dose: 300 mg Heparin Sodium (Porcine) (Heparin) 5,000 units SC Q12H [facility] Last Admin: 04/23/18 21:35 Dose: 5,000 units Clindamycin Phosphate 600 mg/ (Sodium Chloride) 54 mls @ 100 mls/hr IVPB Q8H [facility]; Protocol Last Admin: 05/02/18 18:22 Dose: 100 mls/hr Vancomycin HCl 1,400 mg/ (Sodium Chloride) 500 mls @ 210 mls/hr IVPB Q12H [facility]; Protocol Last Admin: 05/02/18 22:16 Dose: 210 mls/hr Ibuprofen (Motrin Tab) 600 mg PO TID PRN PRN Reason: Pain, Mild (1-3) Last Admin: 05/01/18 17:25 Dose: 600 mg Lorazepam (Ativan) 0.5 mg PO Q8H PRN PRN Reason: Agitation Last Admin: 05/02/18 09:22 Dose: 0.5 mg Methadone HCl (Methadone) 10 mg PO BID [facility] Last Admin: 05/02/18 18:22 Dose: 10 mg Mirtazapine (Remeron) 30 mg PO HS [facility] Last Admin: 05/02/18 22:17 Dose: 30 mg Morphine Sulfate (Morphine) 2 mg IVP Q12H PRN PRN Reason: Pain, moderate (4-7) Last Admin: 05/02/18 22:39 Dose: 2 mg Nicotine (Nicoderm Cq) 1 patch TD DAILY [facility] Last Admin: 05/02/18 09:24 Dose: 1 patch Ondansetron HCl (Zofran Inj) 4 mg IVP Q6 PRN PRN Reason: Nausea/Vomiting Pantoprazole Sodium (Protonix Ec Tab) 40 mg PO DAILY [facility] Last Admin: 05/02/18 09:23 Dose: 40 mg Quetiapine Fumarate (Seroquel) 100 mg PO HS [facility] Last Admin: 05/02/18 22:17 Dose: 100 mg - Labs Labs: 05/02/18 07:08 05/02/18 07:08 PT 11.8 SECONDS (9.7-12.2) 04/22/18 17:55 INR 1.1 04/22/18 17:55 APTT 31 SECONDS (21-34) 04/22/18 17:55
--- NOTE | 2018-05-03 00:29 | CP.PCM.PN ---
<Tara Huitron - Last Filed: 05/03/18 00:28> Subjective - Date & Time of Evaluation Date of Evaluation: 05/03/18 Time of Evaluation: 00:28 - Subjective Subjective: Tara Huitron PGY1 Progress Note for Dr. Calabrese Pt was examined at bedside. He has no complaints. Pt denies chest pain, shortness of breath, abdominal pain, nausea, vomiting, diarrhea, dysuria. Objective - Vital Signs/Intake and Output Vital Signs (last 24 hours): Temp Pulse Resp BP Pulse Ox 98 F 76 20 98/63 L 96 05/02/18 23:55 05/02/18 23:55 05/02/18 23:55 05/02/18 23:55 05/02/18 23:55 Intake and Output: 05/02/18 05/03/18 18:59 06:59 Intake Total 1156 1600 Balance 1156 1600 - Medications Medications: Current Medications Escitalopram Oxalate (Lexapro) 10 mg PO DAILY [facility] Last Admin: 05/02/18 09:23 Dose: 10 mg Fluticasone Propionate (Flonase) 0 spr MIGUEL BID [facility] Last Admin: 05/02/18 17:13 Dose: 1 spr Gabapentin (Neurontin) 300 mg PO TID [facility] Last Admin: 05/02/18 17:14 Dose: 300 mg Heparin Sodium (Porcine) (Heparin) 5,000 units SC Q12H [facility] Last Admin: 04/23/18 21:35 Dose: 5,000 units Clindamycin Phosphate 600 mg/ (Sodium Chloride) 54 mls @ 100 mls/hr IVPB Q8H [facility]; Protocol Last Admin: 05/02/18 18:22 Dose: 100 mls/hr Vancomycin HCl 1,400 mg/ (Sodium Chloride) 500 mls @ 210 mls/hr IVPB Q12H [facility]; Protocol Last Admin: 05/02/18 22:16 Dose: 210 mls/hr Ibuprofen (Motrin Tab) 600 mg PO TID PRN PRN Reason: Pain, Mild (1-3) Last Admin: 05/01/18 17:25 Dose: 600 mg Lorazepam (Ativan) 0.5 mg PO Q8H PRN PRN Reason: Agitation Last Admin: 05/02/18 09:22 Dose: 0.5 mg Methadone HCl (Methadone) 10 mg PO BID [facility] Last Admin: 05/02/18 18:22 Dose: 10 mg Mirtazapine (Remeron) 30 mg PO HS [facility] Last Admin: 05/02/18 22:17 Dose: 30 mg Morphine Sulfate (Morphine) 2 mg IVP Q12H PRN PRN Reason: Pain, moderate (4-7) Last Admin: 05/02/18 22:39 Dose: 2 mg Nicotine (Nicoderm Cq) 1 patch TD DAILY [facility] Last Admin: 05/02/18 09:24 Dose: 1 patch Ondansetron HCl (Zofran Inj) 4 mg IVP Q6 PRN PRN Reason: Nausea/Vomiting Pantoprazole Sodium (Protonix Ec Tab) 40 mg PO DAILY [facility] Last Admin: 05/02/18 09:23 Dose: 40 mg Quetiapine Fumarate (Seroquel) 100 mg PO [facility] Last Admin: 05/02/18 22:17 Dose: 100 mg - Labs Labs: 05/02/18 07:08 05/02/18 07:08 PT 11.8 SECONDS (9.7-12.2) 04/22/18 17:55 INR 1.1 04/22/18 17:55 APTT 31 SECONDS (21-34) 04/22/18 17:55 - Additional Findings Additional findings: - Constitutional Appears: Non-toxic, No Acute Distress - Head Exam Head Exam: ATRAUMATIC, NORMOCEPHALIC - Eye Exam Eye Exam: EOMI - ENT Exam ENT Exam: Mucous Membranes Moist - Respiratory Exam Respiratory Exam: Clear to Ausculation Bilateral. absent: Rhonchi, Wheezes - Cardiovascular Exam Cardiovascular Exam: REGULAR RHYTHM, +S1, +S2 - GI/Abdominal Exam GI & Abdominal Exam: Soft, Normal Bowel Sounds. absent: Tenderness - Extremities Exam Extremities Exam: absent: Pedal Edema, Tenderness - Neurological Exam Neurological Exam: Alert, Awake, Oriented x3 - Psychiatric Exam Psychiatric exam: Normal Affect, Normal Mood - Skin Skin Exam: Dry, Intact Assessment and Plan - Assessment and Plan (Free Text) Assessment: 48 year old male with history of of IVDU, Hep C, and endocarditis (treated) admitted for cellulitis of left hand where he has injected. ECHO shows new vegetation on tricuspid valve with regurg. S/p I&D of L hand abscess 04/24. Pt with PICC line, for IV abx treatment. Plan: Endocarditis - ECHO (04/23): LVEF normal (>50%) with large vegetation on tricuspid valve with moderate to severe tricuspid regurg - PICC inserted 04/25 for long term acute care registered nurse abx. due to patient's IVDU, patient cannot be allowed to AMA until removed. - Gentamicin 80mg IV q8h (started 04/23) - Vancomycin 1.5g IV q12h (started 04/22) - Clindamycin 600mg IV q8h (started 04/23) - ID consulted: Dr. Be burnham appreciated - Cardio consulted: Dr. Tirado - alicja appreciated Cellulitis of R hand - secondary to IVDU - s/p I&D 04/24 - Wound Cx: MRSA - blood Cx (04/22): neg - Clindamycin 600mg IVPB q8 (started 04/23) - Vancomycin 1.4 gm IVPB q12 (started 04/22) - Gentamicin 80mg IV q8h (started 04/23) - Morphine 2mg IVP q12 prn for pain - Ibuprofen 600mg PO TID PRN pain - ID consulted: Dr. Be burnham appreciated - Gen Sx consulted: Dr. 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 Ribeiro - alicja appreciated - all opioids and pain medication per psych (patient cannot be a full strength morphine/opioid pain Rx and methadone at the same time) - Methadone taper per psych - Lexapro 10mg po daily - Ativan 0.5mg po q8 prn for agitation - Seroquel 100mg po HS - Remeron 15mg po HS - Gabapentin 300mg PO TID Tobacco Abuse - Nicotine patch 14mg td daily - Fluticasone protocol dosing PPx DVT: Heparin 5000u sc q12, SCDs GI: Protonix 40mg po daily [facility] Dispo: Patient has PICC line access for IV abx for endocarditis. Patient may not leave with PICC line given history of IV drug use. <Micheal Calabrese H - Last Filed: 05/03/18 17:18> Objective - Vital Signs/Intake and Output Vital Signs (last 24 hours): Temp Pulse Resp BP Pulse Ox 98.1 F 88 20 100/55 L 95 05/03/18 15:00 05/03/18 15:00 05/03/18 15:00 05/03/18 15:00 05/03/18 15:00 Intake and Output: 05/03/18 05/03/18 06:59 18:59 Intake Total 1600 Balance 1600 - Medications Medications: Current Medications Escitalopram Oxalate (Lexapro) 10 mg PO DAILY [facility] Last Admin: 05/03/18 09:03 Dose: 10 mg Fluticasone Propionate (Flonase) 0 spr MIGUEL BID [facility] Last Admin: 05/03/18 09:03 Dose: 1 spr Gabapentin (Neurontin) 300 mg PO TID [facility] Last Admin: 05/03/18 14:08 Dose: 300 mg Heparin Sodium (Porcine) (Heparin) 5,000 units SC Q12H [facility] Last Admin: 04/23/18 21:35 Dose: 5,000 units Clindamycin Phosphate 600 mg/ (Sodium Chloride) 54 mls @ 100 mls/hr IVPB Q8H [facility]; Protocol Last Admin: 05/03/18 11:04 Dose: 100 mls/hr Vancomycin HCl 1,400 mg/ (Sodium Chloride) 500 mls @ 210 mls/hr IVPB Q12H [facility]; Protocol Last Admin: 05/03/18 11:23 Dose: 210 mls/hr Ibuprofen (Motrin Tab) 600 mg PO TID PRN PRN Reason: Pain, Mild (1-3) Last Admin: 05/01/18 17:25 Dose: 600 mg Lorazepam (Ativan) 0.5 mg PO Q8H PRN PRN Reason: Agitation Last Admin: 05/03/18 08:22 Dose: 0.5 mg Methadone HCl (Methadone) 10 mg PO BID [facility] Last Admin: 05/03/18 09:03 Dose: 10 mg Mirtazapine (Remeron) 30 mg PO HS [facility] Last Admin: 05/02/18 22:17 Dose: 30 mg Morphine Sulfate (Morphine) 2 mg IVP Q12H PRN PRN Reason: Pain, moderate (4-7) Last Admin: 05/03/18 11:03 Dose: 2 mg Nicotine (Nicoderm Cq) 1 patch TD DAILY [facility] Last Admin: 05/03/18 09:03 Dose: 1 patch Ondansetron HCl (Zofran Inj) 4 mg IVP Q6 PRN PRN Reason: Nausea/Vomiting Pantoprazole Sodium (Protonix Ec Tab) 40 mg PO DAILY [facility] Last Admin: 05/03/18 09:03 Dose: 40 mg Quetiapine Fumarate (Seroquel) 100 mg PO HS [facility] Last Admin: 05/02/18 22:17 Dose: 100 mg - Labs Labs: 05/03/18 10:49 05/03/18 10:49 PT 11.8 SECONDS (9.7-12.2) 04/22/18 17:55 INR 1.1 04/22/18 17:55 APTT 31 SECONDS (21-34) 04/22/18 17:55 Attending/Attestation - Attestation I have personally seen and examined this patient.: Yes I have fully participated in the care of the patient.: Yes I have reviewed all pertinent clinical information, including history, physical exam and plan: Yes Notes (Text): 05/03/18 17:17 Medical attending: Patient was seen and examined by me. Reviewed the above note by the resident The patient seems to have figured out a way to bring an entire PC game and hook it up to the TV in his room and is now playing games He is observed walking about in the hallway - in particular to the refrigerator Micheal Calabrese
--- NOTE | 2018-05-03 03:38 | PN ---
DATE: 05/02/2018 SUBJECTIVE: The patient was walking over to the nursing station. I discussed with him. He said he was having multiple times to go to the bathroom. He was having very little BM every time. His left arm is less swollen. He says he still had a dressing. He has been on vancomycin, gentamicin and clindamycin. He does have a vegetation; however, his blood cultures came out negative at this time, hence I assume it may be an old vegetation. He is already getting vancomycin, gentamicin and clindamycin for the left arm cellulitis as well as an abscess which was drained, so we will discontinue gentamicin for now and continue vancomycin and clindamycin, but he says he has been going many times to the bathroom. I told him if he starts to have zia diarrhea, we need to stop clindamycin and just continue vancomycin for now. He has no acute events. I wanted to know if there was anything which would be done for the vegetation which I am not sure of as he has been a heroin addict. We need a cardiology eval. PHYSICAL EXAMINATION: VITAL SIGNS: T-max is 98.3, pulse 78, blood pressure is 122/77, respirations are 20. LUNGS: Clear. HEART: S1, S2. Regular. Abdomen: Soft, nontender. No guarding, no rigidity present. EXTREMITIES: Left hand decreasing swelling. He still has a dressing. He says he still has a hole in the hand, so we will wait to see him improve further. LABORATORY DATA: He had MRSA in the wounds. Blood cultures x2 are negative. ASSESSMENT AND PLAN: He did have endocarditis two years ago and he still has a large vegetation and the size is big. Sometimes it can lead to other issues, so Cardiology should be consulted. Discontinue the gentamicin if he continues to improve. He has been on antibiotics for 10 days and we will see if we can discharge him home when cleared by Surgery. Carmella Lr MD
[2018-05-03] MEDS: Fluticasone Nasal 50 mcg/Spray NAS SCH ×2 (09:03→18:14)
[2018-05-03] MEDS: Pantoprazole 40 mg EC Tab PO SCH (09:03)
[2018-05-03 10:59] LABS: BASO % 0.2 % (0.0-2.0); EOS # 0.1 K/uL (0.0-0.7); EOS % 1.8 % (0.0-4.0); HEMOGLOBIN 11.3 g/dL (12.0-18.0); LYMPH # 0.8 K/uL (1.0-4.3); LYMPH % 16.8 % (20.0-40.0); MEAN CORPUSCULAR HEMOGLOBIN 30.2 pg (27.0-31.0); MEAN CORPUSCULAR HGB CONC 34.3 g/dL (33.0-37.0); MEAN PLATELET VOLUME 6.3 fL (7.2-11.7); MONO # 0.5 K/uL (0.0-0.8); NEUT # 3.3 K/uL (1.8-7.0); NEUT % 71.2 % (50.0-75.0); RBC 3.73 Mil/uL (4.40-5.90); RED CELL DISTRIBUTION WIDTH 13.6 % (11.5-14.5); WHITE BLOOD COUNT 4.7 K/uL (4.8-10.8)
[2018-05-03 11:11] LABS: ALB/GLOB RATIO 1.7 (1.0-2.1); ALBUMIN 3.7 g/dL (3.5-5.0); ALT/SGPT 25 U/L (21-72); AST/SGOT 29 U/L (17-59); BLOOD UREA NITROGEN 12 mg/dL (9-20); CALCIUM 8.5 mg/dl (8.6-10.4); GFR NON-AFRICAN AMERICAN > 60
--- NOTE | 2018-05-04 00:14 | CP.PCM.PN ---
<Tara Huitron - Last Filed: 05/04/18 00:12> Subjective - Date & Time of Evaluation Date of Evaluation: 05/04/18 Time of Evaluation: 00:12 - Subjective Subjective: Tara Huitron PGY1 Progress Note for Dr. Calabrese Pt was examined at bedside. He has no complaints. Pt denies chest pain, shortness of breath, abdominal pain, nausea, vomiting, diarrhea, dysuria. Pt states that he feels well and is motivated for the new year. Objective - Vital Signs/Intake and Output Vital Signs (last 24 hours): Temp Pulse Resp BP Pulse Ox 98.1 F 88 20 100/55 L 95 05/03/18 15:00 05/03/18 15:00 05/03/18 15:00 05/03/18 15:00 05/03/18 15:00 Intake and Output: 05/03/18 05/04/18 18:59 06:59 Intake Total 1500 Balance 1500 - Medications Medications: Current Medications Escitalopram Oxalate (Lexapro) 10 mg PO DAILY [facility] Last Admin: 05/03/18 09:03 Dose: 10 mg Fluticasone Propionate (Flonase) 0 spr MIGUEL BID [facility] Last Admin: 05/03/18 18:14 Dose: 2 spr Gabapentin (Neurontin) 300 mg PO TID [facility] Last Admin: 05/03/18 18:15 Dose: 300 mg Heparin Sodium (Porcine) (Heparin) 5,000 units SC Q12H [facility] Last Admin: 04/23/18 21:35 Dose: 5,000 units Clindamycin Phosphate 600 mg/ (Sodium Chloride) 54 mls @ 100 mls/hr IVPB Q8H [facility]; Protocol Last Admin: 05/03/18 18:10 Dose: 100 mls/hr Vancomycin HCl 1,400 mg/ (Sodium Chloride) 500 mls @ 210 mls/hr IVPB Q12H [facility]; Protocol Last Admin: 05/03/18 21:28 Dose: 210 mls/hr Ibuprofen (Motrin Tab) 600 mg PO TID PRN PRN Reason: Pain, Mild (1-3) Last Admin: 05/01/18 17:25 Dose: 600 mg Lorazepam (Ativan) 0.5 mg PO Q8H PRN PRN Reason: Agitation Last Admin: 05/03/18 08:22 Dose: 0.5 mg Methadone HCl (Methadone) 10 mg PO BID [facility] Last Admin: 05/03/18 18:15 Dose: 10 mg Mirtazapine (Remeron) 30 mg PO HS [facility] Last Admin: 05/03/18 21:16 Dose: 30 mg Morphine Sulfate (Morphine) 2 mg IVP Q12H PRN PRN Reason: Pain, moderate (4-7) Last Admin: 05/03/18 23:00 Dose: 2 mg Nicotine (Nicoderm Cq) 1 patch TD DAILY [facility] Last Admin: 05/03/18 09:03 Dose: 1 patch Ondansetron HCl (Zofran Inj) 4 mg IVP Q6 PRN PRN Reason: Nausea/Vomiting Pantoprazole Sodium (Protonix Ec Tab) 40 mg PO DAILY [facility] Last Admin: 05/03/18 09:03 Dose: 40 mg Quetiapine Fumarate (Seroquel) 100 mg PO HS [facility] Last Admin: 05/03/18 21:16 Dose: 100 mg - Labs Labs: 05/03/18 10:49 05/03/18 10:49 PT 11.8 SECONDS (9.7-12.2) 04/22/18 17:55 INR 1.1 04/22/18 17:55 APTT 31 SECONDS (21-34) 04/22/18 17:55 - Additional Findings Additional findings: - Constitutional Appears: Non-toxic, No Acute Distress - Head Exam Head Exam: ATRAUMATIC, NORMOCEPHALIC - Eye Exam Eye Exam: EOMI - ENT Exam ENT Exam: Mucous Membranes Moist - Respiratory Exam Respiratory Exam: Clear to Ausculation Bilateral. absent: Rhonchi, Wheezes - Cardiovascular Exam Cardiovascular Exam: REGULAR RHYTHM, +S1, +S2 - GI/Abdominal Exam GI & Abdominal Exam: Soft, Normal Bowel Sounds. absent: Tenderness - Extremities Exam Extremities Exam: absent: Pedal Edema, Tenderness - Neurological Exam Neurological Exam: Alert, Awake, Oriented x3 - Psychiatric Exam Psychiatric exam: Normal Affect, Normal Mood - Skin Skin Exam: Dry, Intact Assessment and Plan - Assessment and Plan (Free Text) Assessment: 48 year old male with history of of IVDU, Hep C, and endocarditis (treated) admitted for cellulitis of left hand where he has injected. ECHO shows new vegetation on tricuspid valve with regurg. S/p I&D of L hand abscess 04/24. Pt with PICC line, for IV abx treatment. 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 due to patient's IVDU, patient cannot be allowed to AMA until removed. - Vancomycin 1.5g IV q12h (started 04/22) - Clindamycin 600mg IV q8h (started 04/23) - ID consulted: Dr. Be burnham appreciated - Cardio consulted: Dr. Tirado - alicja appreciated Cellulitis of R hand - secondary to IVDU - s/p I&D 04/24 - Wound Cx: MRSA - blood Cx (04/22): neg - Clindamycin 600mg IVPB q8 (started 04/23) - Vancomycin 1.4 gm IVPB q12 (started 04/22) - Morphine 2mg IVP q12 prn for pain - Ibuprofen 600mg PO TID PRN pain - ID consulted: Dr. Be burnham appreciated - Gen Sx consulted: Dr. 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 Ribeiro - alicja appreciated - all opioids and pain medication per psych (patient cannot be a full strength morphine/opioid pain Rx and methadone at the same time) - Methadone taper per psych - Lexapro 10mg po daily - Ativan 0.5mg po q8 prn for agitation - Seroquel 100mg po HS - Remeron 15mg po HS - Gabapentin 300mg PO TID Tobacco Abuse - Nicotine patch 14mg td daily - Fluticasone protocol dosing PPx DVT: Heparin 5000u sc q12, SCDs GI: Protonix 40mg po daily [facility] Dispo: Patient has PICC line access for IV abx for endocarditis. Patient may not leave with PICC line given history of IV drug use. <Micheal Calabrese H - Last Filed: 05/04/18 11:35> Objective - Vital Signs/Intake and Output Vital Signs (last 24 hours): Temp Pulse Resp BP Pulse Ox 98.5 F 83 20 128/78 96 05/04/18 08:00 05/04/18 08:00 05/04/18 08:00 05/04/18 08:00 05/04/18 08:00 Intake and Output: 05/04/18 05/04/18 06:59 18:59 Intake Total 1850 Balance 1850 - Medications Medications: Current Medications Escitalopram Oxalate (Lexapro) 10 mg PO DAILY [facility] Last Admin: 05/04/18 09:29 Dose: 10 mg Fluticasone Propionate (Flonase) 0 spr MIGUEL BID [facility] Last Admin: 05/04/18 09:30 Dose: 1 spr Gabapentin (Neurontin) 300 mg PO TID [facility] Last Admin: 05/04/18 09:30 Dose: 300 mg Heparin Sodium (Porcine) (Heparin) 5,000 units SC Q12H [facility] Last Admin: 04/23/18 21:35 Dose: 5,000 units Clindamycin Phosphate 600 mg/ (Sodium Chloride) 54 mls @ 100 mls/hr IVPB Q8H [facility]; Protocol Last Admin: 05/04/18 11:09 Dose: 100 mls/hr Vancomycin HCl 1,400 mg/ (Sodium Chloride) 500 mls @ 210 mls/hr IVPB Q12H [facility]; Protocol Last Admin: 05/04/18 11:09 Dose: 210 mls/hr Ibuprofen (Motrin Tab) 600 mg PO TID PRN PRN Reason: Pain, Mild (1-3) Last Admin: 05/01/18 17:25 Dose: 600 mg Lorazepam (Ativan) 0.5 mg PO Q8H PRN PRN Reason: Agitation Last Admin: 05/03/18 08:22 Dose: 0.5 mg Methadone HCl (Methadone) 10 mg PO BID [facility] Last Admin: 05/04/18 09:29 Dose: 10 mg Mirtazapine (Remeron) 30 mg PO HS [facility] Last Admin: 05/03/18 21:16 Dose: 30 mg Morphine Sulfate (Morphine) 2 mg IVP Q12H PRN PRN Reason: Pain, moderate (4-7) Last Admin: 05/04/18 11:10 Dose: 2 mg Nicotine (Nicoderm Cq) 1 patch TD DAILY [facility] Last Admin: 05/04/18 09:30 Dose: 1 patch Ondansetron HCl (Zofran Inj) 4 mg IVP Q6 PRN PRN Reason: Nausea/Vomiting Pantoprazole Sodium (Protonix Ec Tab) 40 mg PO DAILY [facility] Last Admin: 05/04/18 11:09 Dose: 40 mg Quetiapine Fumarate (Seroquel) 100 mg PO HS [facility] Last Admin: 05/03/18 21:16 Dose: 100 mg - Labs Labs: 05/04/18 07:42 05/04/18 07:42 PT 11.8 SECONDS (9.7-12.2) 04/22/18 17:55 INR 1.1 04/22/18 17:55 APTT 31 SECONDS (21-34) 04/22/18 17:55 Attending/Attestation - Attestation I have personally seen and examined this patient.: Yes I have fully participated in the care of the patient.: Yes I have reviewed all pertinent clinical information, including history, physical exam and plan: Yes Notes (Text): 05/04/18 11:33 Medical attending: Patient was seen and examined by me. Agree with the above note by resident. The patient is about and walking in the hallway into the refrigerator a lot - he is also playing video games almost all day The next step is to decrease his IV morphine more as he looks very comfortable Micheal Calabrese
[2018-05-04 08:06] LABS: BASO % 0.2 % (0.0-2.0); EOS # 0.1 K/uL (0.0-0.7); EOS % 1.7 % (0.0-4.0); HEMOGLOBIN 11.2 g/dL (12.0-18.0); LYMPH # 0.7 K/uL (1.0-4.3); MEAN CELL VOLUME 87.7 fL (80.0-94.0); MEAN CORPUSCULAR HEMOGLOBIN 30.1 pg (27.0-31.0); MEAN CORPUSCULAR HGB CONC 34.3 g/dL (33.0-37.0); MEAN PLATELET VOLUME 6.6 fL (7.2-11.7); MONO # 0.5 K/uL (0.0-0.8); MONO % 13.7 % (0.0-10.0); NEUT # 2.6 K/uL (1.8-7.0); NEUT % 66.4 % (50.0-75.0); RBC 3.73 Mil/uL (4.40-5.90); RED CELL DISTRIBUTION WIDTH 13.5 % (11.5-14.5); WHITE BLOOD COUNT 3.9 K/uL (4.8-10.8)
[2018-05-04 08:22] LABS: ALB/GLOB RATIO 1.5 (1.0-2.1); ALBUMIN 3.8 g/dL (3.5-5.0); ALT/SGPT 27 U/L (21-72); AST/SGOT 36 U/L (17-59); BLOOD UREA NITROGEN 12 mg/dL (9-20); CALCIUM 8.9 mg/dl (8.6-10.4); GFR NON-AFRICAN AMERICAN > 60
[2018-05-04] MEDS: Fluticasone Nasal 50 mcg/Spray NAS SCH ×2 (09:30→18:51)
[2018-05-04] MEDS: Pantoprazole 40 mg EC Tab PO SCH (11:09)
[2018-05-04] MEDS ORDERED: Bacitracin 500 Units/gm Oint Foilpak UD TOP SCH (18:00)
[2018-05-04] MEDS: Bacitracin 500 Units/gm Oint Foilpak UD TOP SCH (18:00)
[2018-05-05 07:22] LABS: BASO % 0.3 % (0.0-2.0); EOS # 0.1 K/uL (0.0-0.7); EOS % 2.2 % (0.0-4.0); LYMPH % 24.3 % (20.0-40.0); MEAN CELL VOLUME 88.2 fL (80.0-94.0); MEAN CORPUSCULAR HEMOGLOBIN 30.5 pg (27.0-31.0); MEAN CORPUSCULAR HGB CONC 34.6 g/dL (33.0-37.0); MEAN PLATELET VOLUME 6.2 fL (7.2-11.7); MONO # 0.7 K/uL (0.0-0.8); MONO % 17.1 % (0.0-10.0); NEUT # 2.4 K/uL (1.8-7.0); NEUT % 56.1 % (50.0-75.0); NRBC % 0.2 % (0.0-2.0); RBC 4.41 Mil/uL (4.40-5.90); RED CELL DISTRIBUTION WIDTH 13.9 % (11.5-14.5); WHITE BLOOD COUNT 4.2 K/uL (4.8-10.8)
[2018-05-05 07:27] LABS: HEMOGLOBIN 13.5 g/dL (12.0-18.0)
[2018-05-05 07:54] LABS: ALB/GLOB RATIO 1.5 (1.0-2.1); ALBUMIN 4.3 g/dL (3.5-5.0); ALT/SGPT 29 U/L (21-72); AST/SGOT 49 U/L (17-59); BLOOD UREA NITROGEN 14 mg/dL (9-20); CALCIUM 9.2 mg/dl (8.6-10.4); GFR NON-AFRICAN AMERICAN > 60
--- NOTE | 2018-05-05 08:23 | CP.PCM.PN ---
Subjective - Date & Time of Evaluation Date of Evaluation: 05/05/18 Time of Evaluation: 08:20 - Subjective Subjective: Slimjalil Messihortencia PGY1 Progress Note for Dr. Gorman Pt was examined at bedside this morning. He reports some pain when moving his L hand but otherwise has no complaints. He denies chest pain, dizziness, shortness of breath, abdominal pain, nausea, vomiting, diarrhea, dysuria. Objective - Vital Signs/Intake and Output Vital Signs (last 24 hours): Temp Pulse Resp BP Pulse Ox 98.1 F 83 18 105/66 99 05/04/18 23:00 05/04/18 23:00 05/04/18 23:00 05/04/18 23:00 05/04/18 23:00 Intake and Output: 05/05/18 05/05/18 06:59 18:59 Intake Total 1800 Balance 1800 - Medications Medications: Current Medications Bacitracin (Bacitracin) 1 ea TOP BID [facility] Last Admin: 05/04/18 18:00 Dose: 1 ea Escitalopram Oxalate (Lexapro) 10 mg PO DAILY [facility] Last Admin: 05/04/18 09:29 Dose: 10 mg Fluticasone Propionate (Flonase) 0 spr MIGUEL BID [facility] Last Admin: 05/04/18 18:51 Dose: 2 spr Gabapentin (Neurontin) 300 mg PO TID [facility] Last Admin: 05/04/18 17:58 Dose: 300 mg Heparin Sodium (Porcine) (Heparin) 5,000 units SC Q12H [facility] Last Admin: 04/23/18 21:35 Dose: 5,000 units Clindamycin Phosphate 600 mg/ (Sodium Chloride) 54 mls @ 100 mls/hr IVPB Q8H [facility]; Protocol Last Admin: 05/05/18 01:11 Dose: 100 mls/hr Vancomycin HCl 1,400 mg/ (Sodium Chloride) 500 mls @ 210 mls/hr IVPB Q12H [facility]; Protocol Last Admin: 05/04/18 21:49 Dose: 210 mls/hr Ibuprofen (Motrin Tab) 600 mg PO TID PRN PRN Reason: Pain, Mild (1-3) Last Admin: 05/01/18 17:25 Dose: 600 mg Lorazepam (Ativan) 0.5 mg PO Q8H PRN PRN Reason: Agitation Last Admin: 05/04/18 12:16 Dose: 0.5 mg Methadone HCl (Methadone) 10 mg PO BID [facility] Last Admin: 05/04/18 17:58 Dose: 10 mg Mirtazapine (Remeron) 30 mg PO HS [facility] Last Admin: 05/04/18 21:51 Dose: 30 mg Morphine Sulfate (Morphine) 2 mg IVP Q12H PRN PRN Reason: Pain, moderate (4-7) Last Admin: 05/04/18 23:15 Dose: 2 mg Nicotine (Nicoderm Cq) 1 patch TD DAILY [facility] Last Admin: 05/04/18 09:30 Dose: 1 patch Ondansetron HCl (Zofran Inj) 4 mg IVP Q6 PRN PRN Reason: Nausea/Vomiting Pantoprazole Sodium (Protonix Ec Tab) 40 mg PO DAILY [facility] Last Admin: 05/04/18 11:09 Dose: 40 mg Quetiapine Fumarate (Seroquel) 100 mg PO HS [facility] Last Admin: 05/04/18 21:51 Dose: 100 mg - Labs Labs: 05/05/18 07:14 05/05/18 07:14 PT 11.8 SECONDS (9.7-12.2) 04/22/18 17:55 INR 1.1 04/22/18 17:55 APTT 31 SECONDS (21-34) 04/22/18 17:55 - Additional Findings Additional findings: - Constitutional Appears: Non-toxic, No Acute Distress - Head Exam Head Exam: ATRAUMATIC, NORMOCEPHALIC - Eye Exam Eye Exam: EOMI - ENT Exam ENT Exam: Mucous Membranes Moist - Respiratory Exam Respiratory Exam: Clear to Ausculation Bilateral. absent: Rhonchi, Wheezes - Cardiovascular Exam Cardiovascular Exam: REGULAR RHYTHM, +S1, +S2 - GI/Abdominal Exam GI & Abdominal Exam: Soft, Normal Bowel Sounds. absent: Tenderness - Extremities Exam Extremities Exam: absent: Pedal Edema, Tenderness L hand dressing clean/dry/intact, no erythema or edema or drainage - Neurological Exam Neurological Exam: Alert, Awake, Oriented x3 - Psychiatric Exam Psychiatric exam: Normal Affect, Normal Mood - Skin Skin Exam: Dry, Intact Assessment and Plan - Assessment and Plan (Free Text) Assessment: 48 year old male with history of of IVDU, Hep C, and endocarditis (treated) a dmitted for cellulitis of left hand where he has injected. ECHO shows new vegetation on tricuspid valve with regurg. S/p I&D of L hand abscess 04/24. Pt with PICC line, for IV abx treatment. Plan: Endocarditis - ECHO (04/23): LVEF normal (>50%) with large vegetation on tricuspid valve with moderate to severe tricuspid regurg - PICC inserted 04/25 for correction abx. due to patient's IVDU, patient cannot be allowed to AMA until removed. - Vancomycin 1.5g IV q12h (started 04/22) - Clindamycin 600mg IV q8h (started 04/23) - ID consulted: Dr. Be burnham appreciated - Cardio consulted: Dr. Tirado - help appreciated Cellulitis of R hand - secondary to IVDU - s/p I&D 04/24 - Wound Cx: MRSA - blood Cx (04/22): neg - Clindamycin 600mg IVPB q8 (started 04/23) - Vancomycin 1.4 gm IVPB q12 (started 04/22) - Morphine 2mg IVP q12 prn for pain - Ibuprofen 600mg PO TID PRN pain - ID consulted: Dr. Be burnham appreciated - Gen Sx consulted: Dr. 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 Ribeiro - alicja appreciated - all opioids and pain medication per psych (patient cannot be a full strength morphine/opioid pain Rx and methadone at the same time) - Methadone taper per psych - Lexapro 10mg po daily - Ativan 0.5mg po q8 prn for agitation - Seroquel 100mg po HS - Remeron 15mg po HS - Gabapentin 300mg PO TID Tobacco Abuse - Nicotine patch 14mg td daily - Fluticasone protocol dosing PPx DVT: Heparin 5000u sc q12, SCDs GI: Protonix 40mg po daily [facility] Dispo: Patient has PICC line access for IV abx for endocarditis. Patient may not leave with PICC line given history of IV drug use.
[2018-05-05] MEDS: Fluticasone Nasal 50 mcg/Spray NAS SCH (09:26)
[2018-05-05] MEDS: Pantoprazole 40 mg EC Tab PO SCH (09:28)
[2018-05-05] MEDS: Bacitracin 500 Units/gm Oint Foilpak UD TOP SCH (09:29)
[2018-05-05 09:47] VITALS: BP 101/68; PULSE 71; RESP 20; TEMP 98.5; O2SAT 95
--- NOTE | 2018-05-05 13:53 | CP.PCM.DIS ---
<Tara Huitron - Last Filed: 05/05/18 13:53> Provider - Provider Date of Admission: 04/22/18 16:49 Attending physician: Pratik Gorman MD Consults: 04/22/18 15:27 General Surgery Consult Stat Comment: Consulting Provider: Ez Metcalf Consulting Physician: Ez Metcalf Reason for Consult: LEFT hand cellulitis/abscess 04/22/18 17:38 Infectious Disease Consult Routine Comment: Consulting Provider: Carmella Moses Consulting Physician: Carmella Moses Reason for Consult: pt w/ h/o IVDU, L hand cellulitis 04/22/18 17:46 Psychiatry Consult Routine Comment: Consulting Provider: Imtiaz Ribeiro Consulting Physician: Imtiaz Ribeiro Reason for Consult: pt w/ h/o IV drug use presenting w/ cellulitis 04/23/18 15:09 Physician Consult Routine Comment: Consulting Provider: Nate Tirado Consulting Physician: Nate Tirado Reason for Consult: large tricupid valve vegetation 04/28/18 15:39 Wound Care [Nursing Referral for Wound Care] Routine Comment: Physician Instructions: dressing instruction Reason For Exam: L arm cellulitis post I&D Time Spent in preparation of Discharge (in minutes): 70 Hospital Course - Lab Results Lab Results: Micro Results 04/22/18 16:08 Blood Blood Culture - Final NO GROWTH AFTER 5 DAYS 04/22/18 16:08 Blood Gram Stain - Final TEST NOT PERFORMED 04/22/18 15:44 Blood Blood Culture - Final NO GROWTH AFTER 5 DAYS 04/22/18 15:44 Blood Gram Stain - Final TEST NOT PERFORMED 04/24/18 14:44 Abscess - Second Gram Stain - Final 04/24/18 14:44 Abscess - Second Wound Culture - Final Methicillin Resistant S Aureus 04/24/18 14:44 Abscess - First Gram Stain - Final 04/24/18 14:44 Abscess - First Wound Culture - Final Methicillin Resistant S Aureus Most Recent Lab Values WBC 4.2 K/uL (4.8-10.8) L 05/05/18 07:14 RBC 4.41 Mil/uL (4.40-5.90) 05/05/18 07:14 Hgb 13.5 g/dL (12.0-18.0) D 05/05/18 07:14 Hct 38.9 % (35.0-51.0) 05/05/18 07:14 MCV 88.2 fL (80.0-94.0) 05/05/18 07:14 MCH 30.5 pg (27.0-31.0) 05/05/18 07:14 MCHC 34.6 g/dL (33.0-37.0) 05/05/18 07:14 RDW 13.9 % (11.5-14.5) 05/05/18 07:14 Plt Count 172 K/uL (130-400) 05/05/18 07:14 MPV 6.2 fL (7.2-11.7) L 05/05/18 07:14 Neut % (Auto) 56.1 % (50.0-75.0) 05/05/18 07:14 Lymph % (Auto) 24.3 % (20.0-40.0) 05/05/18 07:14 Mckinley % (Auto) 17.1 % (0.0-10.0) H 05/05/18 07:14 Eos % (Auto) 2.2 % (0.0-4.0) 05/05/18 07:14 Baso % (Auto) 0.3 % (0.0-2.0) 05/05/18 07:14 Neut # (Auto) 2.4 K/uL (1.8-7.0) 05/05/18 07:14 Lymph # (Auto) 1.0 K/uL (1.0-4.3) 05/05/18 07:14 Mckinley # (Auto) 0.7 K/uL (0.0-0.8) 05/05/18 07:14 Eos # (Auto) 0.1 K/uL (0.0-0.7) 05/05/18 07:14 Baso # (Auto) 0.0 K/uL (0.0-0.2) 05/05/18 07:14 ESR Cancelled 04/22/18 15:35 PT 11.8 SECONDS (9.7-12.2) 04/22/18 17:55 INR 1.1 04/22/18 17:55 APTT 31 SECONDS (21-34) 04/22/18 17:55 Sodium 135 mmol/L (132-148) 05/05/18 07:14 Potassium 4.6 mmol/L (3.6-5.2) 05/05/18 07:14 Chloride 97 mmol/L (98-107) L 05/05/18 07:14 Carbon Dioxide 30 mmol/L (22-30) 05/05/18 07:14 Anion Gap 12 (10-20) 05/05/18 07:14 BUN 14 mg/dL (9-20) 05/05/18 07:14 Creatinine 0.9 mg/dL (0.8-1.5) 05/05/18 07:14 Est GFR ( Amer) > 60 05/05/18 07:14 Est GFR (Non-Af Amer) > 60 05/05/18 07:14 POC Glucose (mg/dL) 119 mg/dL (65-110) H 04/24/18 07:27 Random Glucose 92 mg/dL (75-110) 05/05/18 07:14 Lactic Acid 1.3 mmol/L (0.7-2.1) 04/22/18 15:35 Calcium 9.2 mg/dl (8.6-10.4) 05/05/18 07:14 Phosphorus 4.9 mg/dL (2.5-4.5) H 04/27/18 07:50 Magnesium 1.9 mg/dL (1.6-2.3) 04/27/18 07:50 Total Bilirubin 0.4 mg/dL (0.2-1.3) 05/05/18 07:14 AST 49 U/L (17-59) 05/05/18 07:14 ALT 29 U/L (21-72) 05/05/18 07:14 Alkaline Phosphatase 80 U/L (38-126) 05/05/18 07:14 Total Creatine Kinase 38 U/L (55-170) L 04/22/18 15:35 Total Protein 7.1 g/dL (6.3-8.3) 05/05/18 07:14 Albumin 4.3 g/dL (3.5-5.0) 05/05/18 07:14 Globulin 2.8 gm/dL (2.2-3.9) 05/05/18 07:14 Albumin/Globulin Ratio 1.5 (1.0-2.1) 05/05/18 07:14 Gentamicin Trough < 0.6 ug/mL (0.0-0.9) 04/24/18 17:00 Vancomycin Trough 19.2 ug/mL (5.0-10.0) H 04/27/18 07:50 Urine Opiates Screen Negative (NEGATIVE) 04/22/18 18:19 Urine Methadone Screen Negative (NEGATIVE) 04/22/18 18:19 Ur Barbiturates Screen Negative (NEGATIVE) 04/22/18 18:19 Ur Phencyclidine Scrn Negative (NEGATIVE) 04/22/18 18:19 Ur Amphetamines Screen Negative (NEGATIVE) 04/22/18 18:19 U Benzodiazepines Scrn Negative (NEGATIVE) 04/22/18 18:19 U Oth Cocaine Metabols Negative (NEGATIVE) 04/22/18 18:19 U Cannabinoids Screen Negative (NEGATIVE) 04/22/18 18:19 Alcohol, Quantitative < 10 mg/dl (0-10) 04/22/18 15:35 - Hospital Course Hospital Course: Upon Admission: Patient is a 48yo M with PMH of IVDA, Hep C, and endocarditis (treated) presenting to ED with L hand pain for 1 week. He reports it began when his frien d used a needle that he thought was clean to inject him with heroin. The pain became progressively worse, and the hand began to swell and turn red. He reports using fentanyl and motrin at home for the pain, which helps temporarily. He reports associated chills, decreased range of motion. He denies numbness or tingling in the hand. He reports a previous history of this 1 year ago which was treated with IV antibiotics and I&D. He currently rates the pain 9/10, and describes it as a burning pain. He denies fever, shortness of breath, chest pain, abdominal pain, nausea, vomiting, diarrhea, dysuria. Pt was found to have an abscess on the L hand secondary to IV drug use. He was admitted for the abscess. Hospital Course: Pt continued to be afebrile throughout his hospital course. General Surgery was consulted and performed an I&D on the L hand. Wound Culture grew MRSA. ID was consulted and started the patient on IV Vanco, Gentamycin, and Clinda. Pt received a PICC line. 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 Cardio was consulted and recommended outpatient follow up for intervention. Psych was consulted for pt's drug use history and started pt on methodone taper. Abscess in the L hand improved. Pt remained afebrile without leukocytosis. Pt was deemed stable for discharge. Upon Discharge: Pt was discharged with Clindamycin and Flagyl for 10 days, as per ID. He was instructed to keep his wound clean with soap and water and bacitracin and to follow up with Dr. Metcalf. PICC line was removed from patient prior to discharge. Pt was dicharged without any methodone, as per psych recommendations. Pt was instructed to stop taking drugs, at it will worsen his condition. Pt understood instructions and agreed. Discharge Exam - Head Exam Head Exam: ATRAUMATIC, NORMOCEPHALIC - Eye Exam Eye Exam: EOMI, PERRL Pupil Exam: NORMAL ACCOMODATION - Respiratory Exam Respiratory Exam: Clear to PA & Lateral, NORMAL BREATHING PATTERN. absent: Decreased Breath Sounds, Rales, Rhonchi, Wheezes - Cardiovascular Exam Cardiovascular Exam: REGULAR RHYTHM, +S1, +S2. absent: Gallop, Rubs, Systolic Murmur - GI/Abdominal Exam GI & Abdominal Exam: Normal Bowel Sounds, Soft. absent: Distended, Firm, Tenderness - Extremities Exam Additional comments: LUE: abscess of L hand markedly improved. Incision site clean/dry/intact. No erythema or drainage. ROM in LUE intact. - Neurological Exam Neurological exam: Alert, CN II-XII Intact, Oriented x3 - Psychiatric Exam Psychiatric exam: Normal Affect, Normal Mood Discharge Plan - Discharge Medications Prescriptions: Bacitracin 1 ea TOP BID #30 g Clindamycin [Cleocin] 300 mg PO TID #30 cap Escitalopram [Lexapro] 10 mg PO DAILY #30 tab Metronidazole [Flagyl] 250 mg PO TID #30 tablet Mirtazapine [Remeron] 30 mg PO HS #30 tab Nicotine 14 mg/24 hr [Nicoderm CQ] 1 patch TD DAILY #30 patch QUEtiapine [Seroquel] 100 mg PO HS #30 tab - Follow Up Plan Condition: GUARDED Disposition: HOME/ ROUTINE Instructions: Endocarditis, Clindamycin (Systemic), Metronidazole (Systemic), Quitting Smoking, Cellulitis (Skin Infection), Adult (DC), Escitalopram, Quetiapine Additional Instructions: Please follow up with primary care at the [facility] within 1 week. Please call [phone] to make an appointment. Please follow up with Dr. Metcalf, surgery within 1 week. Please call to make an appointment. Please follow up with Cardiology at [facility] for the vegetation on your heart valve. Please wash your wound with soap and water daily. Please put bacitracin on it daily and cover it with a bandaid. Please take your medications as prescribed. Please take the clindamycin 3 times a day for 10 days. Please take the metronidazole 3 times a day for 10 days. Please refrain from using drugs as it will worsen your condition. Please return to the emergency department if symptoms return. Take care and be well. <Pratik Gormna - Last Filed: 05/05/18 17:30> Provider - Provider Date of Admission: 04/22/18 16:49 Attending physician: Pratik Gorman MD Consults: 04/22/18 15:27 General Surgery Consult Stat Comment: Consulting Provider: Ez Metcalf Consulting Physician: Ez Metcalf Reason for Consult: LEFT hand cellulitis/abscess 04/22/18 17:38 Infectious Disease Consult Routine Comment: Consulting Provider: Carmella Moses Consulting Physician: Carmella Moses Reason for Consult: pt w/ h/o IVDU, L hand cellulitis 04/22/18 17:46 Psychiatry Consult Routine Comment: Consulting Provider: Imtiaz Ribeiro Consulting Physician: Imtiaz Ribeiro Reason for Consult: pt w/ h/o IV drug use presenting w/ cellulitis 04/23/18 15:09 Physician Consult Routine Comment: Consulting Provider: Nate Tirado Consulting Physician: Nate Tirado Reason for Consult: large tricupid valve vegetation 04/28/18 15:39 Wound Care [Nursing Referral for Wound Care] Routine Comment: Physician Instructions: dressing instruction Reason For Exam: L arm cellulitis post I&D Hospital Course - Lab Results Lab Results: Micro Results 04/22/18 16:08 Blood Blood Culture - Final NO GROWTH AFTER 5 DAYS 04/22/18 16:08 Blood Gram Stain - Final TEST NOT PERFORMED 04/22/18 15:44 Blood Blood Culture - Final NO GROWTH AFTER 5 DAYS 04/22/18 15:44 Blood Gram Stain - Final TEST NOT PERFORMED 04/24/18 14:44 Abscess - Second Gram Stain - Final 04/24/18 14:44 Abscess - Second Wound Culture - Final Methicillin Resistant S Aureus 04/24/18 14:44 Abscess - First Gram Stain - Final 04/24/18 14:44 Abscess - First Wound Culture - Final Methicillin Resistant S Aureus Most Recent Lab Values WBC 4.2 K/uL (4.8-10.8) L 05/05/18 07:14 RBC 4.41 Mil/uL (4.40-5.90) 05/05/18 07:14 Hgb 13.5 g/dL (12.0-18.0) D 05/05/18 07:14 Hct 38.9 % (35.0-51.0) 05/05/18 07:14 MCV 88.2 fL (80.0-94.0) 05/05/18 07:14 MCH 30.5 pg (27.0-31.0) 05/05/18 07:14 MCHC 34.6 g/dL (33.0-37.0) 05/05/18 07:14 RDW 13.9 % (11.5-14.5) 05/05/18 07:14 Plt Count 172 K/uL (130-400) 05/05/18 07:14 MPV 6.2 fL (7.2-11.7) L 05/05/18 07:14 Neut % (Auto) 56.1 % (50.0-75.0) 05/05/18 07:14 Lymph % (Auto) 24.3 % (20.0-40.0) 05/05/18 07:14 Mckinley % (Auto) 17.1 % (0.0-10.0) H 05/05/18 07:14 Eos % (Auto) 2.2 % (0.0-4.0) 05/05/18 07:14 Baso % (Auto) 0.3 % (0.0-2.0) 05/05/18 07:14 Neut # (Auto) 2.4 K/uL (1.8-7.0) 05/05/18 07:14 Lymph # (Auto) 1.0 K/uL (1.0-4.3) 05/05/18 07:14 Mckinley # (Auto) 0.7 K/uL (0.0-0.8) 05/05/18 07:14 Eos # (Auto) 0.1 K/uL (0.0-0.7) 05/05/18 07:14 Baso # (Auto) 0.0 K/uL (0.0-0.2) 05/05/18 07:14 ESR Cancelled 04/22/18 15:35 PT 11.8 SECONDS (9.7-12.2) 04/22/18 17:55 INR 1.1 04/22/18 17:55 APTT 31 SECONDS (21-34) 04/22/18 17:55 Sodium 135 mmol/L (132-148) 05/05/18 07:14 Potassium 4.6 mmol/L (3.6-5.2) 05/05/18 07:14 Chloride 97 mmol/L (98-107) L 05/05/18 07:14 Carbon Dioxide 30 mmol/L (22-30) 05/05/18 07:14 Anion Gap 12 (10-20) 05/05/18 07:14 BUN 14 mg/dL (9-20) 05/05/18 07:14 Creatinine 0.9 mg/dL (0.8-1.5) 05/05/18 07:14 Est GFR ( Amer) > 60 05/05/18 07:14 Est GFR (Non-Af Amer) > 60 05/05/18 07:14 POC Glucose (mg/dL) 119 mg/dL (65-110) H 04/24/18 07:27 Random Glucose 92 mg/dL (75-110) 05/05/18 07:14 Lactic Acid 1.3 mmol/L (0.7-2.1) 04/22/18 15:35 Calcium 9.2 mg/dl (8.6-10.4) 05/05/18 07:14 Phosphorus 4.9 mg/dL (2.5-4.5) H 04/27/18 07:50 Magnesium 1.9 mg/dL (1.6-2.3) 04/27/18 07:50 Total Bilirubin 0.4 mg/dL (0.2-1.3) 05/05/18 07:14 AST 49 U/L (17-59) 05/05/18 07:14 ALT 29 U/L (21-72) 05/05/18 07:14 Alkaline Phosphatase 80 U/L (38-126) 05/05/18 07:14 Total Creatine Kinase 38 U/L (55-170) L 04/22/18 15:35 Total Protein 7.1 g/dL (6.3-8.3) 05/05/18 07:14 Albumin 4.3 g/dL (3.5-5.0) 05/05/18 07:14 Globulin 2.8 gm/dL (2.2-3.9) 05/05/18 07:14 Albumin/Globulin Ratio 1.5 (1.0-2.1) 05/05/18 07:14 Gentamicin Trough < 0.6 ug/mL (0.0-0.9) 04/24/18 17:00 Vancomycin Trough 19.2 ug/mL (5.0-10.0) H 04/27/18 07:50 Urine Opiates Screen Negative (NEGATIVE) 04/22/18 18:19 Urine Methadone Screen Negative (NEGATIVE) 04/22/18 18:19 Ur Barbiturates Screen Negative (NEGATIVE) 04/22/18 18:19 Ur Phencyclidine Scrn Negative (NEGATIVE) 04/22/18 18:19 Ur Amphetamines Screen Negative (NEGATIVE) 04/22/18 18:19 U Benzodiazepines Scrn Negative (NEGATIVE) 04/22/18 18:19 U Oth Cocaine Metabols Negative (NEGATIVE) 04/22/18 18:19 U Cannabinoids Screen Negative (NEGATIVE) 04/22/18 18:19 Alcohol, Quantitative < 10 mg/dl (0-10) 04/22/18 15:35 Attending/Attestation - Attestation I have personally seen and examined this patient.: Yes I have fully participated in the care of the patient.: Yes I have reviewed all pertinent clinical information, including history, physical exam and plan: Yes Notes (Text): Patient was seen and examined.His hand showed significANT IMPROVEMENT. SURGEON CLEARED FOR DISCHARGE. DISCHARGE ON 10DAYS OF FLAGYL AND CLINDA PER DR MOSES PATIENT WAS ASKED TO STOP USING DRUGS AND FOLLOW HOME ORGANIZER. HE WANTS TO SEE HOME ORGANIZER AT [facility] FOR HIS VEGETATION AND FOR EVALUATION OF SURGICAL INTERVENSION SPOKE TO DR GOMEZ .HE RECOMMEND TO DISCHARGE HIM WITHOUT OUT PATIENT METHADONE. HE HAD 10MG THIS MORNING PICC LINE REMOVED
[2018-05-05] MEDS ORDERED: Influenza Vaccine 60 MCG/0.5 ML SYR (3 yr & up) IM ONE (14:33)
[2018-05-05] MEDS ORDERED: Pneumococcal 23-Valent Vaccine IM ONE (14:34)
== END 2018-05-05 17:05 | disposition home or self-care (01) | DRG 383 ==
LOC: C.ER 14:35 → C.3T 16:49
PROVIDERS: ADMIT Internal Medicine; ATTEND Internal Medicine
PROC: HZ2ZZZZ Detoxification Services for Substance Abuse Treatment (ICD-10-PCS; principal; 2018-04-22)
PROC: HZ52ZZZ Individual Psychotherapy for Substance Abuse Treatment, Cognitive-Behavioral (ICD-10-PCS; 2018-04-22)
PROC: HZ59ZZZ Individual Psychotherapy for Substance Abuse Treatment, Supportive (ICD-10-PCS; 2018-04-22)
PROC: HZ56ZZZ Individual Psychotherapy for Substance Abuse Treatment, Psychoeducation (ICD-10-PCS; 2018-04-22)
PROC: HZ42ZZZ Group Counseling for Substance Abuse Treatment, Cognitive-Behavioral (ICD-10-PCS; 2018-04-22)
PROC: HZ46ZZZ Group Counseling for Substance Abuse Treatment, Psychoeducation (ICD-10-PCS; 2018-04-22)
PROC: GZHZZZZ Group Psychotherapy (ICD-10-PCS; 2018-04-22)
PROC: GZ58ZZZ Individual Psychotherapy, Cognitive-Behavioral (ICD-10-PCS; 2018-04-22)
PROC: GZ56ZZZ Individual Psychotherapy, Supportive (ICD-10-PCS; 2018-04-22)
PROC: 0H9GXZX Drainage of Left Hand Skin, External Approach, Diagnostic (ICD-10-PCS; 2018-04-24)
PROC: 0H9EXZX Drainage of Left Lower Arm Skin, External Approach, Diagnostic (ICD-10-PCS; 2018-04-24)
PROC: 02HV33Z Insertion of Infusion Device into Superior Vena Cava, Percutaneous Approach (ICD-10-PCS; 2018-04-25)
DX: L03.114 Cellulitis of left upper limb (principal); F14.20 Cocaine dependence, uncomplicated; B19.20 Unspecified viral hepatitis C without hepatic coma; F11.23 Opioid dependence with withdrawal; F13.90 Sedative, hypnotic, or anxiolytic use, unspecified, uncomplicated; Z86.711 Personal history of pulmonary embolism; L02.512 Cutaneous abscess of left hand; Z87.891 Personal history of nicotine dependence; K21.9 Gastro-esophageal reflux disease without esophagitis; B95.62 Methicillin resistant Staphylococcus aureus infection as the cause of diseases classified elsewhere